=== PATIENT | female | born 1940 ===

== ENCOUNTER 2017-02-20 12:51 | Inpatient (IN) | payer MEDICARE, MEDICAID ==
[2017-02-20 12:51] VITALS: BMI 33.3
[2017-02-20] MEDS ORDERED: Piperacillin/Tazobact 3.375 gm 100 ML IVPB STA (13:23)
[2017-02-20] MEDS ORDERED: Vancomycin 1gm in NS 250ml 1 GM/250 ML BAG IVPB STA (13:23)
--- NOTE | 2017-02-20 13:25 | ED PDOC ---
Arrival/HPI - General Chief Complaint: Shortness Of Breath Time Seen by Provider: 02/20/17 13:04 Historian: Patient - History of Present Illness Narrative History of Present Illness (Text): 02/20/17 13:26 A 76 year old female, whose past medical history includes Alzheimer's, hypertension and diabetes, presents to the emergency department complaining of shortness of breath, bilateral leg swelling and pain. Patient's son reports patient had a fever of 101 a few days ago, currently resolved. Son also believes patient has a UTI. Patient denies any abdominal pain or any other complaints at this time. PMD: Dr. Hendricks Symptom Onset: Sudden Symptom Course: Unchanged Activities at Onset: Rest Context: Home Past Medical History - Provider Review Nursing Documentation Reviewed: Yes - Infectious Disease Hx of Infectious Diseases: None - Tetanus Immunization Tetanus Immunization: Unknown - Cardiac Hx Cardiac Disorders: Yes Hx Congestive Heart Failure: Yes Hx Hypertension: Yes - Pulmonary Hx Respiratory Disorders: Yes Hx Chronic Obstructive Pulmonary Disease (COPD): Yes - Neurological Hx Neurological Disorder: Yes Hx Alzheimer's Disease: Yes Hx Dementia: Yes - HEENT Hx HEENT Disorder: No - Renal Hx Renal Disorder: No - Endocrine/Metabolic Hx Endocrine Disorders: Yes Hx Diabetes Mellitus Type 1: Yes Hx Diabetes Mellitus Type 2: Yes - Hematological/Oncological Hx Blood Disorders: No - Integumentary Hx Dermatological Disorder: No - Musculoskeletal/Rheumatological Hx Musculoskeletal Disorders: Yes Hx Falls: Yes Hx Unsteady Gait: Yes - Gastrointestinal Hx Gastrointestinal Disorders: No - Genitourinary/Gynecological Hx Genitourinary Disorders: Yes Hx Incontinence: Yes Other/Comment: 2WF PLACED IN ER 04/11/16 - Psychiatric Hx Psychophysiologic Disorder: Yes Hx Depression: Yes Hx Emotional Abuse: No Hx Physical Abuse: No Hx Substance Use: No - Surgical History Hx Joint Replacement: Yes (BILATERAL KNEE) Hx Orthopedic Surgery: Yes Other/Comment: manfred filter - Anesthesia Hx Anesthesia: Yes Hx Anesthesia Reactions: No Hx Malignant Hyperthermia: No - Suicidal Assessment Feels Threatened In Home Enviroment: No Family/Social History - Physician Review Nursing Documentation Reviewed: Yes Family/Social History: No Known Family HX Smoking Status: Never Smoked Hx Alcohol Use: No Hx Substance Use: No Hx Substance Use Treatment: No Allergies/Home Meds Allergies/Adverse Reactions: Allergies cortisone Allergy (Verified 02/20/17 13:10) RASH Home Medications: Home Meds Medication Instructions Recorded Confirmed Atorvastatin Calcium 10 mg PO DAILY 11/12/13 02/20/17 Rivastigmine 9.5 mg/24 hr [Exelon 9.5 mg TD DAILY 11/12/13 02/20/17 9.5 mg/24 hr Patch] Sitagliptin Phosphate [Januvia] 50 mg PO DAILY 11/12/13 02/20/17 Aspirin [Adult Low Dose Aspirin EC] 81 mg PO DAILY 04/11/16 02/20/17 Calcium Carbonate/Vitamin D3 1 tab PO BID 04/11/16 02/20/17 [Oysco 500 + D 500 mg-200 Iu] Carvedilol [Coreg] 25 mg PO BID 04/11/16 02/20/17 Docusate Sodium [Ernandez' Stool 100 mg PO TID 04/11/16 02/20/17 Softener Laxative] Famotidine [Pepcid] 20 mg PO DAILY 04/11/16 02/20/17 Ferrous Sulfate [Feosol] 325 mg PO DAILY 04/11/16 02/20/17 Furosemide [Lasix] 40 mg PO BID 04/11/16 02/20/17 GlipiZIDE [Glipizide] 10 mg PO DAILY 04/11/16 02/20/17 Memantine HCl [Namenda Xr] 28 mg PO DAILY 04/11/16 02/20/17 Multivit with Iron-Minerals 1 tab PO DAILY 04/11/16 02/20/17 [Multilex] Sertraline [Zoloft] 50 mg PO HS 04/11/16 02/20/17 amLODIPine [Norvasc] 5 mg PO DAILY 04/11/16 02/20/17 hydrALAZINE [hydralazine 25 mg PO QID 04/11/16 02/20/17 Hydrochloride] Review of Systems - Physician Review All systems were reviewed & negative as marked: Yes - Review of Systems Constitutional: Fevers (currently resolved) Respiratory: SOB Gastrointestinal: absent: Abdominal Pain Musculoskeletal: Other (bilateral leg swelling and pain) Physical Exam Vital Signs Reviewed: Yes Vital Signs Temp Pulse Resp BP Pulse Ox 02/20/17 17:46 73 17 150/77 97 02/20/17 15:30 60 16 154/66 H 99 02/20/17 13:08 97.9 F 69 18 145/64 96 Temperature: Afebrile Blood Pressure: Normal Pulse: Regular Respiratory Rate: Normal Appearance: Positive for: Well-Appearing, Non-Toxic, Comfortable Pain Distress: None Mental Status: Positive for: Alert and Oriented X 3 - Systems Exam Head: Present: Atraumatic, Normocephalic Pupils: Present: PERRL Extroacular Muscles: Present: EOMI Conjunctiva: Present: Normal Mouth: Present: Moist Mucous Membranes Neck: Present: Normal Range of Motion Respiratory/Chest: Present: Rales (bilateral crackles at base). No: Respiratory Distress, Accessory Muscle Use Cardiovascular: Present: Regular Rate and Rhythm, Normal S1, S2. No: Murmurs Abdomen: Present: Normal Bowel Sounds. No: Tenderness, Distention, Peritoneal Signs Back: Present: Normal Inspection Upper Extremity: Present: Normal Inspection. No: Cyanosis, Edema Lower Extremity: Present: Swelling (bilateral leg) Neurological: Present: GCS=15, CN II-XII Intact, Speech Normal Skin: Present: Warm, Dry, Normal Color. No: Rashes Psychiatric: Present: Alert, Oriented x 3, Normal Insight, Normal Concentration Medical Decision Making ED Course and Treatment: 02/20/17 13:23 Impression: A 76 year old female with shortness of breath, bilateral leg swelling and pain. Plan: -- EKG -- chest xray -- US bilateral lower extremity -- CT angio chest -- labs -- Urinalysis -- Vancomycin, Zosyn, Solumedrol -- Reassess and disposition Prior Visits: Notes and results from previous visits were reviewed. Patient last reported to the emergency department on 04/11/16 for evaluation of increased lethargy. Progress Notes: EKG: Ordered, reviewed, and independently interpreted the EKG. Rate : 66 BPM Rhythm : NSR Interpretation : No ST/T wave changes 02/20/17 17:14 CT Chest with contrast (Pulmonary Angiogram) Creator : Osmany Torres MD FINDINGS: PULMONARY ARTERIES: Study is suboptimal due to equal enhancement of the aorta and pulmonary arteries. The. No definitive filling defects seen within visualized portions of the pulmonary trunk, right and left main, lobar, segmental or proximal subsegmental branches of the pulmonary arteries. AORTA: The at ascending thoracic aorta measures approximately 3.5 cm and descending thoracic aorta measures approximately 3.5 cm. ; the possibility of underlying mild pulmonary arterial hypertension and to be at excluded. LUNGS: Mild atelectasis and or scarring changes both lung bases. PLEURAL SPACES: Unremarkable. No effusion or pneumothorax. HEART: Heart is enlarged. No significant pericardial effusion. LYMPH NODES: No significant mediastinal or hilar adenopathy BONES, CHEST WALL: Central airways are midline and patent. No endobronchial lesions. Unremarkable. No fracture or destructive lesion seen. Multilevel degenerative spondylosis of the thoracic spine. OTHER FINDINGS: There is a small hiatal hernia with wall thickening of the distal esophagus that could be due to protrusion gastric mucosa. Esophagitis or other intrinsic/invasive wall lesion such as esophageal carcinoma not excluded. Clinical correlation recommended. Endoscopy may be prudent. 3.1 cm elliptical shaped hypodense right adrenal mass that felt to represent adenoma. Sang IMPRESSION: Limited study demonstrating no evidence of pulmonary embolus. . Prominent pulmonary artery; rule pulmonary arterial hypertension. Cardiomegaly. Small hiatal hernia with wall thickening of the distal esophagus that could be due to protrusion of gastric mucosa. Esophagitis or other intrinsic/invasive wall lesion including esophageal carcinoma not excluded. Endoscopy followup may be prudent. Low-attenuation right adrenal mass felt to represent adrenal adenoma 02/20/17 18:04 chest xray: Creator : Osmany Torres MD FINDINGS: LUNGS: Central pulmonary vasculature appears slightly increased. Rule out mild chronic compensated pulmonary edema/CHF. PLEURA: No significant pleural effusion identified, no pneumothorax apparent. CARDIOVASCULAR: Heart size is enlarged. . OSSEOUS STRUCTURES: No significant abnormalities. VISUALIZED UPPER ABDOMEN: Normal. IMPRESSION: Central pulmonary vasculature appears slightly increased ; rule out mild chronic compensated pulmonary edema/ CHF. - Lab Interpretations Lab Results: 02/20/17 13:25 02/20/17 13:25 Lab Results 02/20/17 15:10: pCO2 53 H, pO2 93.0, HCO3 33.6 H, ABG pH 7.41, ABG Total CO2 35.2 H, ABG O2 Saturation 98.6 H, ABG Base Excess 7.6 H, ABG Potassium 3.2 L, Sodium 143.0, Chloride 103.0, Glucose 283 H, Lactate 1.4, FiO2 28.0, Arterial Blood Potassium 3.2 L 02/20/17 13:25: Sodium 141, Chloride 95 L, Potassium 3.7, Carbon Dioxide 37 H, Anion Gap 13, BUN 27 H, Creatinine 1.0, Est GFR ( Amer) > 60, Est GFR ( Non-Af Amer) 54, Random Glucose 295 H, Calcium 9.4, Magnesium 1.8, Total Bilirubin 0.6, AST 26, ALT 19, Alkaline Phosphatase 115, Lactate Dehydrogenase 442, Total Creatine Kinase 52, Troponin I < 0.01, NT-Pro-B Natriuret Pep 398, Total Protein 7.9, Albumin 3.8, Globulin 4.1, Albumin/Globulin Ratio 0.9 L 02/20/17 13:25: PT 11.3, INR 1.05, APTT 36.9 H, D-Dimer, Quantitative 3.67 H 02/20/17 13:25: WBC 7.6, RBC 3.98, Hgb 11.0 L, Hct 34.4 L, MCV 86.4, MCH 27.6, MCHC 32.0, RDW 13.7, Plt Count 172, MPV 10.5, Gran % 66.0, Lymph % (Auto) 21.7 L , Ellis % (Auto) 9.9 H, Eos % (Auto) 2.1, Baso % (Auto) 0.3, Gran # 4.98, Lymph # 1.6, Ellis # 0.8 H, Eos # 0.2, Baso # 0.02 02/20/17 13:25: pO2 42, VBG pH 7.36, VBG pCO2 74.0 H*, VBG HCO3 41.8 H, VBG Total CO2 44.1 H, VBG O2 Sat (Calc) 80.2 H, VBG Base Excess 13.5 H, VBG Potassium 3.4 L, Sodium 141.0, Chloride 99.0, Glucose 277 H, Lactate 1.8, FiO2 21.0, Venous Blood Potassium 3.4 L I have reviewed the lab results: Yes - RAD Interpretation Radiology Orders: 02/20/17 13:15 CHEST PORTABLE [RAD] Stat 02/20/17 13:23 DUPLEX LOWER EXTRM VEIN BILAT [US] Stat 02/20/17 15:10 ANGIO CHEST PE PROTOCOL [CT] Stat - EKG Interpretation Interpreted by ED Physician: Yes Type: 12 lead EKG - Medication Orders Current Medication Orders: Albuterol/Ipratropium (Duoneb 3 Mg/0.5 Mg (3 Ml) Ud) 3 ml IH [id number] [facility] Last Admin: 02/20/17 19:15 Dose: 3 ml Amlodipine Besylate (Norvasc) 5 mg PO DAILY [facility] Aspirin (Ecotrin) 81 mg PO DAILY [facility] Atorvastatin Calcium (Lipitor) 10 mg PO DAILY [facility] Benzonatate (Tessalon Perles) 100 mg PO Q8 [facility] Calcium/Vitamin D (Oscal-D 250 Mg-125 Units Tab) 1 tab PO BID [facility] Last Admin: 02/20/17 18:48 Dose: 1 tab Carvedilol (Coreg) 25 mg PO BID [facility] Last Admin: 02/20/17 18:48 Dose: 25 mg Docusate Sodium (Colace) 100 mg PO TID [facility] Last Admin: 02/20/17 18:48 Dose: 100 mg Furosemide (Lasix) 40 mg PO BID [facility] Last Admin: 02/20/17 18:49 Dose: 40 mg Heparin Sodium (Porcine) (Heparin) 5,000 units SC Q12 [facility] PRN Reason: Protocol Hydralazine HCl (Apresoline) 25 mg PO QID [facility] Last Admin: 02/20/17 18:49 Dose: 25 mg Piperacillin Sod/Tazobactam Sod (Zosyn 3.375 In Ns 100ml) 100 mls @ 200 mls/hr IVPB Q6 [facility] PRN Reason: Protocol Stop: 02/25/17 00:01 Insulin Human Regular (Humulin R Med) 0 units SC ACHS [facility] PRN Reason: Protocol Methylprednisolone (Solu-Medrol) 40 mg IVP Q12 [facility] Multivitamins/Minerals (Therapeutic-M Tab) 1 tab PO DAILY [facility] Non-Formulary Medication (Memantine Hcl [Namenda Xr]) 28 mg PO DAILY [facility] Pantoprazole Sodium (Protonix Ec Tab) 40 mg PO 0600 [facility] Potassium Chloride (K-Dur 20 Meq Er Tab) 20 meq PO DAILY [facility] Rivastigmine (Exelon 9.5 Mg/24 Hr Patch) 1 patch TD DAILY [facility] Sertraline HCl (Zoloft) 50 mg PO HS [facility] Discontinued Medications Albuterol/Ipratropium (Duoneb 3 Mg/0.5 Mg (3 Ml) Ud) 3 ml IH STAT STA Stop: 02/20/17 17:17 Vancomycin HCl (Vancomycin 1gm) 1 gm in 250 mls @ 167 mls/hr IVPB STAT STA PRN Reason: Protocol Stop: 08/27/17 14:52 Last Admin: 02/20/17 15:40 Dose: 167 mls/hr Piperacillin Sod/Tazobactam Sod (Zosyn 3.375 In Ns 100ml) 100 mls @ 200 mls/hr IVPB STAT STA PRN Reason: Protocol Stop: 02/20/17 13:52 Last Admin: 02/20/17 14:16 Dose: 200 mls/hr Iohexol (Omnipaque 350 100 Ml) Confirm Administered Dose 350 mg .ROUTE .STK-MED ONE Stop: 02/20/17 15:57 Methylprednisolone (Solu-Medrol) 125 mg IVP STAT STA Stop: 02/20/17 13:45 Last Admin: 02/20/17 14:16 Dose: 125 mg - Scribe Statement The provider has reviewed the documentation as recorded by the Maddison Gonzalez Provider Scribe Attestation: All medical record entries made by the Scribe were at my direction and personally dictated by me. I have reviewed the chart and agree that the record accurately reflects my personal performance of the history, physical exam, medical decision making, and the department course for this patient. I have also personally directed, reviewed, and agree with the discharge instructions and disposition. Disposition/Present on Arrival - Present on Arrival Any Indicators Present on Arrival: No History of DVT/PE: Yes History of Uncontrolled Diabetes: No Urinary Catheter: No History of Decub. Ulcer: No History Surgical Site Infection Following: None - Disposition Have Diagnosis and Disposition been Completed?: Yes Diagnosis: COPD (chronic obstructive pulmonary disease), Cellulitis, Leg edema, UTI ( urinary tract infection), Hypercarbia Disposition: HOSPITALIZED Disposition Time: 05:00 Condition: FAIR
[2017-02-20 13:39] LABS: BASO # 0.02 K/mm3 (0.0-2.0); BASO % 0.3 % (0.0-3.0); EOS # 0.2 (0.0-0.7); EOS % 2.1 % (1.5-5.0); GRAN # 4.98 (1.4-6.5); HEMATOCRIT 34.4 % (36.0-48.0); LYMPH # 1.6 (1.2-3.4); LYMPH % 21.7 % (22.0-35.0); MEAN CELL VOLUME 86.4 fl (80.0-105.0); MEAN CORPUSCULAR HEMOGLOBIN 27.6 pg (25.0-35.0); MEAN PLATELET VOLUME 10.5 fl (7.0-11.0); MONO # 0.8 (0.1-0.6); MONO % 9.9 % (1.0-6.0); RED CELL DISTRIBUTION WIDTH 13.7 % (11.5-14.5); WHITE BLOOD COUNT 7.6 10^3/ul (4.5-11.0)
[2017-02-20 13:41] LABS: VENOUS BLOOD GAS BASE EXCESS 13.5 mmol/L (0.0-2.0); VENOUS BLOOD PH 7.36 (7.32-7.43)
[2017-02-20 13:52] LABS: INR 1.05 (0.93-1.08); PARTIAL THROMBOPLASTIN TIME 36.9 Seconds (23.7-30.8)
[2017-02-20 13:56] LABS: D DIMER 3.67 mg/L FEU (0-0.50)
[2017-02-20 15:06] LABS: ALB/GLOB RATIO 0.9 (1.1-1.8); ALKALINE PHOSPHATASE 115 U/L (38-133); ALT/SGPT 19 U/L (7-56); AST/SGOT 26 U/L (15-39); BILIRUBIN,TOTAL 0.6 mg/dL (0.2-1.3); BLOOD UREA NITROGEN 27 mg/dL (7-21); CALCIUM 9.4 mg/dL (8.4-10.5); CARBON DIOXIDE 37 mmol/L (21-33); CHLORIDE 95 mmol/L (98-107); GFR AFRICAN-AMERICAN > 60; GLUCOSE,RANDOM 295 mg/dL (70-110); MAGNESIUM 1.8 mg/dL (1.7-2.2); POTASSIUM 3.7 mmol/L (3.6-5.0); SODIUM 141 mmol/L (132-148); TOTAL PROTEIN 7.9 g/dL (5.8-8.3)
[2017-02-20 15:22] LABS: ARTERIAL BLOOD GAS HCO3 33.6 mmol/L (21-28); ARTERIAL BLOOD GAS PH 7.41 (7.35-7.45)
[2017-02-20 15:23] LABS: TROPONIN I < 0.01 ng/mL
[2017-02-20] MEDS ORDERED: Iohexol 350 MG/100 ML VIAL ONE (15:56)
--- NOTE | 2017-02-20 17:13 | CT ---
PROCEDURE: CT Chest with contrast (Pulmonary Angiogram) HISTORY: Shortness of breath. Elevated dimer COMPARISON: None available. TECHNIQUE: Axial computed tomography images were obtained of the chest in the pulmonary arterial phase of enhancement. Coronal and sagittal reformatted images were created and reviewed. Intravenous contrast dose: 100 cc Omnipaque 350 Radiation dose: Total exam DLP = 764.47 mGy-cm. This CT exam was performed using one or more of the following dose reduction techniques: Automated exposure control, adjustment of the mA and/or kV according to patient size, and/or use of iterative reconstruction technique. FINDINGS: PULMONARY ARTERIES: Study is suboptimal due to equal enhancement of the aorta and pulmonary arteries. The. No definitive filling defects seen within visualized portions of the pulmonary trunk, right and left main, lobar, segmental or proximal subsegmental branches of the pulmonary arteries. AORTA: The at ascending thoracic aorta measures approximately 3.5 cm and descending thoracic aorta measures approximately 3.5 cm. ; the possibility of underlying mild pulmonary arterial hypertension and to be at excluded. LUNGS: Mild atelectasis and or scarring changes both lung bases. PLEURAL SPACES: Unremarkable. No effusion or pneumothorax. HEART: Heart is enlarged. No significant pericardial effusion. LYMPH NODES: No significant mediastinal or hilar adenopathy BONES, CHEST WALL: Central airways are midline and patent. No endobronchial lesions. Unremarkable. No fracture or destructive lesion seen. Multilevel degenerative spondylosis of the thoracic spine. OTHER FINDINGS: There is a small hiatal hernia with wall thickening of the distal esophagus that could be due to protrusion gastric mucosa. Esophagitis or other intrinsic/invasive wall lesion such as esophageal carcinoma not excluded. Clinical correlation recommended. Endoscopy may be prudent. 3.1 cm elliptical shaped hypodense right adrenal mass that felt to represent adenoma. Sang IMPRESSION: Limited study demonstrating no evidence of pulmonary embolus. . Prominent pulmonary artery; rule pulmonary arterial hypertension. Cardiomegaly. Small hiatal hernia with wall thickening of the distal esophagus that could be due to protrusion of gastric mucosa. Esophagitis or other intrinsic/invasive wall lesion including esophageal carcinoma not excluded. Endoscopy followup may be prudent. Low-attenuation right adrenal mass felt to represent adrenal adenoma
[2017-02-20] MEDS ORDERED: Albuterol-Ipratrop 3 mg / 0.5 (3 ml) UD IH STA (17:16)
[2017-02-20 17:44] LABS: URINE BILIRUBIN NEGATIVE (NEGATIVE); URINE BLOOD NEGATIVE (NEGATIVE); URINE GLUCOSE (UA) 100 mg/dL (NEGATIVE); URINE KETONE NEGATIVE (NEGATIVE); URINE LEUKOCYTE ESTERASE NEGATIVE Leu/uL (NEGATIVE); URINE PROTEIN NEGATIVE mg/dL (<30 mg/dL); URINE UROBILINOGEN 0.2 E.U./dL (<1 E.U./dL)
[2017-02-20 17:46] LABS: URINE APPEARANCE CLEAR (CLEAR); URINE COLOR LIGHT YELLOW (YELLOW)
[2017-02-20 17:53] LABS: URINE BACTERIA MANY (NEG); URINE EPITHELIAL CELLS 0 - 2 /hpf (0-5); URINE WBC 0 - 2 /hpf (0-6)
--- NOTE | 2017-02-20 18:01 | RAD ---
HISTORY: sob COMPARISON: This study was read in conjunction with the subsequent CTA chest 02/20/2017 FINDINGS: LUNGS: Central pulmonary vasculature appears slightly increased. Rule out mild chronic compensated pulmonary edema/CHF. PLEURA: No significant pleural effusion identified, no pneumothorax apparent. CARDIOVASCULAR: Heart size is enlarged. . OSSEOUS STRUCTURES: No significant abnormalities. VISUALIZED UPPER ABDOMEN: Normal. OTHER FINDINGS: None. IMPRESSION: Central pulmonary vasculature appears slightly increased ; rule out mild chronic compensated pulmonary edema/ CHF.
[2017-02-20] MEDS: Calcium-Vit D 250 mg-125 Units Tab UD PO SCH (18:48)
[2017-02-20] MEDS: Albuterol-Ipratrop 3 mg / 0.5 (3 ml) UD IH SCH ×2 (19:15→23:22)
--- NOTE | 2017-02-20 19:47 | CP.PCM.HP ---
<JoaquinDomingo barron - Last Filed: 02/20/17 19:29> History of Present Illness - History of Present Illness History of Present Illness: 76 F with a PMHx specifically significant for COPD, Ashma, DM, and Morbid Obesity, presents with a 4 day history of SOB. She also complains of b/l LE swelling and RLE pain. Patient's son at bedside providing history and translation. Patient states that she started having sob 4 days ago, took her albuterol inhaler to no avail. In addition, a few days ago her son states that she had a fever of 101 at home, for which she took Robitussin and Tylenol, and it improved. Patient further complains of a productive cough with yellow sputum. Her b/l LE swelling has occurred several times before, which have resulted [place] [facility] [place] states that there is discoloration of her legs bilaterally as well. Pt denies current CP/F/Ch/N/V/D/Const. PMD: Reisner PMHx: Alzheimer's, HTN, DM, Recurrent b/l LE Cellulitis, DVTs PSHx: Pt denies All: Cortisone Soc Hx: Pt is a past smoker; denies EtOH, illicits Fam Hx: HTN, HLD, DM ROS: Constitutional: pt denies fever, chills, generalized weakness ENT: pt denies dysphagia, otalgia, hearing deficit, rhinorrhea Eyes: pt denies sudden loss of vision, diplopia, blurred vision MSK: pt denies muscle stiffness, joint pain, extremity cramping Cardio: pt denies sob, heart murmur, cp Pulm: +See HPI GI: pt denies loss of appetite, abdominal pain, constipation, melena, n/v/d : pt denies burning on urination, urinary frequency, hematuria, urinary urgency Neuro: pt denies paresis, paresthesia, dizziness, colmenares, numbness, tingling Derm: +See HPI Endo: pt denies intolerance to heat/cold, diaphoresis, night sweats, polydipsia Psych: pt denies anxiety, depression, mood changes Present on Admission - Present on Admission Any Indicators Present on Admission: No Past Patient History - Infectious Disease Hx of Infectious Diseases: None - Tetanus Immunizations Tetanus Immunization: Unknown - Past Social History Smoking Status: Never Smoked - CARDIAC Hx Cardiac Disorders: Yes Hx Congestive Heart Failure: Yes Hx Hypertension: Yes - PULMONARY Hx Respiratory Disorders: Yes Hx Chronic Obstructive Pulmonary Disease (COPD): Yes - NEUROLOGICAL Hx Neurological Disorder: Yes Hx Alzheimer's Disease: Yes Hx Dementia: Yes - HEENT Hx HEENT Problems: No - RENAL Hx Chronic Kidney Disease: No - ENDOCRINE/METABOLIC Hx Endocrine Disorders: Yes Hx Diabetes Mellitus Type 1: Yes Hx Diabetes Mellitus Type 2: Yes - HEMATOLOGICAL/ONCOLOGICAL Hx Blood Disorders: No - INTEGUMENTARY Hx Dermatological Problems: No - MUSCULOSKELETAL/RHEUMATOLOGICAL Hx Musculoskeletal Disorders: Yes Hx Falls: Yes Hx Unsteady Gait: Yes - GASTROINTESTINAL Hx Gastrointestinal Disorders: No - GENITOURINARY/GYNECOLOGICAL Hx Genitourinary Disorders: Yes Hx Incontinence: Yes Other/Comment: 2WF PLACED IN ER 04/11/16 - PSYCHIATRIC Hx Psychophysiologic Disorder: Yes Hx Depression: Yes Hx Emotional Abuse: No Hx Physical Abuse: No Hx Substance Use: No - SURGICAL HISTORY Hx Joint Replacement: Yes (BILATERAL KNEE) Hx Orthopedic Surgery: Yes Other/Comment: [place] filter - ANESTHESIA Hx Anesthesia: Yes Hx Anesthesia Reactions: No Hx Malignant Hyperthermia: No Meds Home Medications: Home Medication List Medication Instructions Recorded Confirmed Type Albuterol/Ipratropium [Duoneb 3 3 ml IH [id number] 02/23/17 Rx mg/0.5 mg (3 ml) UD] Armodafinil 150 mg Tab [Nuvigil 150 mg PO DAILY #30 tab 02/23/17 Rx 150 mg Tab] Cephalexin [cephalexin] 500 mg PO Q12 #12 cap 02/23/17 Rx Clotrimazole 1% Cream [Lotrimin 1%] 1 appl TOP BID 30 Days 02/23/17 Rx Hydrocerin [Hydrocerin Cream] 1 appl TOP DAILY 30 Days 02/23/17 Rx Methylprednisolone [Medrol Dose See Taper PO DAILY #21 mg 02/23/17 Rx Pack (21 tabs)] Montelukast [Singulair] 10 mg PO HS #30 tab 02/23/17 Rx Allergies/Adverse Reactions: Allergies Allergy/AdvReac Type Severity Reaction Status Date / Time cortisone Allergy RASH Verified 02/20/17 13:10 Physical Exam - Additional Findings Additional findings: Phys Exam: VS as below Constitutional: a&o x 4, nad Head and Neck: neck supple, no jvd, trachea midline, carotid midline, no cervical/head mass Eyes: allyn, nonicteric sclera, eom intact ENT: auditory acuity grossly intact, throat not congested, no nasal deformity Cardio: rrr, no m/r/g, no carotid bruit, nml s1, s2 Pulm: +Decreased breath sounds b/l; Diffuse wheezes bilaterally; Abd: s/nt/nd, nbs x 4 q, no palpable masses Derm: +See Extremities exam Extr: +B/l LE 3+ pitting edema; +RLE TTP; +Dark discoloration within skin folds in b/l LE; Neuro: cn II-XII grossly intact, ue and le 5/5 muscle strength bilaterally, no los ue, le bilaterally and core Results - Vital Signs Recent Vital Signs: Last Vital Signs Temp 97.9 F 02/20/17 13:08 Pulse 80 02/20/17 19:16 Resp 17 02/20/17 17:46 BP 153/77 H 02/20/17 18:49 Pulse Ox 97 02/20/17 17:46 - Labs Result Diagrams: 02/20/17 13:25 02/20/17 13:25 Labs: Laboratory Results - last 24 hr 02/20/17 02/20/17 17:30 18:50 APTT 38.4 H Urine Color Light yellow Urine Appearance Clear Urine pH 7.0 Ur Specific [place] 1.015 Urine Protein Negative Urine Glucose (UA) 100 H Urine Ketones Negative Urine Blood Negative Urine Nitrate Positive H Urine Bilirubin Negative Urine Urobilinogen 0.2 Ur Leukocyte Esterase Negative Urine RBC 1 - 3 Urine WBC 0 - 2 Ur Epithelial Cells 0 - 2 Urine Bacteria Many Assessment & Plan - Assessment and Plan (Free Text) Assessment: 76 F with a PMHx specifically significant for COPD, Ashma, DM, and Morbid Obesity, presents with a 4 day history of SOB. Pt also has b/l LE pitting edema and discoloration indicative of cellulitis. Plan: 1.) Asthma Exacerbation VS COPD Exacerbation VS CHF Exacerbation - Duonebs q2H PRN and q6 GELACIO - Solumedrol - Tessalon Perles - ABx: per ID, Vanc and Zosyn - ID C/s: Follow recs - 2.) B/l LE Swelling 2/2 Cellulitis VS DVT - D-dimer elevated, but CT negative - Consider CTA - C/w Lasix - C/w KDur - ID C/s - ABx per ID: Vanc, Zosyn 3.) Hx/O HLD - C/w ASA - C/w Lipitor 4.) Hx/O HTN - C/w Norvasc - C/w Coreg - C/w Lasix - C/w Hydralazine 5.) Hx/O DM - RISS Medium 6.) Hx/O Alzheimer's - Rivastigmine 7.) Hx/O Depression - Zoloft 8.) PPHXS - Protonix - Heparin PPHXS dose Dispo: Patient has had several admissions for the same thing. Need to resolve infection and sob. D/W Dr. Ramsey TKS, DO, PGY - 1 <Patel Ramsey - Last Filed: 03/10/17 18:33> Results - Vital Signs Recent Vital Signs: Last Vital Signs Temp 98 F 02/22/17 11:51 Pulse 60 02/22/17 11:51 Resp 18 02/22/17 11:51 BP 170/80 H 02/22/17 13:06 Pulse Ox 92 L 02/22/17 06:00 - Labs Result Diagrams: 02/23/17 05:20 02/23/17 05:20 Labs: Laboratory Results - last 24 hr 02/22/17 02/22/17 05:10 05:10 WBC 7.3 D RBC 3.87 Hgb 10.4 L Hct 33.5 L MCV 86.6 MCH 26.9 MCHC 31.0 RDW 13.7 Plt Count 173 MPV 10.1 Gran % 84.1 H Lymph % (Auto) 11.4 L Weld % (Auto) 4.4 Eos % (Auto) 0.0 L Baso % (Auto) 0.1 Gran # 6.13 Lymph # 0.8 L Weld # 0.3 Eos # 0.0 Baso # 0.01 Sodium 141 Potassium 3.6 Chloride 97 Carbon Dioxide 36 H Anion Gap 12 BUN 36 H Creatinine 1.1 Est GFR ( Amer) 58 Est GFR (Non-Af Amer) 48 Random Glucose 330 H* Calcium 9.0 Phosphorus 3.6 Magnesium 2.0 Total Bilirubin 0.6 AST 39 ALT 12 Alkaline Phosphatase 92 Total Protein 7.7 Albumin 3.5 Globulin 4.2 Albumin/Globulin Ratio 0.8 L Attending/Attestation - Attestation I have personally seen and examined this patient.: Yes I have fully participated in the care of the patient.: Yes I have reviewed all pertinent clinical information: Yes Notes (Text): I have seen and examined the patiet at bedside. Agree with the above note with the following additions/ exceptions: Briefly this is 76 year old female with history of COPD, Ashma, DM, depression, tobacco use, dyslipidemia, severe cognitive impairment and Morbid Obesity who presented for evaluation of shortness of breath, bilateral LE pain and swelling. D dimer was found to be elevated and CT scan was done which ruled out PE. Patient was found to have COPD exacerbation. Solumedrol, nebs and IV antibiotics was started. Will consult podiatry and ID. Upon discharge patient will follow up with Dr Dru Hendricks. Dr Patel Ramsey
--- NOTE | 2017-02-20 20:40 | CP.PCM.CON ---
History of Present Illness - History of Present Illness History of Present Illness: Infectious Disease Consultation: February 20, 2017 76 yo female with bilateral lower extremity swelling and right lower extremity pain with episodes of SOB and fevers of 101.0 F. She also has a productive cough. Signs of chronic venous stasis on the lower extremities. Shortness of breath started 4 days ago. The patient had some improvement at home with robitussin and tylenol as per the patient. PMHx: Alzheimer's, Hypertension, Diabetes Mellitus, DVTs, Chronic Venous Stasis. PSHx: none given Allergies: Cortisone Social Hx: former smoker, No EtOH, No illicit drugs Active Medications Albuterol/Ipratropium (Duoneb 3 Mg/0.5 Mg (3 Ml) Ud) [id number] [facility] Last Admin: 02/20/17 19:15 Dose: 3 ml Amlodipine Besylate (Norvasc) [address] [facility] Aspirin (Ecotrin) [address] [facility] Atorvastatin Calcium (Lipitor) [address] [facility] Benzonatate (Tessalon Perles) [address] [facility] Calcium/Vitamin D (Oscal-D 250 Mg-125 Units Tab) [address] [facility] Last Admin: 02/20/17 18:48 Dose: 1 tab Carvedilol (Coreg) [address] [facility] Last Admin: 02/20/17 18:48 Dose: 25 mg Docusate Sodium (Colace) [address] [facility] Last Admin: 02/20/17 18:48 Dose: 100 mg Furosemide (Lasix) [address] [facility] Last Admin: 02/20/17 18:49 Dose: 40 mg Heparin Sodium (Porcine) (Heparin) 5,[address] [facility] PRN Reason: Protocol Hydralazine HCl (Apresoline) [address] [facility] Last Admin: 02/20/17 18:49 Dose: 25 mg Insulin Human Regular (Humulin R Med) [address] [facility] PRN Reason: Protocol Methylprednisolone (Solu-Medrol) [address] [facility] Multivitamins/Minerals (Therapeutic-M Tab) [address] [facility] Non-Formulary Medication (Memantine Hcl [Namenda Xr]) [address] [facility] Pantoprazole Sodium (Protonix Ec Tab) [address] [facility] Potassium Chloride (K-Dur 20 Meq Er Tab) [address] [facility] Rivastigmine (Exelon 9.5 Mg/24 Hr Patch) [address] [facility] Sertraline HCl (Zoloft) 50 mg PO HS GELACIO Family Hx: family members with Hypertension, hyperlipidemia, and diabetes mellitus ROS: Cough, SOB, fevers, leg pains. No chest pain, abdominal pain, melena, hematuria , hematemesis, hematochezia, depression, anxiety, diarrhea, vision loss, hearing loss, loss of consciousness. Past Patient History - Infectious Disease Hx of Infectious Diseases: None - Tetanus Immunizations Tetanus Immunization: Unknown - Past Social History Smoking Status: Never Smoked - CARDIAC Hx Cardiac Disorders: Yes Hx Congestive Heart Failure: Yes Hx Hypertension: Yes - PULMONARY Hx Respiratory Disorders: Yes Hx Chronic Obstructive Pulmonary Disease (COPD): Yes - NEUROLOGICAL Hx Neurological Disorder: Yes Hx Alzheimer's Disease: Yes Hx Dementia: Yes - HEENT Hx HEENT Problems: No - RENAL Hx Chronic Kidney Disease: No - ENDOCRINE/METABOLIC Hx Endocrine Disorders: Yes Hx Diabetes Mellitus Type 1: Yes Hx Diabetes Mellitus Type 2: Yes - HEMATOLOGICAL/ONCOLOGICAL Hx Blood Disorders: No - INTEGUMENTARY Hx Dermatological Problems: No - MUSCULOSKELETAL/RHEUMATOLOGICAL Hx Musculoskeletal Disorders: Yes Hx Falls: Yes Hx Unsteady Gait: Yes - GASTROINTESTINAL Hx Gastrointestinal Disorders: No - GENITOURINARY/GYNECOLOGICAL Hx Genitourinary Disorders: Yes Hx Incontinence: Yes Other/Comment: 2WF PLACED IN ER 04/11/16 - PSYCHIATRIC Hx Psychophysiologic Disorder: Yes Hx Depression: Yes Hx Emotional Abuse: No Hx Physical Abuse: No Hx Substance Use: No - SURGICAL HISTORY Hx Joint Replacement: Yes (BILATERAL KNEE) Hx Orthopedic Surgery: Yes Other/Comment: [place] filter - ANESTHESIA Hx Anesthesia: Yes Hx Anesthesia Reactions: No Hx Malignant Hyperthermia: No Meds Allergies/Adverse Reactions: Allergies Allergy/AdvReac Type Severity Reaction Status Date / Time cortisone Allergy RASH Verified 02/20/17 13:10 - Medications Medications: Current Medications Albuterol/Ipratropium (Duoneb 3 Mg/0.5 Mg (3 Ml) Ud) [id number] [facility] Last Admin: 02/20/17 19:15 Dose: 3 ml Amlodipine Besylate (Norvasc) [address] [facility] Aspirin (Ecotrin) [address] [facility] Atorvastatin Calcium (Lipitor) [address] [facility] Benzonatate (Tessalon Perles) [address] [facility] Calcium/Vitamin D (Oscal-D 250 Mg-125 Units Tab) [address] [facility] Last Admin: 02/20/17 18:48 Dose: 1 tab Carvedilol (Coreg) [address] [facility] Last Admin: 02/20/17 18:48 Dose: 25 mg Docusate Sodium (Colace) [address] [facility] Last Admin: 02/20/17 18:48 Dose: 100 mg Furosemide (Lasix) [address] [facility] Last Admin: 02/20/17 18:49 Dose: 40 mg Heparin Sodium (Porcine) (Heparin) 5,[address] [facility] PRN Reason: Protocol Hydralazine HCl (Apresoline) [address] [facility] Last Admin: 02/20/17 18:49 Dose: 25 mg Insulin Human Regular (Humulin R Med) [address] [facility] PRN Reason: Protocol Methylprednisolone (Solu-Medrol) [address] [facility] Multivitamins/Minerals (Therapeutic-M Tab) [address] [facility] Non-Formulary Medication (Memantine Hcl [Namenda Xr]) [address] [facility] Pantoprazole Sodium (Protonix Ec Tab) [address] [facility] Potassium Chloride (K-Dur 20 Meq Er Tab) [address] [facility] Rivastigmine (Exelon 9.5 Mg/24 Hr Patch) [address] [facility] Sertraline HCl (Zoloft) [address] [facility] Physical Exam - Constitutional Appears: Non-toxic, No Acute Distress, Chronically Ill - Head Exam Head Exam: ATRAUMATIC, NORMOCEPHALIC - Eye Exam Eye Exam: EOMI, PERRL Pupil Exam: NORMAL ACCOMODATION, PERRL - ENT Exam ENT Exam: Mucous Membranes Moist, Normal External Ear Exam, TM's Normal Bilaterally - Neck Exam Neck exam: Positive for: Full Rom, Normal Inspection - Respiratory Exam Respiratory Exam: Clear to Auscultation Bilateral, NORMAL BREATHING PATTERN. absent: Rales, Rhonchi, Wheezes - Cardiovascular Exam Cardiovascular Exam: REGULAR RHYTHM, RRR, +S1, +S2 - GI/Abdominal Exam GI & Abdominal Exam: Normal Bowel Sounds, Soft. absent: Distended, Tenderness - Extremities Exam Extremities exam: Positive for: full ROM, joint swelling, pedal edema Additional comments: erythema and swelling of the lower extremities. - Neurological Exam Neurological exam: Alert, CN II-XII Intact, Oriented x3 - Psychiatric Exam Psychiatric exam: Normal Affect, Normal Mood - Skin Skin Exam: Erythema Results - Vital Signs Recent Vital Signs: Last Vital Signs Temp 97.9 F 02/20/17 13:08 Pulse 80 02/20/17 19:16 Resp 17 02/20/17 17:46 BP 153/77 H 02/20/17 18:49 Pulse Ox 97 02/20/17 17:46 - Labs Result Diagrams: 02/20/17 13:25 02/20/17 13:25 Labs: Laboratory Results - last 24 hr 02/20/17 02/20/17 02/20/17 17:30 18:50 18:50 APTT 38.4 H TSH 3rd Generation 1.29 Urine Color Light yellow Urine Appearance Clear Urine pH 7.0 Ur Specific [place] 1.015 Urine Protein Negative Urine Glucose (UA) 100 H Urine Ketones Negative Urine Blood Negative Urine Nitrate Positive H Urine Bilirubin Negative Urine Urobilinogen 0.2 Ur Leukocyte Esterase Negative Urine RBC 1 - 3 Urine WBC 0 - 2 Ur Epithelial Cells 0 - 2 Urine Bacteria Many Assessment & Plan - Assessment and Plan (Free Text) Assessment: 76 yo female with multiple medical issues presenting with cough, SOB, bilateral leg swelling, chronic venous stasis, and possible lower extremity cellulitis. The patient was started on Zosyn for antibiotic coverage. Currently afebrile. No leukocytosis. Supportive care. Patient's medical history includes hypertension and diabetes mellitus. Bynum cultures sent. Thank you for allowing me to participate in the care of the patient, we will follow with you.
--- NOTE | 2017-02-20 21:00 | CARD ---
APPROVED REPORT EKG Measurement Heart [id number] ID [id number] <Conclusion> Normal sinus rhythm Left axis deviation Abnormal ECG
[2017-02-20] MEDS ORDERED: Insulin Reg-LOW-Coverage SC SCH (22:00)
[2017-02-20] MEDS: MethylPREDNISolone 40 mg Vial IVP SCH (22:04)
[2017-02-20] MEDS ORDERED: Insulin Regular 1 UNITS/0.01 ML ML SC STA (22:27)
[2017-02-20] MEDS: Insulin Reg-MEDIUM-Coverage SC SCH (22:30)
[2017-02-20] MEDS: Piperacillin/Tazobact 3.375 gm 100 ML IVPB SCH (23:29)
[2017-02-21] MEDS: Pantoprazole 40 mg EC Tab PO SCH (05:12)
[2017-02-21] MEDS: Piperacillin/Tazobact 3.375 gm 100 ML IVPB SCH ×3 (05:12→18:03)
[2017-02-21] MEDS: Albuterol-Ipratrop 3 mg / 0.5 (3 ml) UD IH SCH ×5 (05:14→19:51)
[2017-02-21 05:32] LABS: ARTERIAL BLOOD GAS HCO3 37.7 mmol/L (21-28); ARTERIAL BLOOD GAS O2 CAPACITY 14.9 mL/dl (16-24); ARTERIAL BLOOD GAS O2 CONTENT 14.7 ML/dl (15-23); ARTERIAL BLOOD GAS PH 7.46 (7.35-7.45); ARTERIAL BLOOD HGB O2 SAT 95.4 % (95.0-98.0); CARBOXYHEMOGLOBIN 1.7 % (0.5-1.5); HHB 1.6 % (0-5); METHEMOGLOBIN 1.2 % (0.0-3.0)
[2017-02-21 06:04] LABS: GRAN # 3.24 (1.4-6.5); GRAN % 78.5 % (50.0-68.0); HEMATOCRIT 34.3 % (36.0-48.0); LYMPH # 0.8 (1.2-3.4); LYMPH % 19.1 % (22.0-35.0); MEAN CELL VOLUME 85.8 fl (80.0-105.0); MEAN CORPUSCULAR HEMOGLOBIN 26.8 pg (25.0-35.0); MEAN CORPUSCULAR HGB CONC 31.2 g/dl (31.0-37.0); MEAN PLATELET VOLUME 9.8 fl (7.0-11.0); MONO # 0.1 (0.1-0.6); MONO % 2.4 % (1.0-6.0); RED CELL DISTRIBUTION WIDTH 13.6 % (11.5-14.5); WHITE BLOOD COUNT 4.1 10^3/ul (4.5-11.0)
[2017-02-21 07:00] LABS: ALB/GLOB RATIO 0.8 (1.1-1.8); ALKALINE PHOSPHATASE 112 U/L (38-133); ALT/SGPT 11 U/L (7-56); AST/SGOT 24 U/L (15-39); BILIRUBIN,TOTAL 0.7 mg/dL (0.2-1.3); BLOOD UREA NITROGEN 24 mg/dL (7-21); CARBON DIOXIDE 37 mmol/L (21-33); CHLORIDE 96 mmol/L (95-110); GFR AFRICAN-AMERICAN > 60; MAGNESIUM 1.8 mg/dL (1.7-2.2); POTASSIUM 3.5 mmol/L (3.6-5.0); SODIUM 141 mmol/L (132-148); TOTAL PROTEIN 7.9 g/dL (5.8-8.3)
[2017-02-21 07:11] LABS: GLUCOSE,RANDOM 331 mg/dL (70-110)
[2017-02-21] MEDS: Insulin Reg-MEDIUM-Coverage SC SCH ×4 (08:38→22:47)
[2017-02-21] MEDS: Calcium-Vit D 250 mg-125 Units Tab UD PO SCH ×2 (09:27→18:20)
[2017-02-21] MEDS: Potassium Chloride 20 mEq ER Tab PO SCH (09:28)
[2017-02-21] MEDS: MethylPREDNISolone 40 mg Vial IVP SCH ×2 (09:33→21:24)
[2017-02-21] MEDS: MEMANTINE HCL 28 MG PO SCH (11:45)
[2017-02-21] MEDS: Multivitamin With Minerals Tab PO SCH (11:46)
--- NOTE | 2017-02-21 15:39 | US ---
HISTORY: Leg pain and swelling. Evaluate for DVT PHYSICIAN(S): Ranjan Archer MD. TECHNIQUE: Duplex sonography and color-flow Doppler with graded compression were used to evaluate the deep venous systems of both lower extremities. The exam is extremely limited by body habitus, edema, and the patient's inability to cooperate. The lower femoral veins and tibial veins are not adequately seen. FINDINGS: The visualized deep venous systems of both lower extremities are sonographically normal and compressible. Normal wave forms and augmentation are seen. There is no sonographic evidence for deep venous thrombosis in the visualized segments of both lower extremities. IMPRESSION: No sonographic evidence for deep venous thrombosis in the visualized segments of both lower extremities. Very limited study.
--- NOTE | 2017-02-21 17:06 | CP.PCM.CON ---
History of Present Illness - History of Present Illness History of Present Illness: Pt seen on consultation for bilateral LE redness pain and edema; pt speaks micronesian and states she does not wear any type of compression stockings and her legs have been swollen for a long time; she states she is diabetic and has had no treatment for her leg edema Past Patient History - Infectious Disease Hx of Infectious Diseases: None - Tetanus Immunizations Tetanus Immunization: Unknown - Past Social History Smoking Status: Former Smoker - CARDIAC Hx Cardiac Disorders: Yes Hx Congestive Heart Failure: Yes Hx Hypertension: Yes Hx Peripheral Edema: Yes - PULMONARY Hx Respiratory Disorders: Yes Hx Chronic Obstructive Pulmonary Disease (COPD): Yes - NEUROLOGICAL Hx Neurological Disorder: Yes Hx Alzheimer's Disease: Yes Hx Dementia: Yes - HEENT Hx HEENT Problems: No - RENAL Hx Chronic Kidney Disease: No - ENDOCRINE/METABOLIC Hx Endocrine Disorders: Yes Hx Diabetes Mellitus Type 2: Yes - HEMATOLOGICAL/ONCOLOGICAL Hx Blood Disorders: No - INTEGUMENTARY Hx Dermatological Problems: No - MUSCULOSKELETAL/RHEUMATOLOGICAL Hx Falls: No - GASTROINTESTINAL Hx Gastrointestinal Disorders: No - GENITOURINARY/GYNECOLOGICAL Hx Genitourinary Disorders: Yes Hx Incontinence: Yes - PSYCHIATRIC Hx Substance Use: No - SURGICAL HISTORY Hx Surgeries: Yes Hx Joint Replacement: Yes (BILATERAL KNEE) Hx Orthopedic Surgery: Yes Other/Comment: provo filter - ANESTHESIA Hx Anesthesia: Yes Hx Anesthesia Reactions: No Hx Malignant Hyperthermia: No Meds Allergies/Adverse Reactions: Allergies Allergy/AdvReac Type Severity Reaction Status Date / Time cortisone Allergy RASH Verified 02/20/17 13:10 - Medications Medications: Current Medications Albuterol/Ipratropium (Duoneb 3 Mg/0.5 Mg (3 Ml) Ud) 3 ml IH [id number] [facility] Last Admin: 02/21/17 16:14 Dose: 3 ml Amlodipine Besylate (Norvasc) 5 mg PO DAILY [facility] Last Admin: 02/21/17 09:28 Dose: 5 mg Aspirin (Ecotrin) 81 mg PO DAILY [facility] Last Admin: 02/21/17 09:28 Dose: 81 mg Atorvastatin Calcium (Lipitor) 10 mg PO DAILY [facility] Last Admin: 02/21/17 09:50 Dose: 10 mg Benzonatate (Tessalon Perles) 100 mg PO Q8 [facility] Last Admin: 02/21/17 13:35 Dose: 100 mg Calcium/Vitamin D (Oscal-D 250 Mg-125 Units Tab) 1 tab PO BID [facility] Last Admin: 02/21/17 09:27 Dose: 1 tab Carvedilol (Coreg) 25 mg PO BID [facility] Last Admin: 02/21/17 09:31 Dose: 25 mg Docusate Sodium (Colace) 100 mg PO TID [facility] Last Admin: 02/21/17 13:35 Dose: 100 mg Furosemide (Lasix) 40 mg PO BID [facility] Last Admin: 02/21/17 09:30 Dose: 40 mg Heparin Sodium (Porcine) (Heparin) 5,000 units SC Q12 [facility] PRN Reason: Protocol Last Admin: 02/21/17 09:32 Dose: 5,000 units Hydralazine HCl (Apresoline) 25 mg PO QID [facility] Last Admin: 02/21/17 13:35 Dose: 25 mg Piperacillin Sod/Tazobactam Sod (Zosyn 3.375 In Ns 100ml) 100 mls @ 200 mls/hr IVPB Q6 [facility] PRN Reason: Protocol Stop: 02/25/17 00:01 Last Admin: 02/21/17 13:38 Dose: 200 mls/hr Insulin Human Regular (Humulin R Med) 0 units SC ACHS [facility] PRN Reason: Protocol Last Admin: 02/21/17 13:34 Dose: 7 units Methylprednisolone (Solu-Medrol) 40 mg IVP Q12 [facility] Last Admin: 02/21/17 09:33 Dose: 40 mg Multivitamins/Minerals (Therapeutic-M Tab) 1 tab PO DAILY [facility] Last Admin: 02/21/17 11:46 Dose: 1 tab Non-Formulary Medication (Memantine Hcl [Namenda Xr]) 28 mg PO DAILY [facility] Last Admin: 02/21/17 11:45 Dose: Not Given Pantoprazole Sodium (Protonix Ec Tab) 40 mg PO 0600 [facility] Last Admin: 02/21/17 05:12 Dose: 40 mg Potassium Chloride (K-Dur 20 Meq Er Tab) 20 meq PO DAILY [facility] Last Admin: 02/21/17 09:28 Dose: 20 meq Rivastigmine (Exelon 9.5 Mg/24 Hr Patch) 1 patch TD DAILY [facility] Last Admin: 02/21/17 09:29 Dose: 1 patch Sertraline HCl (Zoloft) 50 mg PO HS [facility] Last Admin: 02/20/17 22:10 Dose: Not Given Physical Exam - Constitutional Appears: No Acute Distress - Expanded Lower Extremities Exam Left Lower Leg Exam: erythema, full ROM, swelling, tenderness. absent: abrasion, crepitus, deformity, dislocation, ecchymosis, laceration, normal inspection, palpable cord Right Lower Leg Exam: erythema, swelling, tenderness (Non-palapable pedal pulses bilateral thin shiny skin noted on feet bilateral CFT 2 sec x 10 - there is bilateral LE +4 edema of the foot and leg; the skin is with secondary scaling verrucaformis lesions; fissures and redness; neurological sensation to the feet bilateral is decreased with a [place] Anjel monofilament; there is scaling to the skin of the feet and the nails are all mycotic with subungual debri and hypertrophy indicative of fungal disease; pt has ROM of the ankles in DF and PF - there is no crepitus noted and no signs of abcess noted in the feet or the legs). absent: abrasion, crepitus, deformity, ecchymosis, Ruth's sign, laceration, normal inspection, palpable cord - Neurological Exam Neurological exam: Abnormal Gait Results - Vital Signs Recent Vital Signs: Last Vital Signs Temp 98.5 F 02/21/17 11:50 Pulse 71 02/21/17 14:00 Resp 22 02/21/17 11:50 BP 115/57 L 02/21/17 13:35 Pulse Ox 98 02/21/17 05:30 - Labs Result Diagrams: 02/21/17 05:15 02/21/17 05:15 Labs: Laboratory Results - last 24 hr 02/20/17 02/20/17 02/20/17 17:30 17:50 18:50 WBC RBC Hgb Hct MCV MCH MCHC RDW Plt Count MPV Gran % Lymph % (Auto) [place] % (Auto) Eos % (Auto) Baso % (Auto) Gran # Lymph # [place] # Eos # Baso # APTT pCO2 pO2 HCO3 ABG pH ABG Total CO2 ABG O2 Saturation ABG O2 Content ABG Base Excess ABG Hemoglobin ABG Carboxyhemoglobin POC ABG HHb (Measured) ABG Methemoglobin ABG O2 Capacity Hgb O2 Saturation FiO2 Sodium Potassium Chloride Carbon Dioxide Anion Gap BUN Creatinine Est GFR ( Amer) Est GFR (Non-Af Amer) POC Glucose (mg/dL) Random Glucose Hemoglobin A1c 9.1 H D Calcium Phosphorus Magnesium Total Bilirubin AST ALT Alkaline Phosphatase Total Protein Albumin Globulin Albumin/Globulin Ratio Procalcitonin < 0.05 L TSH 3rd Generation Urine Color Light yellow Urine Appearance Clear Urine pH 7.0 Ur Specific [place] 1.015 Urine Protein Negative Urine Glucose (UA) 100 H Urine Ketones Negative Urine Blood Negative Urine Nitrate Positive H Urine Bilirubin Negative Urine Urobilinogen 0.2 Ur Leukocyte Esterase Negative Urine RBC 1 - 3 Urine WBC 0 - 2 Ur Epithelial Cells 0 - 2 Urine Bacteria Many 02/20/17 02/20/17 02/21/17 18:50 18:50 05:15 WBC 4.1 L D RBC 4.00 Hgb 10.7 L Hct 34.3 L MCV 85.8 MCH 26.8 MCHC 31.2 RDW 13.6 Plt Count 157 MPV 9.8 Gran % 78.5 H Lymph % (Auto) 19.1 L [place] % (Auto) 2.4 Eos % (Auto) 0.0 L Baso % (Auto) 0.0 Gran # 3.24 Lymph # 0.8 L [place] # 0.1 Eos # 0.0 Baso # 0.00 APTT 38.4 H pCO2 pO2 HCO3 ABG pH ABG Total CO2 ABG O2 Saturation ABG O2 Content ABG Base Excess ABG Hemoglobin ABG Carboxyhemoglobin POC ABG HHb (Measured) ABG Methemoglobin ABG O2 Capacity Hgb O2 Saturation FiO2 Sodium Potassium Chloride Carbon Dioxide Anion Gap BUN Creatinine Est GFR ( Amer) Est GFR (Non-Af Amer) POC Glucose (mg/dL) Random Glucose Hemoglobin A1c Calcium Phosphorus Magnesium Total Bilirubin AST ALT Alkaline Phosphatase Total Protein Albumin Globulin Albumin/Globulin Ratio Procalcitonin TSH 3rd Generation 1.29 Urine Color Urine Appearance Urine pH Ur Specific [place] Urine Protein Urine Glucose (UA) Urine Ketones Urine Blood Urine Nitrate Urine Bilirubin Urine Urobilinogen Ur Leukocyte Esterase Urine RBC Urine WBC Ur Epithelial Cells Urine Bacteria 02/21/17 02/21/17 02/21/17 05:15 05:20 11:27 WBC RBC Hgb Hct MCV MCH MCHC RDW Plt Count MPV Gran % Lymph % (Auto) [place] % (Auto) Eos % (Auto) Baso % (Auto) Gran # Lymph # [place] # Eos # Baso # APTT pCO2 53 H pO2 93.0 HCO3 37.7 H ABG pH 7.46 H ABG Total CO2 39.3 H ABG O2 Saturation 98.4 H ABG O2 Content 14.7 L ABG Base Excess 12.1 H ABG Hemoglobin 10.9 L ABG Carboxyhemoglobin 1.7 H POC ABG HHb (Measured) 1.6 ABG Methemoglobin 1.2 ABG O2 Capacity 14.9 L Hgb O2 Saturation 95.4 FiO2 28.0 Sodium 141 Potassium 3.5 L Chloride 96 Carbon Dioxide 37 H Anion Gap 12 BUN 24 H Creatinine 0.9 Est GFR ( Amer) > 60 Est GFR (Non-Af Amer) > 60 POC Glucose (mg/dL) 324 H Random Glucose 331 H* D Hemoglobin A1c Calcium 9.0 Phosphorus 4.0 Magnesium 1.8 Total Bilirubin 0.7 AST 24 ALT 11 Alkaline Phosphatase 112 Total Protein 7.9 Albumin 3.5 Globulin 4.3 Albumin/Globulin Ratio 0.8 L Procalcitonin TSH 3rd Generation Urine Color Urine Appearance Urine pH Ur Specific [place] Urine Protein Urine Glucose (UA) Urine Ketones Urine Blood Urine Nitrate Urine Bilirubin Urine Urobilinogen Ur Leukocyte Esterase Urine RBC Urine WBC Ur Epithelial Cells Urine Bacteria Assessment & Plan - Assessment and Plan (Free Text) Assessment: Diabetes PVD/Lymphedema/onycomycosis of nails Plan: arterial dopplers ordered ordered lotrisone cream to legs bid ordered eucerin ointment to legs bilateral bid jason bandages ordered qam off q pm nails to be debrided in am
--- NOTE | 2017-02-21 17:46 | CARD ---
APPROVED REPORT EXAM: Two-dimensional and M-mode echocardiogram with Doppler and color Doppler. INDICATION LVFX 2D DIMENSIONS Left Atrium (2D)4.9 (1.6-4.0cm)IVSd1.1 (0.7-1.1cm) LVDd4.9 (3.9-5.9cm)PWd1.1 (0.7-1.1cm) LVDs3.5 (2.5-4.0cm)FS (%) 29.1 % LVEF (%)55.8 (>50%) M-Mode DIMENSIONS Aortic Root3.20 (2.2-3.7cm)Aortic Cusp Exc.1.70 (1.5-2.0cm) Aortic Valve AoV Peak Myapnkwv769.0cm/sAoV VTI52.5cmAO Peak GR.15mmHg AO Mean GR.9mmHg Mitral Valve MV E Mcpkwccz057.0cm/sMV A Qlxklwbo96.9cm/sE/A ratio1.4 TDI Lateral E' Peak V11.40cm/sMedial E' Peak V5.07cm/sE/Lateral E'10.6 E/Medial E'23.9 Pulmonary Valve PV Peak Wqtduhgr56.5cm/sPV Peak Grad.3mmHg Tricuspid Valve TR Peak Saxjvwoz210hi/sRAP [id number] Peak Gr.43mmHg [id number] LEFT VENTRICLE The left ventricle is normal size. There is normal left ventricular wall thickness. The left ventricular function is normal. The left ventricular ejection fraction is within the normal range. There is normal LV segmental wall motion. RIGHT VENTRICLE The right ventricle is normal size. The right ventricular systolic function is normal. ATRIA The left atrium is moderately dilated. The right atrium is mildly dilated. The interatrial septum is intact with no evidence for an atrial septal defect. AORTIC VALVE The aortic valve is mildly sclerotic. No aortic regurgitation is present. There is no aortic valvular stenosis. MITRAL VALVE The mitral valve is normal in structure. Mitral regurgitation is mild. TRICUSPID VALVE The tricuspid valve is normal in structure. There is moderate tricuspid regurgitation. There is moderate pulmonary hypertension. PULMONIC VALVE The pulmonary valve is normal in structure. GREAT VESSELS The aortic root is normal in size. The IVC is normal in size and collapses >50% with inspiration. PERICARDIAL EFFUSION There is no pleural effusion. There is no pericardial effusion. <Conclusion> Biatrial enlargement. Normal LV size and systolic function. Moderate TR. Mild MR.
[2017-02-21] MEDS: Clotrimazole 1% Cream(30 gm) TOP SCH (18:50)
--- NOTE | 2017-02-21 22:08 | CP.PCM.PN ---
Subjective - Date & Time of Evaluation Date of Evaluation: 02/21/17 Time of Evaluation: 19:15 - Subjective Subjective: Infectious Disease Follow Up: February 21, 2017 76 yo female with bilateral lower extremity swelling and right lower extremity pain with episodes of SOB and fevers of 101.0 F. She also has a productive cough. Signs of chronic venous stasis on the lower extremities. Shortness of breath started 4 days ago. The patient had some improvement at home with robitussin and tylenol as per the patient. The patient with chronic venous stasis of the lower extermities with bilateral edema. There is scaling and thickening of the skin of the bilateral lower legs. Skin showing scaling with verrucoformis lesions. Objective - Vital Signs/Intake and Output Vital Signs (last 24 hours): Temp Pulse Resp BP Pulse Ox 98.6 F 70 20 128/70 98 02/21/17 17:39 02/21/17 21:25 02/21/17 17:39 02/21/17 21:25 02/21/17 05:30 - Medications Medications: Current Medications Albuterol/Ipratropium (Duoneb 3 Mg/0.5 Mg (3 Ml) Ud) 3 ml IH [id number] [facility] Last Admin: 02/21/17 19:51 Dose: 3 ml Amlodipine Besylate (Norvasc) 5 mg PO DAILY [facility] Last Admin: 02/21/17 09:28 Dose: 5 mg Armodafinil (Nuvigil 150 Mg Tab) 150 mg PO DAILY [facility] Aspirin (Ecotrin) 81 mg PO DAILY [facility] Last Admin: 02/21/17 09:28 Dose: 81 mg Atorvastatin Calcium (Lipitor) 10 mg PO DAILY [facility] Last Admin: 02/21/17 09:50 Dose: 10 mg Benzonatate (Tessalon Perles) 100 mg PO Q8 [facility] Last Admin: 02/21/17 21:24 Dose: 100 mg Calcium/Vitamin D (Oscal-D 250 Mg-125 Units Tab) 1 tab PO BID [facility] Last Admin: 02/21/17 18:20 Dose: 1 tab Carvedilol (Coreg) 25 mg PO BID [facility] Last Admin: 02/21/17 18:20 Dose: 25 mg Clotrimazole (Lotrimin 1%) 0 gm TOP BID [facility] Last Admin: 02/21/17 18:50 Dose: 1 applic Docusate Sodium (Colace) 100 mg PO TID [facility] Last Admin: 02/21/17 18:19 Dose: 100 mg Furosemide (Lasix) 40 mg PO BID [facility] Last Admin: 02/21/17 18:19 Dose: 40 mg Heparin Sodium (Porcine) (Heparin) 5,000 units SC Q12 [facility] PRN Reason: Protocol Last Admin: 02/21/17 21:25 Dose: 5,000 units Hydralazine HCl (Apresoline) 25 mg PO QID [facility] Last Admin: 02/21/17 21:25 Dose: 25 mg Piperacillin Sod/Tazobactam Sod (Zosyn 3.375 In Ns 100ml) 100 mls @ 200 mls/hr IVPB Q6 [facility] PRN Reason: Protocol Stop: 02/25/17 00:01 Last Admin: 02/21/17 18:03 Dose: 200 mls/hr Insulin Human Regular (Humulin R Med) 0 units SC ACHS [facility] PRN Reason: Protocol Last Admin: 02/21/17 18:17 Dose: 8 units Methylprednisolone (Solu-Medrol) 40 mg IVP Q12 [facility] Last Admin: 02/21/17 21:24 Dose: 40 mg Multi-Ingredient Cream (Hydrocerin Cream) 0 ea TOP DAILY [facility] Multivitamins/Minerals (Therapeutic-M Tab) 1 tab PO DAILY [facility] Last Admin: 02/21/17 11:46 Dose: 1 tab Non-Formulary Medication (Memantine Hcl [Namenda Xr]) 28 mg PO DAILY [facility] Last Admin: 02/21/17 11:45 Dose: Not Given Pantoprazole Sodium (Protonix Ec Tab) 40 mg PO 0600 [facility] Last Admin: 02/21/17 05:12 Dose: 40 mg Potassium Chloride (K-Dur 20 Meq Er Tab) 20 meq PO DAILY [facility] Last Admin: 02/21/17 09:28 Dose: 20 meq Rivastigmine (Exelon 9.5 Mg/24 Hr Patch) 1 patch TD DAILY [facility] Last Admin: 02/21/17 09:29 Dose: 1 patch Sertraline HCl (Zoloft) 50 mg PO HS [facility] Last Admin: 02/21/17 21:24 Dose: 50 mg - Labs Labs: 02/21/17 05:15 02/21/17 05:15 PT 11.3 Seconds (9.9-11.8) 02/20/17 13:25 INR 1.05 (0.93-1.08) 02/20/17 13:25 APTT 38.4 Seconds (23.7-30.8) H 02/20/17 18:50 - Constitutional Appears: Non-toxic, No Acute Distress, Chronically Ill - Head Exam Head Exam: ATRAUMATIC, NORMOCEPHALIC - Eye Exam Eye Exam: EOMI, PERRL Pupil Exam: NORMAL ACCOMODATION, PERRL - ENT Exam ENT Exam: Mucous Membranes Moist, Normal External Ear Exam, TM's Normal Bilaterally - Neck Exam Neck Exam: Full ROM, Normal Inspection - Respiratory Exam Respiratory Exam: Clear to Ausculation Bilateral, NORMAL BREATHING PATTERN. absent: Rales, Rhonchi, Wheezes - Cardiovascular Exam Cardiovascular Exam: REGULAR RHYTHM, RRR, +S1, +S2 - GI/Abdominal Exam GI & Abdominal Exam: Soft, Normal Bowel Sounds. absent: Distended, Tenderness - Extremities Exam Extremities Exam: Full ROM, Joint Swelling, Pedal Edema Additional comments: +3 edema bilaterally with scaling and thicking of the skin of the bilateral lower legs. Verrucaformis lesions noted of the same areas. - Neurological Exam Neurological Exam: Alert, Awake, CN II-XII Intact, Oriented x3 - Psychiatric Exam Psychiatric exam: Normal Affect, Normal Mood - Skin Skin Exam: Intact, Normal Color Assessment and Plan - Assessment and Plan (Free Text) Assessment: 76 yo female with multiple medical issues presenting with cough, SOB, bilateral leg swelling, chronic venous stasis, and possible lower extremity cellulitis. The patient was started on Zosyn for antibiotic coverage. Currently afebrile. No leukocytosis. Supportive care. Patient's medical history includes hypertension and diabetes mellitus. Bynum cultures sent. Supportive care. Thank you for allowing me to participate in the care of the patient, we will follow with you.
[2017-02-22] MEDS: Albuterol-Ipratrop 3 mg / 0.5 (3 ml) UD IH SCH ×6 (00:32→20:00)
--- NOTE | 2017-02-22 00:48 | CP.PCM.PN ---
<BRANTJEANNIE - Last Filed: 02/22/17 00:45> Subjective - Date & Time of Evaluation Date of Evaluation: 02/21/17 Time of Evaluation: 07:30 - Subjective Subjective: Jeannie Beth DO PGY1 - Medicine Progress Note Patient seen and examined at bedside. Patient was on BIPAP during exam, sleepy, difficult to arouse, but later in the day, off BIPAP, patient was awake and alert. She continues to complain of b/l LE pain, but denies CP or SOB. Cough has improved, and now denies fever. Objective - Vital Signs/Intake and Output Vital Signs (last 24 hours): Temp Pulse Resp BP Pulse Ox 98.6 F 70 20 128/70 98 02/21/17 17:39 02/22/17 00:43 02/21/17 17:39 02/21/17 21:25 02/21/17 05:30 - Medications Medications: Current Medications Albuterol/Ipratropium (Duoneb 3 Mg/0.5 Mg (3 Ml) Ud) 3 ml IH [id number] [facility] Last Admin: 02/22/17 00:32 Dose: 3 ml Amlodipine Besylate (Norvasc) 5 mg PO DAILY [facility] Last Admin: 02/21/17 09:28 Dose: 5 mg Armodafinil (Nuvigil 150 Mg Tab) 150 mg PO DAILY [facility] Aspirin (Ecotrin) 81 mg PO DAILY [facility] Last Admin: 02/21/17 09:28 Dose: 81 mg Atorvastatin Calcium (Lipitor) 10 mg PO DAILY [facility] Last Admin: 02/21/17 09:50 Dose: 10 mg Benzonatate (Tessalon Perles) 100 mg PO Q8 [facility] Last Admin: 02/21/17 21:24 Dose: 100 mg Calcium/Vitamin D (Oscal-D 250 Mg-125 Units Tab) 1 tab PO BID [facility] Last Admin: 02/21/17 18:20 Dose: 1 tab Carvedilol (Coreg) 25 mg PO BID [facility] Last Admin: 02/21/17 18:20 Dose: 25 mg Clotrimazole (Lotrimin 1%) 0 gm TOP BID [facility] Last Admin: 02/21/17 18:50 Dose: 1 applic Docusate Sodium (Colace) 100 mg PO TID [facility] Last Admin: 02/21/17 18:19 Dose: 100 mg Furosemide (Lasix) 40 mg PO BID [facility] Last Admin: 02/21/17 18:19 Dose: 40 mg Heparin Sodium (Porcine) (Heparin) 5,000 units SC Q12 [facility] PRN Reason: Protocol Last Admin: 02/21/17 21:25 Dose: 5,000 units Hydralazine HCl (Apresoline) 25 mg PO QID [facility] Last Admin: 02/21/17 21:25 Dose: 25 mg Piperacillin Sod/Tazobactam Sod (Zosyn 3.375 In Ns 100ml) 100 mls @ 200 mls/hr IVPB Q6 [facility] PRN Reason: Protocol Stop: 02/25/17 00:01 Last Admin: 02/21/17 18:03 Dose: 200 mls/hr Insulin Human Regular (Humulin R Med) 0 units SC ACHS [facility] PRN Reason: Protocol Last Admin: 02/21/17 22:47 Dose: 2 units Methylprednisolone (Solu-Medrol) 40 mg IVP Q12 [facility] Last Admin: 02/21/17 21:24 Dose: 40 mg Multi-Ingredient Cream (Hydrocerin Cream) 0 ea TOP DAILY [facility] Multivitamins/Minerals (Therapeutic-M Tab) 1 tab PO DAILY [facility] Last Admin: 02/21/17 11:46 Dose: 1 tab Non-Formulary Medication (Memantine Hcl [Namenda Xr]) 28 mg PO DAILY [facility] Last Admin: 02/21/17 11:45 Dose: Not Given Pantoprazole Sodium (Protonix Ec Tab) 40 mg PO 0600 [facility] Last Admin: 02/21/17 05:12 Dose: 40 mg Potassium Chloride (K-Dur 20 Meq Er Tab) 20 meq PO DAILY [facility] Last Admin: 02/21/17 09:28 Dose: 20 meq Rivastigmine (Exelon 9.5 Mg/24 Hr Patch) 1 patch TD DAILY [facility] Last Admin: 02/21/17 09:29 Dose: 1 patch Sertraline HCl (Zoloft) 50 mg PO HS [facility] Last Admin: 02/21/17 21:24 Dose: 50 mg - Labs Labs: 02/21/17 05:15 02/21/17 05:15 PT 11.3 Seconds (9.9-11.8) 02/20/17 13:25 INR 1.05 (0.93-1.08) 02/20/17 13:25 APTT 38.4 Seconds (23.7-30.8) H 02/20/17 18:50 - Constitutional Appears: Non-toxic, No Acute Distress, Chronically Ill - Head Exam Head Exam: ATRAUMATIC, NORMOCEPHALIC - Eye Exam Eye Exam: Normal appearance, PERRL - ENT Exam ENT Exam: Mucous Membranes Moist, Normal Exam - Neck Exam Neck Exam: absent: Lymphadenopathy, Thyromegaly - Respiratory Exam Respiratory Exam: Clear to Ausculation Bilateral, NORMAL BREATHING PATTERN - Cardiovascular Exam Cardiovascular Exam: RRR, +S1, +S2 - GI/Abdominal Exam GI & Abdominal Exam: Soft. absent: Tenderness - Extremities Exam Additional comments: Bilateral 3/4+ pitting edema with thickened and darkly discolored skin b/l, warm , tender - Neurological Exam Neurological Exam: Alert, Awake Neuro motor strength exam: Left Upper Extremity: 5, Right Upper Extremity: 5, Left Lower Extremity: 5, Right Lower Extremity: 5 - Psychiatric Exam Psychiatric exam: Normal Affect, Normal Mood - Skin Skin Exam: Dry, Intact Assessment and Plan - Assessment and Plan (Free Text) Assessment: 76 F with a PMH of COPD, Asthma, DM, and Morbid Obesity, now with SOB likely 2/ 2 COPD exacerbation and recurrent b/l LE swelling and pain likely 2/2 chronic venous stasis and cellulitis Plan: 1.) SOB 2/2 COPD Exacerbation vs PNA vs asthma exacerbation vs CHF exacerbation - Duonebs q2H PRN and q6 [facility] - Solumedrol - Tessalon Perles - ABx: per ID, Vanc and Zosyn - ID consulted, all recs appreciated - Elevated D-Dimer in ED, CTA done shows no PE. Also shows cardiomegaly and prominent pulm artery, concern for pulm HTN, and incidental adrenal mass - Echo completed today, pending read 2.) B/l LE Swelling 2/2 Cellulitis vs chronic venous stasis VS DVT - D-dimer elevated, but CTA negative - B/L LE duplex done, pending read - C/w Lasix - ID consulted, all recs appreciated - ABx per ID: Vanc, Zosyn - Podiatry consulted, all recs appreciated 3.) Hx/O HLD - C/w ASA - C/w Lipitor 4.) Hx/O HTN - C/w Norvasc - C/w Coreg - C/w Lasix - C/w Hydralazine 5.) Hx/O DM - RISS Medium 6.) Hx/O Alzheimer's - Rivastigmine 7.) Hx/O Depression - Zoloft Ppx: Protonix for GI, SQ Heparin for DVT Patient seen, discussed, and reviewed with attending <Patel Ramsey - Last Filed: 03/10/17 18:35> Objective - Vital Signs/Intake and Output Vital Signs (last 24 hours): Temp Pulse Resp BP Pulse Ox 98.6 F 65 18 152/64 H 98 02/23/17 12:00 02/23/17 14:00 02/23/17 12:00 02/23/17 13:33 02/23/17 06:00 - Labs Labs: 02/23/17 05:20 02/23/17 05:20 PT 11.3 Seconds (9.9-11.8) 02/20/17 13:25 INR 1.05 (0.93-1.08) 02/20/17 13:25 APTT 38.4 Seconds (23.7-30.8) H 02/20/17 18:50 Attending/Attestation - Attestation I have personally seen and examined this patient.: Yes I have fully participated in the care of the patient.: Yes I have reviewed all pertinent clinical information, including history, physical exam and plan: Yes Notes (Text): I have seen and examined the patiet at bedside. Agree with the above note with the following additions/ exceptions: Briefly this is 76 year old female with history of COPD, Ashma, DM, depression, tobacco use, dyslipidemia, severe cognitive impairment and Morbid Obesity who presented for evaluation of shortness of breath, bilateral LE pain and swelling. D dimer was found to be elevated and CT scan was done which ruled out PE. Patient was found to have COPD exacerbation. Continue Solumedrol taper, nebs and IV antibiotics. Podiatry and ID consult appreciated. Echo pending . Upon discharge patient will follow up with Dr Dru Hendricks. Dr Patel Ramsey
[2017-02-22] MEDS: Piperacillin/Tazobact 3.375 gm 100 ML IVPB SCH ×4 (01:03→17:39)
--- NOTE | 2017-02-22 01:24 | CON ---
DATE: PULMONARY CONSULT REFERRING PHYSICIAN: Dr. Patel Ramsey. REASON FOR CONSULTATION: Chronic lung disease, sleep apnea syndrome, hypoventilation syndrome. HISTORY OF PRESENT ILLNESS: This is a 76-year-old female with past medical history significant for hypertension, diabetes, obesity, lower extremity cellulitis, history of DVT, also might have dementia, presented with history of shortness of breath, lower extremity swelling. She had been using home bronchodilators without much relief. Also, had a fever up to 101, came to emergency room with CO2 retention, treated with noninvasive ventilation, has a respiratory failure. At present, admitted on telemetry. She is lethargic, hard to awake. There is no fever today. No hemoptysis. No hematemesis. Does have a leg swelling and chronic skin changes. PAST MEDICAL HISTORY: Hypertension, diabetes, obesity, recurrent cellulitis, DVT, may have obesity hypoventilation syndrome, may have sleep apnea syndrome. FAMILY HISTORY: Positive for diabetes and hypertension. SOCIAL HISTORY: Nonsmoker and nondrinker. MEDICATIONS: She is on hydralazine 25 mg four times a day, Colace 100 mg three times a day, Coreg 25 mg twice a day, DuoNeb q. 4 hours, Ecotrin 81 mg daily, Exelon 9.5 mg patch q. 24 hours, heparin 5000 subcu q. 12 hours, potassium 20 mEq daily, Lasix 40 mg twice a day, Lipitor 10 mg daily, Namenda XR 28 mg daily, Norvasc 5 mg daily, Protonix 40 mg daily, Solu-Medrol 40 mg q. 12 hours, Tessalon Perles 100 mg q. 8 hours, multivitamins daily, Zoloft 50 mg daily, Zosyn 3.375 g q. 6 hours. REVIEW OF SYSTEMS: Sleepy, arousable, has some cough and shortness of breath. No chest pain. No nausea, no vomiting, no diarrhea. Had a chronic lower extremity swelling and skin changes. Neurologically lethargic, but arousable. LABORATORY DATA: Shows hemoglobin 10.7, hematocrit 34.3, WBC of 4.1, platelet is 157. INR is 1.05, PTT is 38. D-dimer 3.67. ABG showed pH of 7.46, pCO2 of 53, O2 of 93, this is on nasal cannula. Sodium 145, potassium 3.5, chloride 96, bicarbonate 37, BUN 24, creatinine 0.9, glucose is 324, phosphorous is 4.0, magnesium 1.8. AST is 24, ALT 11, alk phos is 112, albumin is 3.5. Microbiology: Urine culture has been negative. Blood culture has been negative. She has a CAT scan of the chest done on admission, which shows limited study. No evidence of pulmonary embolism; prominent pulmonary artery, rule out pulmonary artery hypertension; cardiomegaly, small hiatal hernia and wall thickening of the distal esophagus, esophagitis or other invasive wall lesion including esophageal carcinoma not excluded. An ultrasound of lower extremity done, which shows no DVT. Echo report is pending. IMPRESSION: Upper respiratory failure with CO2 retention, reoccurring noninvasive ventilation, may be component of chronic lung disease, hypoventilation syndrome, obesity, cellulitis of lower extremity, diabetes, hypertension. Agree with the present management. Continue antibiotics. Bilevel positive airway pressure while sleeping, p.r.n. basis and for shortness of breath. Gastric and deep venous thrombosis prophylaxis. We recommend outpatient sleep study, pulmonary function tests upon discharge. Thank you and we will follow with you. Db Francisco MD
[2017-02-22] MEDS ORDERED: Insulin Regular 1 UNITS/0.01 ML ML SC STA (02:18)
[2017-02-22] MEDS: Pantoprazole 40 mg EC Tab PO SCH (05:51)
[2017-02-22 06:29] LABS: BASO # 0.01 K/mm3 (0.0-2.0); BASO % 0.1 % (0.0-3.0); GRAN # 6.13 (1.4-6.5); GRAN % 84.1 % (50.0-68.0); HEMATOCRIT 33.5 % (36.0-48.0); LYMPH # 0.8 (1.2-3.4); LYMPH % 11.4 % (22.0-35.0); MEAN CELL VOLUME 86.6 fl (80.0-105.0); MEAN CORPUSCULAR HEMOGLOBIN 26.9 pg (25.0-35.0); MEAN PLATELET VOLUME 10.1 fl (7.0-11.0); MONO # 0.3 (0.1-0.6); MONO % 4.4 % (1.0-6.0); RED CELL DISTRIBUTION WIDTH 13.7 % (11.5-14.5); WHITE BLOOD COUNT 7.3 10^3/ul (4.5-11.0)
[2017-02-22 06:32] LABS: ALB/GLOB RATIO 0.8 (1.1-1.8); BILIRUBIN,TOTAL 0.6 mg/dL (0.2-1.3); PHOSPHOROUS 3.6 mg/dL (2.5-4.5); POTASSIUM 3.6 mmol/L (3.6-5.0); TOTAL PROTEIN 7.7 g/dL (5.8-8.3)
[2017-02-22] MEDS: Insulin Reg-MEDIUM-Coverage SC SCH ×4 (08:13→22:21)
[2017-02-22] MEDS: Potassium Chloride 20 mEq ER Tab PO SCH (09:45)
[2017-02-22] MEDS: Calcium-Vit D 250 mg-125 Units Tab UD PO SCH ×2 (09:45→17:40)
[2017-02-22] MEDS: Multivitamin With Minerals Tab PO SCH (09:45)
[2017-02-22] MEDS: MethylPREDNISolone 40 mg Vial IVP SCH (09:45)
[2017-02-22] MEDS: Insulin Detemir 100 units/ml Vial (Levemir) SC SCH ×2 (10:00→22:22)
[2017-02-22] MEDS: Hydrocerin(120 gm) TOP SCH (10:00)
[2017-02-22] MEDS: Clotrimazole 1% Cream(30 gm) TOP SCH ×2 (10:00→18:00)
[2017-02-22] MEDS: MEMANTINE HCL 28 MG PO SCH (11:43)
--- NOTE | 2017-02-22 15:25 | CP.PCM.PN ---
Addendum entered and electronically signed by JEANNIE BETH DO 02/22/17 15:44 : Note accidentally signed prior to inclusion of physical exam: General: Non toxic, NAD, appears chronically ill Head: NCAT Eyes: EOMI, normal appearance ENT: Moist mucous membranes Neck: No lymphadenopathy, normal inspection Respiratory: Normal breathing pattern, mild diffuse rhonchi, very poor inspiratory effort CV: RRR, S1, S2 Abdomen: Soft, nontender Extremities: B/L LE with 4+ pitting edema and chronic venous stasis changes with dark discoloration and verrucous changes to knees Neuro: AAOx3, 5/5 strength throughout Psych: Normal affect and mood Original Note: <JEANNIE BETH - Last Filed: 02/22/17 15:20> Subjective - Date & Time of Evaluation Date of Evaluation: 02/22/17 Time of Evaluation: 07:30 - Subjective Subjective: Jeannie Beth DO PGY1 - Internal Medicine Progress Note Patient seen and examined at bedside. Patient was awake and alert, receiving breathing treatment by facemask. History taken through housekeeping aide. She still continues to complain of b/l LE pain, virtually unchanged since admission. Cough and SOB have improved slightly. She denies N/V/D/C, abdominal pain, F/C. She is also being seen by podiatry and ID. Objective - Vital Signs/Intake and Output Vital Signs (last 24 hours): Temp Pulse Resp BP Pulse Ox 98 F 60 18 170/80 H 92 L 02/22/17 11:51 02/22/17 11:51 02/22/17 11:51 02/22/17 13:06 02/22/17 06:00 Intake and Output: 02/22/17 02/22/17 06:59 18:59 Intake Total 520 Output Total 900 Balance -380 - Medications Medications: Current Medications Albuterol/Ipratropium (Duoneb 3 Mg/0.5 Mg (3 Ml) Ud) 3 ml IH [id number] [facility] Last Admin: 02/22/17 11:18 Dose: 3 ml Amlodipine Besylate (Norvasc) 5 mg PO DAILY [facility] Last Admin: 02/22/17 09:45 Dose: 5 mg Armodafinil (Nuvigil 150 Mg Tab) 150 mg PO DAILY [facility] Last Admin: 02/22/17 11:44 Dose: 150 mg Aspirin (Ecotrin) 81 mg PO DAILY [facility] Last Admin: 02/22/17 09:45 Dose: 81 mg Atorvastatin Calcium (Lipitor) 10 mg PO DAILY [facility] Last Admin: 02/22/17 09:45 Dose: 10 mg Benzonatate (Tessalon Perles) 100 mg PO Q8 [facility] Last Admin: 02/22/17 13:06 Dose: 100 mg Calcium/Vitamin D (Oscal-D 250 Mg-125 Units Tab) 1 tab PO BID [facility] Last Admin: 02/22/17 09:45 Dose: 1 tab Carvedilol (Coreg) 25 mg PO BID [facility] Last Admin: 02/22/17 09:35 Dose: 25 mg Clotrimazole (Lotrimin 1%) 0 gm TOP BID [facility] Last Admin: 02/21/17 18:50 Dose: 1 applic Docusate Sodium (Colace) 100 mg PO TID [facility] Last Admin: 02/22/17 13:05 Dose: 100 mg Furosemide (Lasix) 40 mg PO BID [facility] Last Admin: 02/22/17 09:45 Dose: 40 mg Heparin Sodium (Porcine) (Heparin) 5,000 units SC Q12 [facility] PRN Reason: Protocol Last Admin: 02/22/17 09:45 Dose: 5,000 units Hydralazine HCl (Apresoline) 25 mg PO QID [facility] Last Admin: 02/22/17 13:06 Dose: 25 mg Piperacillin Sod/Tazobactam Sod (Zosyn 3.375 In Ns 100ml) 100 mls @ 200 mls/hr IVPB Q6 [facility] PRN Reason: Protocol Stop: 02/25/17 00:01 Last Admin: 02/22/17 12:54 Dose: 200 mls/hr Insulin Detemir (Levemir) 5 unit SC Q12 [facility] Last Admin: 02/22/17 10:00 Dose: 5 unit Insulin Human Regular (Humulin R Med) 0 units SC ACHS [facility] PRN Reason: Protocol Last Admin: 02/22/17 11:41 Dose: 8 units Methylprednisolone (Solu-Medrol) 40 mg IVP DAILY [facility] Last Admin: 02/22/17 09:45 Dose: 40 mg Multi-Ingredient Cream (Hydrocerin Cream) 0 ea TOP DAILY [facility] Multivitamins/Minerals (Therapeutic-M Tab) 1 tab PO DAILY [facility] Last Admin: 02/22/17 09:45 Dose: 1 tab Non-Formulary Medication (Memantine Hcl [Namenda Xr]) 28 mg PO DAILY [facility] Last Admin: 02/22/17 11:43 Dose: Not Given Pantoprazole Sodium (Protonix Ec Tab) 40 mg PO 0600 [facility] Last Admin: 02/22/17 05:51 Dose: 40 mg Potassium Chloride (K-Dur 20 Meq Er Tab) 20 meq PO DAILY [facility] Last Admin: 02/22/17 09:45 Dose: 20 meq Rivastigmine (Exelon 9.5 Mg/24 Hr Patch) 1 patch TD DAILY [facility] Last Admin: 02/22/17 09:45 Dose: 1 patch Sertraline HCl (Zoloft) 50 mg PO HS [facility] Last Admin: 02/21/17 21:24 Dose: 50 mg - Labs Labs: 02/22/17 05:10 02/22/17 05:10 PT 11.3 Seconds (9.9-11.8) 02/20/17 13:25 INR 1.05 (0.93-1.08) 02/20/17 13:25 APTT 38.4 Seconds (23.7-30.8) H 02/20/17 18:50 Assessment and Plan - Assessment and Plan (Free Text) Assessment: 76 F with a PMH of COPD, Asthma, DM, and Morbid Obesity, now with SOB likely 2/ 2 COPD exacerbation with possible PNA and recurrent b/l LE swelling and pain likely 2/2 chronic venous stasis and cellulitis Plan: 1.) SOB 2/2 COPD Exacerbation vs PNA vs DONYA vs asthma exacerbation vs CHF exacerbation - Duonebs q2H PRN and q6 [facility] - Solumedrol, tapering down - Tessalon Perles - ABx: per ID continue Zosyn, off vanc - ID consulted, all recs appreciated - Elevated D-Dimer in ED, CTA done shows no PE. Also shows cardiomegaly and prominent pulm artery, concern for pulm HTN, and incidental adrenal mass - Echo completed today, significant for biatrial enlargement, normal LV size and function with EF 55%, moderate TR and mild MR; CHF exacerbation unlikely to be cause of SOB - Patient likely has DONYA and sleep apnea, will require outpatient sleep study. Started on Armodafinil per pulm. - Pulm (Nolan) on consult, all recs appreciated - PT eval ordered prior to discharge, unable to complete today 2.) B/l LE Swelling 2/2 Cellulitis vs chronic venous stasis VS DVT - D-dimer elevated, but CTA negative - B/L LE duplex done, read as negative for venous thromboses, but noted to be a severely limited exam - C/w Lasix - ID consulted, all recs appreciated - ABx per ID: Vanc, Rosaurasyn - Podiatry consulted, all recs appreciated - LE arterial US completed, pending read 3.) Hx/O HLD - C/w ASA - C/w Lipitor 4.) Hx/O HTN - C/w Norvasc - C/w Coreg - C/w Lasix - C/w Hydralazine 5.) Hx/O DM - RISS Medium - Levemir 5u Q12 - Accucheck ACHS 6.) Hx/O Alzheimer's - Rivastigmine 7.) Hx/O Depression - Zoloft 8.) Asymtomatic bacteriuria - UCx shows multidrug resistant E coli, but patient is not complaining of any dysuria, hematuria, urgency, frequency, fever, or chills - On zosyn, which covers Ppx: Protonix for GI, SQ Heparin for DVT Patient seen, discussed, and reviewed with attending <Patel Ramsey - Last Filed: 03/10/17 18:38> Objective - Vital Signs/Intake and Output Vital Signs (last 24 hours): Temp Pulse Resp BP Pulse Ox 98.6 F 65 18 152/64 H 98 02/23/17 12:00 02/23/17 14:00 02/23/17 12:00 02/23/17 13:33 02/23/17 06:00 - Labs Labs: 02/23/17 05:20 02/23/17 05:20 PT 11.3 Seconds (9.9-11.8) 02/20/17 13:25 INR 1.05 (0.93-1.08) 02/20/17 13:25 APTT 38.4 Seconds (23.7-30.8) H 02/20/17 18:50 Attending/Attestation - Attestation I have personally seen and examined this patient.: Yes I have fully participated in the care of the patient.: Yes I have reviewed all pertinent clinical information, including history, physical exam and plan: Yes Notes (Text): I have seen and examined the patiet at bedside. Agree with the above note with the following additions/ exceptions: Briefly this is 76 year old female with history of COPD, Ashma, DM, depression, tobacco use, dyslipidemia, severe cognitive impairment and Morbid Obesity who presented for evaluation of shortness of breath, bilateral LE pain and swelling. D dimer was found to be elevated and CT scan was done which ruled out PE. Patient was found to have COPD exacerbation. Continue Solumedrol taper, nebs and IV antibiotics. Podiatry and ID consult appreciated. Echo revealed biatrial enlargement and EF 55%. She also has possible DONYA. Modfinil was started today. Continue cpap overnight. Recommended sleep study as an outpatient. PT eval pending. Upon discharge patient will follow up with Dr Dru Hendricks. Dr Patel Ramsey
--- NOTE | 2017-02-22 17:34 | CP.PCM.PN ---
Subjective - Date & Time of Evaluation Date of Evaluation: 02/22/17 Time of Evaluation: 16:00 - Subjective Subjective: Infectious Disease Follow Up: February 22, 2017 76 yo female with bilateral lower extremity swelling and right lower extremity pain with episodes of SOB and fevers of 101.0 F. She also has a productive cough. Signs of chronic venous stasis on the lower extremities. Shortness of breath started 4 days ago. The patient had some improvement at home with robitussin and tylenol as per the patient. The patient with chronic venous stasis of the lower extermities with bilateral edema. There is scaling and thickening of the skin of the bilateral lower legs. Skin showing scaling with verrucoformis lesions. Venous ultrasound done today. Possible OR tomorrow. Objective - Vital Signs/Intake and Output Vital Signs (last 24 hours): Temp Pulse Resp BP Pulse Ox 98 F 59 L 18 170/80 H 92 L 02/22/17 11:51 02/22/17 14:00 02/22/17 11:51 02/22/17 13:06 02/22/17 06:00 Intake and Output: 02/22/17 02/22/17 06:59 18:59 Intake Total 520 540 Output Total 900 300 Balance -380 240 - Medications Medications: Current Medications Albuterol/Ipratropium (Duoneb 3 Mg/0.5 Mg (3 Ml) Ud) 3 ml IH [id number] [facility] Last Admin: 02/22/17 11:18 Dose: 3 ml Amlodipine Besylate (Norvasc) 5 mg PO DAILY [facility] Last Admin: 02/22/17 09:45 Dose: 5 mg Armodafinil (Nuvigil 150 Mg Tab) 150 mg PO DAILY [facility] Last Admin: 02/22/17 11:44 Dose: 150 mg Aspirin (Ecotrin) 81 mg PO DAILY [facility] Last Admin: 02/22/17 09:45 Dose: 81 mg Atorvastatin Calcium (Lipitor) 10 mg PO DAILY [facility] Last Admin: 02/22/17 09:45 Dose: 10 mg Benzonatate (Tessalon Perles) 100 mg PO Q8 [facility] Last Admin: 02/22/17 13:06 Dose: 100 mg Calcium/Vitamin D (Oscal-D 250 Mg-125 Units Tab) 1 tab PO BID [facility] Last Admin: 02/22/17 09:45 Dose: 1 tab Carvedilol (Coreg) 25 mg PO BID [facility] Last Admin: 02/22/17 09:35 Dose: 25 mg Clotrimazole (Lotrimin 1%) 0 gm TOP BID [facility] Last Admin: 02/21/17 18:50 Dose: 1 applic Docusate Sodium (Colace) 100 mg PO TID [facility] Last Admin: 02/22/17 13:05 Dose: 100 mg Furosemide (Lasix) 40 mg PO BID [facility] Last Admin: 02/22/17 09:45 Dose: 40 mg Heparin Sodium (Porcine) (Heparin) 5,000 units SC Q12 [facility] PRN Reason: Protocol Last Admin: 02/22/17 09:45 Dose: 5,000 units Hydralazine HCl (Apresoline) 25 mg PO QID [facility] Last Admin: 02/22/17 13:06 Dose: 25 mg Piperacillin Sod/Tazobactam Sod (Zosyn 3.375 In Ns 100ml) 100 mls @ 200 mls/hr IVPB Q6 [facility] PRN Reason: Protocol Stop: 02/25/17 00:01 Last Admin: 02/22/17 12:54 Dose: 200 mls/hr Insulin Detemir (Levemir) 5 unit SC Q12 [facility] Last Admin: 02/22/17 10:00 Dose: 5 unit Insulin Human Regular (Humulin R Med) 0 units SC ACHS [facility] PRN Reason: Protocol Last Admin: 02/22/17 11:41 Dose: 8 units Methylprednisolone (Solu-Medrol) 40 mg IVP DAILY [facility] Last Admin: 02/22/17 09:45 Dose: 40 mg Multi-Ingredient Cream (Hydrocerin Cream) 0 ea TOP DAILY [facility] Multivitamins/Minerals (Therapeutic-M Tab) 1 tab PO DAILY [facility] Last Admin: 02/22/17 09:45 Dose: 1 tab Non-Formulary Medication (Memantine Hcl [Namenda Xr]) 28 mg PO DAILY [facility] Last Admin: 02/22/17 11:43 Dose: Not Given Pantoprazole Sodium (Protonix Ec Tab) 40 mg PO 0600 [facility] Last Admin: 02/22/17 05:51 Dose: 40 mg Potassium Chloride (K-Dur 20 Meq Er Tab) 20 meq PO DAILY [facility] Last Admin: 02/22/17 09:45 Dose: 20 meq Rivastigmine (Exelon 9.5 Mg/24 Hr Patch) 1 patch TD DAILY [facility] Last Admin: 02/22/17 09:45 Dose: 1 patch Sertraline HCl (Zoloft) 50 mg PO HS [facility] Last Admin: 02/21/17 21:24 Dose: 50 mg - Labs Labs: 02/22/17 05:10 02/22/17 05:10 PT 11.3 Seconds (9.9-11.8) 02/20/17 13:25 INR 1.05 (0.93-1.08) 02/20/17 13:25 APTT 38.4 Seconds (23.7-30.8) H 02/20/17 18:50 - Constitutional Appears: Non-toxic, No Acute Distress, Chronically Ill - Head Exam Head Exam: ATRAUMATIC, NORMOCEPHALIC - Eye Exam Eye Exam: EOMI, PERRL Pupil Exam: NORMAL ACCOMODATION, PERRL - ENT Exam ENT Exam: Mucous Membranes Moist, Normal External Ear Exam, TM's Normal Bilaterally - Neck Exam Neck Exam: Full ROM, Normal Inspection - Respiratory Exam Respiratory Exam: Clear to Ausculation Bilateral, NORMAL BREATHING PATTERN. absent: Rales, Rhonchi, Wheezes - Cardiovascular Exam Cardiovascular Exam: REGULAR RHYTHM, RRR, +S1, +S2 - GI/Abdominal Exam GI & Abdominal Exam: Soft, Normal Bowel Sounds. absent: Distended, Tenderness - Extremities Exam Extremities Exam: Full ROM, Joint Swelling, Pedal Edema Additional comments: +3 edema bilaterally with scaling and thicking of the skin of the bilateral lower legs. Verrucaformis lesions noted of the same areas. - Neurological Exam Neurological Exam: Alert, Awake, CN II-XII Intact, Oriented x3 - Psychiatric Exam Psychiatric exam: Normal Affect, Normal Mood - Skin Additional comments: as per extremity exam. Assessment and Plan - Assessment and Plan (Free Text) Assessment: 76 yo female with multiple medical issues presenting with cough, SOB, bilateral leg swelling, chronic venous stasis, and possible lower extremity cellulitis. The patient was started on Zosyn for antibiotic coverage. Currently afebrile. No leukocytosis. Supportive care. Patient's medical history includes hypertension and diabetes mellitus. Bynum cultures sent. Supportive care. Possible OR tomorrow. Venous doppler done today and results pending. Possible pneumonia. Thank you for allowing me to participate in the care of the patient, we will follow with you.
--- NOTE | 2017-02-22 19:09 | US ---
PROCEDURE: Lower extremity KELVIN exam HISTORY: Peripheral vascular disease with pain and claudication. Diabetes PHYSICIAN(S): Ranjan Archer MD. FINDINGS: The resting KELVIN's are normal: right, 1.12and left, 1.25. The brachial systolic pressures are symmetric. The low thigh pressures are noncompressible. The low thigh PVR waveforms are normal and symmetric. The calf PVR waveforms augment normally. No significant gradients are noted across the thighs. The ankle and metatarsal waveforms are relatively normal and symmetric. No significant pressure gradients are noted across the lower legs. IMPRESSION: 1. Relatively normal KELVIN and PVR examination at rest.
[2017-02-23] MEDS: Albuterol-Ipratrop 3 mg / 0.5 (3 ml) UD IH SCH ×6 (00:15→15:43)
[2017-02-23] MEDS: Piperacillin/Tazobact 3.375 gm 100 ML IVPB SCH ×3 (00:22→12:14)
--- NOTE | 2017-02-23 02:17 | PN ---
PULMONARY PROGRESS NOTE DATE: 02/22/2017 REFERRING PHYSICIAN: Dr. Love. SUBJECTIVE: She is lying in the bed, head at 45 degrees, feels much better, much more awake and alert. Tolerated the BiPAP well. Decreased cough. Decreased shortness of breath. No nausea, no vomiting, no diarrhea . No leg pain. Does have a leg swelling and chronic skin changes. OBJECTIVE: PHYSICAL EXAMINATION GENERAL: In no acute distress. VITAL SIGNS: Temperature is 98, heart rate is 55, respiratory rate is 20, blood pressure is 148/77, pulse ox 92% on nasal cannula. HEENT: Moist mucous membranes. Crowded airway. Mallampati score is 4. NECK: Supple. No JVD. Short thick neck. LUNGS: Has a few crackles and scattered rhonchi. HEART: S1, S2. ABDOMEN: Soft, nontender. No organomegaly. EXTREMITIES: There is chronic skin changes and edema. NEUROLOGIC: Awake and alert. Follows simple command. MEDICATIONS: She is on hydralazine 25 mg q.i.d., Colace 100 mg twice a day, Coreg 25 mg twice a day, DuoNeb q. 4 hours, Ecotrin 81 mg daily, Exelon 9.5 mg patch weekly, heparin 5000 units subcu q. 12 hours, insulin coverage, potassium 20 mEq daily, Lasix 40 mg twice a day, Levemir 5 units subcu q. 12 hours, Lipitor 10 mg daily, Lotrimin 1% to the affected area twice a day, Namenda XR 20 mg daily, Norvasc 5 mg daily, Nuvigil 150 mg daily, Protonix 40 mg daily, Solu-Medrol 40 mg daily, Tessalon Perles 100 mg q. 8 hours, multivitamins daily, Zoloft 50 mg at bedtime, Zosyn 3.375 g IV q. 6 hours. LABORATORY DATA: Shows hemoglobin 10.4, hematocrit 33.5, WBC 7.3, platelet count is 173. Sodium 141, potassium 3.6, chloride 97, bicarbonate 36, BUN 36, creatinine 1.1, glucose 330, calcium is 9.0, phosphorus 3.6, magnesium 2.0, AST 39, ALT 12, alk phos is 92, albumin is 3.5. Microbiology: Blood culture has been negative. Urine culture has E. coli. Arterial Doppler of lower extremities shows relatively normal KELVIN and PVR examination at rest. An echocardiogram done yesterday which shows right ventricular systolic pressure is 53. Normal LV size and systolic function. Moderate TR and mild MR. IMPRESSION AND PLAN: Respiratory failure with CO2 retention, requiring noninvasive ventilation, may have a component of sleep apnea, obesity hypoventilation syndrome, cellulitis of the lower extremities, diabetes, hypertension, pulmonary hypertension, daytime hypersomnia. Continue BiPAP while sleeping. IV and inhaled bronchodilators. Gastric prophylaxis, DVT prophylaxis. Out of bed to chair. Physical therapy, outpatient PFT, and sleep study upon discharge. Thank you and we will follow with you. Db Francisco MD
[2017-02-23] MEDS: Pantoprazole 40 mg EC Tab PO SCH (05:45)
[2017-02-23 05:56] LABS: BASO # 0.02 K/mm3 (0.0-2.0); BASO % 0.2 % (0.0-3.0); EOS % 0.1 % (1.5-5.0); GRAN # 7.1 (1.4-6.5); GRAN % 76.6 % (50.0-68.0); HEMATOCRIT 32.8 % (36.0-48.0); LYMPH # 1.3 (1.2-3.4); LYMPH % 13.5 % (22.0-35.0); MEAN CELL VOLUME 86.3 fl (80.0-105.0); MEAN CORPUSCULAR HEMOGLOBIN 26.6 pg (25.0-35.0); MEAN CORPUSCULAR HGB CONC 30.8 g/dl (31.0-37.0); MEAN PLATELET VOLUME 9.8 fl (7.0-11.0); MONO # 0.9 (0.1-0.6); MONO % 9.6 % (1.0-6.0); RED CELL DISTRIBUTION WIDTH 13.6 % (11.5-14.5); WHITE BLOOD COUNT 9.3 10^3/ul (4.5-11.0)
[2017-02-23 06:10] VITALS: O2SAT 98
[2017-02-23 06:20] LABS: ALB/GLOB RATIO 0.9 (1.1-1.8); BILIRUBIN,TOTAL 0.5 mg/dL (0.2-1.3); CALCIUM 8.4 mg/dL (8.4-10.5); PHOSPHOROUS 2.5 mg/dL (2.5-4.5); POTASSIUM 3.3 mmol/L (3.6-5.0); TOTAL PROTEIN 7.1 g/dL (5.8-8.3)
[2017-02-23] MEDS ORDERED: Insulin Detemir 100 units/ml Vial (Levemir) SC SCH (07:29)
[2017-02-23] MEDS: Insulin Reg-MEDIUM-Coverage SC SCH ×3 (08:29→17:09)
[2017-02-23] MEDS ORDERED: Potassium Chloride 20 mEq ER Tab PO ONE ×2 (09:16→11:44)
[2017-02-23] MEDS: Multivitamin With Minerals Tab PO SCH (10:20)
[2017-02-23] MEDS: MethylPREDNISolone 40 mg Vial IVP SCH (10:21)
[2017-02-23] MEDS: Calcium-Vit D 250 mg-125 Units Tab UD PO SCH (10:22)
[2017-02-23] MEDS: Potassium Chloride 20 mEq ER Tab PO SCH (10:25)
[2017-02-23] MEDS: Clotrimazole 1% Cream(30 gm) TOP SCH (10:31)
[2017-02-23] MEDS: Hydrocerin(120 gm) TOP SCH (10:31)
[2017-02-23] MEDS ORDERED: MethylPREDNISolone 40 mg Vial IVP SCH (11:45)
[2017-02-23] MEDS: MEMANTINE HCL 28 MG PO SCH (11:54)
[2017-02-23 12:14] VITALS: BP 152/64; RESP 18; TEMP 98.6
--- NOTE | 2017-02-23 13:08 | CP.PCM.PN ---
<VanOdelleliza - Last Filed: 02/23/17 12:52> Subjective - Date & Time of Evaluation Date of Evaluation: 02/23/17 Time of Evaluation: 12:54 - Subjective Subjective: Podiatry Progress Note 76 year old female patient seen at bedside with attending, Dr. Sood, for PVD and lymphedema to bilateral lower extremities. Patient receiving breathing treatment via facemask at the time of visit. Patient is seen at bedside, AAOx3 and NAD. Patient is accompanied by her , both are primarily Italian speaking. Patient denies any acute events overnight. Per patient's , nursing has been applying cream to both legs. Patient denies N/V/F/D/C. No other pedal complaints at this time. Objective - Vital Signs/Intake and Output Vital Signs (last 24 hours): Temp Pulse Resp BP Pulse Ox 98.6 F 58 L 18 152/64 H 98 02/23/17 12:00 02/23/17 12:00 02/23/17 12:00 02/23/17 12:00 02/23/17 06:00 Intake and Output: 02/23/17 02/23/17 06:59 18:59 Intake Total 300 Balance 300 - Medications Medications: Current Medications Albuterol/Ipratropium (Duoneb 3 Mg/0.5 Mg (3 Ml) Ud) 3 ml IH [id number] [facility] Last Admin: 02/23/17 11:46 Dose: 3 ml Amlodipine Besylate (Norvasc) 10 mg PO DAILY [facility] Last Admin: 02/23/17 10:20 Dose: 10 mg Armodafinil (Nuvigil 150 Mg Tab) 150 mg PO DAILY [facility] Last Admin: 02/22/17 11:44 Dose: 150 mg Aspirin (Ecotrin) 81 mg PO DAILY [facility] Last Admin: 02/23/17 10:19 Dose: 81 mg Atorvastatin Calcium (Lipitor) 10 mg PO DAILY [facility] Last Admin: 02/23/17 10:23 Dose: 10 mg Benzonatate (Tessalon Perles) 100 mg PO Q8 [facility] Last Admin: 02/23/17 05:45 Dose: 100 mg Calcium/Vitamin D (Oscal-D 250 Mg-125 Units Tab) 1 tab PO BID [facility] Last Admin: 02/23/17 10:22 Dose: 1 tab Carvedilol (Coreg) 25 mg PO BID [facility] Last Admin: 02/23/17 10:26 Dose: Not Given Clotrimazole (Lotrimin 1%) 0 gm TOP BID [facility] Last Admin: 02/23/17 10:31 Dose: 1 applic Docusate Sodium (Colace) 100 mg PO TID [facility] Last Admin: 02/23/17 10:19 Dose: 100 mg Furosemide (Lasix) 40 mg PO BID [facility] Last Admin: 02/23/17 10:24 Dose: 40 mg Heparin Sodium (Porcine) (Heparin) 5,000 units SC Q12 [facility] PRN Reason: Protocol Last Admin: 02/23/17 10:20 Dose: 5,000 units Hydralazine HCl (Apresoline) 25 mg PO QID [facility] Last Admin: 02/23/17 10:28 Dose: 25 mg Piperacillin Sod/Tazobactam Sod (Zosyn 3.375 In Ns 100ml) 100 mls @ 200 mls/hr IVPB Q6 [facility] PRN Reason: Protocol Stop: 02/25/17 00:01 Last Admin: 02/23/17 12:14 Dose: 200 mls/hr Insulin Detemir (Levemir) 7 unit SC Q12 [facility] Last Admin: 02/23/17 10:21 Dose: 7 unit Insulin Human Regular (Humulin R Med) 0 units SC ACHS [facility] PRN Reason: Protocol Last Admin: 02/23/17 12:05 Dose: 3 units Methylprednisolone (Solu-Medrol) 20 mg IVP DAILY [facility] Multi-Ingredient Cream (Hydrocerin Cream) 0 ea TOP DAILY [facility] Last Admin: 02/23/17 10:31 Dose: 1 applic Multivitamins/Minerals (Therapeutic-M Tab) 1 tab PO DAILY [facility] Last Admin: 02/23/17 10:20 Dose: 1 tab Non-Formulary Medication (Memantine Hcl [Namenda Xr]) 28 mg PO DAILY [facility] Last Admin: 02/23/17 11:54 Dose: Not Given Pantoprazole Sodium (Protonix Ec Tab) 40 mg PO 0600 [facility] Last Admin: 02/23/17 05:45 Dose: 40 mg Potassium Chloride (K-Dur 20 Meq Er Tab) 20 meq PO DAILY [facility] Last Admin: 02/23/17 10:25 Dose: 20 meq Rivastigmine (Exelon 9.5 Mg/24 Hr Patch) 1 patch TD DAILY [facility] Last Admin: 02/23/17 10:20 Dose: 1 patch Sertraline HCl (Zoloft) 50 mg PO HS [facility] Last Admin: 02/22/17 22:23 Dose: 50 mg - Labs Labs: 02/23/17 05:20 02/23/17 05:20 PT 11.3 Seconds (9.9-11.8) 02/20/17 13:25 INR 1.05 (0.93-1.08) 02/20/17 13:25 APTT 38.4 Seconds (23.7-30.8) H 02/20/17 18:50 - Constitutional Appears: Well, Non-toxic, No Acute Distress - Extremities Exam Additional comments: VASC: DP and PT pulses nonpalpable secondary to edema b/l, CFT WNL to digits x10 , +4 pitting edema to foot and leg b/l NEURO: Gross sensation decreased DERM: Erythema noted to bilateral lower extremity with thin/friable shiny skin to both feet. Secondary scaling verrucaformis lesions with fissures noted. Nails are thickened and elongated with the presence of subungual debris. ORTHO: Tenderness to palpation bilateral lower extremity. ROM of the ankles in DF and PF with no crepitus noted b/l - Neurological Exam Neurological Exam: Alert, Awake - Psychiatric Exam Psychiatric exam: Normal Affect, Normal Mood Assessment and Plan - Assessment and Plan (Free Text) Assessment: 76 year old female with Diabetes PVD/Lymphedema/onycomycosis of nails Plan: Patient seen at bedside with attending, Chart, vitals, labs reviewed = afebrile, WBC WNL @ 9.3 Doppler results reviewed: Relatively normal KELVIN and PVR examination at rest Continue bid application of hydrocerin cream to bilateral lower legs and feet Bilateral lower extremity dressed with KRISTINA wrap Continue abx per medicine = Zosyn Rx Hydrocerin cream Rx 15-20 mmHg graduated compression stockings to wear as outpatient Podiatry will continue to follow while in house <Janie Sood - Last Filed: 02/27/17 19:57> Objective - Vital Signs/Intake and Output Vital Signs (last 24 hours): Temp Pulse Resp BP Pulse Ox 98.6 F 65 18 152/64 H 98 02/23/17 12:00 02/23/17 14:00 02/23/17 12:00 02/23/17 13:33 02/23/17 06:00 - Labs Labs: 02/23/17 05:20 02/23/17 05:20 PT 11.3 Seconds (9.9-11.8) 02/20/17 13:25 INR 1.05 (0.93-1.08) 02/20/17 13:25 APTT 38.4 Seconds (23.7-30.8) H 02/20/17 18:50 Attending/Attestation - Attestation I have personally seen and examined this patient.: Yes I have fully participated in the care of the patient.: Yes I have reviewed all pertinent clinical information, including history, physical exam and plan: Yes
--- NOTE | 2017-02-23 14:51 | CP.PCM.PN ---
Subjective - Date & Time of Evaluation Date of Evaluation: 02/23/17 Time of Evaluation: 14:00 - Subjective Subjective: Infectious Disease Follow Up: February 23, 2017 76 yo female with bilateral lower extremity swelling and right lower extremity pain with episodes of SOB and fevers of 101.0 F. She also has a productive cough. Signs of chronic venous stasis on the lower extremities. Shortness of breath started 4 days ago. The patient had some improvement at home with robitussin and tylenol as per the patient. The patient with chronic venous stasis of the lower extermities with bilateral edema. There is scaling and thickening of the skin of the bilateral lower legs. Skin showing scaling with verrucoformis lesions. Venous ultrasound done today. The patient continuing with supportive care. Objective - Vital Signs/Intake and Output Vital Signs (last 24 hours): Temp Pulse Resp BP Pulse Ox 98.6 F 58 L 18 152/64 H 98 02/23/17 12:00 02/23/17 13:33 02/23/17 12:00 02/23/17 13:33 02/23/17 06:00 Intake and Output: 02/23/17 02/23/17 06:59 18:59 Intake Total 300 Balance 300 - Medications Medications: Current Medications Albuterol/Ipratropium (Duoneb 3 Mg/0.5 Mg (3 Ml) Ud) 3 ml IH [id number] [facility] Last Admin: 02/23/17 11:46 Dose: 3 ml Amlodipine Besylate (Norvasc) 10 mg PO DAILY [facility] Last Admin: 02/23/17 10:20 Dose: 10 mg Armodafinil (Nuvigil 150 Mg Tab) 150 mg PO DAILY [facility] Last Admin: 02/23/17 13:39 Dose: 150 mg Aspirin (Ecotrin) 81 mg PO DAILY [facility] Last Admin: 02/23/17 10:19 Dose: 81 mg Atorvastatin Calcium (Lipitor) 10 mg PO DAILY [facility] Last Admin: 02/23/17 10:23 Dose: 10 mg Benzonatate (Tessalon Perles) 100 mg PO Q8 [facility] Last Admin: 02/23/17 13:33 Dose: 100 mg Calcium/Vitamin D (Oscal-D 250 Mg-125 Units Tab) 1 tab PO BID [facility] Last Admin: 02/23/17 10:22 Dose: 1 tab Carvedilol (Coreg) 25 mg PO BID [facility] Last Admin: 02/23/17 10:26 Dose: Not Given Clotrimazole (Lotrimin 1%) 0 gm TOP BID [facility] Last Admin: 02/23/17 10:31 Dose: 1 applic Docusate Sodium (Colace) 100 mg PO TID [facility] Last Admin: 02/23/17 13:33 Dose: 100 mg Furosemide (Lasix) 40 mg PO BID [facility] Last Admin: 02/23/17 10:24 Dose: 40 mg Heparin Sodium (Porcine) (Heparin) 5,000 units SC Q12 [facility] PRN Reason: Protocol Last Admin: 02/23/17 10:20 Dose: 5,000 units Hydralazine HCl (Apresoline) 25 mg PO QID [facility] Last Admin: 02/23/17 13:33 Dose: 25 mg Piperacillin Sod/Tazobactam Sod (Zosyn 3.375 In Ns 100ml) 100 mls @ 200 mls/hr IVPB Q6 [facility] PRN Reason: Protocol Stop: 02/25/17 00:01 Last Admin: 02/23/17 12:14 Dose: 200 mls/hr Insulin Detemir (Levemir) 7 unit SC Q12 [facility] Last Admin: 02/23/17 10:21 Dose: 7 unit Insulin Human Regular (Humulin R Med) 0 units SC ACHS [facility] PRN Reason: Protocol Last Admin: 02/23/17 12:05 Dose: 3 units Methylprednisolone (Solu-Medrol) 20 mg IVP DAILY [facility] Montelukast Sodium (Singulair) 10 mg PO HS [facility] Multi-Ingredient Cream (Hydrocerin Cream) 0 ea TOP DAILY [facility] Last Admin: 02/23/17 10:31 Dose: 1 applic Multivitamins/Minerals (Therapeutic-M Tab) 1 tab PO DAILY [facility] Last Admin: 02/23/17 10:20 Dose: 1 tab Non-Formulary Medication (Memantine Hcl [Namenda Xr]) 28 mg PO DAILY [facility] Last Admin: 02/23/17 11:54 Dose: Not Given Pantoprazole Sodium (Protonix Ec Tab) 40 mg PO 0600 [facility] Last Admin: 02/23/17 05:45 Dose: 40 mg Potassium Chloride (K-Dur 20 Meq Er Tab) 20 meq PO DAILY [facility] Last Admin: 02/23/17 10:25 Dose: 20 meq Rivastigmine (Exelon 9.5 Mg/24 Hr Patch) 1 patch TD DAILY [facility] Last Admin: 02/23/17 10:20 Dose: 1 patch Sertraline HCl (Zoloft) 50 mg PO HS [facility] Last Admin: 02/22/17 22:23 Dose: 50 mg - Labs Labs: 02/23/17 05:20 02/23/17 05:20 PT 11.3 Seconds (9.9-11.8) 02/20/17 13:25 INR 1.05 (0.93-1.08) 02/20/17 13:25 APTT 38.4 Seconds (23.7-30.8) H 02/20/17 18:50 - Constitutional Appears: Non-toxic, No Acute Distress, Chronically Ill - Head Exam Head Exam: ATRAUMATIC, NORMOCEPHALIC - Eye Exam Eye Exam: EOMI, PERRL Pupil Exam: NORMAL ACCOMODATION, PERRL - ENT Exam ENT Exam: Mucous Membranes Moist, Normal External Ear Exam, TM's Normal Bilaterally - Neck Exam Neck Exam: Full ROM, Normal Inspection - Respiratory Exam Respiratory Exam: Clear to Ausculation Bilateral, NORMAL BREATHING PATTERN. absent: Rales, Rhonchi, Wheezes - Cardiovascular Exam Cardiovascular Exam: REGULAR RHYTHM, RRR, +S1, +S2 - GI/Abdominal Exam GI & Abdominal Exam: Soft, Normal Bowel Sounds. absent: Distended, Tenderness - Extremities Exam Extremities Exam: Full ROM, Normal Inspection - Neurological Exam Neurological Exam: Alert, Awake, CN II-XII Intact, Oriented x3 - Psychiatric Exam Psychiatric exam: Normal Affect, Normal Mood - Skin Additional comments: as per extremity exam. Assessment and Plan - Assessment and Plan (Free Text) Assessment: 76 yo female with multiple medical issues presenting with cough, SOB, bilateral leg swelling, chronic venous stasis, and possible lower extremity cellulitis. The patient was started on Zosyn for antibiotic coverage. Currently afebrile. No leukocytosis. Supportive care. Patient's medical history includes hypertension and diabetes mellitus. Bynum cultures sent. Supportive care. Continue conservative therapy. Venous doppler done today and results pending. Possible pneumonia. Thank you for allowing me to participate in the care of the patient, we will follow with you.
--- NOTE | 2017-02-23 16:54 | CP.PCM.DIS ---
<WARD GUO - Last Filed: 02/23/17 16:50> Provider - Provider Date of Admission: 02/20/17 17:18 Attending physician: Patel Ramsey MD Primary care physician: Bhargavi Hendricks MD Consults: ID: [id number] Pod: Sherri Time Spent in preparation of Discharge (in minutes): 45 Diagnosis - Discharge Diagnosis (1) COPD (chronic obstructive pulmonary disease) Status: Chronic Priority: High (2) Cellulitis Status: Acute Priority: Medium (3) Hypercarbia Status: Chronic Priority: High (4) Leg edema Status: Chronic Priority: Medium (5) UTI (urinary tract infection) Status: Acute Priority: Low (6) Altered mental status Status: Chronic Priority: Medium Hospital Course - Lab Results Lab Results: Micro Results 02/20/17 17:30 Urine Urine Culture - Final Escherichia Coli Most Recent Lab Values WBC 9.3 10^3/ul (4.5-11.0) D 02/23/17 05:20 RBC 3.80 10^6/uL (3.5-6.1) 02/23/17 05:20 Hgb 10.1 g/dL (12.0-16.0) L 02/23/17 05:20 Hct 32.8 % (36.0-48.0) L 02/23/17 05:20 MCV 86.3 fl (80.0-105.0) 02/23/17 05:20 MCH 26.6 pg (25.0-35.0) 02/23/17 05:20 MCHC 30.8 g/dl (31.0-37.0) L 02/23/17 05:20 RDW 13.6 % (11.5-14.5) 02/23/17 05:20 Plt Count 152 10^3/uL (120.0-450.0) 02/23/17 05:20 MPV 9.8 fl (7.0-11.0) 02/23/17 05:20 Gran % 76.6 % (50.0-68.0) H 02/23/17 05:20 Lymph % (Auto) 13.5 % (22.0-35.0) L 02/23/17 05:20 [place] % (Auto) 9.6 % (1.0-6.0) H 02/23/17 05:20 Eos % (Auto) 0.1 % (1.5-5.0) L 02/23/17 05:20 Baso % (Auto) 0.2 % (0.0-3.0) 02/23/17 05:20 Gran # 7.10 (1.4-6.5) H 02/23/17 05:20 Lymph # 1.3 (1.2-3.4) 02/23/17 05:20 [place] # 0.9 (0.1-0.6) H 02/23/17 05:20 Eos # 0.0 (0.0-0.7) 02/23/17 05:20 Baso # 0.02 K/mm3 (0.0-2.0) 02/23/17 05:20 PT 11.3 Seconds (9.9-11.8) 02/20/17 13:25 INR 1.05 (0.93-1.08) 02/20/17 13:25 APTT 38.4 Seconds (23.7-30.8) H 02/20/17 18:50 D-Dimer, Quantitative 3.67 mg/L FEU (0-0.50) H 02/20/17 13:25 pCO2 53 mm/Hg (35-45) H 02/21/17 05:20 pO2 93.0 mm/Hg (80-100) 02/21/17 05:20 HCO3 37.7 mmol/L (21-28) H 02/21/17 05:20 ABG pH 7.46 (7.35-7.45) H 02/21/17 05:20 ABG Total CO2 39.3 mmol.L (22-28) H 02/21/17 05:20 ABG O2 Saturation 98.4 % (95-98) H 02/21/17 05:20 ABG O2 Content 14.7 ML/dl (15-23) L 02/21/17 05:20 ABG Base Excess 12.1 mmol/L (-2.0-3.0) H 02/21/17 05:20 ABG Hemoglobin 10.9 g/dL (11.7-17.4) L 02/21/17 05:20 ABG Carboxyhemoglobin 1.7 % (0.5-1.5) H 02/21/17 05:20 POC ABG HHb (Measured) 1.6 % (0-5) 02/21/17 05:20 ABG Methemoglobin 1.2 % (0.0-3.0) 02/21/17 05:20 ABG O2 Capacity 14.9 mL/dl (16-24) L 02/21/17 05:20 ABG Potassium 3.2 mmol/L (3.6-5.2) L 02/20/17 15:10 VBG pH 7.36 (7.32-7.43) 02/20/17 13:25 VBG pCO2 74.0 (40-60) H* 02/20/17 13:25 VBG HCO3 41.8 mmol/l (21-28) H 02/20/17 13:25 VBG Total CO2 44.1 mmol.L (22-28) H 02/20/17 13:25 VBG O2 Sat (Calc) 80.2 % (40-65) H 02/20/17 13:25 VBG Base Excess 13.5 mmol/L (0.0-2.0) H 02/20/17 13:25 VBG Potassium 3.4 mmol/L (3.6-5.2) L 02/20/17 13:25 Hgb O2 Saturation 95.4 % (95.0-98.0) 02/21/17 05:20 Sodium 143.0 mmol/L (132-148) 02/20/17 15:10 Chloride 103.0 mmol/L (98-107) 02/20/17 15:10 Glucose 283 mg/dl (65-105) H 02/20/17 15:10 Lactate 1.4 mmol/L (0.7-2.1) 02/20/17 15:10 FiO2 28.0 % 02/21/17 05:20 Sodium 142 mmol/L (132-148) 02/23/17 05:20 Potassium 3.3 mmol/L (3.6-5.0) L 02/23/17 05:20 Chloride 96 mmol/L (98-107) L 02/23/17 05:20 Carbon Dioxide 37 mmol/L (21-33) H 02/23/17 05:20 Anion Gap 12 (10-20) 02/23/17 05:20 BUN 34 mg/dL (7-21) H 02/23/17 05:20 Creatinine 1.1 mg/dL (0.5-1.4) 02/23/17 05:20 Est GFR ( Amer) 58 02/23/17 05:20 Est GFR (Non-Af Amer) 48 02/23/17 05:20 POC Glucose (mg/dL) 230 mg/dL (65-110) H 02/23/17 11:01 Random Glucose 241 mg/dL (70-110) H 02/23/17 05:20 Hemoglobin A1c 9.1 % (4.2-6.5) H D 02/20/17 18:50 Calcium 8.4 mg/dL (8.4-10.5) 02/23/17 05:20 Phosphorus 2.5 mg/dL (2.5-4.5) 02/23/17 05:20 Magnesium 2.0 mg/dL (1.7-2.2) 02/23/17 05:20 Total Bilirubin 0.5 mg/dL (0.2-1.3) 02/23/17 05:20 AST 30 U/L (15-39) 02/23/17 05:20 ALT 25 U/L (7-56) 02/23/17 05:20 Alkaline Phosphatase 85 U/L (38-133) 02/23/17 05:20 Lactate Dehydrogenase 442 U/L (333-699) 02/20/17 13:25 Total Creatine Kinase 52 U/L (35-230) 02/20/17 13:25 Troponin I < 0.01 ng/mL 02/20/17 13:25 NT-Pro-B Natriuret Pep 398 pg/mL (0-450) 02/20/17 13:25 Total Protein 7.1 g/dL (5.8-8.3) 02/23/17 05:20 Albumin 3.4 g/dL (3.0-4.8) 02/23/17 05:20 Globulin 3.7 gm/dL 02/23/17 05:20 Albumin/Globulin Ratio 0.9 (1.1-1.8) L 02/23/17 05:20 Procalcitonin < 0.05 NG/ML (0.19-0.49) L 02/20/17 17:50 TSH 3rd Generation 1.29 mIU/mL (0.46-4.68) 02/20/17 18:50 Arterial Blood Potassium 3.2 mmol/L (3.6-5.2) L 02/20/17 15:10 Venous Blood Potassium 3.4 mmol/L (3.6-5.2) L 02/20/17 13:25 Urine Color Light yellow (YELLOW) 02/20/17 17:30 Urine Appearance Clear (CLEAR) 02/20/17 17:30 Urine pH 7.0 (4.7-8.0) 02/20/17 17:30 Ur Specific [place] 1.015 (1.005-1.035) 02/20/17 17:30 Urine Protein Negative mg/dL (<30 mg/dL) 02/20/17 17:30 Urine Glucose (UA) 100 mg/dL (NEGATIVE) H 02/20/17 17:30 Urine Ketones Negative mg/dL (NEGATIVE) 02/20/17 17:30 Urine Blood Negative (NEGATIVE) 02/20/17 17:30 Urine Nitrate Positive (NEGATIVE) H 02/20/17 17:30 Urine Bilirubin Negative (NEGATIVE) 02/20/17 17:30 Urine Urobilinogen 0.2 E.U./dL (<1 E.U./dL) 02/20/17 17:30 Ur Leukocyte Esterase Negative Stephen/uL (NEGATIVE) 02/20/17 17:30 Urine RBC 1 - 3 /hpf (0-2) 02/20/17 17:30 Urine WBC 0 - 2 /hpf (0-6) 02/20/17 17:30 Ur Epithelial Cells 0 - 2 /hpf (0-5) 02/20/17 17:30 Urine Bacteria Many (NEG) 02/20/17 17:30 - Hospital Course Hospital Course: 76 F with a PMHx specifically significant for COPD, Asthma, DM, dementia, and Morbid Obesity, who initially presented to the ER complaining of SOB x4d with productive cough, fever, and b/l LE swelling and RLE pain. ID, pulmonology and podiatry were consulted. She was started on ABx and steroids for presumed COPD exacerbation with PNA, and for the LE cellulitis. During hospitalization, was noted to have asymptomatic bacteriuria, no changes made to Abx regimen because it was already covered. Patient also noted to have DONYA, requiring CPAP or BIPAP at night to sleep, and pulmonology recommended outpatient sleep study. She was also started on armodafinil. Today, patient appears much more awake and alert, sitting comfortably in bed. She is no longer complaining of any SOB or cough. She denies CP, abdominal pain , F/C, N/V/D/C. She admits to mild tenderness b/l lower extremities. Patient appears somewhat weak and deconditioned, and has some difficulty ambulating, and would benefit from rehab and PT, to which the family agrees. With family at bedside, all medications and conditions were discussed, and all questions were answered to their satisfaction. Patient was then discharged to a rehab facility. Patient seen and evaluated with attending. Discharge Exam - Head Exam Head Exam: ATRAUMATIC, NORMOCEPHALIC - Eye Exam Eye Exam: Normal appearance, PERRL - ENT Exam ENT Exam: Mucous Membranes Moist - Neck Exam Neck exam: Normal Inspection - Respiratory Exam Respiratory Exam: Clear to PA & Lateral. absent: Rales, Rhonchi, Wheezes - Cardiovascular Exam Cardiovascular Exam: RRR, +S1, +S2 - GI/Abdominal Exam GI & Abdominal Exam: Soft. absent: Tenderness - Extremities Exam Additional comments: B/L LE with 4+ nonpitting edema and chronic venous stasis changes with dark discoloration and verrucous changes to knees - Neurological Exam Neurological exam: Alert, CN II-XII Intact - Psychiatric Exam Psychiatric exam: Normal Affect, Normal Mood - Skin Skin Exam: Dry, Intact Additional comments: Except as noted in exam of extremities Discharge Plan - Discharge Medications Prescriptions: Armodafinil 150 mg Tab [Nuvigil 150 mg Tab] 150 mg PO DAILY #30 tab Cephalexin [cephalexin] 500 mg PO Q12 #12 cap Clotrimazole 1% Cream [Lotrimin 1%] 1 appl TOP BID 30 Days Hydrocerin [Hydrocerin Cream] 1 appl TOP DAILY 30 Days Methylprednisolone [Medrol Dose Pack (21 tabs)] See Taper PO DAILY #21 mg Montelukast [Singulair] 10 mg PO HS #30 tab - Follow Up Plan Condition: FAIR Disposition: TRANSF TO SNF Instructions: Heart Failure (DC), Urinary Tract Infection in Women (DC), Cellulitis (DC), Diabetes Mellitus Type 2 in Adults (DC), COPD (Chronic Obstructive Pulmonary Disease) (DC), Dysuria (GEN) Additional Instructions: 1. Continue all medications as prescribed, including medrol dose daquan for steroid taper 2. Complete course of antibiotics until the pills are finished, even if you feel better 3. Continue to wear the compression stockings daily for leg swelling 4. Continue using skin creams for legs to improve skin condition 5. Follow up with Dr. Francisco (pulmonology) for outpatient sleep study and for continued management of COPD 6. Follow up with PCP within 1 week 7. For any new or worsening concerns, contact PCP immediately, or return to ER Referrals: Sherwin Polanco DPM [Staff Provider] - Bhargavi Hendricks MD [Primary Care Provider] - Db Francisco MD [Staff Provider] - <Patel Ramsey - Last Filed: 03/10/17 18:41> Provider - Provider Date of Admission: 02/20/17 17:18 Attending physician: Patel Ramsey MD Primary care physician: Bhargavi Hendricks MD Hospital Course - Lab Results Lab Results: Micro Results 02/20/17 17:30 Urine Urine Culture - Final Escherichia Coli Most Recent Lab Values WBC 9.3 10^3/ul (4.5-11.0) D 02/23/17 05:20 RBC 3.80 10^6/uL (3.5-6.1) 02/23/17 05:20 Hgb 10.1 g/dL (12.0-16.0) L 02/23/17 05:20 Hct 32.8 % (36.0-48.0) L 02/23/17 05:20 MCV 86.3 fl (80.0-105.0) 02/23/17 05:20 MCH 26.6 pg (25.0-35.0) 02/23/17 05:20 MCHC 30.8 g/dl (31.0-37.0) L 02/23/17 05:20 RDW 13.6 % (11.5-14.5) 02/23/17 05:20 Plt Count 152 10^3/uL (120.0-450.0) 02/23/17 05:20 MPV 9.8 fl (7.0-11.0) 02/23/17 05:20 Gran % 76.6 % (50.0-68.0) H 02/23/17 05:20 Lymph % (Auto) 13.5 % (22.0-35.0) L 02/23/17 05:20 [place] % (Auto) 9.6 % (1.0-6.0) H 02/23/17 05:20 Eos % (Auto) 0.1 % (1.5-5.0) L 02/23/17 05:20 Baso % (Auto) 0.2 % (0.0-3.0) 02/23/17 05:20 Gran # 7.10 (1.4-6.5) H 02/23/17 05:20 Lymph # 1.3 (1.2-3.4) 02/23/17 05:20 [place] # 0.9 (0.1-0.6) H 02/23/17 05:20 Eos # 0.0 (0.0-0.7) 02/23/17 05:20 Baso # 0.02 K/mm3 (0.0-2.0) 02/23/17 05:20 PT 11.3 Seconds (9.9-11.8) 02/20/17 13:25 INR 1.05 (0.93-1.08) 02/20/17 13:25 APTT 38.4 Seconds (23.7-30.8) H 02/20/17 18:50 D-Dimer, Quantitative 3.67 mg/L FEU (0-0.50) H 02/20/17 13:25 pCO2 53 mm/Hg (35-45) H 02/21/17 05:20 pO2 93.0 mm/Hg (80-100) 02/21/17 05:20 HCO3 37.7 mmol/L (21-28) H 02/21/17 05:20 ABG pH 7.46 (7.35-7.45) H 02/21/17 05:20 ABG Total CO2 39.3 mmol.L (22-28) H 02/21/17 05:20 ABG O2 Saturation 98.4 % (95-98) H 02/21/17 05:20 ABG O2 Content 14.7 ML/dl (15-23) L 02/21/17 05:20 ABG Base Excess 12.1 mmol/L (-2.0-3.0) H 02/21/17 05:20 ABG Hemoglobin 10.9 g/dL (11.7-17.4) L 02/21/17 05:20 ABG Carboxyhemoglobin 1.7 % (0.5-1.5) H 02/21/17 05:20 POC ABG HHb (Measured) 1.6 % (0-5) 02/21/17 05:20 ABG Methemoglobin 1.2 % (0.0-3.0) 02/21/17 05:20 ABG O2 Capacity 14.9 mL/dl (16-24) L 02/21/17 05:20 ABG Potassium 3.2 mmol/L (3.6-5.2) L 02/20/17 15:10 VBG pH 7.36 (7.32-7.43) 02/20/17 13:25 VBG pCO2 74.0 (40-60) H* 02/20/17 13:25 VBG HCO3 41.8 mmol/l (21-28) H 02/20/17 13:25 VBG Total CO2 44.1 mmol.L (22-28) H 02/20/17 13:25 VBG O2 Sat (Calc) 80.2 % (40-65) H 02/20/17 13:25 VBG Base Excess 13.5 mmol/L (0.0-2.0) H 02/20/17 13:25 VBG Potassium 3.4 mmol/L (3.6-5.2) L 02/20/17 13:25 Hgb O2 Saturation 95.4 % (95.0-98.0) 02/21/17 05:20 Sodium 143.0 mmol/L (132-148) 02/20/17 15:10 Chloride 103.0 mmol/L (98-107) 02/20/17 15:10 Glucose 283 mg/dl (65-105) H 02/20/17 15:10 Lactate 1.4 mmol/L (0.7-2.1) 02/20/17 15:10 FiO2 28.0 % 02/21/17 05:20 Sodium 142 mmol/L (132-148) 02/23/17 05:20 Potassium 3.3 mmol/L (3.6-5.0) L 02/23/17 05:20 Chloride 96 mmol/L (98-107) L 02/23/17 05:20 Carbon Dioxide 37 mmol/L (21-33) H 02/23/17 05:20 Anion Gap 12 (10-20) 02/23/17 05:20 BUN 34 mg/dL (7-21) H 02/23/17 05:20 Creatinine 1.1 mg/dL (0.5-1.4) 02/23/17 05:20 Est GFR ( Amer) 58 02/23/17 05:20 Est GFR (Non-Af Amer) 48 02/23/17 05:20 POC Glucose (mg/dL) 272 mg/dL (65-110) H 02/23/17 16:03 Random Glucose 241 mg/dL (70-110) H 02/23/17 05:20 Hemoglobin A1c 9.1 % (4.2-6.5) H D 02/20/17 18:50 Calcium 8.4 mg/dL (8.4-10.5) 02/23/17 05:20 Phosphorus 2.5 mg/dL (2.5-4.5) 02/23/17 05:20 Magnesium 2.0 mg/dL (1.7-2.2) 02/23/17 05:20 Total Bilirubin 0.5 mg/dL (0.2-1.3) 02/23/17 05:20 AST 30 U/L (15-39) 02/23/17 05:20 ALT 25 U/L (7-56) 02/23/17 05:20 Alkaline Phosphatase 85 U/L (38-133) 02/23/17 05:20 Lactate Dehydrogenase 442 U/L (333-699) 02/20/17 13:25 Total Creatine Kinase 52 U/L (35-230) 02/20/17 13:25 Troponin I < 0.01 ng/mL 02/20/17 13:25 NT-Pro-B Natriuret Pep 398 pg/mL (0-450) 02/20/17 13:25 Total Protein 7.1 g/dL (5.8-8.3) 02/23/17 05:20 Albumin 3.4 g/dL (3.0-4.8) 02/23/17 05:20 Globulin 3.7 gm/dL 02/23/17 05:20 Albumin/Globulin Ratio 0.9 (1.1-1.8) L 02/23/17 05:20 Procalcitonin < 0.05 NG/ML (0.19-0.49) L 02/20/17 17:50 TSH 3rd Generation 1.29 mIU/mL (0.46-4.68) 02/20/17 18:50 Arterial Blood Potassium 3.2 mmol/L (3.6-5.2) L 02/20/17 15:10 Venous Blood Potassium 3.4 mmol/L (3.6-5.2) L 02/20/17 13:25 Urine Color Light yellow (YELLOW) 02/20/17 17:30 Urine Appearance Clear (CLEAR) 02/20/17 17:30 Urine pH 7.0 (4.7-8.0) 02/20/17 17:30 Ur Specific [place] 1.015 (1.005-1.035) 02/20/17 17:30 Urine Protein Negative mg/dL (<30 mg/dL) 02/20/17 17:30 Urine Glucose (UA) 100 mg/dL (NEGATIVE) H 02/20/17 17:30 Urine Ketones Negative mg/dL (NEGATIVE) 02/20/17 17:30 Urine Blood Negative (NEGATIVE) 02/20/17 17:30 Urine Nitrate Positive (NEGATIVE) H 02/20/17 17:30 Urine Bilirubin Negative (NEGATIVE) 02/20/17 17:30 Urine Urobilinogen 0.2 E.U./dL (<1 E.U./dL) 02/20/17 17:30 Ur Leukocyte Esterase Negative Stephen/uL (NEGATIVE) 02/20/17 17:30 Urine RBC 1 - 3 /hpf (0-2) 02/20/17 17:30 Urine WBC 0 - 2 /hpf (0-6) 02/20/17 17:30 Ur Epithelial Cells 0 - 2 /hpf (0-5) 02/20/17 17:30 Urine Bacteria Many (NEG) 02/20/17 17:30 Attending/Attestation - Attestation I have personally seen and examined this patient.: Yes I have fully participated in the care of the patient.: Yes I have reviewed all pertinent clinical information, including history, physical exam and plan: Yes Notes (Text): I have seen and examined the patient at bedside. Agree with the above note with the following additions/ exceptions: Briefly this is 76 year old female with history of COPD, Ashma, DM, depression, tobacco use, dyslipidemia, severe cognitive impairment and Morbid Obesity who presented for evaluation of shortness of breath, bilateral LE pain and swelling. D dimer was found to be elevated and CT scan was done which ruled out PE. Patient was found to have COPD exacerbation. Patient denies any SOB or cough. Continue prednisone taper, nebs and PO antibiotics. Podiatry and ID consult appreciated. Echo revealed biatrial enlargement and EF 55%. She also has possible DONYA. Modfinil was started during this admission and she appears more awake. Continue cpap overnight. Recommended sleep study as an outpatient. PT recommended rehab and patient was sent to rehab facility. Upon discharge patient will follow up with Dr Iker Hendricks. Dr Patel Ramsey
[2017-02-23 17:52] VITALS: PULSE 65
--- NOTE | 2017-02-23 18:18 | PN ---
DATE: 02/23/2017 PULMONARY PROGRESS NOTE REFERRING PHYSICIAN: Dr. Love. SUBJECTIVE: The patient is lying in bed at 45 degrees. Family is at bedside. Tolerated BiPAP well. Still has some cough and some coughing sputum production. No nausea, no vomiting, no diarrhea. No leg pain. No leg swelling. OBJECTIVE: GENERAL: In acute distress. VITAL SIGNS: Temperature is 98, heart rate is 58, respiratory rate is 25, blood pressure is 152/64, pulse ox 98% on nasal cannula. HEENT: Moist mucous membranes. Crowded airway. Mallampati score is 4. NECK: Short thick neck. LUNGS: Has fair flow with few rhonchi. HEART: S1, S2. ABDOMEN: Soft, nontender. No organomegaly. EXTREMITIES: There is some chronic skin changes and there is some edema. NEUROLOGIC: Awake and alert. Follows simple command. MEDICATION: She is on hydralazine 25 mg q.i.d., Colace 100 mg 3 times a day, Coreg 25 mg twice a day, DuoNeb q. 4 hours, Ecotrin 81 mg daily, Exelon patch daily, heparin 5000 units subcutaneously q. 12 hours, insulin coverage, Hydrocerin cream at affected area daily, potassium 20 mEq daily, Lasix 40 mg twice a day, Levemir 70 subcutaneously q. 12 hours, Lipitor 10 mg daily, Lotrimin 1% affected area twice a day, also Namenda 25 mg daily, Norvasc 10 mg daily, Nuvigil 150 mg daily, Protonix 40 mg daily, Solu-Medrol 20 mg IV daily, Tessalon Perles 100 mg q. 8 hours, multivitamins daily, Zoloft 50 mg daily, Zosyn 3.375 mg q. 6 hours. LABORATORY DATA: Shows hemoglobin 10.1, hematocrit 32.8, WBC 9.3, platelets 152. Sodium 142, potassium 3.3, chloride 96, bicarbonate 37, BUN is 34, creatinine 1.1. Glucose 241, calcium is 8.4, phosphorus 2.5, magnesium 2.0, AST is 30, ALT 25, alkaline phosphatase is 85, albumin is 3.4. Microbiology, urine culture has E. coli. IMPRESSION AND PLAN: Status post respiratory failure with CO2 retention requiring noninvasive ventilation that may be component of sleep apnea syndrome, hypoventilation syndrome, obesity, cellulitis of lower extremity, diabetes, pulmonary hypertension, daytime hypersomnia. I spoke to family at bedside. Encourage BiPAP use to keep at 45 degrees. Continue antiinflammatory, antibiotics, gastric prophylaxis, DVT prophylaxis, Singulair 10 mg at bedtime, GERD precaution. Thank you and we will follow with you. Db Francisco MD
== END 2017-02-23 18:00 | DRG 190 ==
LOC: ED 12:51 → ERH 17:18 → 2RNO 18:24
PROVIDERS: ADMIT Hospitalist; ATTEND Hospitalist
PROC: 5A09457 Assistance with Respiratory Ventilation, 24-96 Consecutive Hours, Continuous Positive Airway Pressure (ICD-10-PCS; principal; 2017-02-20)
PROC: 3E0F7GC Introduction of Other Therapeutic Substance into Respiratory Tract, Via Natural or Artificial Opening (ICD-10-PCS; 2017-02-20)
DX: J44.1 Chronic obstructive pulmonary disease with (acute) exacerbation (principal); J96.90 Respiratory failure, unspecified, unspecified whether with hypoxia or hypercapnia; E87.2 Acidosis; I27.2 Other secondary pulmonary hypertension; L03.115 Cellulitis of right lower limb; L03.116 Cellulitis of left lower limb; E11.51 Type 2 diabetes mellitus with diabetic peripheral angiopathy without gangrene; I50.9 Heart failure, unspecified; I11.0 Hypertensive heart disease with heart failure; N39.0 Urinary tract infection, site not specified; Z68.42 Body mass index [BMI] 45.0-49.9, adult; B35.1 Tinea unguium; G30.9 Alzheimer's disease, unspecified; F02.80 Dementia in other diseases classified elsewhere, unspecified severity, without behavioral disturbance, psychotic disturbance, mood disturbance, and anxiety; E66.01 Morbid (severe) obesity due to excess calories; E78.5 Hyperlipidemia, unspecified; I87.2 Venous insufficiency (chronic) (peripheral); F32.9 Major depressive disorder, single episode, unspecified; K44.9 Diaphragmatic hernia without obstruction or gangrene; G47.33 Obstructive sleep apnea (adult) (pediatric); Z96.653 Presence of artificial knee joint, bilateral; Z86.718 Personal history of other venous thrombosis and embolism; Z87.891 Personal history of nicotine dependence; E27.8 Other specified disorders of adrenal gland; Z79.82 Long term (current) use of aspirin

== ENCOUNTER 2017-08-25 05:05 | Inpatient (IN) | payer MEDICARE, MEDICAID ==
[2017-08-25 05:12] VITALS: BMI 47.2
--- NOTE | 2017-08-25 05:15 | ED PDOC ---
Arrival/HPI - General Time Seen by Provider: 08/25/17 05:10 Historian: Patient, EMS - History of Present Illness Narrative History of Present Illness (Text): 08/25/17 05:15 Анна Britt is a 77 year old female, whose past medical history includes COPD , asthma, Alzheimer's disease, hypertension, diabetes, recurrent bilateral lower extremity cellulitis, and DVTs, who presents to the Emergency department brought in by EMS complaining of progressively worsening shortness of breath today. Patient had nebulizer treatments at home with no significant relief. Limited HPI and ROS secondary to patient's acuity of condition. Symptom Onset: Gradual Symptom Course: Unchanged Activities at Onset: Light Context: Home Past Medical History - Provider Review Nursing Documentation Reviewed: Yes - Infectious Disease Hx of Infectious Diseases: None - Tetanus Immunization Tetanus Immunization: Unknown - Cardiac Hx Cardiac Disorders: Yes Hx Congestive Heart Failure: Yes Hx Hypertension: Yes - Pulmonary Hx Chronic Obstructive Pulmonary Disease (COPD): Yes - Neurological Hx Neurological Disorder: Yes Hx Alzheimer's Disease: Yes Hx Dementia: Yes - HEENT Hx HEENT Disorder: No - Renal Hx Renal Disorder: No - Endocrine/Metabolic Hx Diabetes Mellitus Type 2: Yes - Hematological/Oncological Hx Blood Disorders: No - Integumentary Hx Dermatological Disorder: No - Musculoskeletal/Rheumatological Hx Falls: No - Gastrointestinal Hx Gastrointestinal Disorders: No - Genitourinary/Gynecological Hx Genitourinary Disorders: Yes Hx Incontinence: Yes - Psychiatric Hx Substance Use: No - Surgical History Hx Joint Replacement: Yes (BILATERAL KNEE) Hx Orthopedic Surgery: Yes Other/Comment: [place] filter - Anesthesia Hx Anesthesia: Yes Hx Anesthesia Reactions: No Hx Malignant Hyperthermia: No - Suicidal Assessment Feels Threatened In Home Enviroment: No Family/Social History - Physician Review Nursing Documentation Reviewed: Yes Family/Social History: Unknown Family HX Smoking Status: Former Smoker Hx Alcohol Use: No Hx Substance Use: No Hx Substance Use Treatment: No Allergies/Home Meds Allergies/Adverse Reactions: Allergies cortisone Allergy (Verified 08/25/17 05:11) RASH Home Medications: Home Meds Medication Instructions Recorded Confirmed Atorvastatin Calcium 10 mg PO HS 11/12/13 08/25/17 Aspirin [Adult Low Dose Aspirin EC] 81 mg PO DAILY 04/11/16 08/25/17 Calcium Carbonate/Vitamin D3 1 tab PO DAILY 04/11/16 08/25/17 [[place] 500-Vit D3 200 Tablet] Carvedilol [Coreg] 25 mg PO BID 04/11/16 08/25/17 Docusate Sodium [Ernandez' 100 mg PO BID 04/11/16 08/25/17 Laxative] Ferrous Sulfate [Feosol] 325 mg PO DAILY 04/11/16 08/25/17 Furosemide [Lasix] 40 mg PO DAILY 04/11/16 08/25/17 Memantine HCl [Namenda Xr] 28 mg PO DAILY 04/11/16 08/25/17 amLODIPine [Norvasc] 5 mg PO DAILY 04/11/16 08/25/17 hydrALAZINE [Apresoline] 25 mg PO BID 04/11/16 08/25/17 Albuterol 0.083% [Albuterol 0.083% IH DAILY 08/25/17 Inhal Karyn (2.5 mg/3 ml) UD] Albuterol Sulfate [Proair Hfa] 0.09 mg IH TID PRN 08/25/17 08/25/17 Ammonium Lactate 12% [Lac-Hydrin] 12 TP 08/25/17 Azithromycin [Z-Jeet] 250 mg PO DAILY 08/25/17 08/25/17 Insulin Regular [HumuLIN R] 5 unit SC AC 08/25/17 08/25/17 Insulin Glargine,Hum.rec.anlog 9 units SQ HS 08/25/17 08/25/17 [Lantus Solostar] Pantoprazole [Protonix] 40 mg PO DAILY 08/25/17 08/25/17 Phenylephrine HCl/Prometh HCl 473 ml PO 08/25/17 [Promethazine Vc 5 mg/5 ml-6.25 mg/5 ml 473 ml] Review of Systems - Review of Systems Systems not reviewed;Unavailable: Acuity of Condition Respiratory: SOB Physical Exam Vital Signs Reviewed: Yes Vital Signs Temp Pulse Resp BP Pulse Ox 08/25/17 09:50 66 17 102/59 L 96 08/25/17 08:18 112/60 08/25/17 08:15 99.2 F 74 16 112/60 96 08/25/17 06:34 97 H 18 143/50 L 100 08/25/17 05:15 103.1 F H 100 H 20 174/85 H 96 Temperature: Febrile Blood Pressure: Hypertensive Pulse: Regular Respiratory Rate: Normal Appearance: Positive for: Well-Appearing, Non-Toxic, Comfortable Pain Distress: None Mental Status: Positive for: Alert and Oriented X 3 - Systems Exam Head: Present: Atraumatic, Normocephalic Pupils: Present: PERRL Extroacular Muscles: Present: EOMI Conjunctiva: Present: Normal Mouth: Present: Moist Mucous Membranes Neck: Present: Normal Range of Motion Respiratory/Chest: Present: Wheezes. No: Respiratory Distress, Accessory Muscle Use Cardiovascular: Present: Regular Rate and Rhythm, Normal S1, S2. No: Murmurs Abdomen: Present: Normal Bowel Sounds. No: Tenderness, Distention, Peritoneal Signs Back: Present: Normal Inspection Upper Extremity: Present: Normal Inspection. No: Cyanosis, Edema Lower Extremity: Present: Normal Inspection. No: Edema Neurological: Present: GCS=15, CN II-XII Intact, Speech Normal Skin: Present: Warm, Dry, Normal Color. No: Rashes Psychiatric: Present: Alert, Oriented x 3, Normal Insight, Normal Concentration Medical Decision Making ED Course and Treatment: 08/25/17 05:15 Impression: 77 year old female complaining of shortness of breath tonight. Plan: -- EKG -- Chest X-ray -- Labs, ABG, BNP, cardiac enzymes, blood cultures -- Tylenol -- Reassess and disposition Prior Visits: Notes and results from previous visits were reviewed. On 02/20/2017, pt was seen in the Emergency department for shortness of breath , bilateral lower extremitu swelling/pain, and fever. Pt was admitted to the hospital for further evaluation. Progress Notes: 08/25/17 06:15 Reviewed EKG, NSR at [address]-segment elevations or depressions, no T-wave inversions, normal intervals. case d/w dr amador accepts case for tele for chf,copd 08/25/17 23:48 - Lab Interpretations Microbiology Results: Microbiology Results 08/25/17 05:10 Blood-Venous Blood Culture - Preliminary Gram Negative Semaj 08/25/17 05:10 Blood-Venous Gram Stain - Final 08/25/17 05:25 Blood-Venous Blood Culture - Preliminary Gram Negative Semaj 08/25/17 05:25 Blood-Venous Gram Stain - Final Lab Results: 08/25/17 05:25 08/25/17 05:25 Lab Results 08/25/17 06:37: pO2 111 H, VBG pH 7.40, VBG pCO2 53.0, VBG HCO3 32.8 H, VBG Total CO2 34.4 H, VBG O2 Sat (Calc) 99.5 H, VBG Base Excess 6.5 H, VBG Potassium 3.7, Glucose 301 H, Lactate 1.5, FiO2 21.0, Sodium 132.0, Chloride 93.0 L, Venous Blood Potassium 3.7 08/25/17 05:57: Influenza Typ A,B (EIA) Negative for flu a/b 08/25/17 05:50: pCO2 44, pO2 75.0 L, HCO3 30.6 H, ABG pH 7.45, ABG Total CO2 32.0 H, ABG O2 Saturation 97.3, ABG O2 Content 16.4, ABG Base Excess 5.8 H, ABG Hemoglobin 12.4, ABG Carboxyhemoglobin 2.3 H, POC ABG HHb (Measured) 2.6, ABG Methemoglobin 1.5, ABG O2 Capacity 16.9, Hgb O2 Saturation 93.6 L, FiO2 28.0 08/25/17 05:25: Sodium 134, Potassium 3.9, Chloride 90 L, Carbon Dioxide 34 H, Anion Gap 13, BUN 21, Creatinine 1.2, Est GFR ( Amer) 52, Est GFR (Non- Af Amer) 43, Random Glucose 293 H, Calcium 9.6, Total Bilirubin 1.0, AST 23, ALT 15, Alkaline Phosphatase 116, Lactate Dehydrogenase 504, Total Creatine Kinase 45, Troponin I 0.02 D, NT-Pro-B Natriuret Pep 1740 H, Total Protein 8.1 , Albumin 3.8, Globulin 4.4, Albumin/Globulin Ratio 0.9 L 08/25/17 05:25: PT 12.3, INR 1.07, APTT 35.2 08/25/17 05:25: WBC 25.0 H D, RBC 4.42, Hgb 12.2 D, Hct 37.8, MCV 85.5, MCH 27.6, MCHC 32.3, RDW 13.2, Plt Count 171, MPV 10.5, Gran % 97.7 H, Lymph % (Auto ) 1.8 L, [place] % (Auto) 0.4 L, Eos % (Auto) 0.1 L, Baso % (Auto) 0.0, Gran # 24.37 H, Lymph # (Auto) 0.5 L, [place] # (Auto) 0.1, Eos # (Auto) 0.0, Baso # (Auto ) 0.01, Neutrophils % (Manual) 91 H, Band Neutrophils % 3 H, Lymphocytes % ( Manual) 6 L, Monocytes % (Manual) 0 L, Platelet Evaluation Normal - RAD Interpretation Radiology Orders: 08/25/17 05:19 CHEST PORTABLE [RAD] Stat - EKG Interpretation EKG Interpretation (Text): 08/25/17 06:53 rsr rate 98 normal ekg Interpreted by ED Physician: Yes Type: 12 lead EKG - Medication Orders Current Medication Orders: Albuterol/Ipratropium (Duoneb 3 Mg/0.5 Mg (3 Ml) Ud) 3 ml IH [id number] [facility] Last Admin: 08/25/17 19:43 Dose: 3 ml Albuterol/Ipratropium (Duoneb 3 Mg/0.5 Mg (3 Ml) Ud) 3 ml IH Q2H PRN PRN Reason: Shortness of Breath Aspirin (Ecotrin) 81 mg PO DAILY [facility] Atorvastatin Calcium (Lipitor) 10 mg PO HS [facility] Last Admin: 08/25/17 22:50 Dose: 10 mg Calcium Carbonate (Oscal) 500 mg PO BID [facility] Last Admin: 08/25/17 18:30 Dose: 500 mg Docusate Sodium (Colace) 100 mg PO BID [facility] Last Admin: 08/25/17 18:30 Dose: 100 mg Ferrous Sulfate (Feosol) 324 mg PO DAILY [facility] Heparin Sodium (Porcine) (Heparin) 5,000 units SC Q12 GELACIO PRN Reason: Protocol Last Admin: 08/25/17 22:49 Dose: 5,000 units MAR aPTT Document 08/25/17 22:49 MS (Rec: 08/25/17 22:49 MS [id number]) aPTT aPTT (secs) 35.2 Subcutaneous Administrations Document 08/25/17 22:49 MS (Rec: 08/25/17 22:49 [id number]) Charges for Administration # of Subcutaneous Administrations 1 Ceftriaxone Sodium (Rocephin 2 Gm Ivpb) 2 gm in 100 mls @ 100 mls/hr IVPB DAILY [facility] PRN Reason: Protocol Last Admin: 08/25/17 09:43 Dose: 100 mls/hr eMAR Start Stop Document 08/25/17 09:43 [facility] (Rec: 08/25/17 09:44 [id number]) Intravenous Solution Start Date 08/25/17 Start Time 09:44 End Date 08/25/17 End time 10:45 Total Infusion Time 61 Azithromycin (Zithromax 500mg In Ns) 500 mg in 250 mls @ 167 mls/hr IVPB DAILY GELACIO PRN Reason: Protocol Last Admin: 08/25/17 14:49 Dose: 167 mls/hr eMAR Start Stop Document 08/25/17 14:49 KL (Rec: 08/25/17 14:49 KL [id number]) Intravenous Solution Start Date 08/25/17 Start Time 14:49 Sodium Chloride (Sodium Chloride 0.9%) 1,000 mls @ 100 mls/hr IV .Q10H G[facility]ACIO Last Admin: 08/25/17 13:30 Dose: 100 mls/hr eMAR Start Stop Document 08/25/17 13:30 KL (Rec: 08/25/17 14:50 KL [id number]) Intravenous Solution Start Date 08/25/17 Start Time 13:30 Insulin Detemir (Levemir) 9 unit SC [facility] Last Admin: 08/25/17 22:49 Dose: 9 unit MAR Blood Glucose Document 08/25/17 22:49 MS (Rec: 08/25/17 22:49 MS [id number]) Blood Glucose Finger Stick Blood Glucose (70-120) 270 Subcutaneous Administrations Document 08/25/17 22:49 MS (Rec: 08/25/17 22:49 MS [id number]) Charges for Administration # of Subcutaneous Administrations 1 Insulin Human Lispro (Humalog Med) 0 units SC ACHS GELACIO PRN Reason: Protocol Last Admin: 08/25/17 22:50 Dose: Not Given Non-Admin Reason: Blood Sugar Parameter MAR Blood Glucose Document 08/25/17 22:50 MS (Rec: 08/25/17 22:50 MS [id number]) Blood Glucose Finger Stick Blood Glucose (70-120) 270 Insulin Human Regular (Humulin R) 5 units SC AC [facility] Montelukast Sodium (Singulair) 10 mg PO HS [facility] Last Admin: 08/25/17 22:50 Dose: 10 mg Multi-Ingredient Cream (Hydrocerin Cream) 1 ea TOP BID [facility] Last Admin: 08/25/17 18:31 Dose: 2 applic Non-Formulary Medication (Memantine Hcl [Namenda Xr]) 28 mg PO DAILY [facility] Pantoprazole Sodium (Protonix Ec Tab) 40 mg PO 0600 [facility] Last Admin: 08/25/17 12:21 Dose: 40 mg Vitamin D (Vitamin D 400 Intl Units Tab) 200 intlu PO BID [facility] Last Admin: 08/25/17 18:30 Dose: 200 intlu Discontinued Medications Acetaminophen (Tylenol 325mg Tab) 650 mg PO STAT STA Stop: 08/25/17 05:54 Last Admin: 08/25/17 06:17 Dose: 650 mg Albuterol/Ipratropium (Duoneb 3 Mg/0.5 Mg (3 Ml) Ud) 3 ml IH Q15M GELACIO Stop: 08/25/17 06:31 Last Admin: 08/25/17 06:32 Dose: 3 ml Furosemide (Lasix) 20 mg IVP ONCE ONE Stop: 08/25/17 06:53 Last Admin: 08/25/17 08:18 Dose: 20 mg MAR Blood Pressure Document 08/25/17 08:18 [facility] (Rec: 08/25/17 08:18 [facility] [id number]) Blood Pressure Blood Pressure (100/60-150/90) 112/60 IVP Administration Document 08/25/17 08:18 [facility] (Rec: 08/25/17 08:18 [facility] [id number]) Charges for Administration # of IVP Administrations 1 Piperacillin Sod/Tazobactam Sod (Zosyn 3.375 In Ns 100ml) 100 mls @ 200 mls/hr IVPB STAT STA PRN Reason: Protocol Stop: 08/25/17 07:01 Last Admin: 08/25/17 06:51 Dose: 200 mls/hr eMAR Start Stop Document 08/25/17 06:51 CNR (Rec: 08/25/17 06:51 CNR [facility] [id number]) Intravenous Solution Start Date 08/25/17 Start Time 06:51 End Date 08/25/17 End time 07:21 Total Infusion Time 30 Insulin Human Regular (Humulin R High) 0 units SC ACHS GELACIO PRN Reason: Protocol Last Admin: 08/25/17 12:19 Dose: 7 units MAR Blood Glucose Document 08/25/17 12:19 KL (Rec: 08/25/17 12:19 [id number]) Blood Glucose Finger Stick Blood Glucose (70-120) 276 Subcutaneous Administrations Document 08/25/17 12:19 KL (Rec: 08/25/17 12:19 [id number]) Injection Site MAR Injection Site Right Arm Charges for Administration # of Subcutaneous Administrations 1 - Scribe Statement The provider has reviewed the documentation as recorded by the Scribnitesh Mendes All medical record entries made by the Scribe were at my direction and personally dictated by me. I have reviewed the chart and agree that the record accurately reflects my personal performance of the history, physical exam, medical decision making, and the department course for this patient. I have also personally directed, reviewed, and agree with the discharge instructions and disposition. Disposition/Present on Arrival - Present on Arrival Any Indicators Present on Arrival: No History of DVT/PE: No History of Uncontrolled Diabetes: No Urinary Catheter: No History Surgical Site Infection Following: None - Disposition Have Diagnosis and Disposition been Completed?: Yes Diagnosis: COPD (chronic obstructive pulmonary disease), Congestive heart failure (CHF) Disposition: HOSPITALIZED Disposition Time: 07:00 Condition: FAIR
[2017-08-25] MEDS ORDERED: Albuterol-Ipratrop 3 mg / 0.5 (3 ml) UD ONE (05:59)
[2017-08-25 06:00] LABS: ARTERIAL BLOOD GAS HCO3 30.6 mmol/L (21-28); ARTERIAL BLOOD GAS HEMOGLOBIN 12.4 g/dL (11.7-17.4); ARTERIAL BLOOD GAS O2 CAPACITY 16.9 mL/dl (16-24); ARTERIAL BLOOD GAS O2 CONTENT 16.4 ML/dl (15-23); ARTERIAL BLOOD GAS O2 SAT 97.3 % (95-98); ARTERIAL BLOOD GAS PCO2 44 mm/Hg (35-45); ARTERIAL BLOOD GAS PH 7.45 (7.35-7.45)
[2017-08-25 06:01] LABS: BASO # 0.01 K/mm3 (0.0-2.0); EOS % 0.1 % (1.5-5.0); GRAN # 24.37 (1.4-6.5); GRAN % 97.7 % (50.0-68.0); HEMOGLOBIN 12.2 g/dL (12.0-16.0); LYMPH # 0.5 (1.2-3.4); LYMPH % 1.8 % (22.0-35.0); MEAN CELL VOLUME 85.5 fl (80.0-105.0); MEAN CORPUSCULAR HEMOGLOBIN 27.6 pg (25.0-35.0); MEAN CORPUSCULAR HGB CONC 32.3 g/dl (31.0-37.0); MEAN PLATELET VOLUME 10.5 fl (7.0-11.0); MONO # 0.1 (0.1-0.6); MONO % 0.4 % (1.0-6.0); PLATELET COUNT 171 10^3/uL (120.0-450.0); RBC 4.42 10^6/uL (3.5-6.1); RED CELL DISTRIBUTION WIDTH 13.2 % (11.5-14.5)
[2017-08-25] MEDS: Albuterol-Ipratrop 3 mg / 0.5 (3 ml) UD IH SCH ×5 (06:03→19:43)
[2017-08-25 06:05] LABS: ALB/GLOB RATIO 0.9 (1.1-1.8); ALBUMIN 3.8 g/dL (3.0-4.8); CALCIUM 9.6 mg/dL (8.4-10.5)
[2017-08-25 06:15] LABS: TROPONIN I 0.02 ng/mL
[2017-08-25 06:20] LABS: INR 1.07 (0.93-1.08); PARTIAL THROMBOPLASTIN TIME 35.2 Seconds (25.1-36.5); PROTHROMBIN TIME 12.3 SECONDS (9.4-12.5)
[2017-08-25] MEDS ORDERED: Piperacillin/Tazobact 3.375 gm 100 ML IVPB STA (06:32)
[2017-08-25 06:49] LABS: BAND 3 % (0-2); LYMPHOCYTE 6 % (22.0-35.0); NEUTROPHIL 91 % (50.0-70.0)
[2017-08-25 06:50] LABS: MONOCYTE 0 % (1.0-6.0); PLATELET ESTIMATE NORMAL (NORMAL)
[2017-08-25 07:03] LABS: VENOUS BLOOD GAS BASE EXCESS 6.5 mmol/L (0.0-2.0)
[2017-08-25 07:06] LABS: VENOUS BLOOD GAS PO2 111 mm/Hg (30-55)
--- NOTE | 2017-08-25 09:25 | RAD ---
HISTORY: sob COMPARISON: 02/20/2017 FINDINGS: LUNGS: No active pulmonary disease. PLEURA: No significant pleural effusion identified, no pneumothorax apparent. CARDIOVASCULAR: Normal. OSSEOUS STRUCTURES: No significant abnormalities. VISUALIZED UPPER ABDOMEN: Normal. OTHER FINDINGS: None. IMPRESSION: No active disease.
[2017-08-25] MEDS ORDERED: cefTRIAXone 2 GM IN NS 2 GM/100 ML BAG IVPB SCH (10:00)
[2017-08-25] MEDS ORDERED: Azithromycin 500MG/NS 250ml 500 MG/250 ML BAG IVPB SCH (10:00)
--- NOTE | 2017-08-25 10:04 | CARD ---
APPROVED REPORT EKG Measurement Heart [id number] <Conclusion> Normal sinus rhythm Poor RProgression V1-V3.
[2017-08-25] MEDS ORDERED: Albuterol-Ipratrop 3 mg / 0.5 (3 ml) UD IH PRN (10:22)
--- NOTE | 2017-08-25 10:27 | CP.PCM.HP ---
Addendum entered and electronically signed by Jose Elias Herrera DO 08/26/17 06 :12: ROS General: denies weight loss, general malaise ENT: denies rhinorrhea, sore throat Cardiovascular: denies chest pain, palpitations, admits to shortness of breath Pulmonary: admits to shortness of breath, denies wheezing Gastrointestinal: denies abdominal pain, nausea, vomiting, diarrhea Neurological: denies dizziness, numbness and tingling, vision changes, admits to dementia (as per son) Genitourinary: denies increased frequency, admits to incontinence Psychiatry: admits to episodes of depression, denies anxiety Original Note: <Jose Elias Herrera - Last Filed: 08/26/17 06:10> History of Present Illness - History of Present Illness History of Present Illness: 77 yo Armenian-speaking woman with PMH of Alzheimers disease, HTN, uncontrolled diabetes, asthma, and LE lymphedema for evaluation of chest pain and dyspnea. History provided by the pts son, Shelley, secondary to dementia and dyspnea. The pts son states that she had symptoms of URI with productive cough, which was treated with a Z-pack two days ago (on day 25 on arrival to ED). Last night at 2am the pt became very short of breath, mental status change, and chest pain, so her son brought her in for evaluation. The pt has severe dementia and her memory and mental status waxes and wanes on a normal day, but the pts son feels that she was more lethargic than baseline. He denies any other new issues. Recent med changes include increase in Humalog R dose and increase frequency of Lantus to 56 units 3x daily. Sick contacts include her . She does not smoke or drink alcohol. At baseline, the pt is able to ambulate unassisted around her house. She does not leave the houselast was 6 mos ago when she was last admitted to the hospital. She has bowel and bladder incontinence at baseline. Her son manages all of her home cares and medications. She lives with her and her son. PMHx: HTN, asthma, Alzheimers disease, bilateral LE lymphadenopathy with chronic skin changes, bowel and bladder incontinence Home meds: pantoprazole, ProAir, albuterol, montelukast, promethazine, Namenda, ASA 81 mg, atorvastatin, carvedilol, furosemide 40 mg, amlodipine, hydralazine All: cortisone (rash) PSHx: C section x1, R knee prosthesis, R femoral stent General: obese woman resting comfortably, NAD. Breathing with nasal cannula. HEENT: Lungs: Tachypnea. No stridor or accessory m. use. Rhonchi in upper lung hendricks bilaterally. Distant lung sounds in bilateral lung bases. Cardiac: RRR, no murmurs, rubs, gallops. Abdomen: normal active bowel sounds in all 4 quadrants. Soft, NT, ND. Neuro: Pt can follow simple commands. Pt does not answer questions. AOx1. Skin: Examination of sacral area reveals no ulcers or skin changes. Skin is moist, but grossly intact. Exam somewhat limited by difficulty turning pt. Lower extremities: diffuse, acanthotic papular rash extending over distal 2/3s of legs bilaterally. 2+ non-pitting edema, equal bilaterally. Onchomycosis and dystrophic nail changes bilaterally. Overall skin warm, dry, intact. No open wounds. DP pulses are 1+ bilaterally. A/P: 77 yo F presenting with CP and SOB for 2 days SIRS vs sepsis likely 2/2 URI vs CAP, rule out UTI. Unlikely cellulitis or GI infection. Failed Z-pack outpt. CURB-65 score 1. - UA positive for UTI, UC pending; rocephin already started, continue - Blood cultures pending - Ceftriaxone and azithromycin IV empirically - Tylenol prn for fever - Gentle fluid bolus NS@100 - Consult Infectious Disease: recommendations appreciated SOB likely 2/2 asthma, acute respiratory tract infection, or fluid overload. Less likely 2/2 pulmonary embolism (Wells score 1.5) - D dimer to r/o PE returned elevated - O2 as needed - Duoneb [place] and prn for asthma - Echo: r/o fluid overload and heart failure. - Lasix 20 IV given in ED, increase prn pending results of echo. - Hold steroid at this time since patient is not wheezing and has good air movement - Continue home monteukast CP r/o ACS - EKG - Serial troponins: initial 0.1, repeat in 8 hrs HTN - home meds DM - Repeat A1c - Insulin sliding scale Chronic lymphedema vs venous stasis dermatitis. - Consult podiatry: recommendations appreciated DVT prophylaxis: Heparin 5000U GI prophylaxis: pantoprazole Present on Admission - Present on Admission Any Indicators Present on Admission: Yes History of Uncontrolled Diabetes: Yes Past Patient History - Infectious Disease Hx of Infectious Diseases: None - Tetanus Immunizations Tetanus Immunization: Unknown - Past Social History Smoking Status: Former Smoker - CARDIAC Hx Cardiac Disorders: Yes Hx Congestive Heart Failure: Yes Hx Hypertension: Yes - PULMONARY Hx Chronic Obstructive Pulmonary Disease (COPD): Yes - NEUROLOGICAL Hx Neurological Disorder: Yes Hx Alzheimer's Disease: Yes Hx Dementia: Yes - HEENT Hx HEENT Problems: No - RENAL Hx Chronic Kidney Disease: No - ENDOCRINE/METABOLIC Hx Diabetes Mellitus Type 2: Yes - HEMATOLOGICAL/ONCOLOGICAL Hx Blood Disorders: No - INTEGUMENTARY Hx Dermatological Problems: No - MUSCULOSKELETAL/RHEUMATOLOGICAL Hx Falls: No - GASTROINTESTINAL Hx Gastrointestinal Disorders: No - GENITOURINARY/GYNECOLOGICAL Hx Genitourinary Disorders: Yes Hx Incontinence: Yes - PSYCHIATRIC Hx Substance Use: No - SURGICAL HISTORY Hx Joint Replacement: Yes (BILATERAL KNEE) Hx Orthopedic Surgery: Yes Other/Comment: [place] filter - ANESTHESIA Hx Anesthesia: Yes Hx Anesthesia Reactions: No Hx Malignant Hyperthermia: No Meds Allergies/Adverse Reactions: Allergies Allergy/AdvReac Type Severity Reaction Status Date / Time cortisone Allergy RASH Verified 08/25/17 05:11 Results - Vital Signs Recent Vital Signs: Last Vital Signs Temp 99.2 F 08/25/17 08:15 Pulse 66 08/25/17 09:50 Resp 17 08/25/17 09:50 BP 102/59 L 08/25/17 09:50 Pulse Ox 96 08/25/17 09:50 - Labs Result Diagrams: 08/25/17 05:25 08/25/17 05:25 Labs: Laboratory Results - last 24 hr 08/25/17 08:05 D-Dimer, Quantitative 3157 H <Patel Ramsey - Last Filed: 08/27/17 10:16> Results - Vital Signs Recent Vital Signs: Last Vital Signs Temp 98.1 F 08/27/17 06:00 Pulse 68 08/27/17 06:00 Resp 18 08/27/17 06:00 BP 128/58 L 08/27/17 09:54 Pulse Ox 97 08/27/17 06:00 - Labs Result Diagrams: 08/27/17 05:20 08/27/17 05:20 Labs: Laboratory Results - last 24 hr 08/26/17 08/26/17 08/26/17 11:20 15:48 21:25 WBC RBC Hgb Hct MCV MCH MCHC RDW Plt Count MPV Gran % Lymph % (Auto) [place] % (Auto) Eos % (Auto) Baso % (Auto) Gran # Lymph # (Auto) [place] # (Auto) Eos # (Auto) Baso # (Auto) Sodium Potassium Chloride Carbon Dioxide Anion Gap BUN Creatinine Est GFR ( Amer) Est GFR (Non-Af Amer) POC Glucose (mg/dL) 249 H 162 H 149 H Random Glucose Calcium Total Bilirubin AST ALT Alkaline Phosphatase Total Protein Albumin Globulin Albumin/Globulin Ratio 08/27/17 08/27/17 08/27/17 05:20 05:20 07:13 WBC 11.3 H D RBC 4.63 Hgb 12.4 D Hct 39.7 MCV 85.7 MCH 26.8 MCHC 31.2 RDW 13.4 Plt Count 191 MPV 11.0 Gran % 78.4 H Lymph % (Auto) 9.3 L [place] % (Auto) 7.6 H Eos % (Auto) 4.6 Baso % (Auto) 0.1 Gran # 8.90 H Lymph # (Auto) 1.1 L [place] # (Auto) 0.9 H Eos # (Auto) 0.5 Baso # (Auto) 0.01 Sodium 136 Potassium 3.4 L Chloride 97 L Carbon Dioxide 30 Anion Gap 12 BUN 20 Creatinine 1.1 Est GFR ( Amer) 58 Est GFR (Non-Af Amer) 48 POC Glucose (mg/dL) 105 Random Glucose 117 H Calcium 9.1 Total Bilirubin 0.8 AST 18 ALT 20 Alkaline Phosphatase 82 Total Protein 6.9 Albumin 3.1 Globulin 3.8 Albumin/Globulin Ratio 0.8 L Attending/Attestation - Attestation I have personally seen and examined this patient.: Yes I have fully participated in the care of the patient.: Yes I have reviewed all pertinent clinical information: Yes Notes (Text): I have seen and examined the patient at bedside. Agree with the above note with the following additions/ exceptions: Briefly this is 77 year old female with history of Alzheimer's dementia, HTN, uncontrolled DM, asthma, former smoker, and LE lymphedema who was brought by the son for evaluation of chest pain, mild productive cough, shortness of breath and lethargy. Patient took 2 days of zpack prior to ED visit. Upon admission, she was found to have fever 103, tachycardia and leukocytosis. UA revealed LE+ and 5-10 wbc suggestive of UTI. Will do blood cultures and procal. On exam, she was found to have bilateral LE cellulitis vs stasis dermatitis. D dimer was found to be elevated. CTA was ordered. Result is pending. Patient was started on broad spectrum iv antibiotics. Will order echo and check a1c. Will consult ID and podiatry. Upon discharge patient will follow up with Dr Bhargavi Hendricks. Dr Patel Ramsey
[2017-08-25] MEDS ORDERED: Insulin Reg-HIGH-Coverage SC SCH (11:30)
[2017-08-25] MEDS: Pantoprazole 40 mg EC Tab PO SCH (12:21)
[2017-08-25] MEDS ORDERED: Iohexol 350 MG/100 ML VIAL ONE (13:13)
[2017-08-25] MEDS: Sodium Chloride 0.9% 1,000 ML IV SCH (13:30)
--- NOTE | 2017-08-25 15:00 | CT ---
PROCEDURE: CT Chest with contrast (Pulmonary Angiogram) HISTORY: r/o PE, Questionable PNA COMPARISON: 02/20/2017 CT TECHNIQUE: Axial computed tomography images were obtained of the chest in the pulmonary arterial phase of enhancement. Coronal and sagittal reformatted images were created and reviewed. Intravenous contrast dose: 100 cc of Omni 350 Radiation dose: Total exam DLP = 474 mGy-cm. This CT exam was performed using one or more of the following dose reduction techniques: Automated exposure control, adjustment of the mA and/or kV according to patient size, and/or use of iterative reconstruction technique. FINDINGS: PULMONARY ARTERIES: Unremarkable. No pulmonary embolism. AORTA: No acute findings. No thoracic aortic aneurysm. LUNGS: There is an 8 mm nodule in the right upper lobe seen on image 22 series 5. This was not visible on the previous exam PLEURAL SPACES: Unremarkable. No effusion or pneuomothorax. HEART: Unremarkable. No cardiomegaly. No significant pericardial effusion. Calcified coronary arteries LYMPH NODES: No lymphadenopathy. BONES, CHEST WALL: Unremarkable. No fracture or destructive lesion OTHER FINDINGS: Unremarkable. IMPRESSION: No evidence of pulmonary embolus. 8 mm nodule in the right upper lobe
--- NOTE | 2017-08-25 15:38 | CP.PCM.CON ---
History of Present Illness - History of Present Illness History of Present Illness: Podiatry Consult Note- Dr. Sood 77 y.o female with PMH of DM, PVD, HTN, Alzheimer, depression, and asthma seen and evaluated at bedside for bilaterally lymphedema. Patient is seen sleeping comfortably in bed, in NAD. Patient's son is at bedside during visitation whom majority of the history was obtained from. Son reports mother was sick for the past 2 days and getting progressively worse. Yesterday he reports she was lucid and unresponsive and was brought to the ED for evaluation. Son reports that mother legs tend to swell and goes away. At this moment, he reports no problems with the lower extremity. PMH: DM, HTN, Alzheimer, depression, asthma, incontinence PSH: right knee replacement, left stent placement, MEDS: see medication list ALL: cortisone- rash and hives SH: former smoker- light smoker, socially drinks, no illicit drug use, lives with son FH: mother- DM, father- Alzheimer Past Patient History - Infectious Disease Hx of Infectious Diseases: None - Tetanus Immunizations Tetanus Immunization: Unknown - Past Social History Smoking Status: Never Smoked - CARDIAC Hx Cardiac Disorders: Yes Hx Congestive Heart Failure: Yes Hx Hypertension: Yes - PULMONARY Hx Asthma: Yes Hx Chronic Obstructive Pulmonary Disease (COPD): Yes - NEUROLOGICAL Hx Neurological Disorder: Yes Hx Alzheimer's Disease: Yes Hx Dementia: Yes - HEENT Hx HEENT Problems: No - RENAL Hx Chronic Kidney Disease: No - ENDOCRINE/METABOLIC Hx Diabetes Mellitus Type 2: Yes - HEMATOLOGICAL/ONCOLOGICAL Hx Blood Disorders: No - INTEGUMENTARY Hx Dermatological Problems: No - MUSCULOSKELETAL/RHEUMATOLOGICAL Hx Falls: Yes - GASTROINTESTINAL Hx Gastrointestinal Disorders: No - GENITOURINARY/GYNECOLOGICAL Hx Genitourinary Disorders: Yes Hx Incontinence: Yes - PSYCHIATRIC Hx Psychophysiologic Disorder: Yes Hx Depression: Yes Hx Emotional Abuse: No Hx Physical Abuse: No - SURGICAL HISTORY Hx Joint Replacement: Yes (BILATERAL KNEE) Hx Orthopedic Surgery: Yes Other/Comment: manfred filter - ANESTHESIA Hx Anesthesia: Yes Hx Anesthesia Reactions: No Hx Malignant Hyperthermia: No Meds Allergies/Adverse Reactions: Allergies Allergy/AdvReac Type Severity Reaction Status Date / Time cortisone Allergy RASH Verified 08/25/17 05:11 - Medications Medications: Current Medications Albuterol/Ipratropium (Duoneb 3 Mg/0.5 Mg (3 Ml) Ud) 3 ml IH [id number] [facility] Last Admin: 08/25/17 14:09 Dose: Not Given Albuterol/Ipratropium (Duoneb 3 Mg/0.5 Mg (3 Ml) Ud) 3 ml IH Q2H PRN PRN Reason: Shortness of Breath Heparin Sodium (Porcine) (Heparin) 5,000 units SC Q12 [facility] PRN Reason: Protocol Last Admin: 08/25/17 12:19 Dose: 5,000 units Ceftriaxone Sodium (Rocephin 2 Gm Ivpb) 2 gm in 100 mls @ 100 mls/hr IVPB DAILY [facility] PRN Reason: Protocol Last Admin: 08/25/17 09:43 Dose: 100 mls/hr Azithromycin (Zithromax 500mg In Ns) 500 mg in 250 mls @ 167 mls/hr IVPB DAILY [facility] PRN Reason: Protocol Last Admin: 08/25/17 14:49 Dose: 167 mls/hr Sodium Chloride (Sodium Chloride 0.9%) 1,000 mls @ 100 mls/hr IV .Q10H [facility] Last Admin: 08/25/17 13:30 Dose: 100 mls/hr Insulin Human Regular (Humulin R High) 0 units SC ACHS [facility] PRN Reason: Protocol Last Admin: 08/25/17 12:19 Dose: 7 units Pantoprazole Sodium (Protonix Ec Tab) 40 mg PO 0600 [facility] Last Admin: 08/25/17 12:21 Dose: 40 mg Physical Exam - Constitutional Appears: Well, Non-toxic, No Acute Distress - Extremities Exam Additional comments: VASC: DP and PT pulses nonpalpable secondary to edema b/l, CFT WNL to digits x10 , +3 pitting edema to foot and leg b/l NEURO: Gross sensation and protective sensation diminished DERM: No open wounds noted to the LE. No erythema noted to bilateral lower extremity . Secondary scaling verrucaformis lesions with fissures noted. Hyperpigmentation discoloration noted to the LE. Nails x10 are thickened and elongated with the presence of subungual debris. ORTHO: Tenderness to palpation bilateral lower extremity. ROM of the ankles in DF and PF with no crepitus noted b/l - Psychiatric Exam Psychiatric exam: Normal Affect, Normal Mood Results - Vital Signs Recent Vital Signs: Last Vital Signs Temp 98.2 F 08/25/17 12:57 Pulse 64 08/25/17 12:57 Resp 18 08/25/17 12:57 BP 101/48 L 08/25/17 12:57 Pulse Ox 96 08/25/17 09:50 - Labs Result Diagrams: 08/25/17 05:25 08/25/17 05:25 Labs: Laboratory Results - last 24 hr 08/25/17 08/25/17 08/25/17 08:05 11:22 12:00 D-Dimer, Quantitative 3157 H POC Glucose (mg/dL) 276 H Troponin I 0.10 D Assessment & Plan - Assessment and Plan (Free Text) Assessment: 77 y.o female with PMH of DM, PVD, HTN, Alzheimer, depression, and asthma with lymphedema and onycomycosis of nails Plan: Patient seen and evaluated Discussed plan in detail with attending Dr. Sood Labs, charts, vitals reviewed (afebrile, WBC=25.0) Leukocytosis not likely from b/l lower extremities Will order Hydrocerin cream. To be applied daily BID No dressings to the LE at this time Will debride onychomycotic enlongated toenails x10 tomorrow
[2017-08-25] MEDS ORDERED: [UNRECOGNIZED DRUG - OTHER] PO SCH (18:00)
[2017-08-25] MEDS ORDERED: VITAMIN D3 PO SCH (18:00)
[2017-08-25] MEDS ORDERED: CALCIUM CARBONATE PO SCH (18:00)
[2017-08-25] MEDS: Cholecalciferol 400 Intl Units Tab PO SCH (18:30)
[2017-08-25] MEDS: Hydrocerin(120 gm) TOP SCH (18:31)
[2017-08-25 19:12] LABS: PH,URINE 6.5 (4.7-8.0); URINE BILIRUBIN NEGATIVE (NEGATIVE); URINE BLOOD TRACE-INTACT (NEGATIVE); URINE GLUCOSE (UA) 250 mg/dL (NEGATIVE); URINE LEUKOCYTE ESTERASE MODERATE Leu/uL (NEGATIVE); URINE NITRATE NEGATIVE (NEGATIVE); URINE PROTEIN 30 mg/dL (<30 mg/dL); URINE UROBILINOGEN 0.2 E.U./dL (<1 E.U./dL)
--- NOTE | 2017-08-25 19:15 | US ---
HISTORY: Leg pain and swelling. Evaluate for DVT PHYSICIAN(S): Ranjan Archer MD. TECHNIQUE: Duplex sonography and color-flow Doppler with graded compression were used to evaluate the deep venous systems of both lower extremities. The exam is limited by body habitus and edema. The tibial veins are not well seen FINDINGS: The visualized deep venous systems of both lower extremities are sonographically normal and compressible. Normal wave forms and augmentation are seen. There is no sonographic evidence for deep venous thrombosis in the visualized segments of both lower extremities. IMPRESSION: No sonographic evidence for deep venous thrombosis in the visualized segments of both lower extremities. Limited study.
[2017-08-25 19:17] LABS: URINE APPEARANCE SLIGHT-CLOUDY (CLEAR); URINE COLOR YELLOW (YELLOW)
[2017-08-25 19:47] LABS: URINE RBC 0 - 2 /hpf (0-2)
[2017-08-25] MEDS ORDERED: Insulin Detemir 100 units/ml Vial (Levemir) SC SCH (22:00)
[2017-08-25] MEDS: Insulin Lispro (humaLOG) MEDIUM Coverage SC SCH (22:50)
[2017-08-26] MEDS: Sodium Chloride 0.9% 1,000 ML IV SCH ×3 (01:16→17:44)
[2017-08-26] MEDS: Albuterol-Ipratrop 3 mg / 0.5 (3 ml) UD IH SCH ×4 (02:20→19:50)
[2017-08-26] MEDS: Pantoprazole 40 mg EC Tab PO SCH (05:13)
[2017-08-26] MEDS ORDERED: Meropenem 1g/NS 100mL IVPB 1 GM/100 ML PIGGYBACK IVPB SCH (06:15)
[2017-08-26] MEDS: Meropenem IV 1 gm in NS 50 ML IVPB SCH ×2 (06:41→17:45)
[2017-08-26] MEDS ORDERED: Vancomycin 2 GM in Sodium Chloride 0.9% 500 ML IVPB ONE (07:15)
[2017-08-26 07:31] LABS: BASO # 0.02 K/mm3 (0.0-2.0); BASO % 0.1 % (0.0-3.0); EOS # 0.1 (0.0-0.7); EOS % 0.7 % (1.5-5.0); GRAN # 14.05 (1.4-6.5); HEMOGLOBIN 10.2 g/dL (12.0-16.0); LYMPH # 1.1 (1.2-3.4); LYMPH % 6.8 % (22.0-35.0); MEAN CELL VOLUME 85.6 fl (80.0-105.0); MEAN CORPUSCULAR HEMOGLOBIN 26.6 pg (25.0-35.0); MEAN CORPUSCULAR HGB CONC 31.1 g/dl (31.0-37.0); MEAN PLATELET VOLUME 10.8 fl (7.0-11.0); MONO # 1.2 (0.1-0.6); MONO % 7.4 % (1.0-6.0); RBC 3.83 10^6/uL (3.5-6.1); RED CELL DISTRIBUTION WIDTH 13.2 % (11.5-14.5); WHITE BLOOD COUNT 16.5 10^3/ul (4.5-11.0)
[2017-08-26 07:44] LABS: ALB/GLOB RATIO 0.8 (1.1-1.8); ALBUMIN 2.8 g/dL (3.0-4.8); CALCIUM 8.8 mg/dL (8.4-10.5)
[2017-08-26] MEDS: Insulin Lispro (humaLOG) MEDIUM Coverage SC SCH ×4 (08:50→22:00)
[2017-08-26] MEDS: Insulin Regular 1 UNITS/0.01 ML ML SC SCH ×3 (08:51→18:02)
[2017-08-26] MEDS ORDERED: Barium Sulfate Susp 2.1% w/v, 2.0% w/w 450 mL Bottle PO ONE (09:01)
--- NOTE | 2017-08-26 09:11 | CARD ---
APPROVED REPORT EKG Measurement Heart [id number] <Conclusion> Sinus bradycardia Otherwise normal ECG
--- NOTE | 2017-08-26 09:34 | CARD ---
APPROVED REPORT EKG Measurement Heart [id number] <Conclusion> Normal sinus rhythm Normal ECG
--- NOTE | 2017-08-26 09:42 | CARD ---
APPROVED REPORT EKG Measurement Heart [id number] <Conclusion> Normal sinus rhythm Normal ECG
[2017-08-26] MEDS: Cholecalciferol 400 Intl Units Tab PO SCH ×2 (10:01→17:45)
[2017-08-26] MEDS: Hydrocerin(120 gm) TOP SCH ×2 (10:02→18:07)
--- NOTE | 2017-08-26 10:11 | CP.PCM.PN ---
<So Paige - Last Filed: 08/26/17 11:06> Subjective - Date & Time of Evaluation Date of Evaluation: 08/26/17 Time of Evaluation: 10:03 - Subjective Subjective: PGY-[address] Ramsey No pain anywhere. Denied acute complain Objective - Vital Signs/Intake and Output Vital Signs (last 24 hours): Temp Pulse Resp BP Pulse Ox 98.0 F 62 20 127/61 100 08/26/17 06:00 08/26/17 06:00 08/26/17 06:00 08/26/17 06:00 08/26/17 06:00 Intake and Output: 08/26/17 08/26/17 06:59 18:59 Intake Total 1680 Output Total 800 Balance 880 - Medications Medications: Current Medications Albuterol/Ipratropium (Duoneb 3 Mg/0.5 Mg (3 Ml) Ud) 3 ml IH [id number] [facility] Last Admin: 08/26/17 08:02 Dose: 3 ml Albuterol/Ipratropium (Duoneb 3 Mg/0.5 Mg (3 Ml) Ud) 3 ml IH Q2H PRN PRN Reason: Shortness of Breath Aspirin (Ecotrin) 81 mg PO DAILY [facility] Atorvastatin Calcium (Lipitor) 10 mg PO HS [facility] Last Admin: 08/25/17 22:50 Dose: 10 mg Calcium Carbonate (Oscal) 500 mg PO BID [facility] Last Admin: 08/25/17 18:30 Dose: 500 mg Docusate Sodium (Colace) 100 mg PO BID [facility] Last Admin: 08/25/17 18:30 Dose: 100 mg Ferrous Sulfate (Feosol) 324 mg PO DAILY [facility] Furosemide (Lasix) 20 mg IVP DAILY [facility] Heparin Sodium (Porcine) (Heparin) 5,000 units SC Q12 [facility] PRN Reason: Protocol Last Admin: 08/25/17 22:49 Dose: 5,000 units Sodium Chloride (Sodium Chloride 0.9%) 1,000 mls @ 100 mls/hr IV .Q10H [facility] Last Admin: 08/26/17 08:50 Dose: Not Given Vancomycin HCl 2 gm/ Sodium (Chloride) 500 mls @ 170 mls/hr IVPB ONCE ONE PRN Reason: Protocol Stop: 08/26/17 10:11 Last Admin: 08/26/17 08:48 Dose: 170 mls/hr Meropenem (Merrem Iv 1 Gm Premix) 50 mls @ 100 mls/hr IVPB Q12H [facility] PRN Reason: Protocol Stop: 09/02/17 06:16 Last Admin: 08/26/17 06:41 Dose: 100 mls/hr Insulin Detemir (Levemir) 12 unit SC HS [facility] Insulin Human Lispro (Humalog Med) 0 units SC ACHS [facility] PRN Reason: Protocol Last Admin: 08/26/17 08:50 Dose: 1 units Insulin Human Regular (Humulin R) 5 units SC AC [facility] Last Admin: 08/26/17 08:51 Dose: 5 units Montelukast Sodium (Singulair) 10 mg PO HS [facility] Last Admin: 08/25/17 22:50 Dose: 10 mg Multi-Ingredient Cream (Hydrocerin Cream) 1 ea TOP BID [facility] Last Admin: 08/25/17 18:31 Dose: 2 applic Non-Formulary Medication (Memantine Hcl [Namenda Xr]) 28 mg PO DAILY [facility] Pantoprazole Sodium (Protonix Ec Tab) 40 mg PO 0600 [facility] Last Admin: 08/26/17 05:13 Dose: 40 mg Vitamin D (Vitamin D 400 Intl Units Tab) 200 intlu PO BID [facility] Last Admin: 08/25/17 18:30 Dose: 200 intlu - Labs Labs: 08/26/17 06:30 08/26/17 06:30 PT 12.3 SECONDS (9.4-12.5) 08/25/17 05:25 INR 1.07 (0.93-1.08) 08/25/17 05:25 APTT 35.2 Seconds (25.1-36.5) 08/25/17 05:25 - Constitutional Appears: No Acute Distress - Head Exam Head Exam: ATRAUMATIC, NORMAL INSPECTION, NORMOCEPHALIC - Eye Exam Eye Exam: EOMI, Normal appearance, PERRL. absent: Scleral icterus Pupil Exam: NORMAL ACCOMODATION - ENT Exam ENT Exam: Mucous Membranes Moist - Neck Exam Additional comments: supple - Respiratory Exam Respiratory Exam: Clear to Ausculation Bilateral, NORMAL BREATHING PATTERN. absent: Rales, Rhonchi, Wheezes - Cardiovascular Exam Cardiovascular Exam: REGULAR RHYTHM, +S1, +S2. absent: Murmur - GI/Abdominal Exam GI & Abdominal Exam: Soft, Normal Bowel Sounds. absent: Tenderness - Extremities Exam Extremities Exam: Pedal Edema. absent: Calf Tenderness - Neurological Exam Neurological Exam: Alert, Awake - Psychiatric Exam Psychiatric exam: Normal Affect, Normal Mood - Skin Skin Exam: Dry, Warm Assessment and Plan - Assessment and Plan (Free Text) Plan: Ms Britt, 77 yo F, with PMH dementia, R total knee replacement with metal implant, presenting with CP and SOB for 2 days, found to have gram neg bacteremia. Got lasix 40 IV overnight for suspected oliguria. [place] was on for strict i/o. Gram neg bacteremia - redraw blood culture x 2 bottle tomorrow (day 2 of ABX) SIRS vs sepsis likely 2/2 URI vs CAP, rule out UTI. Unlikely cellulitis or GI infection. Failed Z-pack outpt. CURB-65 score 1. - UA positive for UTI, UC pending; rocephin already started, continue - Blood cultures pending - vanc merem day 1 (s/p ceftriaxone, azithromycine) - Tylenol prn for fever - NS@100 to prevent contrast nephropathy - Consult Infectious Disease: recommendations appreciated Pulmonary Nodes Hx former smoker and age. Poss malignancy - 8mm. Repeat CT chest in 6-12 month. - communicated with son SOB likely 2/2 asthma, acute respiratory tract infection, or fluid overload. Less likely 2/2 pulmonary embolism (Wells score 1.5) - D dimer to r/o PE returned elevated - O2 as needed - Duoneb [place] and prn for asthma - Echo: r/o fluid overload and heart failure. - Lasix 20 IV given in ED, increase prn pending results of echo. - Hold steroid at this time since patient is not wheezing and has good air movement - Continue home monteukast CP r/o ACS - EKG unchange - Serial troponins: 0.02 --> 0.1 --> 0.05 HTN - home meds on hold for now. Got lasix 40 IV overnight for suspected oliuria.\ - monitor BP, restart home BP med as needed. DM - Repeat A1c - Levemir 12 HS, 5 regular insulin per meal, Insulin sliding scale-ultra fast, med Chronic lymphedema vs venous stasis dermatitis. - Consult podiatry: recommendations appreciated DVT prophylaxis: Heparin 5000U GI prophylaxis: pantoprazole Discharge planning - [facility] will for healthcare proxy form: Kael Rosa [phone] - pt is alive but has dementia. son wants to be poa - palliative consult s/r/d/w Dr. Ramsey <Patel Ramsey - Last Filed: 08/27/17 10:23> Objective - Vital Signs/Intake and Output Vital Signs (last 24 hours): Temp Pulse Resp BP Pulse Ox 98.1 F 68 18 128/58 L 97 08/27/17 06:00 08/27/17 06:00 08/27/17 06:00 08/27/17 09:54 08/27/17 06:00 Intake and Output: 08/27/17 08/27/17 06:59 18:59 Intake Total 1690 200 Output Total 200 200 Balance 1490 0 - Medications Medications: Current Medications Albuterol/Ipratropium (Duoneb 3 Mg/0.5 Mg (3 Ml) Ud) 3 ml IH [id number] [facility] Last Admin: 08/27/17 07:32 Dose: 3 ml Albuterol/Ipratropium (Duoneb 3 Mg/0.5 Mg (3 Ml) Ud) 3 ml IH Q2H PRN PRN Reason: Shortness of Breath Aspirin (Ecotrin) 81 mg PO DAILY [facility] Last Admin: 08/27/17 09:53 Dose: 81 mg Atorvastatin Calcium (Lipitor) 10 mg PO HS [facility] Last Admin: 08/26/17 21:59 Dose: 10 mg Calcium Carbonate (Oscal) 500 mg PO BID [facility] Last Admin: 08/27/17 09:55 Dose: 500 mg Docusate Sodium (Colace) 100 mg PO BID [facility] Last Admin: 08/27/17 09:52 Dose: Not Given Ferrous Sulfate (Feosol) 324 mg PO DAILY [facility] Last Admin: 08/27/17 09:53 Dose: 324 mg Furosemide (Lasix) 20 mg IVP DAILY [facility] Last Admin: 08/27/17 09:54 Dose: 20 mg Heparin Sodium (Porcine) (Heparin) 5,000 units SC Q12 [facility] PRN Reason: Protocol Last Admin: 08/27/17 09:53 Dose: 5,000 units Sodium Chloride (Sodium Chloride 0.9%) 1,000 mls @ 100 mls/hr IV .Q10H [facility] Last Admin: 08/26/17 17:44 Dose: 100 mls/hr Meropenem (Merrem Iv 1 Gm Premix) 50 mls @ 100 mls/hr IVPB Q12H [facility] PRN Reason: Protocol Stop: 09/02/17 06:16 Last Admin: 08/27/17 06:34 Dose: 100 mls/hr Insulin Detemir (Levemir) 12 unit SC HS [facility] Last Admin: 08/26/17 21:57 Dose: 12 unit Insulin Human Lispro (Humalog Med) 0 units SC ACHS [facility] PRN Reason: Protocol Last Admin: 08/27/17 08:27 Dose: Not Given Insulin Human Regular (Humulin R) 5 units SC AC [facility] Last Admin: 08/27/17 08:28 Dose: Not Given Lactobacillus Acidophilus (Bacid Acidophilus) 1 cap PO BID [facility] Last Admin: 08/27/17 09:52 Dose: 1 cap Montelukast Sodium (Singulair) 10 mg PO [facility] Last Admin: 08/26/17 22:00 Dose: 10 mg Multi-Ingredient Cream (Hydrocerin Cream) 1 ea TOP BID [facility] Last Admin: 08/27/17 09:54 Dose: Not Given Non-Formulary Medication (Memantine Hcl [Namenda Xr]) 28 mg PO DAILY [facility] Last Admin: 08/27/17 09:54 Dose: Not Given Pantoprazole Sodium (Protonix Ec Tab) 40 mg PO 0600 [facility] Last Admin: 08/27/17 06:34 Dose: 40 mg Vitamin D (Vitamin D 400 Intl Units Tab) 200 intlu PO BID [facility] Last Admin: 08/27/17 09:55 Dose: 200 intlu - Labs Labs: 08/27/17 05:20 08/27/17 05:20 PT 12.3 SECONDS (9.4-12.5) 08/25/17 05:25 INR 1.07 (0.93-1.08) 08/25/17 05:25 APTT 35.2 Seconds (25.1-36.5) 08/25/17 05:25 Attending/Attestation - Attestation I have personally seen and examined this patient.: Yes I have fully participated in the care of the patient.: Yes I have reviewed all pertinent clinical information, including history, physical exam and plan: Yes Notes (Text): I have seen and examined the patient at bedside. Agree with the above note with the following additions/ exceptions: Briefly this is 77 year old female with history of Alzheimer's dementia, HTN, uncontrolled DM, asthma, and LE lymphedema who was brought by the son for evaluation of chest pain, mild productive cough, shortness of breath and lethargy. Patient took 2 days of z pack prior to ED visit. Upon admission, she was found to have fever 103, tachycardia and leukocytosis. UA revealed LE+ and 5-10 wbc suggestive of UTI. Urine culture pending. Today Blood culture is growing gram negative gemma. Procal is also elevated. CT abdomen pelvis revealed bilateral non obstructing stones. Start meropenem. On exam, she was found to have bilateral LE cellulitis vs stasis dermatitis. D dimer was found to be elevated. CTA was negative for PE however it revealed 8 mm pulmonary nodule. Previous imaging did not reveal this nodule. Will recommend to have repeat CT in 6 months. Discussed with patients son. Patient's is the POA however son wants to be POA now as patients is also demented.Blood sugar was high therefore insulin was adjusted. A1C is pending. ID and podiatry consult appreciated. Awaiting palliative care consult. Upon discharge patient will follow up with Dr Bhargavi Hendricks. Dr Patel Ramsey
[2017-08-26] MEDS: MEMANTINE HCL 28 MG PO SCH (12:11)
--- NOTE | 2017-08-26 12:19 | CP.PCM.PN ---
<Evgeny Kinsey - Last Filed: 08/26/17 12:15> Subjective - Date & Time of Evaluation Date of Evaluation: 08/26/17 Time of Evaluation: 11:35 - Subjective Subjective: Podiatry Progress Note- Dr. Polanco 77 y.o female with PMH of DM, PVD, HTN, Alzheimer, depression, and asthma seen and evaluated at bedside for bilaterally lymphedema. Patient is seen lying comfortably in bed, in NAD, and AA0x3. Patient denies acute overnight events. Denies n/v/sob/cp/chills or f. Patient denies calf pain or tenderness. Objective - Vital Signs/Intake and Output Vital Signs (last 24 hours): Temp Pulse Resp BP Pulse Ox 98.6 F 84 16 122/52 L 100 08/26/17 11:45 08/26/17 11:45 08/26/17 11:45 08/26/17 11:45 08/26/17 06:00 Intake and Output: 08/26/17 08/26/17 06:59 18:59 Intake Total 1680 Output Total 800 Balance 880 - Medications Medications: Current Medications Albuterol/Ipratropium (Duoneb 3 Mg/0.5 Mg (3 Ml) Ud) [id number] [facility] Last Admin: 08/26/17 08:02 Dose: 3 ml Albuterol/Ipratropium (Duoneb 3 Mg/0.5 Mg (3 Ml) Ud) 3 ml IH Q2H PRN PRN Reason: Shortness of Breath Aspirin (Ecotrin) [address] [facility] Last Admin: 08/26/17 10:01 Dose: 81 mg Atorvastatin Calcium (Lipitor) [address] [facility] Last Admin: 08/25/17 22:50 Dose: 10 mg Calcium Carbonate (Oscal) [address] [facility] Last Admin: 08/26/17 10:01 Dose: 500 mg Docusate Sodium (Colace) [address] [facility] Last Admin: 08/26/17 10:02 Dose: 100 mg Ferrous Sulfate (Feosol) [address] [facility] Last Admin: 08/26/17 10:02 Dose: 324 mg Furosemide (Lasix) [address] [facility] Last Admin: 08/26/17 10:01 Dose: 20 mg Heparin Sodium (Porcine) (Heparin) 5,000 units SC Q12 [facility] PRN Reason: Protocol Last Admin: 08/26/17 10:01 Dose: 5,000 units Sodium Chloride (Sodium Chloride 0.9%) 1,000 mls @ 100 mls/hr IV .Q10H [facility] Last Admin: 08/26/17 08:50 Dose: Not Given Meropenem (Merrem Iv 1 Gm Premix) 50 mls @ 100 mls/hr IVPB Q12H [facility] PRN Reason: Protocol Stop: 09/02/17 06:16 Last Admin: 08/26/17 06:41 Dose: 100 mls/hr Insulin Detemir (Levemir) [address] [facility] Insulin Human Lispro (Humalog Med) [address] [facility] PRN Reason: Protocol Last Admin: 08/26/17 12:10 Dose: 3 units Insulin Human Regular (Humulin R) [address] [facility] Last Admin: 08/26/17 12:10 Dose: 5 units Montelukast Sodium (Singulair) [address] [facility] Last Admin: 08/25/17 22:50 Dose: 10 mg Multi-Ingredient Cream (Hydrocerin Cream) [address] [facility] Last Admin: 08/26/17 10:02 Dose: 1 applic Non-Formulary Medication (Memantine Hcl [Namenda Xr]) [address] [facility] Last Admin: 08/26/17 12:11 Dose: Not Given Pantoprazole Sodium (Protonix Ec Tab) [address] [facility] Last Admin: 08/26/17 05:13 Dose: 40 mg Vitamin D (Vitamin D 400 Intl Units Tab) [address] [facility] Last Admin: 08/26/17 10:01 Dose: 200 intlu - Labs Labs: 08/26/17 06:30 08/26/17 06:30 PT 12.3 SECONDS (9.4-12.5) 08/25/17 05:25 INR 1.07 (0.93-1.08) 08/25/17 05:25 APTT 35.2 Seconds (25.1-36.5) 08/25/17 05:25 - Constitutional Appears: Well, Non-toxic, No Acute Distress - Extremities Exam Extremities Exam: absent: Calf Tenderness Additional comments: VASC: DP and PT pulses nonpalpable secondary to edema b/l, CFT WNL to digits x10 , +3 pitting edema to foot and leg b/l NEURO: Gross sensation and protective sensation diminished DERM: No open wounds noted to the LE. No erythema noted to bilateral lower extremity . Secondary scaling verrucaformis lesions with fissures noted. Hyperpigmentation discoloration noted to the LE. Nails x10 are thickened and elongated with the presence of subungual debris. ORTHO: Tenderness to palpation bilateral lower extremity. ROM of the ankles in DF and PF with no crepitus noted b/l - Neurological Exam Neurological Exam: Alert, Awake, Oriented x3 - Psychiatric Exam Psychiatric exam: Normal Affect, Normal Mood Assessment and Plan - Assessment and Plan (Free Text) Assessment: 77 y.o female with PMH of DM, PVD, HTN, Alzheimer, depression, and asthma with lymphedema and onycomycosis of nails Plan: Patient seen and evaluated Discussed plan in detail with attending Dr. Polanco Labs, charts, vitals reviewed (afebrile, WBC=25.0 trended down to 16.5 today) Leukocytosis not likely from b/l lower extremities Hydrocerin cream applied to the LE to be applied daily BID No dressings to the LE at this time Elongated nails x10 debrided to normal thickness and length with a sharp nail nipper without incident. Patient tolerated the procedure well. <Sherwin Polanco - Last Filed: 08/26/17 16:48> Objective - Vital Signs/Intake and Output Vital Signs (last 24 hours): Temp Pulse Resp BP Pulse Ox 98.6 F 84 16 122/52 L 100 08/26/17 11:45 08/26/17 11:45 08/26/17 11:45 08/26/17 11:45 08/26/17 06:00 Intake and Output: 08/26/17 08/26/17 06:59 18:59 Intake Total 1680 840 Output Total 800 Balance 880 840 - Medications Medications: Current Medications Albuterol/Ipratropium (Duoneb 3 Mg/0.5 Mg (3 Ml) Ud) [id number] [facility] Last Admin: 08/26/17 14:05 Dose: Not Given Albuterol/Ipratropium (Duoneb 3 Mg/0.5 Mg (3 Ml) Ud) 3 ml IH Q2H PRN PRN Reason: Shortness of Breath Aspirin (Ecotrin) [address] [facility] Last Admin: 08/26/17 10:01 Dose: 81 mg Atorvastatin Calcium (Lipitor) [address] [facility] Last Admin: 08/25/17 22:50 Dose: 10 mg Calcium Carbonate (Oscal) [address] [facility] Last Admin: 08/26/17 10:01 Dose: 500 mg Docusate Sodium (Colace) [address] [facility] Last Admin: 08/26/17 10:02 Dose: 100 mg Ferrous Sulfate (Feosol) [address] [facility] Last Admin: 08/26/17 10:02 Dose: 324 mg Furosemide (Lasix) [address] [facility] Last Admin: 08/26/17 10:01 Dose: 20 mg Heparin Sodium (Porcine) (Heparin) 5,[address] [facility] PRN Reason: Protocol Last Admin: 08/26/17 10:01 Dose: 5,000 units Sodium Chloride (Sodium Chloride 0.9%) 1,000 mls @ 100 mls/hr IV .Q10H [facility] Last Admin: 08/26/17 08:50 Dose: Not Given Meropenem (Merrem Iv 1 Gm Premix) 50 mls @ 100 mls/hr IVPB Q12H [facility] PRN Reason: Protocol Stop: 09/02/17 06:16 Last Admin: 08/26/17 06:41 Dose: 100 mls/hr Insulin Detemir (Levemir) [address] [facility] Insulin Human Lispro (Humalog Med) [address] [facility] PRN Reason: Protocol Last Admin: 08/26/17 12:10 Dose: 3 units Insulin Human Regular (Humulin R) [address] [facility] Last Admin: 08/26/17 12:10 Dose: 5 units Montelukast Sodium (Singulair) [address] [facility] Last Admin: 08/25/17 22:50 Dose: 10 mg Multi-Ingredient Cream (Hydrocerin Cream) [address] [facility] Last Admin: 08/26/17 10:02 Dose: 1 applic Non-Formulary Medication (Memantine Hcl [Namenda Xr]) [address] [facility] Last Admin: 08/26/17 12:11 Dose: Not Given Pantoprazole Sodium (Protonix Ec Tab) [address] [facility] Last Admin: 08/26/17 05:13 Dose: 40 mg Vitamin D (Vitamin D 400 Intl Units Tab) 200 intlu PO BID [facility] Last Admin: 08/26/17 10:01 Dose: 200 intlu - Labs Labs: 08/26/17 06:30 08/26/17 06:30 PT 12.3 SECONDS (9.4-12.5) 08/25/17 05:25 INR 1.07 (0.93-1.08) 08/25/17 05:25 APTT 35.2 Seconds (25.1-36.5) 08/25/17 05:25 Attending/Attestation - Attestation I have personally seen and examined this patient.: Yes I have fully participated in the care of the patient.: Yes I have reviewed all pertinent clinical information, including history, physical exam and plan: Yes
--- NOTE | 2017-08-26 16:03 | CT ---
PROCEDURE: CT Abdomen and Pelvis without intravenous contrast HISTORY: rule out intra-abdominal infection COMPARISON: None. TECHNIQUE: Without contrast. Contrast Dose: Radiation dose: Total exam DLP = 1007 mGy-cm. This CT exam was performed using one or more of the following dose reduction techniques: Automated exposure control, adjustment of the mA and/or kV according to patient size, and/or use of iterative reconstruction technique. FINDINGS: LOWER THORAX: Unremarkable. LIVER: Unremarkable. No gross lesion or ductal dilatation. GALLBLADDER AND BILE DUCTS: Unremarkable. PANCREAS: Unremarkable. No gross lesion or ductal dilatation. SPLEEN: Unremarkable. ADRENALS: 2.9 cm right adrenal mass most likely an adenoma. This is low in density. KIDNEYS AND URETERS: Bilateral nonobstructing renal stones VASCULATURE: Unremarkable. No aortic aneurysm. BOWEL: Unremarkable. No obstruction. No gross mural thickening. APPENDIX: Unremarkable. Normal appendix. PERITONEUM: Unremarkable. No free fluid. No free air. LYMPH NODES: Unremarkable. No enlarged lymph nodes. BLADDER: Unremarkable. REPRODUCTIVE: Unremarkable. BONES: No acute fracture. OTHER FINDINGS: None. IMPRESSION: No acute intra-abdominal findings
--- NOTE | 2017-08-26 17:44 | CARD ---
APPROVED REPORT EXAM: Two-dimensional and M-mode echocardiogram with Doppler and color Doppler. INDICATION 2D DIMENSIONS IVSd1.2 (0.7-1.1cm)LVDd4.8 (3.9-5.9cm) PWd1.0 (0.7-1.1cm)LVDs3.3 (2.5-4.0cm) FS (%) 30.7 %LVEF (%)58.3 (>50%) M-Mode DIMENSIONS Left Atrium (MM)3.70 (2.5-4.0cm)Aortic Root3.10 (2.2-3.7cm) Aortic Cusp Exc.1.80 (1.5-2.0cm) Aortic Valve AoV Peak Oxuycdrk658.0cm/[place] Peak GR.10mmHg Mitral Valve MV E Ndoboyag125.0cm/sMV A Gpkxvjpl87.6cm/sE/A ratio1.5 TDI Lateral E' Peak V10.10cm/sMedial E' Peak V5.95cm/sE/Lateral E'11.7 E/Medial E'19.8 Tricuspid Valve TR Peak Bjiyoupm760pn/sRAP [id number] Peak Gr.34mmHg [id number] LEFT VENTRICLE The left ventricle is normal size. There is borderline to mild concentric left ventricular hypertrophy. The left ventricular function is normal.EF-55% There is normal LV segmental wall motion. Transmitral Doppler flow pattern is Grade II-pseudonormal filling dynamics. No left ventricle thrombus noted on this study. There is no ventricular septal defect visualized. There is no left ventricular aneurysm. There is no mass noted in the left ventricle. RIGHT VENTRICLE The right ventricle is normal size. There is normal right ventricular wall thickness. The right ventricular systolic function is normal. ATRIA The left atrium size is normal. The right atrium size is normal. The interatrial septum is intact with no evidence for an atrial septal defect. AORTIC VALVE The aortic valve is normal in structure. No aortic regurgitation is present. There is no aortic valvular stenosis. There is no aortic valvular vegetation. MITRAL VALVE The mitral valve is thickened but opens well. Mitral regurgitation is trace. There is no mitral valve stenosis. There is no evidence of mitral valve prolapse. TRICUSPID VALVE The tricuspid valve leaflets are thickened , but open well. There is mild tricuspid regurgitation.[id number] mmof hg. There is no tricuspid valve stenosis. There is no tricuspid valve prolapse or vegetation. PULMONIC VALVE The pulmonic valve is borderline thickened. There is trace to mild pulmonic valvular regurgitation. There is no pulmonic valvular stenosis. GREAT VESSELS The aortic root is normal in size. The ascending aorta is normal in size. The pulmonary artery is normal. The IVC is normal in size and collapses >50% with inspiration. PERICARDIAL EFFUSION There is no pleural effusion. There is no pericardial effusion. <Conclusion> The left ventricle is normal size. There is borderline to mild concentric left ventricular hypertrophy. The left ventricular function is normal.EF-55% Mitral regurgitation is trace. There is mild tricuspid regurgitation.RVSP_44 mmof hg. The IVC is normal in size and collapses >50% with inspiration. There is no pericardial effusion. No Vegetation or thrombus noted.
--- NOTE | 2017-08-26 18:17 | CP.PCM.CON ---
History of Present Illness - History of Present Illness History of Present Illness: 77 year old female with PMH of dementia, HTN, DM, asthma, chronic lymphedema on both lower extremities, morbid obesity with BMI 40 was brought in to [facility] because of shortness of breath and chest pain. She was also noted to be having cough. She was prescribed Z-pack a few days ago but she continues to have cough. In the ED, she was noted to be febrile. Blood cultures are now showing gram negative bacilli nad patient is noted to have marked leukocytosis. Infectious Diseases consult is requested to further evaluate and manage. Review of systems is limited due to the patient's dementia. Review of Systems - Review of Systems All systems: reviewed and no additional remarkable complaints except (as per HPI ) Past Patient History - Infectious Disease Hx of Infectious Diseases: None - Tetanus Immunizations Tetanus Immunization: Unknown - Past Social History Smoking Status: Former Smoker - CARDIAC Hx Cardiac Disorders: Yes Hx Congestive Heart Failure: Yes Hx Hypertension: Yes - PULMONARY Hx Chronic Obstructive Pulmonary Disease (COPD): Yes - NEUROLOGICAL Hx Neurological Disorder: Yes Hx Alzheimer's Disease: Yes Hx Dementia: Yes - HEENT Hx HEENT Problems: No - RENAL Hx Chronic Kidney Disease: No - ENDOCRINE/METABOLIC Hx Diabetes Mellitus Type 2: Yes - HEMATOLOGICAL/ONCOLOGICAL Hx Blood Disorders: No - INTEGUMENTARY Hx Dermatological Problems: No - MUSCULOSKELETAL/RHEUMATOLOGICAL Hx Falls: No - GASTROINTESTINAL Hx Gastrointestinal Disorders: No - GENITOURINARY/GYNECOLOGICAL Hx Genitourinary Disorders: Yes Hx Incontinence: Yes - PSYCHIATRIC Hx Substance Use: No - SURGICAL HISTORY Hx Joint Replacement: Yes (BILATERAL KNEE) Hx Orthopedic Surgery: Yes Other/Comment: manfred filter - ANESTHESIA Hx Anesthesia: Yes Hx Anesthesia Reactions: No Hx Malignant Hyperthermia: No Meds Allergies/Adverse Reactions: Allergies Allergy/AdvReac Type Severity Reaction Status Date / Time cortisone Allergy RASH Verified 08/25/17 05:11 - Medications Medications: Current Medications Albuterol/Ipratropium (Duoneb 3 Mg/0.5 Mg (3 Ml) Ud) 3 ml IH [id number] Last Admin: 08/26/17 02:20 Dose: 3 ml Albuterol/Ipratropium (Duoneb 3 Mg/0.5 Mg (3 Ml) Ud) 3 ml IH Q2H PRN PRN Reason: Shortness of Breath Aspirin (Ecotrin) 81 mg PO DAILY [facility] Atorvastatin Calcium (Lipitor) 10 mg PO [facility] Last Admin: 08/25/17 22:50 Dose: 10 mg Calcium Carbonate (Oscal) 500 mg PO BID [facility] Last Admin: 08/25/17 18:30 Dose: 500 mg Docusate Sodium (Colace) 100 mg PO BID [facility] Last Admin: 08/25/17 18:30 Dose: 100 mg Ferrous Sulfate (Feosol) 324 mg PO DAILY [facility] Heparin Sodium (Porcine) (Heparin) 5,000 units SC Q12 [facility] PRN Reason: Protocol Last Admin: 08/25/17 22:49 Dose: 5,000 units Ceftriaxone Sodium (Rocephin 2 Gm Ivpb) 2 gm in 100 mls @ 100 mls/hr IVPB DAILY [facility] PRN Reason: Protocol Last Admin: 08/25/17 09:43 Dose: 100 mls/hr Azithromycin (Zithromax 500mg In Ns) 500 mg in 250 mls @ 167 mls/hr IVPB DAILY [facility] PRN Reason: Protocol Last Admin: 08/25/17 14:49 Dose: 167 mls/hr Sodium Chloride (Sodium Chloride 0.9%) 1,000 mls @ 100 mls/hr IV .Q10H [facility] Last Admin: 08/26/17 01:16 Dose: 100 mls/hr Meropenem/Sodium Chloride (Meropenem 1g/Ns 100ml Ivpb) 1 gm in 100 mls @ 100 mls/hr IVPB Q12 [facility] PRN Reason: Protocol Stop: 09/02/17 06:16 Insulin Detemir (Levemir) 9 unit SC [facility] Last Admin: 08/25/17 22:49 Dose: 9 unit Insulin Human Lispro (Humalog Med) 0 units SC ACHS [facility] PRN Reason: Protocol Last Admin: 08/25/17 22:50 Dose: Not Given Insulin Human Regular (Humulin R) 5 units SC AC [facility] Montelukast Sodium (Singulair) 10 mg PO [facility] Last Admin: 08/25/17 22:50 Dose: 10 mg Multi-Ingredient Cream (Hydrocerin Cream) 1 ea TOP BID [facility] Last Admin: 08/25/17 18:31 Dose: 2 applic Non-Formulary Medication (Memantine Hcl [Namenda Xr]) 28 mg PO DAILY [facility] Pantoprazole Sodium (Protonix Ec Tab) 40 mg PO 0600 [facility] Last Admin: 08/26/17 05:13 Dose: 40 mg Vitamin D (Vitamin D 400 Intl Units Tab) 200 intlu PO BID [facility] Last Admin: 08/25/17 18:30 Dose: 200 intlu Physical Exam - Constitutional Appears: Chronically Ill - Head Exam Head Exam: NORMAL INSPECTION - Neck Exam Neck exam: Negative for: Meningismus - Respiratory Exam Respiratory Exam: Decreased Breath Sounds - Cardiovascular Exam Cardiovascular Exam: +S1, +S2 - GI/Abdominal Exam GI & Abdominal Exam: Soft. absent: Tenderness - Extremities Exam Additional comments: lymphedema of both lower extremities with discoloration but no increased warmth Results - Vital Signs Recent Vital Signs: Last Vital Signs Temp 98.0 F 08/26/17 06:00 Pulse 62 08/26/17 06:00 Resp 20 08/26/17 06:00 BP 127/61 08/26/17 06:00 Pulse Ox 100 08/26/17 06:00 - Labs Result Diagrams: 08/26/17 06:30 08/26/17 06:30 Labs: Laboratory Results - last 24 hr 08/25/17 08/25/17 08/25/17 08:05 11:22 12:00 D-Dimer, Quantitative 3157 H POC Glucose (mg/dL) 276 H Troponin I 0.10 D Procalcitonin Urine Color Urine Appearance Urine pH Ur Specific [place] Urine Protein Urine Glucose (UA) Urine Ketones Urine Blood Urine Nitrate Urine Bilirubin Urine Urobilinogen Ur Leukocyte Esterase Urine RBC Urine WBC Ur Epithelial Cells 08/25/17 08/25/17 08/25/17 12:00 16:38 18:55 D-Dimer, Quantitative POC Glucose (mg/dL) 287 H Troponin I Procalcitonin 4.88 H Urine Color Yellow Urine Appearance Slight-cloudy Urine pH 6.5 Ur Specific [place] 1.010 Urine Protein 30 H Urine Glucose (UA) 250 H Urine Ketones Negative Urine Blood Trace-intact H Urine Nitrate Negative Urine Bilirubin Negative Urine Urobilinogen 0.2 Ur Leukocyte Esterase Moderate H Urine RBC 0 - 2 Urine WBC 5 - 10 Ur Epithelial Cells None 08/25/17 08/25/17 19:20 21:18 D-Dimer, Quantitative POC Glucose (mg/dL) 270 H Troponin I 0.05 D Procalcitonin Urine Color Urine Appearance Urine pH Ur Specific [place] Urine Protein Urine Glucose (UA) Urine Ketones Urine Blood Urine Nitrate Urine Bilirubin Urine Urobilinogen Ur Leukocyte Esterase Urine RBC Urine WBC Ur Epithelial Cells Assessment & Plan - Assessment and Plan (Free Text) Plan: Assessment Sepsis due to gram negative bacilli bacteremia, consider UTI / pyelonephritis dementia HTN DM asthma chronic lymphedema on both lower extremities morbid obesity with BMI 40 Plan Started the patient on Merrem and gave dose of IV Vancomycin pending identification and sensitivities of the gram negative bacilli in the blood; follow up urine cx reviewed CT A/P which showed bilateral non-obstructing stones but no intra- abdominal infection will monitor clinically
[2017-08-26] MEDS: Insulin Detemir 100 units/ml Vial (Levemir) SC SCH (21:57)
[2017-08-27] MEDS: Albuterol-Ipratrop 3 mg / 0.5 (3 ml) UD IH SCH ×4 (00:46→21:21)
[2017-08-27] MEDS: Meropenem IV 1 gm in NS 50 ML IVPB SCH ×2 (06:34→18:13)
[2017-08-27] MEDS: Pantoprazole 40 mg EC Tab PO SCH (06:34)
[2017-08-27 07:18] LABS: BASO # 0.01 K/mm3 (0.0-2.0); BASO % 0.1 % (0.0-3.0); EOS # 0.5 (0.0-0.7); EOS % 4.6 % (1.5-5.0); GRAN # 8.9 (1.4-6.5); GRAN % 78.4 % (50.0-68.0); HEMOGLOBIN 12.4 g/dL (12.0-16.0); LYMPH # 1.1 (1.2-3.4); LYMPH % 9.3 % (22.0-35.0); MEAN CELL VOLUME 85.7 fl (80.0-105.0); MEAN CORPUSCULAR HEMOGLOBIN 26.8 pg (25.0-35.0); MEAN CORPUSCULAR HGB CONC 31.2 g/dl (31.0-37.0); MONO # 0.9 (0.1-0.6); MONO % 7.6 % (1.0-6.0); RBC 4.63 10^6/uL (3.5-6.1); RED CELL DISTRIBUTION WIDTH 13.4 % (11.5-14.5); WHITE BLOOD COUNT 11.3 10^3/ul (4.5-11.0)
[2017-08-27 07:31] LABS: ALB/GLOB RATIO 0.8 (1.1-1.8); ALBUMIN 3.1 g/dL (3.0-4.8); CALCIUM 9.1 mg/dL (8.4-10.5)
--- NOTE | 2017-08-27 07:40 | CP.PCM.PN ---
<Jose Elias Herrera - Last Filed: 08/27/17 13:33> Subjective - Date & Time of Evaluation Date of Evaluation: 08/27/17 Time of Evaluation: 05:50 - Subjective Subjective: Patient seen and examined at bedside in no acute distress. Asks for coffee and breakfast. States she slept well overnight. Nurse overnight endorsed patient had 3 episodes of diarrhea, low grade temp of 100.3 F, and continues to have cough which is non productive. Patient denies shortness of breath, chest pain, nausea, vomiting, abdominal pain, fevers, chills. Patient states she didn't notice rash on body, states it doesn't itch, burn, nor is painful. CT abdomen/pelvis reveals adrenal mass 2.9 cm most likely an adenoma as well as bilateral non obstructing renal stones. Objective - Vital Signs/Intake and Output Vital Signs (last 24 hours): Temp Pulse Resp BP Pulse Ox 98.1 F 68 18 129/51 L 97 08/27/17 06:00 08/27/17 06:00 08/27/17 06:00 08/27/17 06:00 08/27/17 06:00 Intake and Output: 08/27/17 08/27/17 06:59 18:59 Intake Total 1690 Output Total 200 Balance 1490 - Medications Medications: Current Medications Albuterol/Ipratropium (Duoneb 3 Mg/0.5 Mg (3 Ml) Ud) 3 ml IH [id number] [facility] Last Admin: 08/27/17 07:32 Dose: 3 ml Albuterol/Ipratropium (Duoneb 3 Mg/0.5 Mg (3 Ml) Ud) 3 ml IH Q2H PRN PRN Reason: Shortness of Breath Aspirin (Ecotrin) 81 mg PO DAILY [facility] Last Admin: 08/26/17 10:01 Dose: 81 mg Atorvastatin Calcium (Lipitor) 10 mg PO HS [facility] Last Admin: 08/26/17 21:59 Dose: 10 mg Calcium Carbonate (Oscal) 500 mg PO BID [facility] Last Admin: 08/26/17 17:46 Dose: 500 mg Docusate Sodium (Colace) 100 mg PO BID [facility] Last Admin: 08/26/17 18:07 Dose: 100 mg Ferrous Sulfate (Feosol) 324 mg PO DAILY [facility] Last Admin: 03/02/18 10:02 Dose: 324 mg Furosemide (Lasix) 20 mg IVP DAILY [facility] Last Admin: 08/26/17 10:01 Dose: 20 mg Heparin Sodium (Porcine) (Heparin) 5,000 units SC Q12 [facility] PRN Reason: Protocol Last Admin: 08/26/17 21:58 Dose: 5,000 units Sodium Chloride (Sodium Chloride 0.9%) 1,000 mls @ 100 mls/hr IV .Q10H [facility] Last Admin: 08/26/17 17:44 Dose: 100 mls/hr Meropenem (Merrem Iv 1 Gm Premix) 50 mls @ 100 mls/hr IVPB Q12H [facility] PRN Reason: Protocol Stop: 09/02/17 06:16 Last Admin: 08/27/17 06:34 Dose: 100 mls/hr Insulin Detemir (Levemir) 12 unit SC HS [facility] Last Admin: 08/26/17 21:57 Dose: 12 unit Insulin Human Lispro (Humalog Med) 0 units SC ACHS [facility] PRN Reason: Protocol Last Admin: 08/26/17 22:00 Dose: Not Given Insulin Human Regular (Humulin R) 5 units SC AC [facility] Last Admin: 08/26/17 18:02 Dose: 5 units Montelukast Sodium (Singulair) 10 mg PO HS [facility] Last Admin: 08/26/17 22:00 Dose: 10 mg Multi-Ingredient Cream (Hydrocerin Cream) 1 ea TOP BID [facility] Last Admin: 08/26/17 18:07 Dose: 1 applic Non-Formulary Medication (Memantine Hcl [Namenda Xr]) 28 mg PO DAILY [facility] Last Admin: 08/26/17 12:11 Dose: Not Given Pantoprazole Sodium (Protonix Ec Tab) 40 mg PO 0600 [facility] Last Admin: 08/27/17 06:34 Dose: 40 mg Vitamin D (Vitamin D 400 Intl Units Tab) 200 intlu PO BID [facility] Last Admin: 08/26/17 17:45 Dose: 200 intlu - Labs Labs: 08/27/17 05:20 08/27/17 05:20 PT 12.3 SECONDS (9.4-12.5) 08/25/17 05:25 INR 1.07 (0.93-1.08) 08/25/17 05:25 APTT 35.2 Seconds (25.1-36.5) 08/25/17 05:25 - Constitutional Appears: Non-toxic, No Acute Distress - Head Exam Head Exam: ATRAUMATIC, NORMAL INSPECTION, NORMOCEPHALIC - Eye Exam Eye Exam: EOMI, Normal appearance - ENT Exam ENT Exam: Mucous Membranes Moist - Respiratory Exam Respiratory Exam: Rales, NORMAL BREATHING PATTERN. absent: Wheezes - Cardiovascular Exam Cardiovascular Exam: REGULAR RHYTHM, +S1, +S2 - GI/Abdominal Exam GI & Abdominal Exam: Soft, Normal Bowel Sounds. absent: Tenderness - Back Exam Back Exam: absent: NORMAL INSPECTION Additional comments: erythema - Neurological Exam Neurological Exam: Alert, Awake, Oriented x3 - Skin Additional comments: Patient has diffuse erythema on chest, back, upper and lower extremities after being administered vancomycin. Assessment and Plan - Assessment and Plan (Free Text) Assessment: Ms Britt, 77 yo F, with PMH dementia, R total knee replacement with metal implant, presenting with CP and SOB for 2 days, found to have gram neg bacteremia. Got lasix 40 IV overnight for suspected oliguria. [place] was on for strict i/o. Gram neg bacteremia - redraw blood culture x 2 bottle today (day 2 of ABX) SIRS vs sepsis likely 2/2 URI vs CAP, rule out UTI. Unlikely cellulitis or GI infection. Failed Z-pack outpt. CURB-65 score 1. - UA positive for UTI, UC pending; rocephin already started, continue - Blood cultures pending - vanc given one time dose; patient experiencing red man syndrome s/p vanc administration. Will hold off on vanc for now pending ID recs. Merem day 2 (s/p ceftriaxone, azithromycin). Will give one dose of amikacin 500 mg. Repeat blood cx. - Tylenol prn for fever - NS@100 to prevent contrast nephropathy - Consult Infectious Disease: recommendations appreciated Pulmonary Nodes Hx former smoker and age. Poss malignancy - 8mm. Repeat CT chest in 6-12 month. - communicated with son SOB likely 2/2 asthma, acute respiratory tract infection, or fluid overload. Less likely 2/2 pulmonary embolism (Wells score 1.5) - D dimer to r/o PE returned elevated - O2 as needed, currently NC 3.5L 97% O2 - Duoneb [place] and prn for asthma - Echo: r/o fluid overload and heart failure,reveals left ventricle normal sized , borderline mild concentric left ventricular hypertrophy with normal EF of 55% , trace mitral regurgitation, mild tricuspid regurgitation, absence of pericardial effusion, vegetation, or thrombus. - Lasix 40 IV - Hold steroid at this time since patient is not wheezing and has good air movement - Continue home monteukast Adrenal mass 2.9 cm -asymptomatic at the moment -<4cm no acute intervention necessary -Will have patient follow up as outpatient CP r/o ACS - EKG unchange - Serial troponins: 0.02 --> 0.1 --> 0.05 HTN - Continue to hold home BP meds. - monitor BP, restart home BP med as needed. DM - HgA1c ordered; results pending - Levemir 12 HS, 5 regular insulin per meal, Insulin sliding scale-ultra fast, med Chronic lymphedema vs venous stasis dermatitis. - continue Hydrocerin cream applied to the LE to be applied daily BID as per podiatry DVT prophylaxis: Heparin 5000U GI prophylaxis: pantoprazole Discharge planning - [facility] will for healthcare proxy form: Kael Rosa [phone] - pt is alive but has dementia. son wants to be poa - palliative consult <Patel Ramsey - Last Filed: 08/27/17 17:09> Objective - Vital Signs/Intake and Output Vital Signs (last 24 hours): Temp Pulse Resp BP Pulse Ox 101.8 F H 94 H 20 131/57 L 97 08/27/17 12:00 08/27/17 14:00 08/27/17 12:00 08/27/17 12:00 08/27/17 06:00 Intake and Output: 08/27/17 08/27/17 06:59 18:59 Intake Total 1690 800 Output Total 200 1200 Balance 1490 -400 - Medications Medications: Current Medications Acetaminophen (Tylenol 325mg Tab) 650 mg PO Q6H PRN PRN Reason: Fever >100.4 F Last Admin: 08/27/17 12:05 Dose: 650 mg Albuterol/Ipratropium (Duoneb 3 Mg/0.5 Mg (3 Ml) Ud) 3 ml IH [id number] [facility] Last Admin: 08/27/17 13:29 Dose: 3 ml Albuterol/Ipratropium (Duoneb 3 Mg/0.5 Mg (3 Ml) Ud) 3 ml IH Q2H PRN PRN Reason: Shortness of Breath Aspirin (Ecotrin) 81 mg PO DAILY [facility] Last Admin: 08/27/17 09:53 Dose: 81 mg Atorvastatin Calcium (Lipitor) 10 mg PO HS [facility] Last Admin: 08/26/17 21:59 Dose: 10 mg Calcium Carbonate (Oscal) 500 mg PO BID [facility] Last Admin: 08/27/17 09:55 Dose: 500 mg Docusate Sodium (Colace) 100 mg PO BID [facility] Last Admin: 08/27/17 09:52 Dose: Not Given Ferrous Sulfate (Feosol) 324 mg PO DAILY [facility] Last Admin: 08/27/17 09:53 Dose: 324 mg Furosemide (Lasix) 20 mg IVP DAILY [facility] Last Admin: 08/27/17 09:54 Dose: 20 mg Heparin Sodium (Porcine) (Heparin) 5,000 units SC Q12 [facility] PRN Reason: Protocol Last Admin: 08/27/17 09:53 Dose: 5,000 units Sodium Chloride (Sodium Chloride 0.9%) 1,000 mls @ 100 mls/hr IV .Q10H [facility] Last Admin: 08/26/17 17:44 Dose: 100 mls/hr Meropenem (Merrem Iv 1 Gm Premix) 50 mls @ 100 mls/hr IVPB Q12H [facility] PRN Reason: Protocol Stop: 09/02/17 06:16 Last Admin: 08/27/17 06:34 Dose: 100 mls/hr Insulin Detemir (Levemir) 12 unit SC HS [facility] Last Admin: 08/26/17 21:57 Dose: 12 unit Insulin Human Lispro (Humalog Med) 0 units SC [facility] PRN Reason: Protocol Last Admin: 08/27/17 11:56 Dose: Not Given Insulin Human Regular (Humulin R) 5 units SC AC [facility] Last Admin: 08/27/17 11:57 Dose: Not Given Lactobacillus Acidophilus (Bacid Acidophilus) 1 cap PO BID [facility] Last Admin: 08/27/17 09:52 Dose: 1 cap Montelukast Sodium (Singulair) 10 mg PO HS [facility] Last Admin: 08/26/17 22:00 Dose: 10 mg Multi-Ingredient Cream (Hydrocerin Cream) 1 ea TOP BID [facility] Last Admin: 08/27/17 09:54 Dose: Not Given Non-Formulary Medication (Memantine Hcl [Namenda Xr]) 28 mg PO DAILY [facility] Last Admin: 08/27/17 09:54 Dose: Not Given Pantoprazole Sodium (Protonix Ec Tab) 40 mg PO 0600 [facility] Last Admin: 08/27/17 06:34 Dose: 40 mg Vitamin D (Vitamin D 400 Intl Units Tab) 200 intlu PO BID [facility] Last Admin: 08/27/17 09:55 Dose: 200 intlu - Labs Labs: 08/27/17 05:20 08/27/17 05:20 PT 12.3 SECONDS (9.4-12.5) 08/25/17 05:25 INR 1.07 (0.93-1.08) 08/25/17 05:25 APTT 35.2 Seconds (25.1-36.5) 08/25/17 05:25 Attending/Attestation - Attestation I have personally seen and examined this patient.: Yes I have fully participated in the care of the patient.: Yes I have reviewed all pertinent clinical information, including history, physical exam and plan: Yes Notes (Text): I have seen and examined the patient at bedside. Agree with the above note with the following additions/ exceptions: Briefly this is 77 year old female with history of Alzheimer's dementia, HTN, uncontrolled DM, asthma, right knee replacement and LE lymphedema who was brought by the son for evaluation of chest pain, mild productive cough, shortness of breath and lethargy. Patient took 2 days of z pack prior to ED visit. Upon admission, she was found to have fever 103, tachycardia and leukocytosis. UA revealed LE+ and 5-10 wbc suggestive of UTI. Urine culture is growing gram negative gemma. Blood culture reveals EColi. Procal is also elevated. CT abdomen pelvis revealed bilateral non obstructing stones. Continue meropenem. Patient denies any dysuria. Today around noon, she developed chills and fever. One dose of amikacin was given. On exam, she was found to have bilateral LE cellulitis vs stasis dermatitis. Podiatry on case. Nails were clipped. Continue hydrocerin cream. D dimer was found to be elevated. CTA was negative for PE however it revealed 8 mm pulmonary nodule. Previous imaging did not reveal this nodule. Will recommend to have repeat CT in 6 months. Discussed with patients son. Continue insulin for IDDM. Awaiting palliative care consult. Last night, patient had few episodes of diarrhea. Stool for cdiff was sent. Upon discharge patient will follow up with Dr Bhargavi Hendricks. Dr Patel Ramsey
[2017-08-27] MEDS: Insulin Lispro (humaLOG) MEDIUM Coverage SC SCH ×4 (08:27→21:53)
[2017-08-27] MEDS: Insulin Regular 1 UNITS/0.01 ML ML SC SCH ×3 (08:28→17:42)
[2017-08-27] MEDS: Lactobacillus Acidophilus 500 MU Cap PO SCH ×2 (09:52→18:11)
[2017-08-27] MEDS: Hydrocerin(120 gm) TOP SCH ×2 (09:54→17:43)
[2017-08-27] MEDS: MEMANTINE HCL 28 MG PO SCH (09:54)
[2017-08-27] MEDS: Cholecalciferol 400 Intl Units Tab PO SCH ×2 (09:55→18:12)
--- NOTE | 2017-08-27 10:52 | CP.PCM.PN ---
<Eri Esquivel - Last Filed: 08/27/17 10:48> Subjective - Date & Time of Evaluation Date of Evaluation: 08/27/17 Time of Evaluation: 09:35 - Subjective Subjective: Podiatry Progress Note- Dr. Polanco 77 y.o female with PMH of DM, PVD, HTN, Alzheimer, depression, and asthma seen and evaluated at bedside for bilaterally lymphedema. Patient is seen lying comfortably in bed, in NAD, and AA0x3. Patient denies acute overnight events. Denies n/v/sob/cp/chills or f. Patient denies calf pain or tenderness. Objective - Vital Signs/Intake and Output Vital Signs (last 24 hours): Temp Pulse Resp BP Pulse Ox 98.1 F 68 18 128/58 L 97 08/27/17 06:00 08/27/17 10:00 08/27/17 06:00 08/27/17 09:54 08/27/17 06:00 Intake and Output: 08/27/17 08/27/17 06:59 18:59 Intake Total 1690 200 Output Total 200 200 Balance 1490 0 - Medications Medications: Current Medications Albuterol/Ipratropium (Duoneb 3 Mg/0.5 Mg (3 Ml) Ud) 3 ml IH [id number] [facility] Last Admin: 08/27/17 07:32 Dose: 3 ml Albuterol/Ipratropium (Duoneb 3 Mg/0.5 Mg (3 Ml) Ud) 3 ml IH Q2H PRN PRN Reason: Shortness of Breath Aspirin (Ecotrin) 81 mg PO DAILY [facility] Last Admin: 08/27/17 09:53 Dose: 81 mg Atorvastatin Calcium (Lipitor) 10 mg PO HS [facility] Last Admin: 08/26/17 21:59 Dose: 10 mg Calcium Carbonate (Oscal) 500 mg PO BID [facility] Last Admin: 08/27/17 09:55 Dose: 500 mg Docusate Sodium (Colace) 100 mg PO BID [facility] Last Admin: 08/27/17 09:52 Dose: Not Given Ferrous Sulfate (Feosol) 324 mg PO DAILY [facility] Last Admin: 08/27/17 09:53 Dose: 324 mg Furosemide (Lasix) 20 mg IVP DAILY [facility] Last Admin: 08/27/17 09:54 Dose: 20 mg Heparin Sodium (Porcine) (Heparin) 5,000 units SC Q12 [facility] PRN Reason: Protocol Last Admin: 08/27/17 09:53 Dose: 5,000 units Sodium Chloride (Sodium Chloride 0.9%) 1,000 mls @ 100 mls/hr IV .Q10H [facility] Last Admin: 08/26/17 17:44 Dose: 100 mls/hr Meropenem (Merrem Iv 1 Gm Premix) 50 mls @ 100 mls/hr IVPB Q12H [facility] PRN Reason: Protocol Stop: 09/02/17 06:16 Last Admin: 08/27/17 06:34 Dose: 100 mls/hr Insulin Detemir (Levemir) 12 unit SC HS [facility] Last Admin: 08/26/17 21:57 Dose: 12 unit Insulin Human Lispro (Humalog Med) 0 units SC ACHS [facility] PRN Reason: Protocol Last Admin: 08/27/17 08:27 Dose: Not Given Insulin Human Regular (Humulin R) 5 units SC AC [facility] Last Admin: 08/27/17 08:28 Dose: Not Given Lactobacillus Acidophilus (Bacid Acidophilus) 1 cap PO BID [facility] Last Admin: 08/27/17 09:52 Dose: 1 cap Montelukast Sodium (Singulair) 10 mg PO [facility] Last Admin: 08/26/17 22:00 Dose: 10 mg Multi-Ingredient Cream (Hydrocerin Cream) 1 ea TOP BID [facility] Last Admin: 08/27/17 09:54 Dose: Not Given Non-Formulary Medication (Memantine Hcl [Namenda Xr]) 28 mg PO DAILY [facility] Last Admin: 08/27/17 09:54 Dose: Not Given Pantoprazole Sodium (Protonix Ec Tab) 40 mg PO 0600 [facility] Last Admin: 08/27/17 06:34 Dose: 40 mg Vitamin D (Vitamin D 400 Intl Units Tab) 200 intlu PO BID [facility] Last Admin: 08/27/17 09:55 Dose: 200 intlu - Labs Labs: 08/27/17 05:20 08/27/17 05:20 PT 12.3 SECONDS (9.4-12.5) 08/25/17 05:25 INR 1.07 (0.93-1.08) 08/25/17 05:25 APTT 35.2 Seconds (25.1-36.5) 08/25/17 05:25 - Constitutional Appears: Well, Non-toxic, No Acute Distress - Extremities Exam Additional comments: VASC: DP and PT pulses nonpalpable secondary to edema b/l, CFT WNL to digits x10 , +3 pitting edema to foot and leg b/l NEURO: Gross sensation and protective sensation diminished DERM: No open wounds noted to the LE. No erythema noted to bilateral lower extremity . Secondary scaling verrucaformis lesions with fissures noted. Hyperpigmentation discoloration noted to the LE. Nails x10 are thickened and elongated with the presence of subungual debris. ORTHO: Tenderness to palpation bilateral lower extremity. ROM of the ankles in DF and PF with no crepitus noted b/l - Neurological Exam Neurological Exam: Alert, Awake, Oriented x3 Assessment and Plan - Assessment and Plan (Free Text) Assessment: 77 y.o female with lymphedema and onycomycosis of nails Plan: Patient seen and evaluated. Discussed plan in detail with attending Dr. Polanco Labs, charts, vitals reviewed (afebrile, WBC=11.3 trended down from 16.5) Blood cultures (+) for E. coli Hydrocerin cream applied to the LE to be applied daily BID No dressings to the LE at this time. Stable from podiatry standpoint. Will continue to follow while inhouse. <Sherwin Polanco - Last Filed: 08/27/17 11:07> Objective - Vital Signs/Intake and Output Vital Signs (last 24 hours): Temp Pulse Resp BP Pulse Ox 98.1 F 68 18 128/58 L 97 08/27/17 06:00 08/27/17 10:00 08/27/17 06:00 08/27/17 09:54 08/27/17 06:00 Intake and Output: 08/27/17 08/27/17 06:59 18:59 Intake Total 1690 200 Output Total 200 200 Balance 1490 0 - Medications Medications: Current Medications Albuterol/Ipratropium (Duoneb 3 Mg/0.5 Mg (3 Ml) Ud) 3 ml IH [id number] [facility] Last Admin: 08/27/17 07:32 Dose: 3 ml Albuterol/Ipratropium (Duoneb 3 Mg/0.5 Mg (3 Ml) Ud) 3 ml IH Q2H PRN PRN Reason: Shortness of Breath Aspirin (Ecotrin) 81 mg PO DAILY [facility] Last Admin: 08/27/17 09:53 Dose: 81 mg Atorvastatin Calcium (Lipitor) 10 mg PO HS [facility] Last Admin: 08/26/17 21:59 Dose: 10 mg Calcium Carbonate (Oscal) 500 mg PO BID [facility] Last Admin: 08/27/17 09:55 Dose: 500 mg Docusate Sodium (Colace) 100 mg PO BID [facility] Last Admin: 08/27/17 09:52 Dose: Not Given Ferrous Sulfate (Feosol) 324 mg PO DAILY [facility] Last Admin: 08/27/17 09:53 Dose: 324 mg Furosemide (Lasix) 20 mg IVP DAILY [facility] Last Admin: 08/27/17 09:54 Dose: 20 mg Heparin Sodium (Porcine) (Heparin) 5,000 units SC Q12 [facility] PRN Reason: Protocol Last Admin: 08/27/17 09:53 Dose: 5,000 units Sodium Chloride (Sodium Chloride 0.9%) 1,000 mls @ 100 mls/hr IV .Q10H [facility] Last Admin: 08/26/17 17:44 Dose: 100 mls/hr Meropenem (Merrem Iv 1 Gm Premix) 50 mls @ 100 mls/hr IVPB Q12H [facility] PRN Reason: Protocol Stop: 09/02/17 06:16 Last Admin: 08/27/17 06:34 Dose: 100 mls/hr Insulin Detemir (Levemir) 12 unit SC [facility] Last Admin: 08/26/17 21:57 Dose: 12 unit Insulin Human Lispro (Humalog Med) 0 units SC [facility] PRN Reason: Protocol Last Admin: 08/27/17 08:27 Dose: Not Given Insulin Human Regular (Humulin R) 5 units SC AC [facility] Last Admin: 08/27/17 08:28 Dose: Not Given Lactobacillus Acidophilus (Bacid Acidophilus) 1 cap PO BID [facility] Last Admin: 08/27/17 09:52 Dose: 1 cap Montelukast Sodium (Singulair) 10 mg PO HS [facility] Last Admin: 08/26/17 22:00 Dose: 10 mg Multi-Ingredient Cream (Hydrocerin Cream) 1 ea TOP BID [facility] Last Admin: 08/27/17 09:54 Dose: Not Given Non-Formulary Medication (Memantine Hcl [Namenda Xr]) 28 mg PO DAILY [facility] Last Admin: 08/27/17 09:54 Dose: Not Given Pantoprazole Sodium (Protonix Ec Tab) 40 mg PO 0600 [facility] Last Admin: 08/27/17 06:34 Dose: 40 mg Vitamin D (Vitamin D 400 Intl Units Tab) 200 intlu PO BID [facility] Last Admin: 08/27/17 09:55 Dose: 200 intlu - Labs Labs: 08/27/17 05:20 08/27/17 05:20 PT 12.3 SECONDS (9.4-12.5) 08/25/17 05:25 INR 1.07 (0.93-1.08) 08/25/17 05:25 APTT 35.2 Seconds (25.1-36.5) 08/25/17 05:25 Attending/Attestation - Attestation I have personally seen and examined this patient.: Yes I have fully participated in the care of the patient.: Yes I have reviewed all pertinent clinical information, including history, physical exam and plan: Yes
--- NOTE | 2017-08-27 11:34 | CP.PCM.PN ---
Subjective - Date & Time of Evaluation Date of Evaluation: 08/27/17 Time of Evaluation: 10:35 - Subjective Subjective: Comfortable in bed, no fevers. Objective - Vital Signs/Intake and Output Vital Signs (last 24 hours): Temp Pulse Resp BP Pulse Ox 99.9 F H 71 20 139/62 100 08/26/17 17:48 08/26/17 17:48 08/26/17 17:48 08/26/17 17:48 08/26/17 06:00 Intake and Output: 08/26/17 08/26/17 06:59 18:59 Intake Total 1680 840 Output Total 800 Balance 880 840 - Medications Medications: Current Medications Albuterol/Ipratropium (Duoneb 3 Mg/0.5 Mg (3 Ml) Ud) 3 ml IH [id number] [facility] Last Admin: 08/26/17 14:05 Dose: Not Given Albuterol/Ipratropium (Duoneb 3 Mg/0.5 Mg (3 Ml) Ud) 3 ml IH Q2H PRN PRN Reason: Shortness of Breath Aspirin (Ecotrin) 81 mg PO DAILY [facility] Last Admin: 08/26/17 10:01 Dose: 81 mg Atorvastatin Calcium (Lipitor) 10 mg PO HS [facility] Last Admin: 08/25/17 22:50 Dose: 10 mg Calcium Carbonate (Oscal) 500 mg PO BID [facility] Last Admin: 08/26/17 17:46 Dose: 500 mg Docusate Sodium (Colace) 100 mg PO BID [facility] Last Admin: 08/26/17 18:07 Dose: 100 mg Ferrous Sulfate (Feosol) 324 mg PO DAILY [facility] Last Admin: 08/26/17 10:02 Dose: 324 mg Furosemide (Lasix) 20 mg IVP DAILY [facility] Last Admin: 08/26/17 10:01 Dose: 20 mg Heparin Sodium (Porcine) (Heparin) 5,000 units SC Q12 [facility] PRN Reason: Protocol Last Admin: 08/26/17 10:01 Dose: 5,000 units Sodium Chloride (Sodium Chloride 0.9%) 1,000 mls @ 100 mls/hr IV .Q10H [facility] Last Admin: 08/26/17 17:44 Dose: 100 mls/hr Meropenem (Merrem Iv 1 Gm Premix) 50 mls @ 100 mls/hr IVPB Q12H [facility] PRN Reason: Protocol Stop: 09/02/17 06:16 Last Admin: 08/26/17 17:45 Dose: 100 mls/hr Insulin Detemir (Levemir) 12 unit SC [facility] Insulin Human Lispro (Humalog Med) 0 units SC ACHS [facility] PRN Reason: Protocol Last Admin: 08/26/17 18:03 Dose: 1 units Insulin Human Regular (Humulin R) 5 units SC AC [facility] Last Admin: 08/26/17 18:02 Dose: 5 units Montelukast Sodium (Singulair) 10 mg PO HS [facility] Last Admin: 08/25/17 22:50 Dose: 10 mg Multi-Ingredient Cream (Hydrocerin Cream) 1 ea TOP BID [facility] Last Admin: 08/26/17 18:07 Dose: 1 applic Non-Formulary Medication (Memantine Hcl [Namenda Xr]) 28 mg PO DAILY [facility] Last Admin: 08/26/17 12:11 Dose: Not Given Pantoprazole Sodium (Protonix Ec Tab) 40 mg PO 0600 [facility] Last Admin: 08/26/17 05:13 Dose: 40 mg Vitamin D (Vitamin D 400 Intl Units Tab) 200 intlu PO BID [facility] Last Admin: 08/26/17 17:45 Dose: 200 intlu - Labs Labs: 08/26/17 06:30 08/26/17 06:30 PT 12.3 SECONDS (9.4-12.5) 08/25/17 05:25 INR 1.07 (0.93-1.08) 08/25/17 05:25 APTT 35.2 Seconds (25.1-36.5) 08/25/17 05:25 - Constitutional Appears: Non-toxic, Chronically Ill - Head Exam Head Exam: NORMAL INSPECTION - ENT Exam ENT Exam: Mucous Membranes Moist - Neck Exam Neck Exam: absent: Meningismus - Respiratory Exam Respiratory Exam: Decreased Breath Sounds - Cardiovascular Exam Cardiovascular Exam: +S1, +S2 - GI/Abdominal Exam GI & Abdominal Exam: Soft. absent: Tenderness Assessment and Plan - Assessment and Plan (Free Text) Plan: Assessment Sepsis due to gram negative bacilli bacteremia, consider UTI / pyelonephritis dementia HTN DM asthma chronic lymphedema on both lower extremities morbid obesity with BMI 40 Plan continue Merrem day 2 and gave dose of IV Vancomycin pending identification and sensitivities of the gram negative bacilli in the blood; follow up urine cx ; will repeat blood cx today reviewed CT A/P which showed bilateral non-obstructing stones but no intra- abdominal infection will continue to monitor clinically
[2017-08-27] MEDS ORDERED: Amikacin 500 mg/2ml Inj IV ONE (11:44)
[2017-08-27] MEDS: Sodium Chloride 0.9% 1,000 ML IV SCH (18:16)
[2017-08-27] MEDS: Insulin Detemir 100 units/ml Vial (Levemir) SC SCH (21:53)
[2017-08-28] MEDS: Sodium Chloride 0.9% 1,000 ML IV SCH ×3 (00:15→17:07)
[2017-08-28] MEDS: Albuterol-Ipratrop 3 mg / 0.5 (3 ml) UD IH SCH ×4 (04:16→21:15)
[2017-08-28] MEDS: Meropenem IV 1 gm in NS 50 ML IVPB SCH (05:32)
[2017-08-28] MEDS: Pantoprazole 40 mg EC Tab PO SCH (05:32)
[2017-08-28 07:11] LABS: ALB/GLOB RATIO 0.8 (1.1-1.8); ALBUMIN 2.6 g/dL (3.0-4.8); CALCIUM 8.8 mg/dL (8.4-10.5)
[2017-08-28 07:39] LABS: BASO # 0.01 K/mm3 (0.0-2.0); BASO % 0.1 % (0.0-3.0); EOS # 0.8 (0.0-0.7); EOS % 4.4 % (1.5-5.0); GRAN # 13.69 (1.4-6.5); GRAN % 79.7 % (50.0-68.0); LYMPH % 5.8 % (22.0-35.0); MEAN CELL VOLUME 85.6 fl (80.0-105.0); MEAN CORPUSCULAR HEMOGLOBIN 26.6 pg (25.0-35.0); MEAN CORPUSCULAR HGB CONC 31.1 g/dl (31.0-37.0); MEAN PLATELET VOLUME 11.1 fl (7.0-11.0); MONO # 1.7 (0.1-0.6); RBC 3.83 10^6/uL (3.5-6.1); RED CELL DISTRIBUTION WIDTH 13.4 % (11.5-14.5); WHITE BLOOD COUNT 17.2 10^3/ul (4.5-11.0)
[2017-08-28 07:40] LABS: HEMOGLOBIN 10.2 g/dL (12.0-16.0)
[2017-08-28] MEDS: Insulin Regular 1 UNITS/0.01 ML ML SC SCH ×2 (07:59→12:31)
[2017-08-28] MEDS: Insulin Lispro (humaLOG) MEDIUM Coverage SC SCH ×3 (07:59→22:13)
[2017-08-28] MEDS: Lactobacillus Acidophilus 500 MU Cap PO SCH ×2 (09:20→17:07)
[2017-08-28] MEDS: Cholecalciferol 400 Intl Units Tab PO SCH ×2 (09:21→17:07)
[2017-08-28] MEDS: MEMANTINE HCL 28 MG PO SCH (09:25)
[2017-08-28] MEDS ORDERED: levoFLOXacin 750 mg in D5W 750 MG/150 ML BAG IVPB SCH (10:00)
--- NOTE | 2017-08-28 11:02 | CP.PCM.PN ---
Addendum entered and electronically signed by Jose Elias Herrera DO 08/28/17 11 :41: Will continue with merrem as per ID until repeat cultures have returned. Benadryl PRN for itchiness. Original Note: <Jose Elias Herrera - Last Filed: 08/28/17 11:09> Subjective - Date & Time of Evaluation Date of Evaluation: 08/28/17 Time of Evaluation: 07:00 - Subjective Subjective: Patient is seen and examined at bedside in no acute distress. States her rash is now beginning to itch. States she did not experience diarrhea, and is continuing to urinate without dysuria. Denies chest pain, shortness of breath, abdominal pain, fevers, chills, nausea, vomiting, diarrhea. Objective - Vital Signs/Intake and Output Vital Signs (last 24 hours): Temp Pulse Resp BP Pulse Ox 99.2 F 74 20 129/55 L 96 08/28/17 06:00 08/28/17 06:00 08/28/17 06:00 08/28/17 09:21 08/28/17 06:00 Intake and Output: 08/28/17 08/28/17 06:59 18:59 Intake Total 1320 Balance 1320 - Medications Medications: Current Medications Acetaminophen (Tylenol 325mg Tab) 650 mg PO Q6H PRN PRN Reason: Fever >100.4 F Last Admin: 08/27/17 12:05 Dose: 650 mg Albuterol/Ipratropium (Duoneb 3 Mg/0.5 Mg (3 Ml) Ud) 3 ml IH [id number] [facility] Last Admin: 08/28/17 07:38 Dose: 3 ml Albuterol/Ipratropium (Duoneb 3 Mg/0.5 Mg (3 Ml) Ud) 3 ml IH Q2H PRN PRN Reason: Shortness of Breath Aspirin (Ecotrin) 81 mg PO DAILY [facility] Last Admin: 08/28/17 09:20 Dose: 81 mg Atorvastatin Calcium (Lipitor) 10 mg PO HS [facility] Last Admin: 08/27/17 20:59 Dose: 10 mg Calcium Carbonate (Oscal) 500 mg PO BID [facility] Last Admin: 08/28/17 09:21 Dose: 500 mg Docusate Sodium (Colace) 100 mg PO BID [facility] Last Admin: 03/04/18 09:20 Dose: 100 mg Ferrous Sulfate (Feosol) 324 mg PO DAILY [facility] Last Admin: 08/28/17 09:20 Dose: 324 mg Furosemide (Lasix) 20 mg IVP DAILY [facility] Last Admin: 08/28/17 09:21 Dose: 20 mg Heparin Sodium (Porcine) (Heparin) 5,000 units SC Q12 [facility] PRN Reason: Protocol Last Admin: 08/28/17 09:21 Dose: 5,000 units Sodium Chloride (Sodium Chloride 0.9%) 1,000 mls @ 100 mls/hr IV .Q10H [facility] Last Admin: 08/28/17 00:15 Dose: 100 mls/hr Meropenem (Merrem Iv 1 Gm Premix) 50 mls @ 100 mls/hr IVPB Q12H [facility] PRN Reason: Protocol Stop: 09/02/17 06:16 Last Admin: 08/28/17 05:32 Dose: 100 mls/hr Insulin Detemir (Levemir) 12 unit SC [facility] Last Admin: 08/27/17 21:53 Dose: Not Given Insulin Human Lispro (Humalog Med) 0 units SC ACHS [facility] PRN Reason: Protocol Last Admin: 08/28/17 07:59 Dose: 1 units Insulin Human Regular (Humulin R) 5 units SC AC [facility] Last Admin: 08/28/17 07:59 Dose: 5 units Lactobacillus Acidophilus (Bacid Acidophilus) 1 cap PO BID [facility] Last Admin: 08/28/17 09:20 Dose: 1 cap Montelukast Sodium (Singulair) 10 mg PO [facility] Last Admin: 08/27/17 20:59 Dose: 10 mg Multi-Ingredient Cream (Hydrocerin Cream) 1 ea TOP BID [facility] Last Admin: 08/27/17 17:43 Dose: Not Given Non-Formulary Medication (Memantine Hcl [Namenda Xr]) 28 mg PO DAILY [facility] Last Admin: 08/28/17 09:25 Dose: Not Given Pantoprazole Sodium (Protonix Ec Tab) 40 mg PO 0600 [facility] Last Admin: 08/28/17 05:32 Dose: 40 mg Vitamin D (Vitamin D 400 Intl Units Tab) 200 intlu PO BID [facility] Last Admin: 08/28/17 09:21 Dose: 200 intlu - Labs Labs: 08/28/17 06:30 08/28/17 06:30 PT 12.3 SECONDS (9.4-12.5) 08/25/17 05:25 INR 1.07 (0.93-1.08) 08/25/17 05:25 APTT 35.2 Seconds (25.1-36.5) 08/25/17 05:25 - Constitutional Appears: Non-toxic, No Acute Distress - Head Exam Head Exam: ATRAUMATIC, NORMAL INSPECTION, NORMOCEPHALIC - Eye Exam Eye Exam: EOMI Pupil Exam: NORMAL ACCOMODATION - ENT Exam ENT Exam: Mucous Membranes Moist - Neck Exam Neck Exam: Normal Inspection - Respiratory Exam Respiratory Exam: Clear to Ausculation Bilateral, NORMAL BREATHING PATTERN. absent: Rhonchi, Wheezes - Cardiovascular Exam Cardiovascular Exam: REGULAR RHYTHM, +S1, +S2 - GI/Abdominal Exam GI & Abdominal Exam: Soft, Normal Bowel Sounds - Extremities Exam Additional comments: bilateral keratototic regions on lower extremities, erythema on upper and lower extremities - Back Exam Additional comments: erythema - Neurological Exam Neurological Exam: Alert, Awake, Oriented x3 - Psychiatric Exam Psychiatric exam: Normal Affect, Normal Mood - Skin Skin Exam: Erythema, Intact, Warm. absent: Normal Color Assessment and Plan - Assessment and Plan (Free Text) Assessment: Ms Britt, 77 yo F, with PMH dementia, R total knee replacement with metal implant, presenting with CP and SOB for 2 days, found to have gram neg bacteremia. Gram neg bacteremia - redraw blood culture x 2 bottle; results pending SIRS vs sepsis likely 2/2 URI vs CAP, rule out UTI. Unlikely cellulitis or GI infection. Failed Z-pack outpt. CURB-65 score 1. - UA positive for UTI, UC gram neg gemma <10,000 colonies however - Repeat Blood cultures pending - 1 dose of amikacin given. Vancomycin and Merrem stopped due to persistent rash with patient. Benadryl given, Levaquin started. - Repeat blood cx; pending - Tylenol prn for fever - NS@100 to prevent contrast nephropathy - Consult Infectious Disease: recommendations appreciated Pulmonary Nodes Hx former smoker and age. Poss malignancy - 8mm. Repeat CT chest in 6-12 month. - communicated with son SOB likely 2/2 asthma, acute respiratory tract infection, or fluid overload. Less likely 2/2 pulmonary embolism (Wells score 1.5) - D dimer to r/o PE returned elevated - O2 as needed, currently NC 3.5L - Duoneb [place] and prn for asthma - Echo: r/o fluid overload and heart failure,reveals left ventricle normal sized , borderline mild concentric left ventricular hypertrophy with normal EF of 55% , trace mitral regurgitation, mild tricuspid regurgitation, absence of pericardial effusion, vegetation, or thrombus. - Lasix 40 IV - Hold steroid at this time since patient is not wheezing and has good air movement - Continue home montelukast Adrenal mass 2.9 cm -asymptomatic at the moment -<4cm no acute intervention necessary -Will have patient follow up as outpatient CP r/o ACS - EKG unchanged - Serial troponins: 0.02 --> 0.1 --> 0.05 HTN - Continue to hold home BP meds. - monitor BP, restart home BP med as needed. DM - HgA1c ordered; results pending - Levemir 12 HS, 5 regular insulin per meal, Insulin sliding scale-ultra fast, med Chronic lymphedema vs venous stasis dermatitis. - continue Hydrocerin cream applied to the LE to be applied daily BID as per podiatry DVT prophylaxis: Heparin 5000U GI prophylaxis: pantoprazole Discharge planning - [place] will for healthcare proxy form: Son Shelley [phone] - pt is alive but has dementia. son wants to be poa - palliative consult <Patel Ramsey - Last Filed: 08/28/17 14:28> Objective - Vital Signs/Intake and Output Vital Signs (last 24 hours): Temp Pulse Resp BP Pulse Ox 98.3 F 67 16 119/53 L 96 08/28/17 12:00 08/28/17 12:00 08/28/17 12:00 08/28/17 12:00 08/28/17 06:00 Intake and Output: 08/28/17 08/28/17 06:59 18:59 Intake Total 1320 Balance 1320 - Medications Medications: Current Medications Acetaminophen (Tylenol 325mg Tab) 650 mg PO Q6H PRN PRN Reason: Fever >100.4 F Last Admin: 08/27/17 12:05 Dose: 650 mg Albuterol/Ipratropium (Duoneb 3 Mg/0.5 Mg (3 Ml) Ud) 3 ml IH [id number] [facility] Last Admin: 08/28/17 13:36 Dose: 3 ml Albuterol/Ipratropium (Duoneb 3 Mg/0.5 Mg (3 Ml) Ud) 3 ml IH Q2H PRN PRN Reason: Shortness of Breath Aspirin (Ecotrin) 81 mg PO DAILY [facility] Last Admin: 08/28/17 09:20 Dose: 81 mg Atorvastatin Calcium (Lipitor) 10 mg PO HS [facility] Last Admin: 08/27/17 20:59 Dose: 10 mg Calcium Carbonate (Oscal) 500 mg PO BID [facility] Last Admin: 08/28/17 09:21 Dose: 500 mg Diphenhydramine HCl (Benadryl) 25 mg PO Q6 PRN PRN Reason: Itching / Pruritus Docusate Sodium (Colace) 100 mg PO BID [facility] Last Admin: 08/28/17 09:20 Dose: 100 mg Ferrous Sulfate (Feosol) 324 mg PO DAILY [facility] Last Admin: 08/28/17 09:20 Dose: 324 mg Furosemide (Lasix) 20 mg IVP DAILY [facility] Last Admin: 08/28/17 09:21 Dose: 20 mg Heparin Sodium (Porcine) (Heparin) 5,000 units SC Q12 [facility] PRN Reason: Protocol Last Admin: 08/28/17 09:21 Dose: 5,000 units Sodium Chloride (Sodium Chloride 0.9%) 1,000 mls @ 100 mls/hr IV .Q10H [facility] Last Admin: 08/28/17 11:50 Dose: 100 mls/hr Meropenem (Merrem Iv 1 Gm Premix) 50 mls @ 100 mls/hr IVPB Q12H [facility] PRN Reason: Protocol Stop: 09/02/17 06:16 Last Admin: 08/28/17 05:32 Dose: 100 mls/hr Insulin Detemir (Levemir) 12 unit SC HS [facility] Last Admin: 08/27/17 21:53 Dose: Not Given Insulin Human Lispro (Humalog Med) 0 units SC ACHS [facility] PRN Reason: Protocol Last Admin: 08/28/17 12:31 Dose: 1 units Insulin Human Regular (Humulin R) 5 units SC AC [facility] Last Admin: 08/28/17 12:31 Dose: 5 units Lactobacillus Acidophilus (Bacid Acidophilus) 1 cap PO BID [facility] Last Admin: 08/28/17 09:20 Dose: 1 cap Montelukast Sodium (Singulair) 10 mg PO HS [facility] Last Admin: 08/27/17 20:59 Dose: 10 mg Multi-Ingredient Cream (Hydrocerin Cream) 1 ea TOP BID [facility] Last Admin: 08/27/17 17:43 Dose: Not Given Non-Formulary Medication (Memantine Hcl [Namenda Xr]) 28 mg PO DAILY [facility] Last Admin: 08/28/17 09:25 Dose: Not Given Pantoprazole Sodium (Protonix Ec Tab) 40 mg PO 0600 [facility] Last Admin: 08/28/17 05:32 Dose: 40 mg Vitamin D (Vitamin D 400 Intl Units Tab) 200 intlu PO BID [facility] Last Admin: 08/28/17 09:21 Dose: 200 intlu - Labs Labs: 08/28/17 06:30 08/28/17 06:30 PT 12.3 SECONDS (9.4-12.5) 08/25/17 05:25 INR 1.07 (0.93-1.08) 08/25/17 05:25 APTT 35.2 Seconds (25.1-36.5) 08/25/17 05:25 Attending/Attestation - Attestation I have personally seen and examined this patient.: Yes I have fully participated in the care of the patient.: Yes I have reviewed all pertinent clinical information, including history, physical exam and plan: Yes Notes (Text): I have seen and examined the patient at bedside. Agree with the above note with the following additions/ exceptions: Briefly this is 77 year old female with history of Alzheimer's dementia, HTN, uncontrolled DM, asthma, right knee replacement and LE lymphedema who was brought by the son for evaluation of chest pain, mild productive cough, shortness of breath and lethargy. Patient took 2 days of z pack prior to ED visit. Upon admission, she was found to have fever 103, tachycardia and leukocytosis. UA revealed LE+ and 5-10 wbc suggestive of UTI. Urine culture is growing gram negative gemma. Blood culture reveals EColi. Procal is also elevated. CT abdomen pelvis revealed bilateral non obstructing stones. Continue meropenem. Patient denies any dysuria. Yesterday around noon, she developed chills and fever. One dose of amikacin was given. On exam, she was found to have bilateral LE cellulitis vs stasis dermatitis. Podiatry on case. Nails were clipped. Continue hydrocerin cream. D dimer was found to be elevated. CTA was negative for PE however it revealed 8 mm pulmonary nodule. Previous imaging did not reveal this nodule. Will recommend to have repeat CT in 6 months. Discussed with patients son. Today, she complains of redness and itching all over the body. Benadryl was given. Discussed with ID. Will continue meropenem for now. Continue insulin for IDDM. Awaiting palliative care consult. Stool for cdiff is negative. Upon discharge patient will follow up with Dr Bhargavi Hendricks. Dr Patel Ramsey
[2017-08-28] MEDS: Hydrocerin(120 gm) TOP SCH ×2 (11:05→22:13)
--- NOTE | 2017-08-28 16:38 | CP.PCM.PN ---
Subjective - Date & Time of Evaluation Date of Evaluation: 08/28/17 Time of Evaluation: 09:50 - Subjective Subjective: Comfortable, no fevers, not in distress. Objective - Vital Signs/Intake and Output Vital Signs (last 24 hours): Temp Pulse Resp BP Pulse Ox 99.2 F 74 20 129/55 L 96 08/28/17 06:00 08/28/17 06:00 08/28/17 06:00 08/28/17 09:21 08/28/17 06:00 Intake and Output: 08/28/17 08/28/17 06:59 18:59 Intake Total 1320 Balance 1320 - Medications Medications: Current Medications Acetaminophen (Tylenol 325mg Tab) 650 mg PO Q6H PRN PRN Reason: Fever >100.4 F Last Admin: 08/27/17 12:05 Dose: 650 mg Albuterol/Ipratropium (Duoneb 3 Mg/0.5 Mg (3 Ml) Ud) 3 ml IH [id number] [facility] Last Admin: 08/28/17 07:38 Dose: 3 ml Albuterol/Ipratropium (Duoneb 3 Mg/0.5 Mg (3 Ml) Ud) 3 ml IH Q2H PRN PRN Reason: Shortness of Breath Aspirin (Ecotrin) 81 mg PO DAILY [facility] Last Admin: 08/28/17 09:20 Dose: 81 mg Atorvastatin Calcium (Lipitor) 10 mg PO HS [facility] Last Admin: 08/27/17 20:59 Dose: 10 mg Calcium Carbonate (Oscal) 500 mg PO BID [facility] Last Admin: 08/28/17 09:21 Dose: 500 mg Docusate Sodium (Colace) 100 mg PO BID [facility] Last Admin: 08/28/17 09:20 Dose: 100 mg Ferrous Sulfate (Feosol) 324 mg PO DAILY [facility] Last Admin: 08/28/17 09:20 Dose: 324 mg Furosemide (Lasix) 20 mg IVP DAILY [facility] Last Admin: 08/28/17 09:21 Dose: 20 mg Heparin Sodium (Porcine) (Heparin) 5,000 units SC Q12 [facility] PRN Reason: Protocol Last Admin: 08/28/17 09:21 Dose: 5,000 units Sodium Chloride (Sodium Chloride 0.9%) 1,000 mls @ 100 mls/hr IV .Q10H [facility] Last Admin: 08/28/17 00:15 Dose: 100 mls/hr Meropenem (Merrem Iv 1 Gm Premix) 50 mls @ 100 mls/hr IVPB Q12H [facility] PRN Reason: Protocol Stop: 09/02/17 06:16 Last Admin: 08/28/17 05:32 Dose: 100 mls/hr Insulin Detemir (Levemir) 12 unit SC HS [facility] Last Admin: 08/27/17 21:53 Dose: Not Given Insulin Human Lispro (Humalog Med) 0 units SC ACHS [facility] PRN Reason: Protocol Last Admin: 08/28/17 07:59 Dose: 1 units Insulin Human Regular (Humulin R) 5 units SC AC [facility] Last Admin: 08/28/17 07:59 Dose: 5 units Lactobacillus Acidophilus (Bacid Acidophilus) 1 cap PO BID [facility] Last Admin: 08/28/17 09:20 Dose: 1 cap Montelukast Sodium (Singulair) 10 mg PO [facility] Last Admin: 08/27/17 20:59 Dose: 10 mg Multi-Ingredient Cream (Hydrocerin Cream) 1 ea TOP BID [facility] Last Admin: 08/27/17 17:43 Dose: Not Given Non-Formulary Medication (Memantine Hcl [Namenda Xr]) 28 mg PO DAILY [facility] Last Admin: 08/28/17 09:25 Dose: Not Given Pantoprazole Sodium (Protonix Ec Tab) 40 mg PO 0600 [facility] Last Admin: 08/28/17 05:32 Dose: 40 mg Vitamin D (Vitamin D 400 Intl Units Tab) 200 intlu PO BID [facility] Last Admin: 08/28/17 09:21 Dose: 200 intlu - Labs Labs: 08/28/17 06:30 08/28/17 06:30 PT 12.3 SECONDS (9.4-12.5) 08/25/17 05:25 INR 1.07 (0.93-1.08) 08/25/17 05:25 APTT 35.2 Seconds (25.1-36.5) 08/25/17 05:25 - Constitutional Appears: Chronically Ill - Head Exam Head Exam: NORMAL INSPECTION - ENT Exam ENT Exam: Mucous Membranes Moist - Neck Exam Neck Exam: absent: Meningismus - Respiratory Exam Respiratory Exam: Decreased Breath Sounds - Cardiovascular Exam Cardiovascular Exam: +S1, +S2 - GI/Abdominal Exam GI & Abdominal Exam: Soft. absent: Tenderness Assessment and Plan - Assessment and Plan (Free Text) Plan: Assessment Sepsis due to E. coli bacteremia, consider UTI / pyelonephritis dementia HTN DM asthma chronic lymphedema on both lower extremities morbid obesity with BMI 40 Plan continue Merrem day 3 ; follow up identification and sensitivities of the gram negative bacilli in the urine; repeat blood cx are negative reviewed CT A/P which showed bilateral non-obstructing stones but no intra- abdominal infection will continue to monitor clinically
--- NOTE | 2017-08-28 17:13 | CP.PCM.PN ---
Subjective - Date & Time of Evaluation Date of Evaluation: 08/28/17 Time of Evaluation: 13:25 - Subjective Subjective: Podiatry Progress Note- Dr. Sood 77 y.o female with PMH of DM, PVD, HTN, Alzheimer, depression, and asthma seen and evaluated at bedside for bilaterally lymphedema. Patient is seen lying comfortably in bed, with family members present. Patient denies acute overnight events. Denies n/v/sob/cp/chills or f. Patient denies calf pain or tenderness. Objective - Vital Signs/Intake and Output Vital Signs (last 24 hours): Temp Pulse Resp BP Pulse Ox 98.3 F 67 16 119/53 L 96 08/28/17 12:00 08/28/17 14:00 08/28/17 12:00 08/28/17 12:00 08/28/17 06:00 Intake and Output: 08/28/17 08/28/17 06:59 18:59 Intake Total 1320 Balance 1320 - Medications Medications: Current Medications Acetaminophen (Tylenol 325mg Tab) 650 mg PO Q6H PRN PRN Reason: Fever >100.4 F Last Admin: 08/27/17 12:05 Dose: 650 mg Albuterol/Ipratropium (Duoneb 3 Mg/0.5 Mg (3 Ml) Ud) 3 ml IH [id number] [facility] Last Admin: 08/28/17 13:36 Dose: 3 ml Albuterol/Ipratropium (Duoneb 3 Mg/0.5 Mg (3 Ml) Ud) 3 ml IH Q2H PRN PRN Reason: Shortness of Breath Aspirin (Ecotrin) 81 mg PO DAILY [facility] Last Admin: 08/28/17 09:20 Dose: 81 mg Atorvastatin Calcium (Lipitor) 10 mg PO HS [facility] Last Admin: 08/27/17 20:59 Dose: 10 mg Calcium Carbonate (Oscal) 500 mg PO BID [facility] Last Admin: 08/28/17 09:21 Dose: 500 mg Diphenhydramine HCl (Benadryl) 25 mg PO Q6 PRN PRN Reason: Itching / Pruritus Docusate Sodium (Colace) 100 mg PO BID [facility] Last Admin: 08/28/17 09:20 Dose: 100 mg Ferrous Sulfate (Feosol) 324 mg PO DAILY [facility] Last Admin: 08/28/17 09:20 Dose: 324 mg Furosemide (Lasix) 20 mg IVP DAILY [facility] Last Admin: 08/28/17 09:21 Dose: 20 mg Heparin Sodium (Porcine) (Heparin) 5,000 units SC Q12 [facility] PRN Reason: Protocol Last Admin: 08/28/17 09:21 Dose: 5,000 units Sodium Chloride (Sodium Chloride 0.9%) 1,000 mls @ 100 mls/hr IV .Q10H [facility] Last Admin: 08/28/17 11:50 Dose: 100 mls/hr Meropenem (Merrem Iv 1 Gm Premix) 50 mls @ 100 mls/hr IVPB Q12H [facility] PRN Reason: Protocol Stop: 09/02/17 06:16 Last Admin: 08/28/17 05:32 Dose: 100 mls/hr Insulin Detemir (Levemir) 12 unit SC HS [facility] Last Admin: 08/27/17 21:53 Dose: Not Given Insulin Human Lispro (Humalog Med) 0 units SC ACHS [facility] PRN Reason: Protocol Last Admin: 08/28/17 12:31 Dose: 1 units Insulin Human Regular (Humulin R) 5 units SC AC [facility] Last Admin: 08/28/17 12:31 Dose: 5 units Lactobacillus Acidophilus (Bacid Acidophilus) 1 cap PO BID [facility] Last Admin: 08/28/17 09:20 Dose: 1 cap Montelukast Sodium (Singulair) 10 mg PO HS [facility] Last Admin: 08/27/17 20:59 Dose: 10 mg Multi-Ingredient Cream (Hydrocerin Cream) 1 ea TOP BID [facility] Last Admin: 08/28/17 11:05 Dose: 1 applic Non-Formulary Medication (Memantine Hcl [Namenda Xr]) 28 mg PO DAILY [facility] Last Admin: 08/28/17 09:25 Dose: Not Given Pantoprazole Sodium (Protonix Ec Tab) 40 mg PO 0600 [facility] Last Admin: 08/28/17 05:32 Dose: 40 mg Vitamin D (Vitamin D 400 Intl Units Tab) 200 intlu PO BID [facility] Last Admin: 08/28/17 09:21 Dose: 200 intlu - Labs Labs: 08/28/17 06:30 08/28/17 06:30 PT 12.3 SECONDS (9.4-12.5) 08/25/17 05:25 INR 1.07 (0.93-1.08) 08/25/17 05:25 APTT 35.2 Seconds (25.1-36.5) 08/25/17 05:25 - Constitutional Appears: Well, Non-toxic, No Acute Distress - Extremities Exam Additional comments: VASC: DP and PT pulses nonpalpable secondary to edema b/l, CFT WNL to digits x10 , +3 pitting edema to foot and leg b/l NEURO: Gross sensation and protective sensation diminished DERM: No open wounds noted to the LE. No erythema noted to bilateral lower extremity . Secondary scaling verrucaformis lesions with fissures noted. Hyperpigmentation discoloration noted to the LE. ORTHO: Tenderness to palpation bilateral lower extremity. ROM of the ankles in DF and PF with no crepitus noted b/l - Neurological Exam Neurological Exam: Alert, Awake - Psychiatric Exam Psychiatric exam: Normal Affect, Normal Mood Assessment and Plan - Assessment and Plan (Free Text) Assessment: 77 y.o female with lymphedema Plan: Patient seen and evaluated. Discussed plan in detail with attending Dr. Polanco Labs, charts, vitals reviewed (afebrile, WBC=17.2 trended up from 11.3 ) Aspectically debrided all non-viable, sloughing, scaling, hyperpigmented epidermal tissue bilaterally, and area totaling 8sq cm down to level of villinodulat non-pigmented dermal tissue. Incident occurred with pinpoint puncture to pesterior-medial aspect of right leg. Flushed incident site with saling to flush and epidermal debris. Cleansed and dressed with betadine and DSD. Hydrocerin cream applied to the LE to be applied daily BID No dressings to the LE at this time. Stable from podiatry standpoint. Will continue to follow while inhouse.
[2017-08-28] MEDS: Insulin Detemir 100 units/ml Vial (Levemir) SC SCH (22:13)
[2017-08-29] MEDS: Albuterol-Ipratrop 3 mg / 0.5 (3 ml) UD IH SCH ×4 (02:35→20:06)
[2017-08-29] MEDS: Pantoprazole 40 mg EC Tab PO SCH (05:13)
[2017-08-29 06:15] LABS: EOS # 0.6 (0.0-0.7); EOS % 5.2 % (1.5-5.0); GRAN # 9.02 (1.4-6.5); GRAN % 74.7 % (50.0-68.0); HEMOGLOBIN 9.9 g/dL (12.0-16.0); LYMPH # 1.5 (1.2-3.4); LYMPH % 12.6 % (22.0-35.0); MEAN CELL VOLUME 84.9 fl (80.0-105.0); MEAN CORPUSCULAR HEMOGLOBIN 27.1 pg (25.0-35.0); MEAN CORPUSCULAR HGB CONC 31.9 g/dl (31.0-37.0); MEAN PLATELET VOLUME 9.7 fl (7.0-11.0); MONO # 0.9 (0.1-0.6); MONO % 7.5 % (1.0-6.0); RBC 3.65 10^6/uL (3.5-6.1); RED CELL DISTRIBUTION WIDTH 13.2 % (11.5-14.5); WHITE BLOOD COUNT 12.1 10^3/ul (4.5-11.0)
[2017-08-29 06:57] LABS: ALB/GLOB RATIO 0.8 (1.1-1.8); ALBUMIN 2.7 g/dL (3.0-4.8); ALT/SGPT 19 U/L (7-56); AST/SGOT 28 U/L (14-36); BLOOD UREA NITROGEN 12 mg/dL (7-21); GFR AFRICAN-AMERICAN > 60; GFR NON-AFRICAN AMERICAN > 60
[2017-08-29] MEDS ORDERED: Potassium Chloride 20 mEq ER Tab PO ONE (08:09)
[2017-08-29] MEDS: Meropenem IV 1 gm in NS 50 ML IVPB SCH ×2 (08:11→18:08)
[2017-08-29] MEDS ORDERED: Insulin Detemir 100 units/ml Vial (Levemir) SC SCH (08:31)
[2017-08-29] MEDS: Insulin Lispro (humaLOG) MEDIUM Coverage SC SCH ×5 (08:43→21:59)
[2017-08-29] MEDS: Insulin Regular 1 UNITS/0.01 ML ML SC SCH ×4 (08:43→19:04)
[2017-08-29] MEDS: Lactobacillus Acidophilus 500 MU Cap PO SCH ×2 (10:30→18:08)
[2017-08-29] MEDS: Cholecalciferol 400 Intl Units Tab PO SCH ×2 (10:31→18:08)
[2017-08-29] MEDS: Hydrocerin(120 gm) TOP SCH (10:36)
[2017-08-29] MEDS: MEMANTINE HCL 28 MG PO SCH (10:37)
--- NOTE | 2017-08-29 12:25 | CP.PCM.PN ---
<Jose Elias Herrera - Last Filed: 08/29/17 12:49> Subjective - Date & Time of Evaluation Date of Evaluation: 08/29/17 Time of Evaluation: 07:00 - Subjective Subjective: Patientseen and examined on bedside in no acute distress. Is no longer complaining of itchiness. Denies fever,chills,nausea,vomiting,diarrhea, shortness of breath, chest pain. Objective - Vital Signs/Intake and Output Vital Signs (last 24 hours): Temp Pulse Resp BP Pulse Ox 98.3 F 85 20 180/100 H 98 08/28/17 23:53 08/29/17 05:48 08/28/17 23:53 08/29/17 10:32 08/28/17 23:53 Intake and Output: 08/29/17 08/29/17 06:59 18:59 Intake Total 1320 0 Balance 1320 0 - Medications Medications: Current Medications Acetaminophen (Tylenol 325mg Tab) 650 mg PO Q6H PRN PRN Reason: Fever >100.4 F Last Admin: 08/27/17 12:05 Dose: 650 mg Albuterol/Ipratropium (Duoneb 3 Mg/0.5 Mg (3 Ml) Ud) 3 ml IH [id number] [facility] Last Admin: 08/29/17 08:13 Dose: 3 ml Albuterol/Ipratropium (Duoneb 3 Mg/0.5 Mg (3 Ml) Ud) 3 ml IH Q2H PRN PRN Reason: Shortness of Breath Aspirin (Ecotrin) 81 mg PO DAILY [facility] Last Admin: 08/29/17 10:32 Dose: 81 mg Atorvastatin Calcium (Lipitor) 10 mg PO HS [facility] Last Admin: 08/28/17 21:12 Dose: 10 mg Calcium Carbonate (Oscal) 500 mg PO BID [facility] Last Admin: 08/29/17 10:31 Dose: 500 mg Diphenhydramine HCl (Benadryl) 25 mg PO Q12 [facility] Docusate Sodium (Colace) 100 mg PO BID [facility] Last Admin: 08/29/17 10:31 Dose: 100 mg Ferrous Sulfate (Feosol) 324 mg PO DAILY [facility] Last Admin: 08/29/17 10:32 Dose: 324 mg Furosemide (Lasix) 20 mg IVP DAILY [facility] Last Admin: 08/29/17 10:32 Dose: 20 mg Heparin Sodium (Porcine) (Heparin) 5,000 units SC Q12 [facility] PRN Reason: Protocol Last Admin: 08/29/17 10:32 Dose: 5,000 units Sodium Chloride (Sodium Chloride 0.9%) 1,000 mls @ 100 mls/hr IV .Q10H [facility] Last Admin: 08/28/17 17:07 Dose: 100 mls/hr Meropenem (Merrem Iv 1 Gm Premix) 50 mls @ 100 mls/hr IVPB Q12H [facility] PRN Reason: Protocol Stop: 09/02/17 06:16 Last Admin: 08/29/17 08:11 Dose: 100 mls/hr Insulin Detemir (Levemir) 12 unit SC HS [facility] Insulin Human Lispro (Humalog Med) 0 units SC ACHS [facility] PRN Reason: Protocol Last Admin: 08/29/17 08:51 Dose: 1 units Insulin Human Regular (Humulin R) 5 units SC AC [facility] Last Admin: 08/29/17 08:50 Dose: 5 units Lactobacillus Acidophilus (Bacid Acidophilus) 1 cap PO BID [facility] Last Admin: 08/29/17 10:30 Dose: 1 cap Montelukast Sodium (Singulair) 10 mg PO HS [facility] Last Admin: 08/28/17 21:13 Dose: 10 mg Multi-Ingredient Cream (Hydrocerin Cream) 1 ea TOP BID [facility] Last Admin: 08/29/17 10:36 Dose: 1 applic Non-Formulary Medication (Memantine Hcl [Namenda Xr]) 28 mg PO DAILY [facility] Last Admin: 08/29/17 10:37 Dose: Not Given Pantoprazole Sodium (Protonix Ec Tab) 40 mg PO 0600 [facility] Last Admin: 08/29/17 05:13 Dose: Not Given Vitamin D (Vitamin D 400 Intl Units Tab) 200 intlu PO BID [facility] Last Admin: 08/29/17 10:31 Dose: 200 intlu - Labs Labs: 08/29/17 06:00 08/29/17 06:00 PT 12.3 SECONDS (9.4-12.5) 08/25/17 05:25 INR 1.07 (0.93-1.08) 08/25/17 05:25 APTT 35.2 Seconds (25.1-36.5) 08/25/17 05:25 - Constitutional Appears: Non-toxic, No Acute Distress - Head Exam Head Exam: ATRAUMATIC, NORMAL INSPECTION, NORMOCEPHALIC - Eye Exam Eye Exam: EOMI, Normal appearance - ENT Exam ENT Exam: Mucous Membranes Moist - Neck Exam Neck Exam: Normal Inspection - Respiratory Exam Respiratory Exam: Clear to Ausculation Bilateral, NORMAL BREATHING PATTERN - Cardiovascular Exam Cardiovascular Exam: REGULAR RHYTHM, +S1, +S2 - GI/Abdominal Exam GI & Abdominal Exam: Soft, Normal Bowel Sounds - Back Exam Back Exam: NORMAL INSPECTION Additional comments: erythema - Neurological Exam Neurological Exam: Alert, Awake, Oriented x3 - Psychiatric Exam Psychiatric exam: Normal Affect, Normal Mood - Skin Skin Exam: Dry, Intact, Warm Assessment and Plan - Assessment and Plan (Free Text) Assessment: Ms Britt, 77 yo F, with PMH dementia, R total knee replacement with metal implant, presenting with CP and SOB for 2 days, found to have gram neg bacteremia. Gram neg bacteremia - redraw blood culture x 2 bottle; results still pending SIRS vs sepsis likely 2/2 URI vs CAP, rule out UTI. Unlikely cellulitis or GI infection. Failed Z-pack outpt. CURB-65 score 1. - UA positive for UTI, UC gram neg gemma <10,000 colonies however - Repeat Blood cultures pending - 1 dose of amikacin given. 1 dose of vancomycin given. Continue with Merrem. Benadryl given scheduled prior to dose of Merrem. - Repeat blood cx; pending - Tylenol prn for fever - NS@100 to prevent contrast nephropathy - Consult Infectious Disease: recommendations appreciated Pulmonary Nodes Hx former smoker and age. Poss malignancy - 8mm. Repeat CT chest in 6-12 month. - communicated with son SOB likely 2/2 asthma, acute respiratory tract infection, or fluid overload. Less likely 2/2 pulmonary embolism (Wells score 1.5) - D dimer to r/o PE returned elevated - O2 as needed, patient tolerating room air - Duoneb [place] and prn for asthma - Echo: r/o fluid overload and heart failure,reveals left ventricle normal sized , borderline mild concentric left ventricular hypertrophy with normal EF of 55% , trace mitral regurgitation, mild tricuspid regurgitation, absence of pericardial effusion, vegetation, or thrombus. - Lasix 20 IV - Hold steroid at this time since patient is not wheezing and has good air movement - Continue home montelukast Adrenal mass 2.9 cm -asymptomatic at the moment -<4cm no acute intervention necessary -Will have patient follow up as outpatient CP r/o ACS - EKG unchanged - Serial troponins: 0.02 --> 0.1 --> 0.05 HTN - Continue to hold home BP meds. - monitor BP, restart home BP med as needed. DM - HgA1c ordered; results pending - Levemir 12 HS only hold if blood glucose is less than 140, 5 regular insulin per meal, Insulin sliding scale-ultra fast, med Chronic lymphedema vs venous stasis dermatitis. - continue Hydrocerin cream applied to the LE to be applied daily BID as per podiatry DVT prophylaxis: Heparin 5000U GI prophylaxis: pantoprazole Discharge planning - [facility] will for healthcare proxy form: Kael Rosa [phone] - pt is alive but has dementia. son wants to be poa - palliative consult <Merly Scott - Last Filed: 08/29/17 16:24> Objective - Vital Signs/Intake and Output Vital Signs (last 24 hours): Temp Pulse Resp BP Pulse Ox 98.9 F 82 19 176/82 H 98 08/29/17 12:00 08/29/17 12:00 08/29/17 12:00 08/29/17 12:00 08/28/17 23:53 Intake and Output: 08/29/17 08/29/17 06:59 18:59 Intake Total 1320 0 Balance 1320 0 - Medications Medications: Current Medications Acetaminophen (Tylenol 325mg Tab) 650 mg PO Q6H PRN PRN Reason: Fever >100.4 F Last Admin: 08/27/17 12:05 Dose: 650 mg Albuterol/Ipratropium (Duoneb 3 Mg/0.5 Mg (3 Ml) Ud) 3 ml IH [id number] [facility] Last Admin: 08/29/17 13:23 Dose: 3 ml Albuterol/Ipratropium (Duoneb 3 Mg/0.5 Mg (3 Ml) Ud) 3 ml IH Q2H PRN PRN Reason: Shortness of Breath Amlodipine Besylate (Norvasc) 5 mg PO DAILY [facility] Aspirin (Ecotrin) 81 mg PO DAILY [facility] Last Admin: 08/29/17 10:32 Dose: 81 mg Atorvastatin Calcium (Lipitor) 10 mg PO HS [facility] Last Admin: 08/28/17 21:12 Dose: 10 mg Betamethasone/Clotrimazole (Lotrisone) 0 ml TOP BID [facility] Calcium Carbonate (Oscal) 500 mg PO BID [facility] Last Admin: 08/29/17 10:31 Dose: 500 mg Carvedilol (Coreg) 25 mg PO BID [facility] Diphenhydramine HCl (Benadryl) 25 mg PO Q12 [facility] Docusate Sodium (Colace) 100 mg PO BID [facility] Last Admin: 08/29/17 10:31 Dose: 100 mg Ferrous Sulfate (Feosol) 324 mg PO DAILY [facility] Last Admin: 08/29/17 10:32 Dose: 324 mg Heparin Sodium (Porcine) (Heparin) 5,000 units SC Q12 [facility] PRN Reason: Protocol Last Admin: 08/29/17 10:32 Dose: 5,000 units Meropenem (Merrem Iv 1 Gm Premix) 50 mls @ 100 mls/hr IVPB Q12H [facility] PRN Reason: Protocol Stop: 09/02/17 06:16 Last Admin: 08/29/17 08:11 Dose: 100 mls/hr Insulin Detemir (Levemir) 12 unit SC [facility] Insulin Human Lispro (Humalog Med) 0 units SC ACHS [facility] PRN Reason: Protocol Last Admin: 08/29/17 11:30 Dose: Not Given Insulin Human Regular (Humulin R) 5 units SC AC [facility] Last Admin: 08/29/17 11:30 Dose: Not Given Lactobacillus Acidophilus (Bacid Acidophilus) 1 cap PO BID [facility] Last Admin: 08/29/17 10:30 Dose: 1 cap Montelukast Sodium (Singulair) 10 mg PO [facility] Last Admin: 08/28/17 21:13 Dose: 10 mg Non-Formulary Medication (Memantine Hcl [Namenda Xr]) 28 mg PO DAILY [facility] Last Admin: 08/29/17 10:37 Dose: Not Given Nystatin (Nystop Topical Powder) 0 gm EXT DAILY [facility] Last Admin: 08/29/17 14:45 Dose: 1 applic Pantoprazole Sodium (Protonix Ec Tab) 40 mg PO 0600 [facility] Last Admin: 08/29/17 05:13 Dose: Not Given Vitamin D (Vitamin D 400 Intl Units Tab) 200 intlu PO BID [facility] Last Admin: 08/29/17 10:31 Dose: 200 intlu - Labs Labs: 08/29/17 06:00 08/29/17 06:00 PT 12.3 SECONDS (9.4-12.5) 08/25/17 05:25 INR 1.07 (0.93-1.08) 08/25/17 05:25 APTT 35.2 Seconds (25.1-36.5) 08/25/17 05:25 Attending/Attestation - Attestation I have personally seen and examined this patient.: Yes I have fully participated in the care of the patient.: Yes I have reviewed all pertinent clinical information, including history, physical exam and plan: Yes Notes (Text): 08/29/17 16:17 Attending note; Patient seen and examined with resident. Patient is a 77 year old female with history of Alzheimer's dementia, hypertension, uncontrolled diabetes, asthma, right knee replacement and lower extremity lymphedema who was brought by the son for evaluation of chest pain, mild productive cough, shortness of breath and lethargy. Gram-negative UTI/with Escherichia coli bacteremia.. Blood culture reveals EColi. Repeat blood culture is negative. CT abdomen pelvis revealed bilateral non obstructing stones. Continue meropenem. Patient denies any dysuria. Yesterday around noon, she developed chills and fever. One dose of amikacin was given. Monitor for rash. Identification and sensitivity for UTI pending. bilateral LE cellulitis vs stasis dermatitis. Podiatry on case. Nails were clipped. Continue hydrocerin cream. D dimer was found to be elevated. CTA was negative for PE however it revealed 8 mm pulmonary nodule. Previous imaging did not reveal this nodule. Will recommend to have repeat CT in 6 months. Diabetes; hemoglobin A1c was 12.6. Levemir dosage adjusted. Needs close follow- up as outpatient. Case discussed with palliative care nurse to get POA. PT evaluation appreciated. TCU versus rehabilitation recommended. best worker evaluation appreciated for discharge planning. Upon discharge patient will follow up with Dr Bhargavi Hendricks.
--- NOTE | 2017-08-29 14:17 | CP.PCM.PN ---
Subjective - Date & Time of Evaluation Date of Evaluation: 08/29/17 Time of Evaluation: 14:09 - Subjective Subjective: \Podiatry Progress Note- Dr. Sood 77 y.o female with PMH of DM, PVD, HTN, Alzheimer, depression, and asthma seen and evaluated at bedside for bilaterally lymphedema. Patient is seen lying comfortably in bed. Patient denies acute overnight events. Denies n/v/sob/cp/ chills or f. Patient reports no pain to the LE while resting but with palpation patient reports tenderness. Objective - Vital Signs/Intake and Output Vital Signs (last 24 hours): Temp Pulse Resp BP Pulse Ox 98.9 F 82 19 176/82 H 98 08/29/17 12:00 08/29/17 12:00 08/29/17 12:00 08/29/17 12:00 08/28/17 23:53 Intake and Output: 08/29/17 08/29/17 06:59 18:59 Intake Total 1320 0 Balance 1320 0 - Medications Medications: Current Medications Acetaminophen (Tylenol 325mg Tab) 650 mg PO Q6H PRN PRN Reason: Fever >100.4 F Last Admin: 08/27/17 12:05 Dose: 650 mg Albuterol/Ipratropium (Duoneb 3 Mg/0.5 Mg (3 Ml) Ud) 3 ml IH [id number] [facility] Last Admin: 08/29/17 13:23 Dose: 3 ml Albuterol/Ipratropium (Duoneb 3 Mg/0.5 Mg (3 Ml) Ud) 3 ml IH Q2H PRN PRN Reason: Shortness of Breath Aspirin (Ecotrin) 81 mg PO DAILY [facility] Last Admin: 08/29/17 10:32 Dose: 81 mg Atorvastatin Calcium (Lipitor) 10 mg PO HS [facility] Last Admin: 08/28/17 21:12 Dose: 10 mg Betamethasone/Clotrimazole (Lotrisone) 0 ml TOP BID [facility] Calcium Carbonate (Oscal) 500 mg PO BID [facility] Last Admin: 08/29/17 10:31 Dose: 500 mg Diphenhydramine HCl (Benadryl) 25 mg PO Q12 [facility] Docusate Sodium (Colace) 100 mg PO BID [facility] Last Admin: 08/29/17 10:31 Dose: 100 mg Ferrous Sulfate (Feosol) 324 mg PO DAILY [facility] Last Admin: 08/29/17 10:32 Dose: 324 mg Furosemide (Lasix) 20 mg IVP DAILY [facility] Last Admin: 08/29/17 10:32 Dose: 20 mg Heparin Sodium (Porcine) (Heparin) 5,000 units SC Q12 [facility] PRN Reason: Protocol Last Admin: 08/29/17 10:32 Dose: 5,000 units Sodium Chloride (Sodium Chloride 0.9%) 1,000 mls @ 100 mls/hr IV .Q10H [facility] Last Admin: 08/28/17 17:07 Dose: 100 mls/hr Meropenem (Merrem Iv 1 Gm Premix) 50 mls @ 100 mls/hr IVPB Q12H [facility] PRN Reason: Protocol Stop: 09/02/17 06:16 Last Admin: 08/29/17 08:11 Dose: 100 mls/hr Insulin Detemir (Levemir) 12 unit SC [facility] Insulin Human Lispro (Humalog Med) 0 units SC [facility] PRN Reason: Protocol Last Admin: 08/29/17 08:51 Dose: 1 units Insulin Human Regular (Humulin R) 5 units SC AC [facility] Last Admin: 08/29/17 08:50 Dose: 5 units Lactobacillus Acidophilus (Bacid Acidophilus) 1 cap PO BID [facility] Last Admin: 08/29/17 10:30 Dose: 1 cap Montelukast Sodium (Singulair) 10 mg PO [facility] Last Admin: 08/28/17 21:13 Dose: 10 mg Non-Formulary Medication (Memantine Hcl [Namenda Xr]) 28 mg PO DAILY [facility] Last Admin: 08/29/17 10:37 Dose: Not Given Pantoprazole Sodium (Protonix Ec Tab) 40 mg PO 0600 [facility] Last Admin: 08/29/17 05:13 Dose: Not Given Vitamin D (Vitamin D 400 Intl Units Tab) 200 intlu PO BID [facility] Last Admin: 08/29/17 10:31 Dose: 200 intlu - Labs Labs: 08/29/17 06:00 08/29/17 06:00 PT 12.3 SECONDS (9.4-12.5) 08/25/17 05:25 INR 1.07 (0.93-1.08) 08/25/17 05:25 APTT 35.2 Seconds (25.1-36.5) 08/25/17 05:25 - Constitutional Appears: Well, Non-toxic, No Acute Distress - Extremities Exam Additional comments: VASC: DP and PT pulses nonpalpable secondary to edema b/l, CFT WNL to digits x10 , +3 pitting edema to foot and leg b/l NEURO: Gross sensation and protective sensation diminished DERM: Scaling verrucaformis lesions with fissures noted. Hyperpigmentation discoloration noted to the LE. Increase warmth to the LE. Increase erythema to the LE. Maceration noted along the lateral ankle and macerated lesion at the posterior medial aspect of the ankle of right LE Mild LE serous drainage noted to the LE ORTHO: Tenderness to palpation bilateral lower extremity. ROM of the ankles in DF and PF with no crepitus noted b/l - Neurological Exam Neurological Exam: Alert, Oriented x3 - Psychiatric Exam Psychiatric exam: Normal Affect, Normal Mood Assessment and Plan - Assessment and Plan (Free Text) Assessment: 77 y.o female with lymphedema and cellulitis Plan: -Patient seen and evaluated with attending Dr. Sood -Labs, charts, vitals reviewed (afebrile, WBC=12.1, down from 17.2 on 08/28/17) -Ultrasound on 08/25/17 shows no DVT -Right LE maceration cleansed with betadine and dressed with dsd and kerlix -Left LE no dressing needed -Discontinue Hydrocerin cream at this time -Ordered Lotrisone. To be applied to the LE with dressing changes -Ordered Nystatin to be placed in the folds -Wound culture ordered and taken -Continue with abx per ID -Podiatry will continue to follow while in house
[2017-08-29] MEDS: Nystatin 100,000 Units/gm Topical Pow(15 gm) EXT SCH (14:45)
--- NOTE | 2017-08-29 14:51 | CP.PCM.PN ---
Subjective - Date & Time of Evaluation Date of Evaluation: 08/29/17 Time of Evaluation: 09:55 - Subjective Subjective: Comfortable, no fevers, not in distress. Objective - Vital Signs/Intake and Output Vital Signs (last 24 hours): Temp Pulse Resp BP Pulse Ox 98.3 F 67 16 119/53 L 96 08/28/17 12:00 08/28/17 14:00 08/28/17 12:00 08/28/17 12:00 08/28/17 06:00 Intake and Output: 08/28/17 08/28/17 06:59 18:59 Intake Total 1320 Balance 1320 - Medications Medications: Current Medications Acetaminophen (Tylenol 325mg Tab) 650 mg PO Q6H PRN PRN Reason: Fever >100.4 F Last Admin: 08/27/17 12:05 Dose: 650 mg Albuterol/Ipratropium (Duoneb 3 Mg/0.5 Mg (3 Ml) Ud) 3 ml IH [id number] [facility] Last Admin: 08/28/17 13:36 Dose: 3 ml Albuterol/Ipratropium (Duoneb 3 Mg/0.5 Mg (3 Ml) Ud) 3 ml IH Q2H PRN PRN Reason: Shortness of Breath Aspirin (Ecotrin) 81 mg PO DAILY [facility] Last Admin: 08/28/17 09:20 Dose: 81 mg Atorvastatin Calcium (Lipitor) 10 mg PO HS [facility] Last Admin: 08/27/17 20:59 Dose: 10 mg Calcium Carbonate (Oscal) 500 mg PO BID [facility] Last Admin: 08/28/17 09:21 Dose: 500 mg Diphenhydramine HCl (Benadryl) 25 mg PO Q6 PRN PRN Reason: Itching / Pruritus Docusate Sodium (Colace) 100 mg PO BID [facility] Last Admin: 08/28/17 09:20 Dose: 100 mg Ferrous Sulfate (Feosol) 324 mg PO DAILY [facility] Last Admin: 08/28/17 09:20 Dose: 324 mg Furosemide (Lasix) 20 mg IVP DAILY [facility] Last Admin: 08/28/17 09:21 Dose: 20 mg Heparin Sodium (Porcine) (Heparin) 5,000 units SC Q12 [facility] PRN Reason: Protocol Last Admin: 08/28/17 09:21 Dose: 5,000 units Sodium Chloride (Sodium Chloride 0.9%) 1,000 mls @ 100 mls/hr IV .Q10H [facility] Last Admin: 08/28/17 11:50 Dose: 100 mls/hr Meropenem (Merrem Iv 1 Gm Premix) 50 mls @ 100 mls/hr IVPB Q12H [facility] PRN Reason: Protocol Stop: 09/02/17 06:16 Last Admin: 08/28/17 05:32 Dose: 100 mls/hr Insulin Detemir (Levemir) 12 unit SC HS [facility] Last Admin: 08/27/17 21:53 Dose: Not Given Insulin Human Lispro (Humalog Med) 0 units SC ACHS [facility] PRN Reason: Protocol Last Admin: 08/28/17 12:31 Dose: 1 units Insulin Human Regular (Humulin R) 5 units SC AC [facility] Last Admin: 08/28/17 12:31 Dose: 5 units Lactobacillus Acidophilus (Bacid Acidophilus) 1 cap PO BID [facility] Last Admin: 08/28/17 09:20 Dose: 1 cap Montelukast Sodium (Singulair) 10 mg PO [facility] Last Admin: 08/27/17 20:59 Dose: 10 mg Multi-Ingredient Cream (Hydrocerin Cream) 1 ea TOP BID [facility] Last Admin: 08/28/17 11:05 Dose: 1 applic Non-Formulary Medication (Memantine Hcl [Namenda Xr]) 28 mg PO DAILY [facility] Last Admin: 08/28/17 09:25 Dose: Not Given Pantoprazole Sodium (Protonix Ec Tab) 40 mg PO 0600 [facility] Last Admin: 08/28/17 05:32 Dose: 40 mg Vitamin D (Vitamin D 400 Intl Units Tab) 200 intlu PO BID [facility] Last Admin: 08/28/17 09:21 Dose: 200 intlu - Labs Labs: 08/28/17 06:30 08/28/17 06:30 PT 12.3 SECONDS (9.4-12.5) 08/25/17 05:25 INR 1.07 (0.93-1.08) 08/25/17 05:25 APTT 35.2 Seconds (25.1-36.5) 08/25/17 05:25 - Constitutional Appears: Chronically Ill - Head Exam Head Exam: NORMAL INSPECTION - ENT Exam ENT Exam: Mucous Membranes Moist - Neck Exam Neck Exam: absent: Meningismus - Respiratory Exam Respiratory Exam: Decreased Breath Sounds - Cardiovascular Exam Cardiovascular Exam: +S1, +S2 - GI/Abdominal Exam GI & Abdominal Exam: Soft. absent: Tenderness Assessment and Plan - Assessment and Plan (Free Text) Plan: Assessment Sepsis due to E. coli bacteremia, consider UTI / pyelonephritis dementia HTN DM asthma chronic lymphedema on both lower extremities morbid obesity with BMI 40 Plan continue Merrem day 4 ; follow up identification and sensitivities of the gram negative bacilli in the urine; repeat blood cx are negative - if urine and blood cx have the same organism, can switch to PO antibiotics to complete 10-14 days of antibiotics reviewed CT A/P which showed bilateral non-obstructing stones but no intra- abdominal infection will continue to monitor clinically
[2017-08-29] MEDS ORDERED: Clotrimazole/Betamethasone Lotion(30 ml) TOP SCH (18:00)
[2017-08-30] MEDS: Albuterol-Ipratrop 3 mg / 0.5 (3 ml) UD IH SCH ×4 (02:07→13:12)
[2017-08-30] MEDS: Meropenem IV 1 gm in NS 50 ML IVPB SCH (05:43)
[2017-08-30] MEDS: Pantoprazole 40 mg EC Tab PO SCH (05:43)
[2017-08-30 06:06] LABS: BASO # 0.02 K/mm3 (0.0-2.0); BASO % 0.2 % (0.0-3.0); EOS # 0.9 (0.0-0.7); GRAN # 6.35 (1.4-6.5); GRAN % 60.9 % (50.0-68.0); LYMPH # 1.2 (1.2-3.4); LYMPH % 11.2 % (22.0-35.0); MEAN CELL VOLUME 84.6 fl (80.0-105.0); MEAN CORPUSCULAR HGB CONC 31.9 g/dl (31.0-37.0); MEAN PLATELET VOLUME 9.6 fl (7.0-11.0); MONO % 18.7 % (1.0-6.0); RBC 3.7 10^6/uL (3.5-6.1); RED CELL DISTRIBUTION WIDTH 13.2 % (11.5-14.5); WHITE BLOOD COUNT 10.4 10^3/ul (4.5-11.0)
[2017-08-30 06:30] LABS: ALB/GLOB RATIO 0.8 (1.1-1.8); ALBUMIN 2.9 g/dL (3.0-4.8); ALT/SGPT 16 U/L (7-56); AST/SGOT 32 U/L (14-36); BLOOD UREA NITROGEN 10 mg/dL (7-21); CALCIUM 9.2 mg/dL (8.4-10.5); GFR AFRICAN-AMERICAN > 60; GFR NON-AFRICAN AMERICAN > 60
[2017-08-30] MEDS: Insulin Regular 1 UNITS/0.01 ML ML SC SCH ×2 (08:01→11:34)
[2017-08-30] MEDS: Insulin Lispro (humaLOG) MEDIUM Coverage SC SCH ×2 (08:01→11:35)
[2017-08-30 08:30] VITALS: BP 139/64; PULSE 65; RESP 22; TEMP 99.9; O2SAT 100
[2017-08-30] MEDS: Cholecalciferol 400 Intl Units Tab PO SCH (11:33)
[2017-08-30] MEDS: Lactobacillus Acidophilus 500 MU Cap PO SCH (11:34)
[2017-08-30] MEDS: MEMANTINE HCL 28 MG PO SCH (11:35)
[2017-08-30] MEDS: Nystatin 100,000 Units/gm Topical Pow(15 gm) EXT SCH (11:36)
--- NOTE | 2017-08-30 12:41 | PN ---
DATE: 08/30/2017 SUBJECTIVE: The patient is seen early this morning in room 360, bed 1. No fevers and no chills. PHYSICAL EXAMINATION: VITAL SIGNS: Temperature is 98, blood pressure is 130/60, respiratory rate of 22, heart rate of 60. HEENT: Examination of HEENT is unremarkable. NECK: Supple. LUNGS: Have decreased breath sounds. HEART: Normal S1, S2. ABDOMEN: Soft, nontender. SKIN: Review of the skin reveals the rash is improved. LABORATORY DATA: Laboratory examination reveals the patient's white count is 10,000, hemoglobin of 10, platelets of 187 and the chemistries reveal a BUN of 10, creatinine of 0.8 and the urinalysis is noted. Serology reveals the influenza is negative. Microbiology reveals a pansensitive E. Coli in the urine, pansensitive E. Coli in the blood and the patient's CT scan is reviewed. ASSESSMENT AND PLAN: This is a 77-year-old female who was seen early this morning on 360, bed one. Doing much better. Had an uneventful night as per my discussion with the nurse caring for the patient. Now with sepsis with Escherichia coli bacteremia secondary to Escherichia coli pyelonephritis and history of dementia, hypertension, diabetes, asthma, chronic lymphedema of both lower extremity, morbid obesity, body mass index of over 40. Day #5 of meropenem, improving. We will discontinue the meropenem and switch to p.o. Cipro 500 mg p.o. b.i.d. x10 days and follow up with Urology and primary doctor and primary PMD and the patient's EKG is reviewed with a QTc of 459 and drug interactions are reviewed, okay for p.o. Cipro 500 mg b.i.d. Ruben Khalil MD
--- NOTE | 2017-08-30 13:13 | CP.PCM.DIS ---
<Jose Elias Herrera - Last Filed: 08/30/17 14:51> Provider - Provider Date of Admission: 08/25/17 07:16 Attending physician: Merly Scott MD Primary care physician: Hamlet Parker MD Consults: Podiatry: Dr. Sood Infectious Disease: Dr. Solis Time Spent in preparation of Discharge (in minutes): 45 Diagnosis - Discharge Diagnosis (1) Lymphedema Status: Chronic Priority: Medium (2) Asthma Status: Chronic Priority: Medium (3) Congestive heart failure (CHF) Status: Acute Priority: High (4) UTI (urinary tract infection) Status: Acute Priority: High Hospital Course - Lab Results Lab Results: Micro Results 08/27/17 11:45 Blood-Venous Blood Culture - Preliminary NO GROWTH AFTER 3 DAYS 08/27/17 11:30 Blood-Venous Blood Culture - Preliminary NO GROWTH AFTER 3 DAYS 08/25/17 23:13 Urine Urine Culture - Final Escherichia Coli 08/27/17 08:25 Stool C. difficile Antigen & Toxin A,B (M - Final Most Recent Lab Values WBC 10.4 10^3/ul (4.5-11.0) 08/30/17 05:50 RBC 3.70 10^6/uL (3.5-6.1) 08/30/17 05:50 Hgb 10.0 g/dL (12.0-16.0) L 08/30/17 05:50 Hct 31.3 % (36.0-48.0) L 08/30/17 05:50 MCV 84.6 fl (80.0-105.0) 08/30/17 05:50 MCH 27.0 pg (25.0-35.0) 08/30/17 05:50 MCHC 31.9 g/dl (31.0-37.0) 08/30/17 05:50 RDW 13.2 % (11.5-14.5) 08/30/17 05:50 Plt Count 187 10^3/uL (120.0-450.0) 08/30/17 05:50 MPV 9.6 fl (7.0-11.0) 08/30/17 05:50 Gran % 60.9 % (50.0-68.0) 08/30/17 05:50 Lymph % (Auto) 11.2 % (22.0-35.0) L 08/30/17 05:50 [place] % (Auto) 18.7 % (1.0-6.0) H 08/30/17 05:50 Eos % (Auto) 9.0 % (1.5-5.0) H 08/30/17 05:50 Baso % (Auto) 0.2 % (0.0-3.0) 08/30/17 05:50 Gran # 6.35 (1.4-6.5) 08/30/17 05:50 Lymph # (Auto) 1.2 (1.2-3.4) 08/30/17 05:50 [place] # (Auto) 2.0 (0.1-0.6) H 08/30/17 05:50 Eos # (Auto) 0.9 (0.0-0.7) H 08/30/17 05:50 Baso # (Auto) 0.02 K/mm3 (0.0-2.0) 08/30/17 05:50 Neutrophils % (Manual) 91 % (50.0-70.0) H 08/25/17 05:25 Band Neutrophils % 3 % (0-2) H 08/25/17 05:25 Lymphocytes % (Manual) 6 % (22.0-35.0) L 08/25/17 05:25 Monocytes % (Manual) 0 % (1.0-6.0) L 08/25/17 05:25 Platelet Evaluation Normal (NORMAL) 08/25/17 05:25 PT 12.3 SECONDS (9.4-12.5) 08/25/17 05:25 INR 1.07 (0.93-1.08) 08/25/17 05:25 APTT 35.2 Seconds (25.1-36.5) 08/25/17 05:25 D-Dimer, Quantitative 3157 ng/mL (0-243) H 08/25/17 08:05 pCO2 44 mm/Hg (35-45) 08/25/17 05:50 pO2 111 mm/Hg (30-55) H 08/25/17 06:37 HCO3 30.6 mmol/L (21-28) H 08/25/17 05:50 ABG pH 7.45 (7.35-7.45) 08/25/17 05:50 ABG Total CO2 32.0 mmol.L (22-28) H 08/25/17 05:50 ABG O2 Saturation 97.3 % (95-98) 08/25/17 05:50 ABG O2 Content 16.4 ML/dl (15-23) 08/25/17 05:50 ABG Base Excess 5.8 mmol/L (-2.0-3.0) H 08/25/17 05:50 ABG Hemoglobin 12.4 g/dL (11.7-17.4) 08/25/17 05:50 ABG Carboxyhemoglobin 2.3 % (0.5-1.5) H 08/25/17 05:50 POC ABG HHb (Measured) 2.6 % (0-5) 08/25/17 05:50 ABG Methemoglobin 1.5 % (0.0-3.0) 08/25/17 05:50 ABG O2 Capacity 16.9 mL/dl (16-24) 08/25/17 05:50 VBG pH 7.40 (7.32-7.43) 08/25/17 06:37 VBG pCO2 53.0 (40-60) 08/25/17 06:37 VBG HCO3 32.8 mmol/l (21-28) H 08/25/17 06:37 VBG Total CO2 34.4 mmol.L (22-28) H 08/25/17 06:37 VBG O2 Sat (Calc) 99.5 % (40-65) H 08/25/17 06:37 VBG Base Excess 6.5 mmol/L (0.0-2.0) H 08/25/17 06:37 VBG Potassium 3.7 mmol/L (3.6-5.2) 08/25/17 06:37 Hgb O2 Saturation 93.6 % (95.0-98.0) L 08/25/17 05:50 Sodium 132.0 mmol/L (132-148) 08/25/17 06:37 Chloride 93.0 mmol/L (98-107) L 08/25/17 06:37 Glucose 301 mg/dl (65-105) H 08/25/17 06:37 Lactate 1.5 mmol/L (0.7-2.1) 08/25/17 06:37 FiO2 21.0 % 08/25/17 06:37 Sodium 137 mmol/L (132-148) 08/30/17 05:50 Potassium 3.6 mmol/L (3.6-5.0) 08/30/17 05:50 Chloride 97 mmol/L (98-107) L 08/30/17 05:50 Carbon Dioxide 36 mmol/L (21-33) H 08/30/17 05:50 Anion Gap 8 (10-20) L 08/30/17 05:50 BUN 10 mg/dL (7-21) 08/30/17 05:50 Creatinine 0.8 mg/dl (0.7-1.2) 08/30/17 05:50 Est GFR ( Amer) > 60 08/30/17 05:50 Est GFR (Non-Af Amer) > 60 08/30/17 05:50 POC Glucose (mg/dL) 131 mg/dL (65-110) H 08/30/17 11:32 Random Glucose 151 mg/dL (70-110) H 08/30/17 05:50 Hemoglobin A1c 12.6 % (4.2-6.5) H D 08/27/17 08:30 Calcium 9.2 mg/dL (8.4-10.5) 08/30/17 05:50 Total Bilirubin 0.8 mg/dL (0.2-1.3) 08/30/17 05:50 AST 32 U/L (14-36) 08/30/17 05:50 ALT 16 U/L (7-56) 08/30/17 05:50 Alkaline Phosphatase 63 U/L (38-126) 08/30/17 05:50 Lactate Dehydrogenase 504 U/L (333-699) 08/25/17 05:25 Total Creatine Kinase 45 U/L (35-230) 08/25/17 05:25 Troponin I 0.05 ng/mL D 08/25/17 19:20 NT-Pro-B Natriuret Pep 1740 pg/mL (0-450) H 08/25/17 05:25 Total Protein 6.5 g/dL (5.8-8.3) 08/30/17 05:50 Albumin 2.9 g/dL (3.0-4.8) L 08/30/17 05:50 Globulin 3.6 gm/dL 08/30/17 05:50 Albumin/Globulin Ratio 0.8 (1.1-1.8) L 08/30/17 05:50 Procalcitonin 4.88 NG/ML (0.19-0.49) H 08/25/17 12:00 Venous Blood Potassium 3.7 mmol/L (3.6-5.2) 08/25/17 06:37 Urine Color Yellow (YELLOW) 08/25/17 18:55 Urine Appearance Slight-cloudy (CLEAR) 08/25/17 18:55 Urine pH 6.5 (4.7-8.0) 08/25/17 18:55 Ur Specific [place] 1.010 (1.005-1.035) 08/25/17 18:55 Urine Protein 30 mg/dL (<30 mg/dL) H 08/25/17 18:55 Urine Glucose (UA) 250 mg/dL (NEGATIVE) H 08/25/17 18:55 Urine Ketones Negative mg/dL (NEGATIVE) 08/25/17 18:55 Urine Blood Trace-intact (NEGATIVE) H 08/25/17 18:55 Urine Nitrate Negative (NEGATIVE) 08/25/17 18:55 Urine Bilirubin Negative (NEGATIVE) 08/25/17 18:55 Urine Urobilinogen 0.2 E.U./dL (<1 E.U./dL) 08/25/17 18:55 Ur Leukocyte Esterase Moderate Stephen/uL (NEGATIVE) H 08/25/17 18:55 Urine RBC 0 - 2 /hpf (0-2) 08/25/17 18:55 Urine WBC 5 - 10 /hpf (0-6) 08/25/17 18:55 Ur Epithelial Cells None /hpf (0-5) 08/25/17 18:55 Influenza Typ A,B (EIA) Negative for flu a/b (NEGATIVE) 08/25/17 05:57 - Hospital Course Hospital Course: Discharge summary 77F with PMHx asthma, uncontrolled diabetes, hypertension, Alzheimers disease, presented to the emergency department for L-sided chest pain, dyspnea, and productive cough. The patient was brought in by her son, who is her health care proxy and primary rn long term care. Prior to admission, she had symptoms of upper respiratory infection and was treated with azithromycin. She was on day 2 of this course on arrival. At the time of admission, she was somewhat lethargic, with mental status deviated from her normal baseline, febrile, and short of breath. She was put on NC oxygen as needed and started on a gentle fluid bolus. Workup was undertaken for Acute coronary syndrome, Venous thromboemolism/ Pulmonar Embolism, and sepsis 2/2 pneumonia vs urosepsis. VTE was safely ruled out by CT chest following pts elevated D-dimer. ECG, CXR were all within normal limits. CTA chest was ordered which revealed an 8 mm pulmonary nodule which patient will follow up with as outpatient with PMD upon discharge. Three serial troponins at 8 hr intervals ruled out cardiac chest pain 2/2 ACS. Blood cultures were obtained and found to be negative. CT abdomen/pelvis was without acute findings.Urinalysis returned significant for urinary tract infection. Urine culture and sensitivities were obtained and were positive for E. coli and the pt was started on Rocephin. CT abdomen and pelvis was also ordered to rule out intra-abdominal infection in which a 2.9 adrenal adenoma was found which patient was also instructed to follow up as outpatient. Dr. Solis saw the patient after infectious disease was consulted. The patient was started on IV meropenem. She developed an allergic urticaria after therapy was initiated, but this improved after administration of diphenhydramine 25 mg BID before administering merrem. Patient was carefully monitored for signs of ongoing allergic reaction and anaphylaxis. Asthma was managed in the hospital with Duonebs scheduled and as needed. Echo returned within normal limits. Home furosemide was continued after acute kidney injury was safely ruled out. Diabetes in hospital was managed with insulin sliding scale. Podiatry was consulted for the pts chronic lower extremity lymphedema, venous stasis dermatitis, and onychomycosis. She was not noted to have any acute lower extremity issues and she was started on Hydrocerin cream, lotrimine, and nystatin topical. Patient was started on heart healthy diet. She is discharged with ciprofloxacin PO. Meeting with Tiffani Reddy with Palliative Care was arranged to discuss pts DNR status and expectations for discharge and rehab. Patients son was instructed to resume home medications as directed. Plan for discharge to [facility]. Case seen and reviewed with Dr. Tyler Herrera PGY1 Discharge Exam - Head Exam Head Exam: NORMAL INSPECTION - Eye Exam Eye Exam: EOMI Pupil Exam: NORMAL ACCOMODATION - ENT Exam ENT Exam: Mucous Membranes Moist - Neck Exam Neck exam: Normal Inspection - Respiratory Exam Respiratory Exam: NORMAL BREATHING PATTERN, UNREMARKABLE. absent: Rhonchi, Wheezes - Cardiovascular Exam Cardiovascular Exam: REGULAR RHYTHM, +S1, +S2 - GI/Abdominal Exam GI & Abdominal Exam: Normal Bowel Sounds, Soft, Unremarkable - Extremities Exam Additional comments: keratotic hyperpigmentic regions bilaterally - Back Exam Back exam: NORMAL INSPECTION - Neurological Exam Neurological exam: Alert, CN II-XII Intact, Oriented x3 - Psychiatric Exam Psychiatric exam: Normal Affect, Normal Mood - Skin Skin Exam: Erythema (upper and lower extremities), Intact, Warm Discharge Plan - Discharge Medications Prescriptions: Calcium Carbonate [Oscal] 500 mg PO BID 7 Days #14 tab Ciprofloxacin [Cipro] 500 mg PO Q12 10 Days #20 tab Clotrimazole 1% Cream [Lotrimin 1% CREAM] 0 applic TOP DAILY #1 tube Lactobacillus Acidophilus [Bacid Acidophilus] 1 cap PO BID 14 Days #28 cap Nystatin [Nystop Topical Powder] 0 gm EXT DAILY #1 bottle - Follow Up Plan Condition: FAIR Disposition: TRANSF TO SNF Instructions: Heart Healthy Diet, Heart Failure, Adult (DC), Exacerbation of COPD (DC) Additional Instructions: 1. Follow up with Dr Bhargavi Hendricks, primary care doctor, after 1 week of discharge. 2. 8mm pulmonary nodule at right upper lung. Repeat CT chest in 6-12 month. 3. Adrenal mass 2.9 cm (< 4), Repeat CT abdomen and pelvis in 3-6 month. Referrals: Bhargavi Hendricks MD [Staff Provider] - <Merly Scott - Last Filed: 08/31/17 18:57> Provider - Provider Date of Admission: 08/25/17 07:16 Attending physician: Merly Scott MD Primary care physician: Hamlet Parker MD Hospital Course - Lab Results Lab Results: Micro Results 08/27/17 11:45 Blood-Venous Blood Culture - Preliminary NO GROWTH AFTER 4 DAYS 08/27/17 11:30 Blood-Venous Blood Culture - Preliminary NO GROWTH AFTER 4 DAYS 08/29/17 19:29 Leg - Right Gram Stain - Final 08/29/17 19:29 Leg - Right Wound Culture - Preliminary Yeast Species 08/25/17 23:13 Urine Urine Culture - Final Escherichia Coli 08/27/17 08:25 Stool C. difficile Antigen & Toxin A,B (M - Final Most Recent Lab Values WBC 10.4 10^3/ul (4.5-11.0) 08/30/17 05:50 RBC 3.70 10^6/uL (3.5-6.1) 08/30/17 05:50 Hgb 10.0 g/dL (12.0-16.0) L 08/30/17 05:50 Hct 31.3 % (36.0-48.0) L 08/30/17 05:50 MCV 84.6 fl (80.0-105.0) 08/30/17 05:50 MCH 27.0 pg (25.0-35.0) 08/30/17 05:50 MCHC 31.9 g/dl (31.0-37.0) 08/30/17 05:50 RDW 13.2 % (11.5-14.5) 08/30/17 05:50 Plt Count 187 10^3/uL (120.0-450.0) 08/30/17 05:50 MPV 9.6 fl (7.0-11.0) 08/30/17 05:50 Gran % 60.9 % (50.0-68.0) 08/30/17 05:50 Lymph % (Auto) 11.2 % (22.0-35.0) L 08/30/17 05:50 [place] % (Auto) 18.7 % (1.0-6.0) H 08/30/17 05:50 Eos % (Auto) 9.0 % (1.5-5.0) H 08/30/17 05:50 Baso % (Auto) 0.2 % (0.0-3.0) 08/30/17 05:50 Gran # 6.35 (1.4-6.5) 08/30/17 05:50 Lymph # (Auto) 1.2 (1.2-3.4) 08/30/17 05:50 [place] # (Auto) 2.0 (0.1-0.6) H 08/30/17 05:50 Eos # (Auto) 0.9 (0.0-0.7) H 08/30/17 05:50 Baso # (Auto) 0.02 K/mm3 (0.0-2.0) 08/30/17 05:50 Neutrophils % (Manual) 91 % (50.0-70.0) H 08/25/17 05:25 Band Neutrophils % 3 % (0-2) H 08/25/17 05:25 Lymphocytes % (Manual) 6 % (22.0-35.0) L 08/25/17 05:25 Monocytes % (Manual) 0 % (1.0-6.0) L 08/25/17 05:25 Platelet Evaluation Normal (NORMAL) 08/25/17 05:25 PT 12.3 SECONDS (9.4-12.5) 08/25/17 05:25 INR 1.07 (0.93-1.08) 08/25/17 05:25 APTT 35.2 Seconds (25.1-36.5) 08/25/17 05:25 D-Dimer, Quantitative 3157 ng/mL (0-243) H 08/25/17 08:05 pCO2 44 mm/Hg (35-45) 08/25/17 05:50 pO2 111 mm/Hg (30-55) H 08/25/17 06:37 HCO3 30.6 mmol/L (21-28) H 08/25/17 05:50 ABG pH 7.45 (7.35-7.45) 08/25/17 05:50 ABG Total CO2 32.0 mmol.L (22-28) H 08/25/17 05:50 ABG O2 Saturation 97.3 % (95-98) 08/25/17 05:50 ABG O2 Content 16.4 ML/dl (15-23) 08/25/17 05:50 ABG Base Excess 5.8 mmol/L (-2.0-3.0) H 08/25/17 05:50 ABG Hemoglobin 12.4 g/dL (11.7-17.4) 08/25/17 05:50 ABG Carboxyhemoglobin 2.3 % (0.5-1.5) H 08/25/17 05:50 POC ABG HHb (Measured) 2.6 % (0-5) 08/25/17 05:50 ABG Methemoglobin 1.5 % (0.0-3.0) 08/25/17 05:50 ABG O2 Capacity 16.9 mL/dl (16-24) 08/25/17 05:50 VBG pH 7.40 (7.32-7.43) 08/25/17 06:37 VBG pCO2 53.0 (40-60) 08/25/17 06:37 VBG HCO3 32.8 mmol/l (21-28) H 08/25/17 06:37 VBG Total CO2 34.4 mmol.L (22-28) H 08/25/17 06:37 VBG O2 Sat (Calc) 99.5 % (40-65) H 08/25/17 06:37 VBG Base Excess 6.5 mmol/L (0.0-2.0) H 08/25/17 06:37 VBG Potassium 3.7 mmol/L (3.6-5.2) 08/25/17 06:37 Hgb O2 Saturation 93.6 % (95.0-98.0) L 08/25/17 05:50 Sodium 132.0 mmol/L (132-148) 08/25/17 06:37 Chloride 93.0 mmol/L (98-107) L 08/25/17 06:37 Glucose 301 mg/dl (65-105) H 08/25/17 06:37 Lactate 1.5 mmol/L (0.7-2.1) 08/25/17 06:37 FiO2 21.0 % 08/25/17 06:37 Sodium 137 mmol/L (132-148) 08/30/17 05:50 Potassium 3.6 mmol/L (3.6-5.0) 08/30/17 05:50 Chloride 97 mmol/L (98-107) L 08/30/17 05:50 Carbon Dioxide 36 mmol/L (21-33) H 08/30/17 05:50 Anion Gap 8 (10-20) L 08/30/17 05:50 BUN 10 mg/dL (7-21) 08/30/17 05:50 Creatinine 0.8 mg/dl (0.7-1.2) 08/30/17 05:50 Est GFR ( Amer) > 60 08/30/17 05:50 Est GFR (Non-Af Amer) > 60 08/30/17 05:50 POC Glucose (mg/dL) 147 mg/dL (65-110) H 08/30/17 16:22 Random Glucose 151 mg/dL (70-110) H 08/30/17 05:50 Hemoglobin A1c 12.6 % (4.2-6.5) H D 08/27/17 08:30 Calcium 9.2 mg/dL (8.4-10.5) 08/30/17 05:50 Total Bilirubin 0.8 mg/dL (0.2-1.3) 08/30/17 05:50 AST 32 U/L (14-36) 08/30/17 05:50 ALT 16 U/L (7-56) 08/30/17 05:50 Alkaline Phosphatase 63 U/L (38-126) 08/30/17 05:50 Lactate Dehydrogenase 504 U/L (333-699) 08/25/17 05:25 Total Creatine Kinase 45 U/L (35-230) 08/25/17 05:25 Troponin I 0.05 ng/mL D 08/25/17 19:20 NT-Pro-B Natriuret Pep 1740 pg/mL (0-450) H 08/25/17 05:25 Total Protein 6.5 g/dL (5.8-8.3) 08/30/17 05:50 Albumin 2.9 g/dL (3.0-4.8) L 08/30/17 05:50 Globulin 3.6 gm/dL 08/30/17 05:50 Albumin/Globulin Ratio 0.8 (1.1-1.8) L 08/30/17 05:50 Procalcitonin 4.88 NG/ML (0.19-0.49) H 08/25/17 12:00 Venous Blood Potassium 3.7 mmol/L (3.6-5.2) 08/25/17 06:37 Urine Color Yellow (YELLOW) 08/25/17 18:55 Urine Appearance Slight-cloudy (CLEAR) 08/25/17 18:55 Urine pH 6.5 (4.7-8.0) 08/25/17 18:55 Ur Specific [place] 1.010 (1.005-1.035) 08/25/17 18:55 Urine Protein 30 mg/dL (<30 mg/dL) H 08/25/17 18:55 Urine Glucose (UA) 250 mg/dL (NEGATIVE) H 08/25/17 18:55 Urine Ketones Negative mg/dL (NEGATIVE) 08/25/17 18:55 Urine Blood Trace-intact (NEGATIVE) H 08/25/17 18:55 Urine Nitrate Negative (NEGATIVE) 08/25/17 18:55 Urine Bilirubin Negative (NEGATIVE) 08/25/17 18:55 Urine Urobilinogen 0.2 E.U./dL (<1 E.U./dL) 08/25/17 18:55 Ur Leukocyte Esterase Moderate Stephen/uL (NEGATIVE) H 08/25/17 18:55 Urine RBC 0 - 2 /hpf (0-2) 03 18:55 Urine WBC 5 - 10 /hpf (0-6) 08/25/17 18:55 Ur Epithelial Cells None /hpf (0-5) 08/25/17 18:55 Influenza Typ A,B (EIA) Negative for flu a/b (NEGATIVE) 08/25/17 05:57 Attending/Attestation - Attestation I have personally seen and examined this patient.: Yes I have fully participated in the care of the patient.: Yes I have reviewed all pertinent clinical information, including history, physical exam and plan: Yes Notes (Text): 08/31/17 18:56 Attending note; Patient seen and examined with resident. Patient is a 77 year old female with history of Alzheimer's dementia, hypertension, uncontrolled diabetes, asthma, right knee replacement and lower extremity lymphedema who was brought by the son for evaluation of chest pain, mild productive cough, shortness of breath and lethargy. Escherichia coli UTI/with Escherichia coli bacteremia. Repeat blood culture is negative. CT abdomen pelvis revealed bilateral non obstructing stones. treated with IV meropenem. patient is clinically afebrile and nontoxic today. Tolerating diet well. patient will be continued on by mouth ciprofloxacin. ID evaluation appreciated. bilateral LE cellulitis vs stasis dermatitis. Podiatry on case. Nails were clipped. Continue hydrocerin cream. D dimer was found to be elevated. CTA was negative for PE however it revealed 8 mm pulmonary nodule. Previous imaging did not reveal this nodule. Will recommend to have repeat CT in 6 months. Diabetes; hemoglobin A1c was 12.6. Levemir dosage adjusted. Needs close follow- up as outpatient. PT evaluation appreciated. TCU versus rehabilitation recommended. top and trim worker evaluation appreciated for discharge planning. patient will be transferred to [facility] today. Upon discharge patient will follow up with Dr Bhargavi Hendricks.
--- NOTE | 2017-08-30 14:49 | CP.PCM.PN ---
<Evgeny Kinsey - Last Filed: 08/30/17 17:35> Subjective - Date & Time of Evaluation Date of Evaluation: 08/30/17 Time of Evaluation: 13:00 - Subjective Subjective: Podiatry Progress Note- Dr. Polanco 77 y.o female with PMH of DM, PVD, HTN, Alzheimer, depression, and asthma seen and evaluated at bedside for bilaterally lymphedema. Patient is seen lying comfortably in bed. Patient denies acute overnight events. Denies n/v/sob/cp/ chills or f. Patient reports no pain to the LE while resting but with palpation patient reports tenderness. Objective - Vital Signs/Intake and Output Vital Signs (last 24 hours): Temp Pulse Resp BP Pulse Ox 99.9 F H 65 22 139/64 100 08/30/17 08:28 08/30/17 11:34 08/30/17 08:28 08/30/17 11:34 08/30/17 08:28 Intake and Output: 08/30/17 08/30/17 06:59 18:59 Intake Total 720 540 Output Total 100 Balance 620 540 - Medications Medications: Current Medications Acetaminophen (Tylenol 325mg Tab) 650 mg PO Q6H PRN PRN Reason: Fever >100.4 F Last Admin: 08/27/17 12:05 Dose: 650 mg Albuterol/Ipratropium (Duoneb 3 Mg/0.5 Mg (3 Ml) Ud) 3 ml IH [id number] [facility] Last Admin: 08/30/17 13:12 Dose: 3 ml Albuterol/Ipratropium (Duoneb 3 Mg/0.5 Mg (3 Ml) Ud) 3 ml IH Q2H PRN PRN Reason: Shortness of Breath Amlodipine Besylate (Norvasc) 5 mg PO DAILY [facility] Last Admin: 08/30/17 11:34 Dose: 5 mg Aspirin (Ecotrin) 81 mg PO DAILY [facility] Last Admin: 08/30/17 11:33 Dose: 81 mg Atorvastatin Calcium (Lipitor) 10 mg PO HS [facility] Last Admin: 08/29/17 21:57 Dose: 10 mg Betamethasone/Clotrimazole (Lotrisone) 0 ml TOP BID [facility] Calcium Carbonate (Oscal) 500 mg PO BID [facility] Last Admin: 08/30/17 11:34 Dose: 500 mg Carvedilol (Coreg) 25 mg PO BID [facility] Last Admin: 08/30/17 11:33 Dose: 25 mg Ciprofloxacin (Cipro) 500 mg PO Q12 [facility] PRN Reason: Protocol Stop: 09/09/17 11:16 Last Admin: 08/30/17 11:33 Dose: 500 mg Diphenhydramine HCl (Benadryl) 25 mg PO Q12 [facility] Last Admin: 08/30/17 11:34 Dose: 25 mg Docusate Sodium (Colace) 100 mg PO BID [facility] Last Admin: 08/30/17 11:33 Dose: 100 mg Ferrous Sulfate (Feosol) 324 mg PO DAILY [facility] Last Admin: 08/30/17 11:34 Dose: 324 mg Heparin Sodium (Porcine) (Heparin) 5,000 units SC Q12 [facility] PRN Reason: Protocol Last Admin: 08/30/17 11:35 Dose: 5,000 units Insulin Detemir (Levemir) 12 unit SC [facility] Last Admin: 08/29/17 21:58 Dose: 12 unit Insulin Human Lispro (Humalog Med) 0 units SC [facility] PRN Reason: Protocol Last Admin: 08/30/17 11:35 Dose: Not Given Insulin Human Regular (Humulin R) 5 units SC AC [facility] Last Admin: 08/30/17 11:34 Dose: 5 units Lactobacillus Acidophilus (Bacid Acidophilus) 1 cap PO BID [facility] Last Admin: 08/30/17 11:34 Dose: 1 cap Montelukast Sodium (Singulair) 10 mg PO [facility] Last Admin: 08/29/17 21:57 Dose: 10 mg Non-Formulary Medication (Memantine Hcl [Namenda Xr]) 28 mg PO DAILY [facility] Last Admin: 08/30/17 11:35 Dose: Not Given Nystatin (Nystop Topical Powder) 0 gm EXT DAILY [facility] Last Admin: 08/30/17 11:36 Dose: 1 applic Pantoprazole Sodium (Protonix Ec Tab) 40 mg PO 0600 [facility] Last Admin: 08/30/17 05:43 Dose: 40 mg Vitamin D (Vitamin D 400 Intl Units Tab) 200 intlu PO BID [facility] Last Admin: 08/30/17 11:33 Dose: 200 intlu - Labs Labs: 08/30/17 05:50 08/30/17 05:50 PT 12.3 SECONDS (9.4-12.5) 08/25/17 05:25 INR 1.07 (0.93-1.08) 08/25/17 05:25 APTT 35.2 Seconds (25.1-36.5) 08/25/17 05:25 - Constitutional Appears: Well, Non-toxic, No Acute Distress - Extremities Exam Extremities Exam: absent: Calf Tenderness Additional comments: VASC: DP and PT pulses nonpalpable secondary to edema b/l, CFT WNL to digits x10 , +3 pitting edema to foot and leg b/l NEURO: Gross sensation and protective sensation diminished DERM: Scaling verrucaformis lesions with fissures noted. Hyperpigmentation discoloration noted to the LE. Warm has decreased, erythema has decreased Maceration is resolved. No maceration lesion noted to today's visitation. Mild LE serous drainage noted to the LE ORTHO: Tenderness to palpation bilateral lower extremity. ROM of the ankles in DF and PF with no crepitus noted b/l - Psychiatric Exam Psychiatric exam: Normal Affect, Normal Mood Assessment and Plan - Assessment and Plan (Free Text) Assessment: 77 y.o female with lymphedema and cellulitis- resolving Plan: -Patient seen and evaluated with attending Dr. Polanco -Labs, charts, vitals reviewed (afebrile, WBC=10.4) -Ultrasound on 08/25/17 shows no DVT - R and L LE cleansed with copious amounts of saline solution, dsd dressed on RLE. -Discontinue Hydrocerin cream at this time -Discontinued Lotrisone Can use Lotrimin -Ordered Nystatin to be placed in the folds -Wound culture ordered and taken -Continue with abx per ID -Podiatry will continue to follow while in house <Sherwin Polanco - Last Filed: 09/01/17 07:43> Objective - Vital Signs/Intake and Output Vital Signs (last 24 hours): Temp Pulse Resp BP Pulse Ox 99.9 F H 65 22 139/64 100 08/30/17 08:28 08/30/17 11:34 08/30/17 08:28 08/30/17 11:34 08/30/17 08:28 - Labs Labs: 08/30/17 05:50 08/30/17 05:50 PT 12.3 SECONDS (9.4-12.5) 08/25/17 05:25 INR 1.07 (0.93-1.08) 08/25/17 05:25 APTT 35.2 Seconds (25.1-36.5) 08/25/17 05:25 Attending/Attestation - Attestation I have personally seen and examined this patient.: Yes I have fully participated in the care of the patient.: Yes I have reviewed all pertinent clinical information, including history, physical exam and plan: Yes
== END 2017-08-30 18:06 | DRG 872 ==
LOC: ED 05:05 → ERH 07:16 → 2RNO 11:06 → 3RNO 08-29 20:03
PROVIDERS: ADMIT Internal Medicine; ATTEND Internal Medicine
PROC: 0HBRXZZ Excision of Toe Nail, External Approach (ICD-10-PCS; principal; 2017-08-26)
PROC: 0HBRXZZ Excision of Toe Nail, External Approach (ICD-10-PCS; 2017-08-26)
PROC: 0HBRXZZ Excision of Toe Nail, External Approach (ICD-10-PCS; 2017-08-26)
PROC: 0HBRXZZ Excision of Toe Nail, External Approach (ICD-10-PCS; 2017-08-26)
PROC: 0HBRXZZ Excision of Toe Nail, External Approach (ICD-10-PCS; 2017-08-26)
PROC: 0HBRXZZ Excision of Toe Nail, External Approach (ICD-10-PCS; 2017-08-26)
PROC: 0HBRXZZ Excision of Toe Nail, External Approach (ICD-10-PCS; 2017-08-26)
PROC: 0HBRXZZ Excision of Toe Nail, External Approach (ICD-10-PCS; 2017-08-26)
PROC: 0HBRXZZ Excision of Toe Nail, External Approach (ICD-10-PCS; 2017-08-26)
PROC: 0HBRXZZ Excision of Toe Nail, External Approach (ICD-10-PCS; 2017-08-26)
DX: A41.51 Sepsis due to Escherichia coli [E. coli] (principal); N12 Tubulo-interstitial nephritis, not specified as acute or chronic; Z68.41 Body mass index [BMI] 40.0-44.9, adult; L03.116 Cellulitis of left lower limb; L03.115 Cellulitis of right lower limb; E11.51 Type 2 diabetes mellitus with diabetic peripheral angiopathy without gangrene; I11.0 Hypertensive heart disease with heart failure; I50.9 Heart failure, unspecified; G30.9 Alzheimer's disease, unspecified; F02.80 Dementia in other diseases classified elsewhere, unspecified severity, without behavioral disturbance, psychotic disturbance, mood disturbance, and anxiety; B35.1 Tinea unguium; E66.01 Morbid (severe) obesity due to excess calories; J44.9 Chronic obstructive pulmonary disease, unspecified; I89.0 Lymphedema, not elsewhere classified; F32.9 Major depressive disorder, single episode, unspecified; E27.9 Disorder of adrenal gland, unspecified; R91.1 Solitary pulmonary nodule; I87.2 Venous insufficiency (chronic) (peripheral); Z96.653 Presence of artificial knee joint, bilateral; Z79.82 Long term (current) use of aspirin; Z79.4 Long term (current) use of insulin; Z87.891 Personal history of nicotine dependence

== ENCOUNTER 2018-06-02 21:05 | Inpatient (IN) | payer MEDICARE, MEDICAID ==
[2018-06-02 21:11] VITALS: BMI 38.2
--- NOTE | 2018-06-02 21:24 | ED PDOC ---
Arrival/HPI - General Chief Complaint: High Blood Sugar Time Seen by Provider: 06/02/18 21:09 Historian: Patient, Family - History of Present Illness Narrative History of Present Illness (Text): 06/02/18 21:24 77 year old female, whose DNR/DNI, whose past medical history includes dementia/Alzheimers disease, COPD/Asthma, Hypertension, uncontrolled diabetes, asthma, LE lymphedema, and history of DVTs, presents to the emergency department as per son, for elevated blood sugar. Patient is at her baseline mental status.report worsenign right leg erythma. Reported mild cough, but denies any fever, chills, chest pain, shortness of breath, abdominal pain, nausea, vomiting, diarrhea, urinary symptoms, neck pain, headache, dizziness, or any other complaints. Dr. Bhargavi Hendricks 06/03/18 01:16 Symptom Onset: Gradual Activities at Onset: Light Context: Home Past Medical History - Provider Review Nursing Documentation Reviewed: Yes - Infectious Disease Hx of Infectious Diseases: None - Tetanus Immunization Tetanus Immunization: Unknown - Cardiac Hx Cardiac Disorders: Yes Hx Congestive Heart Failure: Yes Hx Hypertension: Yes - Pulmonary Hx Respiratory Disorders: Yes Hx Chronic Obstructive Pulmonary Disease (COPD): Yes - Neurological Hx Neurological Disorder: Yes Hx Alzheimer's Disease: Yes Hx Dementia: Yes - HEENT Hx HEENT Disorder: No - Renal Hx Renal Disorder: No - Endocrine/Metabolic Hx Endocrine Disorders: Yes Hx Diabetes Mellitus Type 2: Yes - Hematological/Oncological Hx Blood Disorders: No - Integumentary Hx Dermatological Disorder: No - Musculoskeletal/Rheumatological Hx Musculoskeletal Disorders: No - Gastrointestinal Hx Gastrointestinal Disorders: No - Genitourinary/Gynecological Hx Genitourinary Disorders: Yes Hx Incontinence: Yes - Psychiatric Hx Psychophysiologic Disorder: Yes Hx Depression: Yes Hx Emotional Abuse: No Hx Physical Abuse: No Hx Substance Use: No - Surgical History Hx Joint Replacement: Yes (BILATERAL KNEE) Hx Orthopedic Surgery: Yes Other/Comment: manfred filter - Anesthesia Hx Anesthesia: Yes Hx Anesthesia Reactions: No Hx Malignant Hyperthermia: No - Suicidal Assessment Feels Threatened In Home Enviroment: No Family/Social History - Physician Review Nursing Documentation Reviewed: Yes Family/Social History: No Known Family HX Smoking Status: Former Smoker Hx Alcohol Use: No Hx Substance Use: No Hx Substance Use Treatment: No Allergies/Home Meds Allergies/Adverse Reactions: Allergies cortisone Allergy (Verified 08/25/17 05:11) RASH Home Medications: Home Meds Medication Instructions Recorded Confirmed RX: Atorvastatin Calcium 10 mg PO HS 11/12/13 06/02/18 RX: Aspirin [Adult Low Dose 81 mg PO DAILY 04/11/16 06/02/18 Aspirin EC] RX: Carvedilol [Coreg] 25 mg PO BID 04/11/16 06/02/18 RX: Docusate Sodium [Ernandez' 100 mg PO BID 04/11/16 06/02/18 Laxative] RX: Ferrous Sulfate [Feosol] 325 mg PO DAILY 04/11/16 06/02/18 RX: Furosemide [Lasix] 40 mg PO DAILY 04/11/16 06/02/18 RX: Memantine HCl [Namenda Xr] 28 mg PO DAILY 04/11/16 06/02/18 RX: amLODIPine [Norvasc] 5 mg PO DAILY 04/11/16 06/02/18 RX: Albuterol 0.083% [Albuterol 2.5 mg IH DAILY 08/25/17 06/02/18 0.083% Inhal Karyn (2.5 mg/3 ml) UD] RX: Albuterol Sulfate [Proair Hfa] 0.09 mg IH TID PRN 08/25/17 06/02/18 RX: Pantoprazole [Protonix EC Tab] 40 mg PO DAILY 08/25/17 06/02/18 Insulin Glargine,Hum.rec.anlog 16 units PO DAILY 06/02/18 06/02/18 [Lantus Solostar] Insulin Human Regular [HumuLIN R] 100 ml INJ TID 06/02/18 06/02/18 Review of Systems - Physician Review All systems were reviewed & negative as marked: Yes - Review of Systems Constitutional: absent: Fevers, Other (Chills) Respiratory: Cough. absent: SOB Cardiovascular: absent: Chest Pain Gastrointestinal: absent: Abdominal Pain, Diarrhea, Nausea, Vomiting Genitourinary Female: absent: Dysuria, Frequency, Hematuria Musculoskeletal: absent: Neck Pain Neurological: absent: Headache, Dizziness Physical Exam Vital Signs Reviewed: Yes Vital Signs Temp Pulse Resp BP Pulse Ox 06/02/18 21:20 98.1 F 68 18 152/65 H 97 Temperature: Afebrile Blood Pressure: Hypertensive Pulse: Regular Respiratory Rate: Normal Appearance: Positive for: Well-Appearing, Non-Toxic, Comfortable Pain Distress: None Mental Status: Positive for: Confused Finger Stick Blood Glucose: 368 - Systems Exam Head: Present: Atraumatic, Normocephalic Pupils: Present: PERRL Extroacular Muscles: Present: EOMI Conjunctiva: Present: Normal Mouth: Present: Moist Mucous Membranes Neck: Present: Normal Range of Motion Respiratory/Chest: Present: Clear to Auscultation, Good Air Exchange. No: Respiratory Distress, Accessory Muscle Use Cardiovascular: Present: Regular Rate and Rhythm, Normal S1, S2. No: Murmurs Abdomen: No: Tenderness, Distention, Peritoneal Signs Back: Present: Normal Inspection Upper Extremity: Present: Normal Inspection. No: Cyanosis, Edema Lower Extremity: Present: Edema (lympedema to bilateral lower extremity) Neurological: Present: GCS=15, CN II-XII Intact Skin: Present: Warm, Dry, Normal Color. No: Rashes Psychiatric: Present: Alert (Confused), Normal Insight, Normal Concentration Medical Decision Making ED Course and Treatment: 06/02/18 21:24 Impression: 77 year old female presents for elevated blood sugar and mild cough as per son. cellultis ro uti, dka dni dnr per son bedside Plan: -- VBG -- EKG -- Labs -- CXR -- IV Fluids -- Glucose POC -- Urinalysis -- Rocephin, Vancomycin -- Blood Culture -- Duplex LE US -- Reassess and disposition Prior Visits: Notes and results from previous visits were reviewed. Progress Notes: 06/02/18 21:28 EKG shows NSR at 65 BPM with non-specific ST/T wave changes. Interpreted by me. 06/02/18 22:15 CXR Impression: As read by EDILMA weaver. 06/02/18 22:22 Case discussed with medical records specialist and Dr. Land who is aware and agrees with the plan. Accepts patient to hospitalist service 06/03/18 01:16 antibiotics orders, cultures sent dvt study pending, accpeted hospitasti. - Lab Interpretations Lab Results: Lab Results 06/02/18 21:10: POC Glucose (mg/dL) 368 H I have reviewed the lab results: Yes - RAD Interpretation Vice President Of Contracts: ED Physician - EKG Interpretation Interpreted by ED Physician: Yes Type: 12 lead EKG - Scribe Statement The provider has reviewed the documentation as recorded by the Abbyibnitesh Bell Provider Scribe Attestation: All medical record entries made by the Abbyibe were at my direction and personally dictated by me. I have reviewed the chart and agree that the record accurately reflects my personal performance of the history, physical exam, medical decision making, and the department course for this patient. I have also personally directed, reviewed, and agree with the discharge instructions and disposition. Disposition/Present on Arrival - Present on Arrival Any Indicators Present on Arrival: No History of DVT/PE: No History of Uncontrolled Diabetes: Yes Urinary Catheter: No History of Decub. Ulcer: No History Surgical Site Infection Following: None - Disposition Have Diagnosis and Disposition been Completed?: Yes Diagnosis: Cellulitis, Lymphedema, Hyperglycemia Disposition: HOSPITALIZED Disposition Time: 21:00 Patient Problems: Current Active Problems Problem Status Onset Cellulitis Acute Hyperglycemia Acute Lymphedema Chronic Condition: FAIR
[2018-06-02] MEDS ORDERED: Sodium Chloride 0.9% 500 ML IV STA (21:26)
[2018-06-02 21:45] LABS: BASO # 0.01 K/mm3 (0.0-2.0); BASO % 0.1 % (0.0-3.0); GRAN # 15.41 (1.4-6.5); GRAN % 90.3 % (50.0-68.0); HEMOGLOBIN 13.1 g/dL (12.0-16.0); LYMPH # 1.1 (1.2-3.4); LYMPH % 6.6 % (22.0-35.0); MEAN CELL VOLUME 83.6 fl (80.0-105.0); MEAN CORPUSCULAR HEMOGLOBIN 27.2 pg (25.0-35.0); MEAN CORPUSCULAR HGB CONC 32.5 g/dl (31.0-37.0); MEAN PLATELET VOLUME 9.8 fl (7.0-11.0); MONO # 0.5 (0.1-0.6); PLATELET COUNT 154 10^3/uL (120.0-450.0); RBC 4.82 10^6/uL (3.5-6.1); RED CELL DISTRIBUTION WIDTH 13.3 % (11.5-14.5); WHITE BLOOD COUNT 17.1 10^3/uL (4.5-11.0)
[2018-06-02 21:47] LABS: VENOUS BLOOD GAS BASE EXCESS 6.9 mmol/L (0.0-2.0); VENOUS BLOOD GAS PO2 44 mm/Hg (30-55); VENOUS BLOOD PH 7.37 (7.32-7.43)
[2018-06-02] MEDS ORDERED: Vancomycin 1gm in NS 250ml 1 GM/250 ML BAG IVPB STA (21:52)
[2018-06-02 21:54] LABS: INR 1.15; PARTIAL THROMBOPLASTIN TIME 34.4 Seconds (25.1-36.5); PROTHROMBIN TIME 13.3 SECONDS (9.4-12.5)
[2018-06-02 22:07] LABS: TROPONIN I 0.02 ng/mL
[2018-06-02] MEDS ORDERED: cefTRIAXone 1 gm 1 GM/100 ML BAG IVPB STA (22:09)
[2018-06-02 22:12] LABS: ALB/GLOB RATIO 0.9 (1.1-1.8); ALBUMIN 4.1 g/dL (3.0-4.8); CALCIUM 9.3 mg/dL (8.4-10.5)
[2018-06-02] MEDS ORDERED: Insulin Regular 1 UNITS/0.01 ML ML IV STA (22:13)
[2018-06-02 22:17] LABS: LYMPHOCYTE 7 % (22.0-35.0); MONOCYTE 5 % (1.0-6.0); NEUTROPHIL 88 % (50.0-70.0)
[2018-06-02 22:18] LABS: PLATELET ESTIMATE NORMAL (NORMAL)
[2018-06-02] MEDS ORDERED: Potassium Chloride 20 mEq ER Tab PO STA (22:23)
[2018-06-02] MEDS ORDERED: Dextrose 50% SYRINGE Inj (50 ml) IV PRN (22:56)
[2018-06-02] MEDS ORDERED: Albuterol-Ipratrop 3 mg / 0.5 (3 ml) UD IH PRN ×2 (23:07→23:48)
--- NOTE | 2018-06-02 23:30 | CP.PCM.HP ---
<Jassi Curran - Last Filed: 06/03/18 06:51> History of Present Illness - History of Present Illness History of Present Illness: Jassi Curran, PGY1 Hospital H&P This is a 77 year old [place] African speaking female with PMH of uncontrolled DM, severe dementia, Alzheimer's, COPD, asthma, DVT, HTN and chronic lower extremity lymphedema presenting to the ER accompanied by son for uncontrolled sugars. Per son, sugars today have been in the 500s despite insulin use. Sugars are normally in the 140-150s. Son states he and his brother are primary care takers of patient and monitor patient's insulin compliance and diet closely but patient was able to make tea with unknown sugar amount previous night. Patient had an episode of fecal and urine incontinence last night which patient has "every now and then" per son. Son also states patient has had foul smelling urine over the past few days. Patient has home health aid who helps patient with general health maintenance and cleans patient's legs and feet. She is able to ambulate at home with walker. Patient denies any complaints at this time. She denies chest pain, CP, headaches, fevers, chills, nausea, vomiting, back pain, abdominal pain, urinary complaints, numbness, tingling, swelling, recent travel, sickness, trauma and lifestyle change. 12 point ROS noted here, otherwise unremarkable. PMD: Dr. Bhargavi Hendricks PMH: uncontrolled DM, severe dementia, Alzheimer's, COPD, asthma, DVT, HTN and chronic lower extremity lymphedema SH: denies smoking, drinking and drugs. Former smoker many years ago Sx: denies FH: DM, alzheimer's All: cortisone - rash Pharmacy: Replaced by [facility] Meds: patient medication list brought with sonFoster and verified with MAR Present on Admission - Present on Admission Any Indicators Present on Admission: Yes History of DVT/PE: Yes History of Uncontrolled Diabetes: Yes Past Patient History - Infectious Disease Hx of Infectious Diseases: None - Tetanus Immunizations Tetanus Immunization: Unknown - Past Social History Smoking Status: Former Smoker - CARDIAC Hx Cardiac Disorders: Yes Hx Congestive Heart Failure: Yes Hx Hypertension: Yes - PULMONARY Hx Respiratory Disorders: Yes Hx Chronic Obstructive Pulmonary Disease (COPD): Yes - NEUROLOGICAL Hx Neurological Disorder: Yes Hx Alzheimer's Disease: Yes Hx Dementia: Yes - HEENT Hx HEENT Problems: No - RENAL Hx Chronic Kidney Disease: No - ENDOCRINE/METABOLIC Hx Endocrine Disorders: Yes Hx Diabetes Mellitus Type 2: Yes - HEMATOLOGICAL/ONCOLOGICAL Hx Blood Disorders: No - INTEGUMENTARY Hx Dermatological Problems: No - MUSCULOSKELETAL/RHEUMATOLOGICAL Hx Musculoskeletal Disorders: No - GASTROINTESTINAL Hx Gastrointestinal Disorders: No - GENITOURINARY/GYNECOLOGICAL Hx Genitourinary Disorders: Yes Hx Incontinence: Yes - PSYCHIATRIC Hx Psychophysiologic Disorder: Yes Hx Depression: Yes Hx Emotional Abuse: No Hx Physical Abuse: No Hx Substance Use: No - SURGICAL HISTORY Hx Joint Replacement: Yes (BILATERAL KNEE) Hx Orthopedic Surgery: Yes Other/Comment: manfred filter - ANESTHESIA Hx Anesthesia: Yes Hx Anesthesia Reactions: No Hx Malignant Hyperthermia: No Meds Allergies/Adverse Reactions: Allergies Allergy/AdvReac Type Severity Reaction Status Date / Time cortisone Allergy RASH Verified 08/25/17 05:11 Physical Exam - Constitutional Appears: No Acute Distress Additional comments: lethargic, sleepy - Head Exam Head Exam: ATRAUMATIC, NORMAL INSPECTION - Eye Exam Eye Exam: EOMI Pupil Exam: PERRL - ENT Exam ENT Exam: Mucous Membranes Moist - Respiratory Exam Respiratory Exam: Clear to Auscultation Bilateral. absent: Accessory Muscle Use, Wheezes, Respiratory Distress Additional comments: poor inspiratory effort 2/2 body habitus - Cardiovascular Exam Cardiovascular Exam: REGULAR RHYTHM, +S1, +S2 - GI/Abdominal Exam GI & Abdominal Exam: Normal Bowel Sounds, Soft. absent: Firm, Guarding, Tenderness Additional comments: globular abdomen, no tenderness noted with deep palpation - Extremities Exam Extremities exam: Positive for: pedal pulses present. Negative for: calf tenderness, tenderness Additional comments: B/L LE swelling +2. Chronic lymphedema changes noted B/L with dry ischemic skin appreciated located near ankle region extending proximally to mid calf. No erythema, peeling, draining, bleeding, pus noted. No leg/calf tenderness appreciated. - Back Exam Back exam: NORMAL INSPECTION - Neurological Exam Neurological exam: Alert Additional comments: Alert to person and place, not oriented to time or current President. - Skin Skin Exam: Dry, Normal Color, Warm Results - Vital Signs Recent Vital Signs: Last Vital Signs Temp 98.1 F 06/02/18 21:20 Pulse 68 06/02/18 21:20 Resp 18 06/02/18 21:20 BP 152/65 H 06/02/18 21:20 Pulse Ox 97 06/02/18 21:20 - Labs Result Diagrams: 06/02/18 21:36 06/02/18 21:36 Labs: Laboratory Results - last 24 hr 06/02/18 06/02/18 06/02/18 21:10 21:36 21:36 WBC 17.1 H RBC 4.82 Hgb 13.1 D Hct 40.3 MCV 83.6 MCH 27.2 MCHC 32.5 RDW 13.3 Plt Count 154 MPV 9.8 Gran % 90.3 H Lymph % (Auto) 6.6 L Summers % (Auto) 3.0 Eos % (Auto) 0.0 L Baso % (Auto) 0.1 Gran # 15.41 H Lymph # (Auto) 1.1 L Summers # (Auto) 0.5 Eos # (Auto) 0.0 Baso # (Auto) 0.01 Neutrophils % (Manual) 88 H Lymphocytes % (Manual) 7 L Monocytes % (Manual) 5 Platelet Evaluation Normal PT 13.3 H INR 1.15 APTT 34.4 pO2 VBG pH VBG pCO2 VBG HCO3 VBG Total CO2 VBG O2 Sat (Calc) VBG Base Excess VBG Potassium Glucose Lactate FiO2 Sodium Potassium Chloride Carbon Dioxide Anion Gap BUN Creatinine Est GFR ( Amer) Est GFR (Non-Af Amer) POC Glucose (mg/dL) 368 H Random Glucose Calcium Magnesium Total Bilirubin AST ALT Alkaline Phosphatase Lactate Dehydrogenase Total Creatine Kinase Troponin I Total Protein Albumin Globulin Albumin/Globulin Ratio Venous Blood Potassium 06/02/18 06/02/18 21:36 21:40 WBC RBC Hgb Hct MCV MCH MCHC RDW Plt Count MPV Gran % Lymph % (Auto) Summers % (Auto) Eos % (Auto) Baso % (Auto) Gran # Lymph # (Auto) Summers # (Auto) Eos # (Auto) Baso # (Auto) Neutrophils % (Manual) Lymphocytes % (Manual) Monocytes % (Manual) Platelet Evaluation PT INR APTT pO2 44 VBG pH 7.37 VBG pCO2 59.0 VBG HCO3 34.1 H VBG Total CO2 35.9 H VBG O2 Sat (Calc) 83.9 H VBG Base Excess 6.9 H VBG Potassium 3.1 L Glucose 386 H Lactate 2.4 H FiO2 21.0 Sodium 133 134.0 Potassium 3.3 L Chloride 91 L 92.0 L Carbon Dioxide 34 H Anion Gap 11 BUN 28 H Creatinine 1.2 Est GFR ( Amer) 52 Est GFR (Non-Af Amer) 43 POC Glucose (mg/dL) Random Glucose 372 H* D Calcium 9.3 Magnesium 1.9 Total Bilirubin 1.0 AST 38 H ALT 31 Alkaline Phosphatase 159 H D Lactate Dehydrogenase 518 Total Creatine Kinase 57 Troponin I 0.02 D Total Protein 8.7 H Albumin 4.1 Globulin 4.7 Albumin/Globulin Ratio 0.9 L Venous Blood Potassium 3.1 L Assessment & Plan - Assessment and Plan (Free Text) Assessment: This is a 77 year old [place] African speaking female with PMH of uncontrolled DM, severe dementia, Alzheimer's, COPD, asthma, DVT, HTN and chronic lower extremity lymphedema presenting to the ER accompanied by son for uncontrolled sugars. Plan: Uncontrolled surgars -medication noncompliance vs diet non-compliance vs reactionary from infection -levemir 15 units HS, insulin humalog 5 units ACHS -A1c pending -CRP, ESR, beta hydroxybutyrate pending -consider endocrinology consult if sugars remain uncontrolled Leukocytosis -likely reactive, will work up infection -blood cultue, urine culture pending -procalc pending -Does not meet SIRS criteria, less likely sepsis -U/A pending -CXR shows no active disease, f/u official read -rocephin prophylaxis for UTI until cultures return Chronic LE lymphadema -podiatry consult. Dr. Bender -wound care -unlikely source of infection, will f/u recommendations Hypokalemia -repleted, f/u AM labs Hx of DVT -Duplex LE pending Hx of COPD/asthma -duonebs prn Hx of HTN -continue home norvasc, coreg PPX with lovenox and protonix HHD Patient seen and case discussed with attending, Dr. Land <Zaina Land - Last Filed: 06/03/18 19:04> Results - Vital Signs Recent Vital Signs: Last Vital Signs Temp 98.8 F 06/03/18 16:04 Pulse 68 06/03/18 16:04 Resp 18 06/03/18 16:04 BP 105/54 L 06/03/18 17:20 Pulse Ox 95 06/03/18 16:04 - Labs Result Diagrams: 06/03/18 06:40 06/03/18 06:40 Labs: Laboratory Results - last 24 hr 06/02/18 06/02/18 06/02/18 21:10 21:36 21:36 WBC 17.1 H RBC 4.82 Hgb 13.1 D Hct 40.3 MCV 83.6 MCH 27.2 MCHC 32.5 RDW 13.3 Plt Count 154 MPV 9.8 Gran % 90.3 H Lymph % (Auto) 6.6 L Summers % (Auto) 3.0 Eos % (Auto) 0.0 L Baso % (Auto) 0.1 Gran # 15.41 H Lymph # (Auto) 1.1 L Summers # (Auto) 0.5 Eos # (Auto) 0.0 Baso # (Auto) 0.01 Neutrophils % (Manual) 88 H Lymphocytes % (Manual) 7 L Monocytes % (Manual) 5 Platelet Evaluation Normal ESR PT 13.3 H INR 1.15 APTT 34.4 pO2 VBG pH VBG pCO2 VBG HCO3 VBG Total CO2 VBG O2 Sat (Calc) VBG Base Excess VBG Potassium Glucose Lactate FiO2 Sodium Potassium Chloride Carbon Dioxide Anion Gap BUN Creatinine Est GFR ( Amer) Est GFR (Non-Af Amer) POC Glucose (mg/dL) 368 H Random Glucose Calcium Magnesium Total Bilirubin AST ALT Alkaline Phosphatase Lactate Dehydrogenase Total Creatine Kinase Troponin I Total Protein Albumin Globulin Albumin/Globulin Ratio Procalcitonin Venous Blood Potassium B-Hydroxybutyrate 06/02/18 06/02/18 06/02/18 21:36 21:36 21:40 WBC RBC Hgb Hct MCV MCH MCHC RDW Plt Count MPV Gran % Lymph % (Auto) Summers % (Auto) Eos % (Auto) Baso % (Auto) Gran # Lymph # (Auto) Summers # (Auto) Eos # (Auto) Baso # (Auto) Neutrophils % (Manual) Lymphocytes % (Manual) Monocytes % (Manual) Platelet Evaluation ESR 90 H PT INR APTT pO2 44 VBG pH 7.37 VBG pCO2 59.0 VBG HCO3 34.1 H VBG Total CO2 35.9 H VBG O2 Sat (Calc) 83.9 H VBG Base Excess 6.9 H VBG Potassium 3.1 L Glucose 386 H Lactate 2.4 H FiO2 21.0 Sodium 133 134.0 Potassium 3.3 L Chloride 91 L 92.0 L Carbon Dioxide 34 H Anion Gap 11 BUN 28 H Creatinine 1.2 Est GFR ( Amer) 52 Est GFR (Non-Af Amer) 43 POC Glucose (mg/dL) Random Glucose 372 H* D Calcium 9.3 Magnesium 1.9 Total Bilirubin 1.0 AST 38 H ALT 31 Alkaline Phosphatase 159 H D Lactate Dehydrogenase 518 Total Creatine Kinase 57 Troponin I 0.02 D Total Protein 8.7 H Albumin 4.1 Globulin 4.7 Albumin/Globulin Ratio 0.9 L Procalcitonin Venous Blood Potassium 3.1 L B-Hydroxybutyrate 0.04 06/02/18 06/03/18 06/03/18 23:35 01:50 06:36 WBC RBC Hgb Hct MCV MCH MCHC RDW Plt Count MPV Gran % Lymph % (Auto) Summers % (Auto) Eos % (Auto) Baso % (Auto) Gran # Lymph # (Auto) Summers # (Auto) Eos # (Auto) Baso # (Auto) Neutrophils % (Manual) Lymphocytes % (Manual) Monocytes % (Manual) Platelet Evaluation ESR PT INR APTT pO2 50 VBG pH 7.39 VBG pCO2 56.0 VBG HCO3 33.9 H VBG Total CO2 35.6 H VBG O2 Sat (Calc) 89.5 H VBG Base Excess 7.1 H VBG Potassium 3.3 L Glucose 281 H Lactate 1.3 FiO2 21.0 Sodium 135.0 Potassium Chloride 96.0 L Carbon Dioxide Anion Gap BUN Creatinine Est GFR ( Amer) Est GFR (Non-Af Amer) POC Glucose (mg/dL) 229 H 260 H Random Glucose Calcium Magnesium Total Bilirubin AST ALT Alkaline Phosphatase Lactate Dehydrogenase Total Creatine Kinase Troponin I Total Protein Albumin Globulin Albumin/Globulin Ratio Procalcitonin Venous Blood Potassium 3.3 L B-Hydroxybutyrate 06/03/18 06/03/18 06/03/18 06:40 06:40 06:40 WBC 14.6 H RBC 4.20 Hgb 11.2 L Hct 35.2 L MCV 83.8 MCH 26.7 MCHC 31.8 RDW 13.4 Plt Count 155 MPV 10.2 Gran % 87.6 H Lymph % (Auto) 8.3 L Summers % (Auto) 3.2 Eos % (Auto) 0.8 L Baso % (Auto) 0.1 Gran # 12.82 H Lymph # (Auto) 1.2 Summers # (Auto) 0.5 Eos # (Auto) 0.1 Baso # (Auto) 0.02 Neutrophils % (Manual) Lymphocytes % (Manual) Monocytes % (Manual) Platelet Evaluation ESR PT INR APTT pO2 VBG pH VBG pCO2 VBG HCO3 VBG Total CO2 VBG O2 Sat (Calc) VBG Base Excess VBG Potassium Glucose Lactate FiO2 Sodium 134 Potassium 3.6 Chloride 97 L Carbon Dioxide 32 Anion Gap 9 L BUN 32 H Creatinine 1.0 Est GFR ( Amer) > 60 Est GFR (Non-Af Amer) 53 POC Glucose (mg/dL) Random Glucose 270 H Calcium 8.9 Magnesium Total Bilirubin 0.7 AST 29 ALT 19 Alkaline Phosphatase 131 H Lactate Dehydrogenase Total Creatine Kinase Troponin I Total Protein 7.6 Albumin 3.4 Globulin 4.1 Albumin/Globulin Ratio 0.8 L Procalcitonin 13.10 H Venous Blood Potassium B-Hydroxybutyrate 06/03/18 06/03/18 11:19 16:18 WBC RBC Hgb Hct MCV MCH MCHC RDW Plt Count MPV Gran % Lymph % (Auto) Summers % (Auto) Eos % (Auto) Baso % (Auto) Gran # Lymph # (Auto) Summers # (Auto) Eos # (Auto) Baso # (Auto) Neutrophils % (Manual) Lymphocytes % (Manual) Monocytes % (Manual) Platelet Evaluation ESR PT INR APTT pO2 VBG pH VBG pCO2 VBG HCO3 VBG Total CO2 VBG O2 Sat (Calc) VBG Base Excess VBG Potassium Glucose Lactate FiO2 Sodium Potassium Chloride Carbon Dioxide Anion Gap BUN Creatinine Est GFR ( Amer) Est GFR (Non-Af Amer) POC Glucose (mg/dL) 200 H 200 H Random Glucose Calcium Magnesium Total Bilirubin AST ALT Alkaline Phosphatase Lactate Dehydrogenase Total Creatine Kinase Troponin I Total Protein Albumin Globulin Albumin/Globulin Ratio Procalcitonin Venous Blood Potassium B-Hydroxybutyrate Attending/Attestation - Attestation I have personally seen and examined this patient.: Yes I have fully participated in the care of the patient.: Yes I have reviewed all pertinent clinical information: Yes
[2018-06-03 02:05] LABS: VENOUS BLOOD GAS BASE EXCESS 7.1 mmol/L (0.0-2.0); VENOUS BLOOD GAS PO2 50 mm/Hg (30-55); VENOUS BLOOD PH 7.39 (7.32-7.43)
[2018-06-03 07:59] LABS: BASO # 0.02 K/mm3 (0.0-2.0); BASO % 0.1 % (0.0-3.0); EOS # 0.1 (0.0-0.7); EOS % 0.8 % (1.5-5.0); GRAN # 12.82 (1.4-6.5); GRAN % 87.6 % (50.0-68.0); HEMOGLOBIN 11.2 g/dL (12.0-16.0); LYMPH # 1.2 (1.2-3.4); LYMPH % 8.3 % (22.0-35.0); MEAN CELL VOLUME 83.8 fl (80.0-105.0); MEAN CORPUSCULAR HEMOGLOBIN 26.7 pg (25.0-35.0); MEAN CORPUSCULAR HGB CONC 31.8 g/dl (31.0-37.0); MEAN PLATELET VOLUME 10.2 fl (7.0-11.0); MONO # 0.5 (0.1-0.6); MONO % 3.2 % (1.0-6.0); RBC 4.2 10^6/uL (3.5-6.1); RED CELL DISTRIBUTION WIDTH 13.4 % (11.5-14.5); WHITE BLOOD COUNT 14.6 10^3/uL (4.5-11.0)
--- NOTE | 2018-06-03 08:02 | RAD ---
Date of service: 06/02/2018 HISTORY: cough COMPARISON: 08/25/2017 FINDINGS: LUNGS: No active pulmonary disease. PLEURA: No significant pleural effusion identified, no pneumothorax apparent. CARDIOVASCULAR: No aortic atherosclerotic calcification present. Moderate cardiomegaly no pulmonary vascular congestion. OSSEOUS STRUCTURES: No significant abnormalities. VISUALIZED UPPER ABDOMEN: Normal. OTHER FINDINGS: None. IMPRESSION: No active disease.
[2018-06-03 08:35] LABS: ALB/GLOB RATIO 0.8 (1.1-1.8); ALBUMIN 3.4 g/dL (3.0-4.8); ALT/SGPT 19 U/L (7-56); AST/SGOT 29 U/L (14-36); BLOOD UREA NITROGEN 32 mg/dL (7-21); CALCIUM 8.9 mg/dL (8.4-10.5); GFR NON-AFRICAN AMERICAN 53
[2018-06-03] MEDS: Vancomycin 1gm in NS 250ml 1 GM/250 ML BAG IVPB SCH (09:53)
[2018-06-03] MEDS: Enoxaparin 40 mg Syringe SC SCH (09:54)
[2018-06-03] MEDS: cefTRIAXone 1 gm 1 GM/100 ML BAG IVPB SCH (09:54)
--- NOTE | 2018-06-03 09:55 | CARD ---
APPROVED REPORT Date of service: 06/02/2018 EKG Measurement Heart [id number] <Conclusion> Normal sinus rhythm Nonspecific ST abnormality Abnormal ECG
[2018-06-03] MEDS: Insulin Lispro 1 UNITS/0.01 ML SC SCH ×3 (09:56→17:18)
[2018-06-03] MEDS ORDERED: INSULIN GLARGINE HUM REC ANLOG 16 UNIT PO SCH (10:00)
[2018-06-03] MEDS ORDERED: Insulin Reg-MEDIUM-Coverage SC SCH (10:00)
--- NOTE | 2018-06-03 11:36 | CP.PCM.CON ---
History of Present Illness - History of Present Illness History of Present Illness: Podiatry Consult Note- Dr. Bender 77 y.o female with PMH of DM, PVD, HTN, Alzheimer, depression, and asthma seen and evaluated at bedside for bilateral lymphedema/cellulitis. Patient is seen sleeping comfortably in bed, in NAD. Patient reports that she was brought to the hospital by her kids yesterday. At this moment, denies of any pain to the LE. Denies of recent F/N/V/C/SOB/CP/headache. No other pedal complains. PMH: DM, HTN, Alzheimer, depression, asthma, incontinence PSH: right knee replacement, left stent placement, MEDS: see medication list ALL: cortisone- rash and hives SH: former smoker- light smoker, socially drinks, no illicit drug use, lives with son FH: mother- DM, father- Alzheimer Review of Systems - Constitutional Constitutional: As Per HPI Past Patient History - Infectious Disease Hx of Infectious Diseases: None - Tetanus Immunizations Tetanus Immunization: Unknown - Past Social History Smoking Status: Former Smoker - CARDIAC Hx Cardiac Disorders: Yes Hx Congestive Heart Failure: Yes Hx Hypertension: Yes - PULMONARY Hx Respiratory Disorders: Yes Hx Chronic Obstructive Pulmonary Disease (COPD): Yes - NEUROLOGICAL Hx Neurological Disorder: Yes Hx Alzheimer's Disease: Yes Hx Dementia: Yes - HEENT Hx HEENT Problems: No - RENAL Hx Chronic Kidney Disease: No - ENDOCRINE/METABOLIC Hx Endocrine Disorders: Yes Hx Diabetes Mellitus Type 2: Yes - HEMATOLOGICAL/ONCOLOGICAL Hx Blood Disorders: No - INTEGUMENTARY Hx Dermatological Problems: No - MUSCULOSKELETAL/RHEUMATOLOGICAL Hx Musculoskeletal Disorders: No - GASTROINTESTINAL Hx Gastrointestinal Disorders: No - GENITOURINARY/GYNECOLOGICAL Hx Genitourinary Disorders: Yes Hx Incontinence: Yes - PSYCHIATRIC Hx Psychophysiologic Disorder: Yes Hx Depression: Yes Hx Emotional Abuse: No Hx Physical Abuse: No Hx Substance Use: No - SURGICAL HISTORY Hx Joint Replacement: Yes (BILATERAL KNEE) Hx Orthopedic Surgery: Yes Other/Comment: [place] filter - ANESTHESIA Hx Anesthesia: Yes Hx Anesthesia Reactions: No Hx Malignant Hyperthermia: No Meds Allergies/Adverse Reactions: Allergies Allergy/AdvReac Type Severity Reaction Status Date / Time cortisone Allergy RASH Verified 08/25/17 05:11 - Medications Medications: Current Medications Albuterol/Ipratropium (Duoneb 3 Mg/0.5 Mg (3 Ml) Ud) 3 ml IH [id number] PRN PRN Reason: Shortness of Breath Amlodipine Besylate (Norvasc) 5 mg PO DAILY [facility] Last Admin: 06/03/18 09:52 Dose: 5 mg Aspirin (Ecotrin) 81 mg PO DAILY [facility] Last Admin: 06/03/18 09:53 Dose: 81 mg Carvedilol (Coreg) 25 mg PO BID [facility] Last Admin: 06/03/18 09:51 Dose: 25 mg Dextrose (Dextrose 50% Inj) 0 ml IV STAT PRN; Protocol PRN Reason: Hypoglycemia Protocol Enoxaparin Sodium (Lovenox) 40 mg SC DAILY [facility]; Protocol Last Admin: 06/03/18 09:54 Dose: 40 mg Dextrose (Dextrose 5% In Water 1000 Ml) 1,000 mls @ 0 mls/hr IV .Q0M PRN; Protocol PRN Reason: Hypoglycemia Protocol Vancomycin HCl (Vancomycin 1gm) 1 gm in 250 mls @ 167 mls/hr IVPB DAILY [facility]; Protocol Last Admin: 06/03/18 09:53 Dose: 167 mls/hr Ceftriaxone Sodium (Rocephin 1 Gram Ivpb) 1 gm in 100 mls @ 100 mls/hr IVPB DAILY [facility]; Protocol Last Admin: 06/03/18 09:54 Dose: 100 mls/hr Insulin Detemir (Levemir) 15 unit SC HS [facility] Insulin Human Lispro (Humalog) 5 units SC AC [facility] Last Admin: 06/03/18 09:56 Dose: 5 units Pantoprazole Sodium (Protonix Inj) 40 mg IVP DAILY [facility] Last Admin: 06/03/18 09:53 Dose: 40 mg Physical Exam - Constitutional Appears: Well, Non-toxic, No Acute Distress - Extremities Exam Additional comments: VASC: DP and PT pulses nonpalpable secondary to edema b/l, CFT WNL to digits x10, +3 pitting edema to foot and leg b/l; Temp gradient is warm to warm from proximal to distal NEURO: Gross sensation and protective sensation diminished DERM: Scaling verrucaformis lesions with fissures noted. Hyperpigmentation discoloration noted to the LE, mild erythema noted distal to the knee joint ORTHO: no tenderness to palpation bilateral lower extremity. ROM of the ankles in DF and PF with no crepitus noted b/l - Neurological Exam Neurological exam: Alert, Oriented x3 - Psychiatric Exam Psychiatric exam: Normal Affect, Normal Mood Results - Vital Signs Recent Vital Signs: Last Vital Signs Temp 97.8 F 06/03/18 06:00 Pulse 67 06/03/18 06:00 Resp 20 06/03/18 06:00 BP 132/64 06/03/18 09:52 Pulse Ox 98 06/03/18 06:00 - Labs Result Diagrams: 06/03/18 06:40 06/03/18 06:40 Labs: Laboratory Results - last 24 hr 06/02/18 06/02/18 06/02/18 21:10 21:36 21:36 WBC 17.1 H RBC 4.82 Hgb 13.1 D Hct 40.3 MCV 83.6 MCH 27.2 MCHC 32.5 RDW 13.3 Plt Count 154 MPV 9.8 Gran % 90.3 H Lymph % (Auto) 6.6 L Stephenson % (Auto) 3.0 Eos % (Auto) 0.0 L Baso % (Auto) 0.1 Gran # 15.41 H Lymph # (Auto) 1.1 L Stephenson # (Auto) 0.5 Eos # (Auto) 0.0 Baso # (Auto) 0.01 Neutrophils % (Manual) 88 H Lymphocytes % (Manual) 7 L Monocytes % (Manual) 5 Platelet Evaluation Normal ESR PT 13.3 H INR 1.15 APTT 34.4 pO2 VBG pH VBG pCO2 VBG HCO3 VBG Total CO2 VBG O2 Sat (Calc) VBG Base Excess VBG Potassium Glucose Lactate FiO2 Sodium Potassium Chloride Carbon Dioxide Anion Gap BUN Creatinine Est GFR ( Amer) Est GFR (Non-Af Amer) POC Glucose (mg/dL) 368 H Random Glucose Calcium Magnesium Total Bilirubin AST ALT Alkaline Phosphatase Lactate Dehydrogenase Total Creatine Kinase Troponin I Total Protein Albumin Globulin Albumin/Globulin Ratio Venous Blood Potassium 06/02/18 06/02/18 06/02/18 21:36 21:36 21:40 WBC RBC Hgb Hct MCV MCH MCHC RDW Plt Count MPV Gran % Lymph % (Auto) Stephenson % (Auto) Eos % (Auto) Baso % (Auto) Gran # Lymph # (Auto) Stephenson # (Auto) Eos # (Auto) Baso # (Auto) Neutrophils % (Manual) Lymphocytes % (Manual) Monocytes % (Manual) Platelet Evaluation ESR 90 H PT INR APTT pO2 44 VBG pH 7.37 VBG pCO2 59.0 VBG HCO3 34.1 H VBG Total CO2 35.9 H VBG O2 Sat (Calc) 83.9 H VBG Base Excess 6.9 H VBG Potassium 3.1 L Glucose 386 H Lactate 2.4 H FiO2 21.0 Sodium 133 134.0 Potassium 3.3 L Chloride 91 L 92.0 L Carbon Dioxide 34 H Anion Gap 11 BUN 28 H Creatinine 1.2 Est GFR ( Amer) 52 Est GFR (Non-Af Amer) 43 POC Glucose (mg/dL) Random Glucose 372 H* D Calcium 9.3 Magnesium 1.9 Total Bilirubin 1.0 AST 38 H ALT 31 Alkaline Phosphatase 159 H D Lactate Dehydrogenase 518 Total Creatine Kinase 57 Troponin I 0.02 D Total Protein 8.7 H Albumin 4.1 Globulin 4.7 Albumin/Globulin Ratio 0.9 L Venous Blood Potassium 3.1 L 06/02/18 06/03/18 06/03/18 23:35 01:50 06:36 WBC RBC Hgb Hct MCV MCH MCHC RDW Plt Count MPV Gran % Lymph % (Auto) Stephenson % (Auto) Eos % (Auto) Baso % (Auto) Gran # Lymph # (Auto) Stephenson # (Auto) Eos # (Auto) Baso # (Auto) Neutrophils % (Manual) Lymphocytes % (Manual) Monocytes % (Manual) Platelet Evaluation ESR PT INR APTT pO2 50 VBG pH 7.39 VBG pCO2 56.0 VBG HCO3 33.9 H VBG Total CO2 35.6 H VBG O2 Sat (Calc) 89.5 H VBG Base Excess 7.1 H VBG Potassium 3.3 L Glucose 281 H Lactate 1.3 FiO2 21.0 Sodium 135.0 Potassium Chloride 96.0 L Carbon Dioxide Anion Gap BUN Creatinine Est GFR ( Amer) Est GFR (Non-Af Amer) POC Glucose (mg/dL) 229 H 260 H Random Glucose Calcium Magnesium Total Bilirubin AST ALT Alkaline Phosphatase Lactate Dehydrogenase Total Creatine Kinase Troponin I Total Protein Albumin Globulin Albumin/Globulin Ratio Venous Blood Potassium 3.3 L 06/03/18 06/03/18 06/03/18 06:40 06:40 11:19 WBC 14.6 H RBC 4.20 Hgb 11.2 L Hct 35.2 L MCV 83.8 MCH 26.7 MCHC 31.8 RDW 13.4 Plt Count 155 MPV 10.2 Gran % 87.6 H Lymph % (Auto) 8.3 L Stephenson % (Auto) 3.2 Eos % (Auto) 0.8 L Baso % (Auto) 0.1 Gran # 12.82 H Lymph # (Auto) 1.2 Stephenson # (Auto) 0.5 Eos # (Auto) 0.1 Baso # (Auto) 0.02 Neutrophils % (Manual) Lymphocytes % (Manual) Monocytes % (Manual) Platelet Evaluation ESR PT INR APTT pO2 VBG pH VBG pCO2 VBG HCO3 VBG Total CO2 VBG O2 Sat (Calc) VBG Base Excess VBG Potassium Glucose Lactate FiO2 Sodium 134 Potassium 3.6 Chloride 97 L Carbon Dioxide 32 Anion Gap 9 L BUN 32 H Creatinine 1.0 Est GFR ( Amer) > 60 Est GFR (Non-Af Amer) 53 POC Glucose (mg/dL) 200 H Random Glucose 270 H Calcium 8.9 Magnesium Total Bilirubin 0.7 AST 29 ALT 19 Alkaline Phosphatase 131 H Lactate Dehydrogenase Total Creatine Kinase Troponin I Total Protein 7.6 Albumin 3.4 Globulin 4.1 Albumin/Globulin Ratio 0.8 L Venous Blood Potassium Assessment & Plan - Assessment and Plan (Free Text) Assessment: 77 year old female with extensive PMHx was evaluated for lymphedema and cellulitis Plan: Patient seen and evaluated Discussed plan in detail with attending Dr. Bender Labs, charts, vitals reviewed (afebrile, WBC=14.6) No dressings to the LE at this time Will apply lotion to bilateral LE Continue IV abx as per ID Thank you for the podiatry consult and allowing to take part in patient care Will continue to monitor patient while in-house - Date & Time Date: 06/03/18 Time: 11:39
--- NOTE | 2018-06-03 16:38 | CP.PCM.PN ---
<Clari Munson - Last Filed: 06/03/18 16:34> Subjective - Date & Time of Evaluation Date of Evaluation: 06/03/18 Time of Evaluation: 16:35 - Subjective Subjective: Clari Munson, PGY-1, Internal Medicine Progress Note for Dr. Hendrix Patient seen and examined at bedside. Patient had no acute overnight events. Patient reports bilateral lower extremity edema and minor pain. Patient denies headache, fever, chest pain, heart palpitations, shortness of breath, nausea, vomiting, constipation, diarrhea, dysuria, hematuria, numbness/tingling. 12- point ROS was negative except for what was mentioned above. Objective - Vital Signs/Intake and Output Vital Signs (last 24 hours): Temp Pulse Resp BP Pulse Ox 98.8 F 68 18 110/55 L 95 06/03/18 16:04 06/03/18 16:04 06/03/18 16:04 06/03/18 16:04 06/03/18 16:04 - Medications Medications: Current Medications Albuterol/Ipratropium (Duoneb 3 Mg/0.5 Mg (3 Ml) Ud) 3 ml IH [id number] PRN PRN Reason: Shortness of Breath Amlodipine Besylate (Norvasc) 5 mg PO DAILY [facility] Last Admin: 06/03/18 09:52 Dose: 5 mg Aspirin (Ecotrin) 81 mg PO DAILY [facility] Last Admin: 06/03/18 09:53 Dose: 81 mg Carvedilol (Coreg) 25 mg PO BID [facility] Last Admin: 06/03/18 09:51 Dose: 25 mg Dextrose (Dextrose 50% Inj) 0 ml IV STAT PRN; Protocol PRN Reason: Hypoglycemia Protocol Enoxaparin Sodium (Lovenox) 40 mg SC DAILY [facility]; Protocol Last Admin: 06/03/18 09:54 Dose: 40 mg Dextrose (Dextrose 5% In Water 1000 Ml) 1,000 mls @ 0 mls/hr IV .Q0M PRN; Protocol PRN Reason: Hypoglycemia Protocol Vancomycin HCl (Vancomycin 1gm) 1 gm in 250 mls @ 167 mls/hr IVPB DAILY [facility]; Pr otocol Last Admin: 06/03/18 09:53 Dose: 167 mls/hr Ceftriaxone Sodium (Rocephin 1 Gram Ivpb) 1 gm in 100 mls @ 100 mls/hr IVPB [facility]ILY [facility]; Protocol Last Admin: 06/03/18 09:54 Dose: 100 mls/hr Insulin Detemir (Levemir) 15 unit SC HS [facility] Insulin Human Lispro (Humalog) 5 units SC AC [facility] Last Admin: 06/03/18 11:29 Dose: 5 units Pantoprazole Sodium (Protonix Inj) 40 mg IVP DAILY [facility] Last Admin: 06/03/18 09:53 Dose: 40 mg - Labs Labs: 06/03/18 06:40 06/03/18 06:40 PT 13.3 SECONDS (9.4-12.5) H 06/02/18 21:36 INR 1.15 06/02/18 21:36 APTT 34.4 Seconds (25.1-36.5) 06/02/18 21:36 - Constitutional Appears: Well, Non-toxic, No Acute Distress - Head Exam Head Exam: ATRAUMATIC, NORMAL INSPECTION, NORMOCEPHALIC - Eye Exam Eye Exam: EOMI Pupil Exam: PERRL - Respiratory Exam Respiratory Exam: Clear to Ausculation Bilateral, NORMAL BREATHING PATTERN - Cardiovascular Exam Cardiovascular Exam: REGULAR RHYTHM - GI/Abdominal Exam GI & Abdominal Exam: Soft, Normal Bowel Sounds. absent: Tenderness - Extremities Exam Extremities Exam: Full ROM Additional comments: coarse, hard, discolored bilateral lower extremities - Neurological Exam Neurological Exam: Alert, Awake, CN II-XII Intact, Oriented x3 - Skin Additional comments: coarse, hard, discolored bilateral lower extremities Assessment and Plan - Assessment and Plan (Free Text) Assessment: 77 year old female with past medical history of uncontrolled DM, severe dementia, COPD, asthma, DVT, HTN, and chronic lower extremity lymphedema presents to the ER for uncontrolled sugars with blood glucose>500. Sugars are normally in the 150s. Patient has also had foul smelling urine over the past few days and a few episodes of fecal and urinary incontinence. Plan: Hyperglycemia 2/2 to diet noncompliance vs. medical noncompliance -Glucose on admission: 372. Last POC glucose was 200 -HgbA1c ordered. Follow up value -Hypoglycemia treatment protocol -Finger stick Q4 -Heart healthy diet with consistent carbohydrate diet -Patient started on levemir 15 U and humalog 5 U AC, which has helped control hyperglycemia. -UA ordered to evaluate for ketones in urine, HCO3 is 32, Beta hydroxybutyrate: 0.04. Unlikely DKA Bilateral lower extremity lymphedema/cellulitis -As per podiatry, will apply lotion to bilateral lower extremity -Leukocytosis at 14.6 but patient does not fulfill SIRS criteria. -Elevated lactate which resolved -Procalcitonin: 13.10. Continue to trend. -Continue with home lasix. -Vancomycin and ceftriaxone started for possible cellulitis -Follow up ID, Dr. Solis, recommendations regarding cellulitis vs. lymphedema Hypertension -Blood pressure: 105/54 -Norvasc 5 mg daily, coreg 25 mg BID -Continue to monitor. COPD and asthma -VBG pH: 7.39, PO2: 50, PCO2: 56 -Duonebs PRN -Supplemental O2 as needed. Alzheimer's dementia -Continue with home namenda. Constipation -Continue with docusate. Urinary Incontinence -Continue to monitor for incontinence episodes. Elevated ALP -Increased ALP, but unremarkable AST, ALT, bilirubin. -Continue to monitor DVT prophylaxis: lovenox 40 mg daily GI prophylaxis: protonix 40 mg daily Patient plan discussed with Dr. Hendrix. <Lopez Hendrix - Last Filed: 06/04/18 07:00> Objective - Vital Signs/Intake and Output Vital Signs (last 24 hours): Temp Pulse Resp BP Pulse Ox 99 F 73 18 132/61 95 06/03/18 22:21 06/03/18 22:21 06/03/18 22:21 06/03/18 22:21 06/03/18 22:21 Intake and Output: 06/03/18 06/04/18 18:59 06:59 Intake Total 180 Balance 180 - Medications Medications: Current Medications Albuterol/Ipratropium (Duoneb 3 Mg/0.5 Mg (3 Ml) Ud) 3 ml IH [id number] PRN PRN Reason: Shortness of Breath Amlodipine Besylate (Norvasc) 5 mg PO DAILY [facility] Last Admin: 06/03/18 09:52 Dose: 5 mg Aspirin (Ecotrin) 81 mg PO DAILY [facility] Last Admin: 06/03/18 09:53 Dose: 81 mg Carvedilol (Coreg) 25 mg PO BID [facility] Last Admin: 06/03/18 17:20 Dose: Not Given Dextrose (Dextrose 50% Inj) 0 ml IV STAT PRN; Protocol PRN Reason: Hypoglycemia Protocol Docusate Sodium (Colace) 100 mg PO BID [facility] Enoxaparin Sodium (Lovenox) 40 mg SC DAILY [facility]; Protocol Last Admin: 06/03/18 09:54 Dose: 40 mg Furosemide (Lasix) 40 mg PO DAILY [facility] Dextrose (Dextrose 5% In Water 1000 Ml) 1,000 mls @ 0 mls/hr IV .Q0M PRN; Protocol PRN Reason: Hypoglycemia Protocol Vancomycin HCl (Vancomycin 1gm) 1 gm in 250 mls @ 167 mls/hr IVPB DAILY [facility]; Protocol Last Admin: 06/03/18 09:53 Dose: 167 mls/hr Ceftriaxone Sodium (Rocephin 1 Gram Ivpb) 1 gm in 100 mls @ 100 mls/hr IVPB DAILY [facility]; Protocol Last Admin: 06/03/18 09:54 Dose: 100 mls/hr Insulin Detemir (Levemir) 15 unit SC HS [facility] Last Admin: 06/03/18 21:33 Dose: 15 u Insulin Human Lispro (Humalog) 5 units SC AC [facility] Last Admin: 06/03/18 17:18 Dose: 5 units Home Med - Memantine Hcl [Namenda Xr] 28 Mg 28 mg PO DAILY [facility] Pantoprazole Sodium (Protonix Inj) 40 mg IVP DAILY [facility] Last Admin: 06/03/18 09:53 Dose: 40 mg - Labs Labs: 06/03/18 06:40 06/03/18 06:40 PT 13.3 SECONDS (9.4-12.5) H 06/02/18 21:36 INR 1.15 06/02/18 21:36 APTT 34.4 Seconds (25.1-36.5) 06/02/18 21:36 Attending/Attestation - Attestation I have personally seen and examined this patient.: Yes I have fully participated in the care of the patient.: Yes I have reviewed all pertinent clinical information, including history, physical exam and plan: Yes Notes (Text): 06/03/18 77 year old female with past medical history of diabetes, dementia, COPD, hypertension and chronic LE lymphedema presented with uncontrolled diabetes, leukocytosis and chronic lower extremity edema with possible cellulitis. Continue with iv antibiotics while awaiting cultures. ID and podiatry evaluation were requested. Ua/UCx is pending. Procalcitonin is elevated. Continue with insulin ss and levemir for diabetes. Lopez Hendrix MD Hospitalist.
[2018-06-03] MEDS: Insulin Detemir 100 units/ml Vial (Levemir) SC SCH (21:33)
--- NOTE | 2018-06-04 06:09 | CON ---
DATE: 06/03/2018 The patient was seen earlier today in room 563, bed 2. CHIEF COMPLAINT: Lower extremity erythema times several days. HISTORY OF PRESENT ILLNESS: This is a 77-year-old female with past medical history of E. coli bacteremia secondary to E. coli urinary tract infection and pyelonephritis, known to me from previous history, also history of dementia, hypertension, diabetes mellitus, asthma, chronic lower extremity lymphedema, and morbid obesity with a BMI of 40, who has been treated in the past. Now, was admitted with weakness and right leg erythema. Infectious Disease consultation requested. The patient is a poor historian. There has been low-grade fevers reported. REVIEW OF SYSTEMS: Reveals mild shortness of breath, no chest pain, no abdominal pain or diarrhea. No history of blurred vision. Reveals all 14-point review of systems performed. PAST MEDICAL HISTORY: Significant for diabetes, hypertension, dementia, asthma, chronic lower extremity edema, E. coli bacteremia secondary to E. coli pyelonephritis and morbid obesity, coronary artery disease, , and chronic obstructive lung disease. PAST SURGICAL HISTORY: Significant for cardiac catheterization, stent placement, and bilateral knee surgery. ALLERGIC: THE PATIENT IS ALLERGIC TO CORTISONE. MEDICATIONS: At home include insulin, Coreg, aspirin, Lasix, Protonix, and Namenda. PHYSICAL EXAMINATION: VITAL SIGNS: The patient is in bed with a temperature of 98, heart rate of 60, respiratory rate of 18, blood pressure of 110/50. HEENT: Unremarkable. NECK: Supple. LUNGS: Decreased breath sounds. HEART: Normal S1, S2. ABDOMEN: Soft, nontender. EXTREMITIES: Examination of the lower extremities reveals the right leg to be erythematous. Both legs with chronic changes of edema; however, the right leg does have cellulitis and no discharge. LABORATORY DATA: Reveals white count of 17,000. Sed rate of 90. Coagulation is noted. Chemistry reveals BUN of 32, creatinine of 1.0. Procalcitonin is 13. is noted. Microbiology is the blood cultures are negative. DIAGNOSTIC DATA: The patient had a chest x-ray, which reveals no active disease. ASSESSMENT AND PLAN: This is a 77-year-old diabetic, hypertensive with morbid obesity,Alzheimer's dementia, coronary artery disease, chronic obstructive lung disease, chronic lower extremity edema, history of Escherichia coli bacteremia and Escherichia coli pyelonephritis and morbid obesity with body mass index of 40, and now has right leg cellulitis, currently on vancomycin and ceftriaxone, must rule out underlying peripheral arterial disease, must rule out underlying osteomyelitis and should have imaging and also the MRI. We will check on culture results and we will make further recommendations. We will check on the sedimentation rate and C-reactive protein. Imaging to rule out osteomyelitis, on vancomycin and ceftriaxone. We will follow with you. Ruben Khalil MD
[2018-06-04 06:58] LABS: ALB/GLOB RATIO 0.8 (1.1-1.8); ALBUMIN 3.2 g/dL (3.0-4.8); ALT/SGPT 23 U/L (7-56); AST/SGOT 21 U/L (14-36); BLOOD UREA NITROGEN 26 mg/dL (7-21); CALCIUM 8.6 mg/dL (8.4-10.5); GFR NON-AFRICAN AMERICAN 53
[2018-06-04 07:09] LABS: BASO # 0.01 K/mm3 (0.0-2.0); BASO % 0.1 % (0.0-3.0); EOS # 0.6 (0.0-0.7); EOS % 6.4 % (1.5-5.0); GRAN # 7.03 (1.4-6.5); GRAN % 73.3 % (50.0-68.0); HEMOGLOBIN 10.8 g/dL (12.0-16.0); LYMPH # 1.4 (1.2-3.4); LYMPH % 14.2 % (22.0-35.0); MEAN CELL VOLUME 84.4 fl (80.0-105.0); MEAN CORPUSCULAR HEMOGLOBIN 26.8 pg (25.0-35.0); MEAN CORPUSCULAR HGB CONC 31.8 g/dl (31.0-37.0); MEAN PLATELET VOLUME 10.5 fl (7.0-11.0); MONO # 0.6 (0.1-0.6); RBC 4.03 10^6/uL (3.5-6.1); RED CELL DISTRIBUTION WIDTH 13.7 % (11.5-14.5); WHITE BLOOD COUNT 9.6 10^3/uL (4.5-11.0)
[2018-06-04] MEDS: Insulin Lispro 1 UNITS/0.01 ML SC SCH ×3 (08:00→16:52)
[2018-06-04] MEDS: cefTRIAXone 1 gm 1 GM/100 ML BAG IVPB SCH (10:46)
[2018-06-04] MEDS: Enoxaparin 40 mg Syringe SC SCH (10:46)
[2018-06-04] MEDS: Vancomycin 1gm in NS 250ml 1 GM/250 ML BAG IVPB SCH (10:47)
--- NOTE | 2018-06-04 10:54 | CP.PCM.PN ---
Subjective - Date & Time of Evaluation Date of Evaluation: 06/04/18 Time of Evaluation: 10:52 - Subjective Subjective: Podiatry Progress Note- Dr. Bender 77 y.o female was evaluated at bedside for bilateral lymphedema/cellulitis. Patient is AAOx3 and appears in NAD. Denies of any acute overnight events. Denies of any pain to the LE. Denies of having recent F/N/V/C/SOB/CP/headache. No other pedal complains at this time. Objective - Vital Signs/Intake and Output Vital Signs (last 24 hours): Temp Pulse Resp BP Pulse Ox 98.4 F 76 18 143/67 94 L 06/04/18 06:00 06/04/18 06:00 06/04/18 06:00 06/04/18 10:45 06/04/18 06:00 Intake and Output: 06/04/18 06/04/18 06:59 18:59 Intake Total 180 Balance 180 - Medications Medications: Current Medications Albuterol/Ipratropium (Duoneb 3 Mg/0.5 Mg (3 Ml) Ud) 3 ml IH [id number] PRN PRN Reason: Shortness of Breath Amlodipine Besylate (Norvasc) 5 mg PO DAILY [facility] Last Admin: 06/04/18 10:45 Dose: 5 mg Aspirin (Ecotrin) 81 mg PO DAILY [facility] Last Admin: 06/04/18 10:45 Dose: 81 mg Carvedilol (Coreg) 25 mg PO BID [facility] Last Admin: 06/04/18 10:45 Dose: 25 mg Dextrose (Dextrose 50% Inj) 0 ml IV STAT PRN; Protocol PRN Reason: Hypoglycemia Protocol Docusate Sodium (Colace) 100 mg PO BID [facility] Last Admin: 06/04/18 10:45 Dose: 100 mg Enoxaparin Sodium (Lovenox) 40 mg SC DAILY [facility]; Protocol Last Admin: 06/04/18 10:46 Dose: 40 mg Furosemide (Lasix) 40 mg PO DAILY [facility] Last Admin: 06/04/18 10:45 Dose: 40 mg Dextrose (Dextrose 5% In Water 1000 Ml) 1,000 mls @ 0 mls/hr IV .Q0M PRN; Protocol PRN Reason: Hypoglycemia Protocol Vancomycin HCl (Vancomycin 1gm) 1 gm in 250 mls @ 167 mls/hr IVPB DAILY [facility]; Protocol Last Admin: 06/04/18 10:47 Dose: 167 mls/hr Ceftriaxone Sodium (Rocephin 1 Gram Ivpb) 1 gm in 100 mls @ 100 mls/hr IVPB DAILY [facility]; Protocol Last Admin: 06/04/18 10:46 Dose: 100 mls/hr Insulin Detemir (Levemir) 15 unit SC HS [facility] Last Admin: 06/03/18 21:33 Dose: 15 u Insulin Human Lispro (Humalog) 5 units SC AC [facility] Last Admin: 06/04/18 08:00 Dose: 5 units Home Med - Memantine Hcl [Namenda Xr] 28 Mg 28 mg PO DAILY [facility] Pantoprazole Sodium (Protonix Inj) 40 mg IVP DAILY [facility] Last Admin: 06/04/18 10:44 Dose: 40 mg - Labs Labs: 06/04/18 06:00 06/04/18 06:00 PT 13.3 SECONDS (9.4-12.5) H 06/02/18 21:36 INR 1.15 06/02/18 21:36 APTT 34.4 Seconds (25.1-36.5) 06/02/18 21:36 - Constitutional Appears: Well, Non-toxic, No Acute Distress - Extremities Exam Additional comments: VASC: DP and PT pulses nonpalpable secondary to edema b/l, CFT WNL to digits x10, +3 pitting edema to foot and leg b/l; Temp gradient is warm to warm from proximal to distal NEURO: Gross sensation and protective sensation diminished DERM: Scaling verrucaformis lesions with fissures noted. Hyperpigmentation discoloration noted to the LE, mild erythema noted distal to the knee joint ORTHO: no tenderness to palpation bilateral lower extremity. ROM of the ankles in DF and PF with no crepitus noted b/l - Neurological Exam Neurological Exam: Alert, Awake, Oriented x3 - Psychiatric Exam Psychiatric exam: Normal Affect, Normal Mood Assessment and Plan - Assessment and Plan (Free Text) Assessment: 77 year old female evaluated for lymphedema and cellulitis Plan: Patient seen and evaluated Discussed plan in detail with attending Dr. Bender Labs, charts, vitals reviewed (afebrile, absent leukocytosis) No dressings to the LE at this time Apply lotion to bilateral LE Continue IV abx as per ID Will continue to monitor patient while in-house
--- NOTE | 2018-06-04 12:57 | US ---
HISTORY: Leg pain and swelling. Evaluate for DVT PHYSICIAN(S): Ranjan Archer MD. TECHNIQUE: Duplex sonography and color-flow Doppler with graded compression were used to evaluate the deep venous systems of both lower extremities. The exam is very limited by body habitus and edema. The lower femoral veins and tibial veins are not adequately seen. FINDINGS: The visualized deep venous systems of both lower extremities are sonographically normal and compressible. Normal wave forms and augmentation are seen. There is no sonographic evidence for deep venous thrombosis in the visualized segments of both lower extremities. IMPRESSION: No sonographic evidence for deep venous thrombosis in the visualized segments of both lower extremities. Very limited study.
--- NOTE | 2018-06-04 15:36 | CP.PCM.PN ---
<Clari Munson - Last Filed: 06/04/18 15:32> Subjective - Date & Time of Evaluation Date of Evaluation: 06/04/18 Time of Evaluation: 15:33 - Subjective Subjective: Clari Munson, PGY-1, Internal Medicine Progress Note for Dr. Hendrix Patient seen and examined at bedside. Patient had no acute overnight events. Patient reports bilateral lower extremity edema and minor pain. Patient denies headache, fever, chest pain, heart palpitations, shortness of breath, nausea, vomiting, constipation, diarrhea, dysuria, hematuria, numbness/tingling. 12- point ROS was negative except for what was mentioned above. Objective - Vital Signs/Intake and Output Vital Signs (last 24 hours): Temp Pulse Resp BP Pulse Ox 98.4 F 76 18 143/67 94 L 06/04/18 06:00 06/04/18 06:00 06/04/18 06:00 06/04/18 10:45 06/04/18 06:00 Intake and Output: 06/04/18 06/04/18 06:59 18:59 Intake Total 180 Balance 180 - Medications Medications: Current Medications Albuterol/Ipratropium (Duoneb 3 Mg/0.5 Mg (3 Ml) Ud) 3 ml IH [id number] PRN PRN Reason: Shortness of Breath Amlodipine Besylate (Norvasc) 5 mg PO DAILY [facility] Last Admin: 06/04/18 10:45 Dose: 5 mg Aspirin (Ecotrin) 81 mg PO DAILY [facility] Last Admin: 06/04/18 10:45 Dose: 81 mg Carvedilol (Coreg) 25 mg PO BID [facility] Last Admin: 06/04/18 10:45 Dose: 25 mg Dextrose (Dextrose 50% Inj) 0 ml IV STAT PRN; Protocol PRN Reason: Hypoglycemia Protocol Docusate Sodium (Colace) 100 mg PO BID [facility] Last Admin: 06/04/18 10:45 Dose: 100 mg Enoxaparin Sodium (Lovenox) 40 mg SC DAILY [facility]; Protocol Last Admin: 06/04/18 10:46 Dose: 40 mg Furosemide (Lasix) 40 mg PO DAILY [facility] Last Admin: 06/04/18 10:45 Dose: 40 mg Dextrose (Dextrose 5% In Water 1000 Ml) 1,000 mls @ 0 mls/hr IV .Q0M PRN; Protocol PRN Reason: Hypoglycemia Protocol Vancomycin HCl (Vancomycin 1gm) 1 gm in 250 mls @ 167 mls/hr IVPB DAILY [facility]; Protocol Last Admin: 06/04/18 10:47 Dose: 167 mls/hr Ceftriaxone Sodium (Rocephin 1 Gram Ivpb) 1 gm in 100 mls @ 100 mls/hr IVPB DAILY [facility]; Protocol Last Admin: 06/04/18 10:46 Dose: 100 mls/hr Insulin Detemir (Levemir) 15 unit SC HS [facility] Last Admin: 06/03/18 21:33 Dose: 15 u Insulin Human Lispro (Humalog) 5 units SC AC [facility] Last Admin: 06/04/18 08:00 Dose: 5 units Home Med - Memantine Hcl [Namenda Xr] 28 Mg 28 mg PO DAILY [facility] Pantoprazole Sodium (Protonix Inj) 40 mg IVP DAILY [facility] Last Admin: 06/04/18 10:44 Dose: 40 mg - Labs Labs: 06/04/18 06:00 06/04/18 06:00 PT 13.3 SECONDS (9.4-12.5) H 06/02/18 21:36 INR 1.15 06/02/18 21:36 APTT 34.4 Seconds (25.1-36.5) 06/02/18 21:36 - Constitutional Appears: Well, Non-toxic, No Acute Distress - Head Exam Head Exam: ATRAUMATIC, NORMAL INSPECTION, NORMOCEPHALIC - Eye Exam Eye Exam: EOMI, PERRL - Respiratory Exam Respiratory Exam: Clear to Ausculation Bilateral, NORMAL BREATHING PATTERN - Cardiovascular Exam Cardiovascular Exam: REGULAR RHYTHM - GI/Abdominal Exam GI & Abdominal Exam: Soft, Normal Bowel Sounds - Extremities Exam Extremities Exam: Full ROM Additional comments: coarse, hard, discolored bilateral lower extremities - Neurological Exam Neurological Exam: Alert, Awake, CN II-XII Intact, Oriented x3 Neuro motor strength exam: Left Upper Extremity: 5, Right Upper Extremity: 5, Left Lower Extremity: 5, Right Lower Extremity: 5 - Skin Additional comments: coarse, hard, discolored bilateral lower extremities Assessment and Plan - Assessment and Plan (Free Text) Assessment: 77 year old female with past medical history of uncontrolled DM, severe dementia, COPD, asthma, DVT, HTN, and chronic lower extremity lymphedema pr esents to the ER for uncontrolled sugars with blood glucose>500. Sugars are normally in the 150s. Patient has also had foul smelling urine over the past few days and a few episodes of fecal and urinary incontinence. Plan: Hyperglycemia 2/2 to diet noncompliance vs. medical noncompliance -Glucose on admission: 372. Last POC glucose was 78 -HgbA1c: 10.4 -Hypoglycemia treatment protocol -Finger stick Q4 -Heart healthy diet with consistent carbohydrate diet -Patient started on levemir 15 U and humalog 5 U AC, which has helped control hyperglycemia. -UA ordered to evaluate for ketones in urine, HCO3 is 35, Beta hydroxybutyrate: 0.04. Unlikely DKA Bilateral lower extremity lymphedema/cellulitis -As per podiatry, will apply lotion to bilateral lower extremity -Leukocytosis at 9.6 and patient does not fulfill SIRS criteria. -Elevated lactate which resolved -Procalcitonin: 13.10. Continue to trend. -CRP elevated at >15. ESR: 103. -Continue with home lasix. -Vancomycin and ceftriaxone day 2 continued for possible cellulitis -As per ID, cannot rule out osteomyelitis, so MRI of bilateral lower extremities ordered to rule out osteomyelities. -Follow up ID, Dr. Solis, recommendations regarding cellulitis vs. lymphedema Hypertension -Blood pressure: 143/67 -Norvasc 5 mg daily, coreg 25 mg BID -Continue to monitor. COPD and asthma -VBG pH: 7.39, PO2: 50, PCO2: 56 -Duonebs PRN -Supplemental O2 as needed. Alzheimer's dementia -Continue with home namenda. Constipation -Continue with docusate. Urinary Incontinence -Continue to monitor for incontinence episodes. Elevated ALP-resolved -Increased ALP resolved -Continue to monitor DVT prophylaxis: lovenox 40 mg daily GI prophylaxis: protonix 40 mg daily Patient plan discussed with Dr. Hendrix. <Lopez Hendrix - Last Filed: 06/04/18 15:59> Objective - Vital Signs/Intake and Output Vital Signs (last 24 hours): Temp Pulse Resp BP Pulse Ox 98.4 F 76 18 143/67 94 L 06/04/18 06:00 06/04/18 06:00 06/04/18 06:00 06/04/18 10:45 06/04/18 06:00 Intake and Output: 06/04/18 06/04/18 06:59 18:59 Intake Total 180 Balance 180 - Medications Medications: Current Medications Albuterol/Ipratropium (Duoneb 3 Mg/0.5 Mg (3 Ml) Ud) 3 ml IH [id number] PRN PRN Reason: Shortness of Breath Amlodipine Besylate (Norvasc) 5 mg PO DAILY [facility] Last Admin: 06/04/18 10:45 Dose: 5 mg Aspirin (Ecotrin) 81 mg PO DAILY [facility] Last Admin: 06/04/18 10:45 Dose: 81 mg Carvedilol (Coreg) 25 mg PO BID [facility] Last Admin: 06/04/18 10:45 Dose: 25 mg Dextrose (Dextrose 50% Inj) 0 ml IV STAT PRN; Protocol PRN Reason: Hypoglycemia Protocol Docusate Sodium (Colace) 100 mg PO BID [facility] Last Admin: 06/04/18 10:45 Dose: 100 mg Enoxaparin Sodium (Lovenox) 40 mg SC DAILY [facility]; Protocol Last Admin: 06/04/18 10:46 Dose: 40 mg Furosemide (Lasix) 40 mg PO DAILY [facility] Last Admin: 06/04/18 10:45 Dose: 40 mg Dextrose (Dextrose 5% In Water 1000 Ml) 1,000 mls @ 0 mls/hr IV .Q0M PRN; Protocol PRN Reason: Hypoglycemia Protocol Vancomycin HCl (Vancomycin 1gm) 1 gm in 250 mls @ 167 mls/hr IVPB DAILY [facility]; Protocol Last Admin: 06/04/18 10:47 Dose: 167 mls/hr Ceftriaxone Sodium (Rocephin 1 Gram Ivpb) 1 gm in 100 mls @ 100 mls/hr IVPB DAILY [facility]; Protocol Last Admin: 06/04/18 10:46 Dose: 100 mls/hr Insulin Detemir (Levemir) 15 unit SC HS [facility] Last Admin: 06/03/18 21:33 Dose: 15 u Insulin Human Lispro (Humalog) 5 units SC AC [facility] Last Admin: 06/04/18 08:00 Dose: 5 units Home Med - Memantine Hcl [Namenda Xr] 28 Mg 28 mg PO DAILY [facility] Pantoprazole Sodium (Protonix Inj) 40 mg IVP DAILY [facility] Last Admin: 06/04/18 10:44 Dose: 40 mg - Labs Labs: 06/04/18 06:00 06/04/18 06:00 PT 13.3 SECONDS (9.4-12.5) H 06/02/18 21:36 INR 1.15 06/02/18 21:36 APTT 34.4 Seconds (25.1-36.5) 06/02/18 21:36 Attending/Attestation - Attestation I have personally seen and examined this patient.: Yes I have fully participated in the care of the patient.: Yes I have reviewed all pertinent clinical information, including history, physical exam and plan: Yes Notes (Text): 06/04/18 15:58 77 year old female with past medical history of diabetes, dementia, COPD, hypertension and chronic LE lymphedema presented with uncontrolled diabetes, leukocytosis and chronic lower extremity edema with possible cellulitis. Continue with iv antibiotics as per ID and wound care as per podiatry evaluation. LE dopplers were limited but negative. MRI ordered to rule out osteomyelitis. Ua/UCx is pending. Procalcitonin is elevated. Continue with insulin ss and levemir for diabetes. Lopez Hendrix MD Hospitalist.
[2018-06-04] MEDS: MEMANTINE HCL 28 MG PO SCH (16:48)
--- NOTE | 2018-06-04 19:18 | PN ---
DATE: 06/04/2018 SUBJECTIVE: The patient is in bed in no acute distress, nontoxic. No fevers. PHYSICAL EXAMINATION: VITAL SIGNS: Temperature is 98, blood pressure 140/70, respiratory rate of 18. HEENT: Examination of HEENT is unremarkable. NECK: Supple. LUNGS: Have decreased breath sounds. HEART: Normal S1, S2. ABDOMEN: Soft, nontender. LABORATORY DATA: Laboratory examination reveals the white count is down to 9.6, hemoglobin of 10. BUN of 26, creatinine of 1. Urinalysis, Microbiology is reviewed. Blood cultures are negative. ASSESSMENT/PLAN: A 77-year-old female with history of diabetes mellitus, hypertension, morbid obesity, Alzheimer's dementia, coronary artery disease, chronic obstructive lung disease, chronic lower extremity edema, history of Escherichia coli bacteremia, history of Escherichia coli pyelonephritis, morbid obesity, body mass index of 40. He has got right leg cellulitis and must rule out underlying osteomyelitis. Should have an MRI. Currently on vancomycin and ceftriaxone. MRI is pending to rule out underlying osteomyelitis. The patient does have sedimentation rate of 90. We will follow closely with you. Ruben Khalil MD
[2018-06-04] MEDS: Insulin Detemir 100 units/ml Vial (Levemir) SC SCH (22:09)
[2018-06-05] MEDS: Pantoprazole 40 mg EC Tab PO SCH (05:46)
[2018-06-05 07:09] LABS: BASO # 0.01 K/mm3 (0.0-2.0); BASO % 0.1 % (0.0-3.0); EOS # 0.6 (0.0-0.7); GRAN # 4.49 (1.4-6.5); GRAN % 64.5 % (50.0-68.0); HEMOGLOBIN 11.3 g/dL (12.0-16.0); LYMPH # 1.2 (1.2-3.4); LYMPH % 17.1 % (22.0-35.0); MEAN CORPUSCULAR HEMOGLOBIN 26.4 pg (25.0-35.0); MEAN PLATELET VOLUME 9.9 fl (7.0-11.0); MONO # 0.7 (0.1-0.6); MONO % 9.3 % (1.0-6.0); RBC 4.28 10^6/uL (3.5-6.1); RED CELL DISTRIBUTION WIDTH 13.6 % (11.5-14.5)
[2018-06-05 07:30] LABS: ALB/GLOB RATIO 0.8 (1.1-1.8); ALBUMIN 3.4 g/dL (3.0-4.8); ALT/SGPT 25 U/L (7-56); AST/SGOT 22 U/L (14-36); BLOOD UREA NITROGEN 17 mg/dL (7-21); CALCIUM 8.7 mg/dL (8.4-10.5); GFR NON-AFRICAN AMERICAN > 60
[2018-06-05] MEDS: Insulin Lispro 1 UNITS/0.01 ML SC SCH ×3 (08:00→17:28)
[2018-06-05] MEDS ORDERED: Potassium Chloride 20 mEq ER Tab PO ONE (09:57)
[2018-06-05] MEDS: Vancomycin 1gm in NS 250ml 1 GM/250 ML BAG IVPB SCH (10:13)
[2018-06-05] MEDS: Enoxaparin 40 mg Syringe SC SCH (10:13)
[2018-06-05] MEDS: cefTRIAXone 1 gm 1 GM/100 ML BAG IVPB SCH (10:16)
--- NOTE | 2018-06-05 13:46 | CP.PCM.PN ---
Subjective - Date & Time of Evaluation Date of Evaluation: 06/05/18 Time of Evaluation: 13:38 - Subjective Subjective: Podiatry Progress Note- Dr. Bender 77 y/o female patient seen and evaluated at bedside for bilateral chronic lymphedema and cellulitis. Patient is AAOx3 and appears in NAD. Denies of any acute overnight events. Denies of any pain to the LE. Denies of having overnight F/N/V/C/SOB. No other pedal complains at this time. Objective - Vital Signs/Intake and Output Vital Signs (last 24 hours): Temp Pulse Resp BP Pulse Ox 98.4 F 66 18 153/68 H 94 L 06/05/18 06:00 06/05/18 06:00 06/05/18 06:00 06/05/18 10:15 06/05/18 06:00 Intake and Output: 06/05/18 06/05/18 06:59 18:59 Intake Total 470 Balance 470 - Medications Medications: Current Medications Albuterol/Ipratropium (Duoneb 3 Mg/0.5 Mg (3 Ml) Ud) 3 ml IH [id number] PRN PRN Reason: Shortness of Breath Amlodipine Besylate (Norvasc) 5 mg PO DAILY [facility] Last Admin: 06/05/18 10:15 Dose: 5 mg Aspirin (Ecotrin) 81 mg PO DAILY [facility] Last Admin: 06/05/18 10:14 Dose: 81 mg Carvedilol (Coreg) 25 mg PO BID [facility] Last Admin: 06/05/18 10:15 Dose: 25 mg Dextrose (Dextrose 50% Inj) 0 ml IV STAT PRN; Protocol PRN Reason: Hypoglycemia Protocol Docusate Sodium (Colace) 100 mg PO BID [facility] Last Admin: 06/05/18 10:15 Dose: 100 mg Enoxaparin Sodium (Lovenox) 40 mg SC DAILY [facility]; Protocol Last Admin: 06/05/18 10:13 Dose: 40 mg Furosemide (Lasix) 40 mg PO DAILY [facility] Last Admin: 06/05/18 10:15 Dose: 40 mg Dextrose (Dextrose 5% In Water 1000 Ml) 1,000 mls @ 0 mls/hr IV .Q0M PRN; P rotocol PRN Reason: Hypoglycemia Protocol Vancomycin HCl (Vancomycin 1gm) 1 gm in 250 mls @ 167 mls/hr IVPB DAILY [facility]; Protocol Last Admin: 06/05/18 10:13 Dose: 167 mls/hr Ceftriaxone Sodium (Rocephin 1 Gram Ivpb) 1 gm in 100 mls @ 100 mls/hr IVPB DAILY [facility]; Protocol Last Admin: 06/05/18 10:16 Dose: 100 mls/hr Insulin Detemir (Levemir) 15 unit SC HS [facility] Last Admin: 06/04/18 22:09 Dose: 15 u Insulin Human Lispro (Humalog) 5 units SC AC [facility] Last Admin: 06/04/18 16:52 Dose: 5 units Home Med - Memantine Hcl [Namenda Xr] 28 Mg 28 mg PO DAILY [facility] Last Admin: 06/04/18 16:48 Dose: Not Given Pantoprazole Sodium (Protonix Ec Tab) 40 mg PO 0600 [facility] Last Admin: 06/05/18 05:46 Dose: 40 mg - Labs Labs: 06/05/18 06:30 06/05/18 06:30 PT 13.3 SECONDS (9.4-12.5) H 06/02/18 21:36 INR 1.15 06/02/18 21:36 APTT 34.4 Seconds (25.1-36.5) 06/02/18 21:36 - Constitutional Appears: Well, Non-toxic, No Acute Distress - Head Exam Head Exam: ATRAUMATIC, NORMOCEPHALIC - Extremities Exam Additional comments: B/L LE focused exam: VASC: DP/PT pulses nonpalpable secondary to edema b/l, Cap refill WNL to digits x10, +3 pitting edema to foot and leg b/l R>L; Temp gradient is warm to warm from proximal to distal. NEURO: Gross sensation and protective sensation are diminished b/l. DERM: Scaling verrucaformis lesions with fissures noted to b/l lower legs. Hyperpigmentation discoloration noted to the LE b/l, mild erythema noted distal to the knee joint. MSK: No tenderness to palpation bilateral lower extremity. ROM of the ankles in DF and PF is WNL with no crepitus noted b/l - Neurological Exam Neurological Exam: Alert, Awake, Oriented x3 - Psychiatric Exam Psychiatric exam: Normal Affect, Normal Mood Assessment and Plan - Assessment and Plan (Free Text) Assessment: 77 y/o female patient seen and evaluated at bedside for bilateral chronic lymphedema and cellulitis. Plan: Patient seen and evaluated at the bedside with Dr. Bender Discussed plan in detail with attending Dr. Bender Labs, charts, vitals reviewed (afebrile, absent leukocytosis) No dressings to the LE at this time Continue IV abx as per ID Will continue to follow up the patient while in-house Patient will follow up with Dr. Bender at his office upon discharge.
[2018-06-05] MEDS ORDERED: Potassium Chloride 20 mEq ER Tab PO STA (15:35)
--- NOTE | 2018-06-05 15:36 | CP.PCM.PN ---
Subjective - Date & Time of Evaluation Date of Evaluation: 06/05/18 Time of Evaluation: 15:29 - Subjective Subjective: Clari Munson, PGY-1, Internal Medicine Progress Note for Dr. Love Patient seen and examined at bedside. Patient had no acute overnight events and is pleasantly demented. Patient reports bilateral lower extremity edema and minor pain. Patient denies headache, fever, chest pain, heart palpitations, shortness of breath, nausea, vomiting, constipation, diarrhea, dysuria, hematuria, numbness/tingling. 12-point ROS was negative except for what was mentioned above. Objective - Vital Signs/Intake and Output Vital Signs (last 24 hours): Temp Pulse Resp BP Pulse Ox 98 F 64 20 152/71 H 94 L 06/05/18 14:00 06/05/18 14:00 06/05/18 14:00 06/05/18 14:00 06/05/18 06:00 Intake and Output: 06/05/18 06/05/18 06:59 18:59 Intake Total 470 Balance 470 - Medications Medications: Current Medications Albuterol/Ipratropium (Duoneb 3 Mg/0.5 Mg (3 Ml) Ud) 3 ml IH [id number] PRN PRN Reason: Shortness of Breath Amlodipine Besylate (Norvasc) 5 mg PO DAILY [facility] Last Admin: 06/05/18 10:15 Dose: 5 mg Aspirin (Ecotrin) 81 mg PO DAILY [facility] Last Admin: 06/05/18 10:14 Dose: 81 mg Carvedilol (Coreg) 25 mg PO BID [facility] Last Admin: 06/05/18 10:15 Dose: 25 mg Dextrose (Dextrose 50% Inj) 0 ml IV STAT PRN; Protocol PRN Reason: Hypoglycemia Protocol Docusate Sodium (Colace) 100 mg PO BID [facility] Last Admin: 06/05/18 10:15 Dose: 100 mg Enoxaparin Sodium (Lovenox) 40 mg SC DAILY [facility]; Protocol Last Admin: 06/05/18 10:13 Dose: 40 mg Furosemide (Lasix) 40 mg PO DAILY [facility] Last Admin: 06/05/18 10:15 Dose: 40 mg Dextrose (Dextrose 5% In Water 1000 Ml) 1,000 mls @ 0 mls/hr IV .Q0M PRN; Protocol PRN Reason: Hypoglycemia Protocol Vancomycin HCl (Vancomycin 1gm) 1 gm in 250 mls @ 167 mls/hr IVPB DAILY [facility]; Protocol Last Admin: 06/05/18 10:13 Dose: 167 mls/hr Ceftriaxone Sodium (Rocephin 1 Gram Ivpb) 1 gm in 100 mls @ 100 mls/hr IVPB DAILY [facility]; Protocol Last Admin: 06/05/18 10:16 Dose: 100 mls/hr Insulin Detemir (Levemir) 15 unit SC HS [facility] Last Admin: 06/04/18 22:09 Dose: 15 u Insulin Human Lispro (Humalog) 5 units SC AC [facility] Last Admin: 06/05/18 12:00 Dose: 5 units Home Med - Memantine Hcl [Namenda Xr] 28 Mg 28 mg PO DAILY [facility] Last Admin: 06/04/18 16:48 Dose: Not Given Pantoprazole Sodium (Protonix Ec Tab) 40 mg PO 0600 [facility] Last Admin: 06/05/18 05:46 Dose: 40 mg - Labs Labs: 06/05/18 06:30 06/05/18 06:30 PT 13.3 SECONDS (9.4-12.5) H 06/02/18 21:36 INR 1.15 06/02/18 21:36 APTT 34.4 Seconds (25.1-36.5) 06/02/18 21:36 - Head Exam Head Exam: ATRAUMATIC, NORMAL INSPECTION, NORMOCEPHALIC - Eye Exam Eye Exam: EOMI, PERRL - Respiratory Exam Respiratory Exam: Clear to Ausculation Bilateral, NORMAL BREATHING PATTERN - Cardiovascular Exam Cardiovascular Exam: REGULAR RHYTHM - Extremities Exam Extremities Exam: Full ROM, Joint Swelling, Pedal Edema Additional comments: coarse, hard, discolored bilateral lower extremities - Neurological Exam Neurological Exam: Alert, Awake, CN II-XII Intact - Skin Additional comments: coarse, hard, discolored bilateral lower extremities Assessment and Plan - Assessment and Plan (Free Text) Assessment: 77 year old female with past medical history of uncontrolled DM, severe dementia, COPD, asthma, DVT, HTN, and chronic lower extremity lymphedema presents to the ER for uncontrolled sugars with blood glucose>500. Sugars are normally in the 150s. Patient has also had foul smelling urine over the past few days and a few episodes of fecal and urinary incontinence. Plan: Hyperglycemia 2/2 to diet noncompliance vs. medical noncompliance -Glucose on admission: 372. Last POC glucose was 175 -HgbA1c: 10.4 -Hypoglycemia treatment protocol -Finger stick Q4 -Heart healthy diet with consistent carbohydrate diet -Patient continued on levemir 15 U and humalog 5 U AC, which has helped control hyperglycemia. -UA ordered to evaluate for ketones in urine, HCO3 is 35, Beta hydroxybutyrate: 0.04. Unlikely DKA Bilateral lower extremity lymphedema/cellulitis -As per podiatry, will apply lotion to bilateral lower extremity -Leukocytosis resolved and patient does not fulfill SIRS criteria. -Elevated lactate which resolved -Procalcitonin: 13.10. Continue to trend. -CRP elevated at >15. ESR: 103. -Continue with home lasix. -Vancomycin and ceftriaxone day 3 continued for possible cellulitis -As per ID, cannot rule out osteomyelitis, so MRI of bilateral lower extremities ordered to rule out osteomyelities. -Follow up ID, Dr. Solis, recommendations regarding cellulitis vs. lymphedema Hypertension -Blood pressure: 152/71 -Norvasc 5 mg daily, coreg 25 mg BID -Continue to monitor. Hypokalemia -K: 3.3 -80 mEq KCl ordered today COPD and asthma -VBG pH: 7.39, PO2: 50, PCO2: 56 -Duonebs PRN -Supplemental O2 as needed. Alzheimer's dementia -Continue with home namenda. Constipation -Continue with docusate. Urinary Incontinence -Continue to monitor for incontinence episodes. Elevated ALP-resolved -Increased ALP resolved -Continue to monitor DVT prophylaxis: lovenox 40 mg daily GI prophylaxis: protonix 40 mg daily Patient plan discussed with Dr. Love.
--- NOTE | 2018-06-05 18:07 | MRI ---
Date of service: 06/05/2018 PROCEDURE: MRI of the right tibia and fibula without contrast HISTORY: r/o osteo COMPARISON: No prior similar study available for comparison. TECHNIQUE: Axial coronal and sagittal MRI images of the right lower extremity were obtained without contrast administration. FINDINGS: The patient is status post right knee replacement. Evaluation of the proximal tibia is somewhat limited due to streak artifact from the hardware of the right knee arthroplasty. There is no evidence of cortical destruction or significant periosteal reaction. No evidence of significant bone marrow edema in the right tibia and fibula. Diffuse subcutaneous edema and soft tissue swelling noted in the right leg. No evidence of discrete fluid collection. No evidence of significant joint effusion in the right ankle. IMPRESSION: Status post right knee replacement. No evidence of osteomyelitis. Subcutaneous edema and soft tissue swelling.
--- NOTE | 2018-06-05 18:10 | MRI ---
Date of service: 06/05/2018 PROCEDURE: MRI of the left tibia and fibula without contrast. HISTORY: r/o osteo COMPARISON: No prior similar study available for comparison. TECHNIQUE: Axial coronal and sagittal MRI images of the left tibia and fibula were obtained without contrast administration. FINDINGS: The patient is status post left knee replacement. No evidence of bony destruction or cortical erosion. No evidence of periosteal reaction. No evidence of bone marrow edema. Diffuse subcutaneous edema and soft tissue swelling noted in the lower extremities bone. Diffuse increased signal in the muscles suggestive of myositis. No evidence of discrete drainable fluid collection. IMPRESSION: No evidence of osteomyelitis. Diffuse soft tissue edema and swelling.
[2018-06-05] MEDS: MEMANTINE HCL 28 MG PO SCH (18:53)
--- NOTE | 2018-06-05 20:24 | CP.PCM.PN ---
Subjective - Date & Time of Evaluation Date of Evaluation: 06/05/18 Time of Evaluation: 08:40 - Subjective Subjective: Afebrile, comfortable, not in distress. Objective - Vital Signs/Intake and Output Vital Signs (last 24 hours): Temp Pulse Resp BP Pulse Ox 98.4 F 76 18 143/67 94 L 06/04/18 06:00 06/04/18 06:00 06/04/18 06:00 06/04/18 10:45 06/04/18 06:00 - Medications Medications: Current Medications Albuterol/Ipratropium (Duoneb 3 Mg/0.5 Mg (3 Ml) Ud) 3 ml IH [id number] PRN PRN Reason: Shortness of Breath Amlodipine Besylate (Norvasc) 5 mg PO DAILY [facility] Last Admin: 06/04/18 10:45 Dose: 5 mg Aspirin (Ecotrin) 81 mg PO DAILY [facility] Last Admin: 06/04/18 10:45 Dose: 81 mg Carvedilol (Coreg) 25 mg PO BID [facility] Last Admin: 06/04/18 17:41 Dose: 25 mg Dextrose (Dextrose 50% Inj) 0 ml IV STAT PRN; Protocol PRN Reason: Hypoglycemia Protocol Docusate Sodium (Colace) 100 mg PO BID [facility] Last Admin: 06/04/18 16:52 Dose: 100 mg Enoxaparin Sodium (Lovenox) 40 mg SC DAILY [facility]; Protocol Last Admin: 06/04/18 10:46 Dose: 40 mg Furosemide (Lasix) 40 mg PO DAILY [facility] Last Admin: 06/04/18 10:45 Dose: 40 mg Dextrose (Dextrose 5% In Water 1000 Ml) 1,000 mls @ 0 mls/hr IV .Q0M PRN; Protocol PRN Reason: Hypoglycemia Protocol Vancomycin HCl (Vancomycin 1gm) 1 gm in 250 mls @ 167 mls/hr IVPB DAILY [facility]; Protocol Last Admin: 06/04/18 10:47 Dose: 167 mls/hr Ceftriaxone Sodium (Rocephin 1 Gram Ivpb) 1 gm in 100 mls @ 100 mls/hr IVPB DAILY [facility]; Protocol Last Admin: 06/04/18 10:46 Dose: 100 mls/hr Insulin Detemir (Levemir) 15 unit SC [facility] Last Admin: 06/03/18 21:33 Dose: 15 u Insulin Human Lispro (Humalog) 5 units SC AC [facility] Last Admin: 06/04/18 16:52 Dose: 5 units Home Med - Memantine Hcl [Namenda Xr] 28 Mg 28 mg PO DAILY [facility] Last Admin: 06/04/18 16:48 Dose: Not Given Pantoprazole Sodium (Protonix Inj) 40 mg IVP DAILY [facility] Last Admin: 06/04/18 10:44 Dose: 40 mg - Labs Labs: 06/04/18 06:00 06/04/18 06:00 PT 13.3 SECONDS (9.4-12.5) H 06/02/18 21:36 INR 1.15 06/02/18 21:36 APTT 34.4 Seconds (25.1-36.5) 06/02/18 21:36 - Constitutional Appears: Chronically Ill - Head Exam Head Exam: NORMAL INSPECTION - Respiratory Exam Respiratory Exam: Decreased Breath Sounds - Cardiovascular Exam Cardiovascular Exam: +S1, +S2 - GI/Abdominal Exam GI & Abdominal Exam: Soft. absent: Tenderness - Extremities Exam Additional comments: right leg with dressings in place Assessment and Plan - Assessment and Plan (Free Text) Plan: Assessment right leg cellulitis R/O osteomyelitis history of sepsis due to E. coli bacteremia, probably from UTI / pyelonephritis dementia HTN DM asthma chronic lymphedema on both lower extremities obesity with BMI 38 Plan continue Vancomycin and Rocephin day 3 and patient will need MRI of leg to rule out osteomyelitis follow up further plans of Podiatry
[2018-06-05] MEDS: Insulin Detemir 100 units/ml Vial (Levemir) SC SCH (22:18)
[2018-06-06] MEDS: Pantoprazole 40 mg EC Tab PO SCH (06:11)
[2018-06-06 07:12] LABS: BASO # 0.03 K/mm3 (0.0-2.0); BASO % 0.5 % (0.0-3.0); EOS # 0.7 (0.0-0.7); EOS % 10.4 % (1.5-5.0); GRAN # 3.8 (1.4-6.5); GRAN % 58.7 % (50.0-68.0); HEMOGLOBIN 11.8 g/dL (12.0-16.0); LYMPH # 1.1 (1.2-3.4); LYMPH % 16.5 % (22.0-35.0); MEAN CELL VOLUME 85.3 fl (80.0-105.0); MEAN CORPUSCULAR HEMOGLOBIN 26.6 pg (25.0-35.0); MEAN CORPUSCULAR HGB CONC 31.2 g/dl (31.0-37.0); MEAN PLATELET VOLUME 9.5 fl (7.0-11.0); MONO # 0.9 (0.1-0.6); MONO % 13.9 % (1.0-6.0); RBC 4.43 10^6/uL (3.5-6.1); RED CELL DISTRIBUTION WIDTH 13.4 % (11.5-14.5); WHITE BLOOD COUNT 6.5 10^3/uL (4.5-11.0)
[2018-06-06 07:26] LABS: ALBUMIN 3.5 g/dL (3.0-4.8); BLOOD UREA NITROGEN 14 mg/dL (7-21); CALCIUM 8.8 mg/dL (8.4-10.5); GFR NON-AFRICAN AMERICAN > 60
[2018-06-06 07:27] LABS: ALB/GLOB RATIO 0.8 (1.1-1.8); ALT/SGPT 19 U/L (7-56); AST/SGOT 21 U/L (14-36)
[2018-06-06] MEDS: Insulin Lispro 1 UNITS/0.01 ML SC SCH ×3 (08:44→16:30)
--- NOTE | 2018-06-06 10:06 | CP.PCM.PN ---
Subjective - Date & Time of Evaluation Date of Evaluation: 06/06/18 Time of Evaluation: 10:03 - Subjective Subjective: Podiatry Progress Note- Dr. Bender 77 y/o female patient seen and evaluated at bedside for bilateral chronic lymphedema and cellulitis. Patient is AAOx3 and appears in NAD. Denies of any acute overnight events. She states that she has mild pain to the LE b/l. Denies of having overnight F/N/V/C/SOB. No other pedal complains at this time. Objective - Vital Signs/Intake and Output Vital Signs (last 24 hours): Temp Pulse Resp BP Pulse Ox 98 F 68 20 160/90 H 98 06/06/18 06:00 06/06/18 06:00 06/06/18 06:00 06/06/18 06:00 06/06/18 06:00 Intake and Output: 06/06/18 06/06/18 06:59 18:59 Intake Total 940 Balance 940 - Medications Medications: Current Medications Albuterol/Ipratropium (Duoneb 3 Mg/0.5 Mg (3 Ml) Ud) 3 ml IH [id number] PRN PRN Reason: Shortness of Breath Amlodipine Besylate (Norvasc) 5 mg PO DAILY [facility] Last Admin: 06/05/18 10:15 Dose: 5 mg Aspirin (Ecotrin) 81 mg PO DAILY [facility] Last Admin: 06/05/18 10:14 Dose: 81 mg Carvedilol (Coreg) 25 mg PO BID [facility] Last Admin: 06/05/18 18:52 Dose: 25 mg Dextrose (Dextrose 50% Inj) 0 ml IV STAT PRN; Protocol PRN Reason: Hypoglycemia Protocol Docusate Sodium (Colace) 100 mg PO BID [facility] Last Admin: 06/05/18 18:52 Dose: 100 mg Enoxaparin Sodium (Lovenox) 40 mg SC DAILY [facility]; Protocol Last Admin: 06/05/18 10:13 Dose: 40 mg Furosemide (Lasix) 40 mg PO DAILY [facility] Last Admin: 06/05/18 10:15 Dose: 40 mg Dextrose (Dextrose 5% In Water 1000 Ml) 1,000 mls @ 0 mls/hr IV .Q0M PRN; Protocol PRN Reason: Hypoglycemia Protocol Insulin Detemir (Levemir) 15 unit SC [facility] Last Admin: 06/05/18 22:18 Dose: Not Given Insulin Human Lispro (Humalog) 5 units SC AC [facility] Last Admin: 06/06/18 08:44 Dose: Not Given Home Med - Memantine Hcl [Namenda Xr] 28 Mg 28 mg PO DAILY [facility] Last Admin: 06/05/18 18:53 Dose: Not Given Pantoprazole Sodium (Protonix Ec Tab) 40 mg PO 0600 [facility] Last Admin: 06/06/18 06:11 Dose: 40 mg - Labs Labs: 06/06/18 06:45 06/06/18 06:45 PT 13.3 SECONDS (9.4-12.5) H 06/02/18 21:36 INR 1.15 06/02/18 21:36 APTT 34.4 Seconds (25.1-36.5) 06/02/18 21:36 - Constitutional Appears: Well, Non-toxic, No Acute Distress - Head Exam Head Exam: ATRAUMATIC, NORMOCEPHALIC - Extremities Exam Additional comments: B/L LE focused exam: VASC: DP/PT pulses nonpalpable secondary to edema b/l, Cap refill WNL to digits x10, +3 pitting edema to foot and leg b/l R>L; Temp gradient is warm to warm f rom proximal to distal. NEURO: Gross sensation and protective sensation are diminished b/l. DERM: Scaling verrucaformis lesions with fissures noted to b/l lower legs. Hyperpigmentation discoloration noted to the LE b/l, mild erythema noted distal to the knee joint. MSK: Mild tenderness to palpation bilateral lower extremity. ROM of the ankles in DF and PF is WNL with no crepitus noted b/l - Neurological Exam Neurological Exam: Alert, Awake, Oriented x3 - Psychiatric Exam Psychiatric exam: Normal Affect, Normal Mood Assessment and Plan - Assessment and Plan (Free Text) Assessment: 77 y/o female patient seen and evaluated at bedside for bilateral chronic lymphedema and cellulitis. Plan: Patient seen and evaluated at the bedside. Discussed plan in detail with attending Dr. Bender Labs, charts, vitals reviewed (afebrile, absent leukocytosis) No dressings to the LE at this time Continue IV abx as per ID Will continue to follow up the patient while in-house Patient will follow up with Dr. Bender at his office upon discharge.
[2018-06-06] MEDS: Enoxaparin 40 mg Syringe SC SCH (10:48)
[2018-06-06] MEDS: MEMANTINE HCL 28 MG PO SCH (10:49)
[2018-06-06] MEDS: Vancomycin 1gm in NS 250ml 1 GM/250 ML BAG IVPB SCH (11:21)
[2018-06-06] MEDS: cefTRIAXone 1 gm 1 GM/100 ML BAG IVPB SCH (11:21)
--- NOTE | 2018-06-06 16:59 | CP.PCM.PN ---
Subjective - Date & Time of Evaluation Date of Evaluation: 06/06/18 Time of Evaluation: 07:45 - Subjective Subjective: No fevers, not in distress, no increased pain in the right leg. Objective - Vital Signs/Intake and Output Vital Signs (last 24 hours): Temp Pulse Resp BP Pulse Ox 98 F 64 20 152/71 H 94 L 06/05/18 14:00 06/05/18 14:00 06/05/18 14:00 06/05/18 14:00 06/05/18 06:00 - Medications Medications: Current Medications Albuterol/Ipratropium (Duoneb 3 Mg/0.5 Mg (3 Ml) Ud) 3 ml IH [id number] PRN PRN Reason: Shortness of Breath Amlodipine Besylate (Norvasc) 5 mg PO DAILY [facility] Last Admin: 06/05/18 10:15 Dose: 5 mg Aspirin (Ecotrin) 81 mg PO DAILY [facility] Last Admin: 06/05/18 10:14 Dose: 81 mg Carvedilol (Coreg) 25 mg PO BID [facility] Last Admin: 06/05/18 18:52 Dose: 25 mg Dextrose (Dextrose 50% Inj) 0 ml IV STAT PRN; Protocol PRN Reason: Hypoglycemia Protocol Docusate Sodium (Colace) 100 mg PO BID [facility] Last Admin: 06/05/18 18:52 Dose: 100 mg Enoxaparin Sodium (Lovenox) 40 mg SC DAILY [facility]; Protocol Last Admin: 06/05/18 10:13 Dose: 40 mg Furosemide (Lasix) 40 mg PO DAILY [facility] Last Admin: 06/05/18 10:15 Dose: 40 mg Dextrose (Dextrose 5% In Water 1000 Ml) 1,000 mls @ 0 mls/hr IV .Q0M PRN; Protocol PRN Reason: Hypoglycemia Protocol Vancomycin HCl (Vancomycin 1gm) 1 gm in 250 mls @ 167 mls/hr IVPB DAILY [facility]; Protocol Last Admin: 06/05/18 10:13 Dose: 167 mls/hr Ceftriaxone Sodium (Rocephin 1 Gram Ivpb) 1 gm in 100 mls @ 100 mls/hr IVPB DAILY [facility]; Protocol Last Admin: 06/05/18 10:16 Dose: 100 mls/hr Insulin Detemir (Levemir) 15 unit SC [facility] Last Admin: 06/04/18 22:09 Dose: 15 u Insulin Human Lispro (Humalog) 5 units SC AC [facility] Last Admin: 06/05/18 17:28 Dose: 5 units Home Med - Memantine Hcl [Namenda Xr] 28 Mg 28 mg PO DAILY [facility] Last Admin: 06/05/18 18:53 Dose: Not Given Pantoprazole Sodium (Protonix Ec Tab) 40 mg PO 0600 [facility] Last Admin: 06/05/18 05:46 Dose: 40 mg - Labs Labs: 06/05/18 06:30 06/05/18 06:30 PT 13.3 SECONDS (9.4-12.5) H 06/02/18 21:36 INR 1.15 06/02/18 21:36 APTT 34.4 Seconds (25.1-36.5) 06/02/18 21:36 - Constitutional Appears: Chronically Ill - Head Exam Head Exam: NORMAL INSPECTION - Respiratory Exam Respiratory Exam: Decreased Breath Sounds - Cardiovascular Exam Cardiovascular Exam: +S1, +S2 - GI/Abdominal Exam GI & Abdominal Exam: Soft. absent: Tenderness Assessment and Plan - Assessment and Plan (Free Text) Plan: Assessment right leg cellulitis with no evidence of osteomyelitis on MRI history of sepsis due to E. coli bacteremia, probably from UTI / pyelonephritis dementia HTN DM asthma chronic lymphedema on both lower extremities obesity with BMI 38 Plan on Vancomycin and Rocephin day 4 - can switch to PO Doxycycline and Augmentin for another 5-7 days
--- NOTE | 2018-06-06 17:14 | CP.PCM.PN ---
<Clari Munson - Last Filed: 06/06/18 17:11> Subjective - Date & Time of Evaluation Date of Evaluation: 06/06/18 Time of Evaluation: 17:11 - Subjective Subjective: Clari Munson, PGY-1, Internal Medicine Progress Note for Dr. Mcclellan Patient seen and evaluated at bedside. Patient had no acute overnight events. Patient reported no symptoms today. Patient denied headache, fever, chest pain, shortness of breath, nausea, vomiting, constipation, diarrhea, dysuria, hematuria, numbness/tingling. 12-point ROS was negative except for what was mentioned above. Objective - Vital Signs/Intake and Output Vital Signs (last 24 hours): Temp Pulse Resp BP Pulse Ox 98 F 68 20 148/90 98 06/06/18 06:00 06/06/18 06:00 06/06/18 06:00 06/06/18 10:49 06/06/18 06:00 Intake and Output: 06/06/18 06/06/18 06:59 18:59 Intake Total 940 Balance 940 - Medications Medications: Current Medications Albuterol/Ipratropium (Duoneb 3 Mg/0.5 Mg (3 Ml) Ud) 3 ml IH [id number] PRN PRN Reason: Shortness of Breath Amlodipine Besylate (Norvasc) 5 mg PO DAILY [facility] Last Admin: 06/06/18 10:49 Dose: 5 mg Aspirin (Ecotrin) 81 mg PO DAILY [facility] Last Admin: 06/06/18 10:49 Dose: 81 mg Carvedilol (Coreg) 25 mg PO BID [facility] Last Admin: 06/06/18 10:51 Dose: 25 mg Dextrose (Dextrose 50% Inj) 0 ml IV STAT PRN; Protocol PRN Reason: Hypoglycemia Protocol Docusate Sodium (Colace) 100 mg PO BID [facility] Last Admin: 06/06/18 10:49 Dose: 100 mg Enoxaparin Sodium (Lovenox) 40 mg SC DAILY [facility]; Protocol Last Admin: 06/06/18 10:48 Dose: 40 mg Furosemide (Lasix) 40 mg PO DAILY [facility] Last Admin: 06/06/18 10:49 Dose: 40 mg Dextrose (Dextrose 5% In Water 1000 Ml) 1,000 mls @ 0 mls/hr IV .Q0M PRN; Protocol PRN Reason: Hypoglycemia Protocol Ceftriaxone Sodium (Rocephin 1 Gram Ivpb) 1 gm in 100 mls @ 100 mls/hr IVPB DAILY [facility]; Protocol Vancomycin HCl (Vancomycin 1gm) 1 gm in 250 mls @ 167 mls/hr IVPB DAILY [facility]; Protocol Insulin Detemir (Levemir) 15 unit SC HS [facility] Last Admin: 06/05/18 22:18 Dose: Not Given Insulin Human Lispro (Humalog) 5 units SC AC [facility] Last Admin: 06/06/18 16:30 Dose: Not Given Home Med - Memantine Hcl [Namenda Xr] 28 Mg 28 mg PO DAILY [facility] Last Admin: 06/06/18 10:49 Dose: Not Given Pantoprazole Sodium (Protonix Ec Tab) 40 mg PO 0600 [facility] Last Admin: 06/06/18 06:11 Dose: 40 mg - Labs Labs: 06/06/18 06:45 06/06/18 06:45 PT 13.3 SECONDS (9.4-12.5) H 06/02/18 21:36 INR 1.15 06/02/18 21:36 APTT 34.4 Seconds (25.1-36.5) 06/02/18 21:36 - Constitutional Appears: Well, Non-toxic, No Acute Distress - Head Exam Head Exam: ATRAUMATIC, NORMAL INSPECTION, NORMOCEPHALIC - Eye Exam Eye Exam: EOMI, PERRL - Neck Exam Neck Exam: Full ROM - Respiratory Exam Respiratory Exam: Clear to Ausculation Bilateral, NORMAL BREATHING PATTERN - Cardiovascular Exam Cardiovascular Exam: REGULAR RHYTHM - GI/Abdominal Exam GI & Abdominal Exam: Soft, Normal Bowel Sounds. absent: Tenderness - Extremities Exam Extremities Exam: Full ROM Additional comments: coarse, hard, discolored bilateral lower extremities - Neurological Exam Neurological Exam: Alert, Awake, CN II-XII Intact - Skin Additional comments: coarse, hard, discolored bilateral lower extremities Assessment and Plan - Assessment and Plan (Free Text) Assessment: 77 year old female with past medical history of uncontrolled DM, severe dementia, COPD, asthma, DVT, HTN, and chronic lower extremity lymphedema presents to the ER for uncontrolled sugars with blood glucose>500. Sugars are normally in the 150s. Patient had also had foul smelling urine over the past few days and a few episodes of fecal and urinary incontinence. Patient has suspicion for bilateral lower extremity cellulitis Plan: Hyperglycemia 2/2 to diet noncompliance vs. medical noncompliance -Glucose on admission: 372. Last POC glucose was 147 -HgbA1c: 10.4 -Hypoglycemia treatment protocol -Finger stick Q4 -Heart healthy diet with consistent carbohydrate diet -Patient continued on levemir 15 U and humalog 5 U AC, which has helped control hyperglycemia. -UA ordered to evaluate for ketones in urine, HCO3 is 35, Beta hydroxybutyrate: 0.04. Unlikely DKA Bilateral lower extremity lymphedema/cellulitis -As per podiatry, will apply lotion to bilateral lower extremity -Leukocytosis resolved and patient does not fulfill SIRS criteria. -Elevated lactate which resolved -Blood culture: negative -Procalcitonin: 13.10. Continue to trend. -CRP elevated at >15. ESR: 103. -Continue with home lasix. -Vancomycin and ceftriaxone day 4 continued for possible cellulitis. On discharge, patient should receive a 5-7 day course of doxycycline and augmentin. -As per ID, cannot rule out osteomyelitis, so MRI of bilateral lower extremities was ordered to rule out osteomyelitis which were both negative for any evidence of osteomyelitis. MRI showed subcutaneous edema and soft tissue swelling bilaterally. -Follow up ID, Dr. Solis, for recommendations regarding cellulitis vs. lymphedema Hypertension -Blood pressure: 148/90, 160/90 -Norvasc 5 mg daily, coreg 25 mg BID -Continue to monitor. COPD and asthma -VBG pH: 7.39, PO2: 50, PCO2: 56 -Duonebs PRN -Supplemental O2 as needed. Alzheimer's dementia -Continue with home namenda. Constipation -Continue with docusate. Urinary Incontinence -Continue to monitor for incontinence episodes. DVT prophylaxis: lovenox 40 mg daily GI prophylaxis: protonix 40 mg daily Disposition: Patient needs PT evaluation and treatment before patient can be discharged. Patient refused PT today. Team had discussion with patient for PT and patient agreed for PT. Patient plan discussed with Dr. Mcclellan. <Jaime Mcclellan - Last Filed: 06/06/18 17:57> Objective - Vital Signs/Intake and Output Vital Signs (last 24 hours): Temp Pulse Resp BP Pulse Ox 97.9 F 78 16 138/78 97 06/06/18 15:00 06/06/18 15:00 06/06/18 15:00 06/06/18 15:00 06/06/18 15:00 Intake and Output: 06/06/18 06/06/18 06:59 18:59 Intake Total 940 Balance 940 - Medications Medications: Current Medications Albuterol/Ipratropium (Duoneb 3 Mg/0.5 Mg (3 Ml) Ud) 3 ml IH [id number] PRN PRN Reason: Shortness of Breath Amlodipine Besylate (Norvasc) 5 mg PO DAILY [facility] Last Admin: 06/06/18 10:49 Dose: 5 mg Aspirin (Ecotrin) 81 mg PO DAILY [facility] Last Admin: 06/06/18 10:49 Dose: 81 mg Carvedilol (Coreg) 25 mg PO BID [facility] Last Admin: 06/06/18 10:51 Dose: 25 mg Dextrose (Dextrose 50% Inj) 0 ml IV STAT PRN; Protocol PRN Reason: Hypoglycemia Protocol Docusate Sodium (Colace) 100 mg PO BID [facility] Last Admin: 06/06/18 10:49 Dose: 100 mg Enoxaparin Sodium (Lovenox) 40 mg SC DAILY [facility]; Protocol Last Admin: 06/06/18 10:48 Dose: 40 mg Furosemide (Lasix) 40 mg PO DAILY [facility] Last Admin: 06/06/18 10:49 Dose: 40 mg Dextrose (Dextrose 5% In Water 1000 Ml) 1,000 mls @ 0 mls/hr IV .Q0M PRN; Protocol PRN Reason: Hypoglycemia Protocol Ceftriaxone Sodium (Rocephin 1 Gram Ivpb) 1 gm in 100 mls @ 100 mls/hr IVPB DAILY [facility]; Protocol Vancomycin HCl (Vancomycin 1gm) 1 gm in 250 mls @ 167 mls/hr IVPB DAILY [facility]; Protocol Insulin Detemir (Levemir) 15 unit SC HS [facility] Last Admin: 06/05/18 22:18 Dose: Not Given Insulin Human Lispro (Humalog) 5 units SC AC [facility] Last Admin: 06/06/18 16:30 Dose: Not Given Home Med - Memantine Hcl [Namenda Xr] 28 Mg 28 mg PO DAILY [facility] Last Admin: 06/06/18 10:49 Dose: Not Given Pantoprazole Sodium (Protonix Ec Tab) 40 mg PO 0600 [facility] Last Admin: 06/06/18 06:11 Dose: 40 mg - Labs Labs: 06/06/18 06:45 06/06/18 06:45 PT 13.3 SECONDS (9.4-12.5) H 06/02/18 21:36 INR 1.15 06/02/18 21:36 APTT 34.4 Seconds (25.1-36.5) 06/02/18 21:36 Attending/Attestation - Attestation I have personally seen and examined this patient.: Yes I have fully participated in the care of the patient.: Yes I have reviewed all pertinent clinical information, including history, physical exam and plan: Yes Notes (Text): Chronic lymphedema with possible superimposed cellulitis. MRI showed no osteomyelitis. c/w broad spectrum antibiotics for now. f/u ID about appropriate de-escalation to PO abx as cultures have remained negative. Hyperglycemia: Accuchecks have improved with current insulin regimen. HTN: c/w current BP meds with holding parameters COPD: duo/nebs PRN 06/06/18 17:52
[2018-06-06 22:37] VITALS: RESP 18
[2018-06-06] MEDS: Insulin Detemir 100 units/ml Vial (Levemir) SC SCH (23:08)
[2018-06-07] MEDS: Pantoprazole 40 mg EC Tab PO SCH (07:52)
[2018-06-07] MEDS: Insulin Lispro 1 UNITS/0.01 ML SC SCH ×2 (08:00→12:38)
[2018-06-07 08:01] LABS: BASO # 0.03 K/mm3 (0.0-2.0); BASO % 0.5 % (0.0-3.0); EOS # 0.6 (0.0-0.7); EOS % 9.9 % (1.5-5.0); GRAN # 3.25 (1.4-6.5); GRAN % 56.2 % (50.0-68.0); HEMOGLOBIN 11.4 g/dL (12.0-16.0); LYMPH % 16.8 % (22.0-35.0); MEAN CORPUSCULAR HEMOGLOBIN 26.6 pg (25.0-35.0); MEAN CORPUSCULAR HGB CONC 31.3 g/dl (31.0-37.0); MEAN PLATELET VOLUME 9.6 fl (7.0-11.0); MONO % 16.6 % (1.0-6.0); RBC 4.28 10^6/uL (3.5-6.1); RED CELL DISTRIBUTION WIDTH 13.2 % (11.5-14.5); WHITE BLOOD COUNT 5.8 10^3/uL (4.5-11.0)
[2018-06-07 08:19] LABS: ALB/GLOB RATIO 0.8 (1.1-1.8); ALBUMIN 3.3 g/dL (3.0-4.8); ALT/SGPT 16 U/L (7-56); AST/SGOT 23 U/L (14-36); BLOOD UREA NITROGEN 17 mg/dL (7-21); CALCIUM 8.8 mg/dL (8.4-10.5); GFR NON-AFRICAN AMERICAN > 60
[2018-06-07] MEDS: MEMANTINE HCL 28 MG PO SCH (09:44)
[2018-06-07] MEDS: Enoxaparin 40 mg Syringe SC SCH (09:44)
[2018-06-07] MEDS ORDERED: Vancomycin 1gm in NS 250ml 1 GM/250 ML BAG IVPB SCH (10:00)
[2018-06-07] MEDS ORDERED: cefTRIAXone 1 gm 1 GM/100 ML BAG IVPB SCH (10:00)
[2018-06-07 10:12] VITALS: TEMP 97.7
--- NOTE | 2018-06-07 14:31 | CP.PCM.PN ---
Subjective - Date & Time of Evaluation Date of Evaluation: 06/07/18 Time of Evaluation: 14:26 - Subjective Subjective: Podiatry Progress Note- Dr. Bender 77 y/o female patient seen and evaluated at bedside for bilateral chronic lymphedema and cellulitis. Patient is AAOx3 and appears in NAD. Denies of any acute overnight events. She denies any pain to the LE b/l. Denies of having overnight F/N/V/C/SOB. No other pedal complains at this time. Objective - Vital Signs/Intake and Output Vital Signs (last 24 hours): Temp Pulse Resp BP Pulse Ox 97.7 F 62 18 142/68 92 L 06/07/18 06:00 06/07/18 06:00 06/07/18 06:00 06/07/18 09:45 06/07/18 06:00 Intake and Output: 06/07/18 06/07/18 06:59 18:59 Intake Total 120 Balance 120 - Medications Medications: Current Medications Albuterol/Ipratropium (Duoneb 3 Mg/0.5 Mg (3 Ml) Ud) 3 ml IH [id number] PRN PRN Reason: Shortness of Breath Amlodipine Besylate (Norvasc) 5 mg PO DAILY [facility] Last Admin: 06/07/18 09:45 Dose: 5 mg Aspirin (Ecotrin) 81 mg PO DAILY [facility] Last Admin: 06/07/18 09:44 Dose: 81 mg Carvedilol (Coreg) 25 mg PO BID [facility] Last Admin: 06/07/18 09:44 Dose: 25 mg Dextrose (Dextrose 50% Inj) 0 ml IV STAT PRN; Protocol PRN Reason: Hypoglycemia Protocol Docusate Sodium (Colace) 100 mg PO BID [facility] Last Admin: 06/07/18 09:44 Dose: 100 mg Enoxaparin Sodium (Lovenox) 40 mg SC DAILY [facility]; Protocol Last Admin: 06/07/18 09:44 Dose: 40 mg Furosemide (Lasix) 40 mg PO DAILY [facility] Last Admin: 06/07/18 09:45 Dose: 40 mg Dextrose (Dextrose 5% In Water 1000 Ml) 1,000 mls @ 0 mls/hr IV .Q0M PRN; Protocol PRN Reason: Hypoglycemia Protocol Ceftriaxone Sodium (Rocephin 1 Gram Ivpb) 1 gm in 100 mls @ 100 mls/hr IVPB DAILY [facility]; Protocol Last Admin: 06/07/18 09:43 Dose: 100 mls/hr Vancomycin HCl (Vancomycin 1gm) 1 gm in 250 mls @ 167 mls/hr IVPB DAILY [facility]; Protocol Insulin Detemir (Levemir) 15 unit SC HS [facility] Last Admin: 06/06/18 23:08 Dose: 15 u Insulin Human Lispro (Humalog) 5 units SC AC [facility] Last Admin: 06/07/18 12:38 Dose: Not Given Home Med - Memantine Hcl [Namenda Xr] 28 Mg 28 mg PO DAILY [facility] Last Admin: 06/07/18 09:44 Dose: Not Given Pantoprazole Sodium (Protonix Ec Tab) 40 mg PO 0600 [facility] Last Admin: 06/07/18 07:52 Dose: Not Given - Labs Labs: 06/07/18 07:40 06/07/18 07:40 PT 13.3 SECONDS (9.4-12.5) H 06/02/18 21:36 INR 1.15 06/02/18 21:36 APTT 34.4 Seconds (25.1-36.5) 06/02/18 21:36 - Constitutional Appears: Well, Non-toxic, No Acute Distress - Head Exam Head Exam: ATRAUMATIC, NORMOCEPHALIC - Extremities Exam Additional comments: B/L LE focused exam: VASC: DP/PT pulses nonpalpable secondary to edema b/l, Cap refill WNL to digits x10, +3 pitting edema to foot and leg b/l R>L; Temp gradient is warm to warm from proximal to distal. NEURO: Gross sensation and protective sensation are diminished b/l. DERM: Scaling verrucaformis lesions with fissures noted to b/l lower legs. Hyperpigmentation discoloration noted to the LE b/l, mild erythema noted distal to the knee joint. MSK: Mild tenderness to palpation bilateral lower extremity. ROM of the ankles in DF and PF is WNL with no crepitus noted b/l - Neurological Exam Neurological Exam: Alert, Awake, Oriented x3 - Psychiatric Exam Psychiatric exam: Normal Affect, Normal Mood Assessment and Plan - Assessment and Plan (Free Text) Assessment: 77 y/o female patient seen and evaluated at bedside for bilateral chronic lymphedema and cellulitis. Plan: Patient seen and evaluated at the bedside. Discussed plan in detail with attending Dr. Bender Labs, charts, vitals reviewed (afebrile, absent leukocytosis) No dressings to the LE at this time Continue IV abx as per ID ID will swich the patient to PO doxycycline and Augmentin for 5-7 days Will continue to follow up the patient while in-house Patient will follow up with Dr. Bneder at his office upon discharge.
[2018-06-07 15:44] VITALS: BP 142/77; PULSE 88; O2SAT 95
--- NOTE | 2018-06-07 20:23 | CP.PCM.PN ---
Subjective - Date & Time of Evaluation Date of Evaluation: 06/07/18 Time of Evaluation: 09:25 - Subjective Subjective: Comfortable, no fevers, not in distress, no increased pain in the right leg. Objective - Vital Signs/Intake and Output Vital Signs (last 24 hours): Temp Pulse Resp BP Pulse Ox 98 F 68 20 148/90 98 06/06/18 06:00 06/06/18 06:00 06/06/18 06:00 06/06/18 10:49 06/06/18 06:00 Intake and Output: 06/06/18 06/06/18 06:59 18:59 Intake Total 940 Balance 940 - Medications Medications: Current Medications Albuterol/Ipratropium (Duoneb 3 Mg/0.5 Mg (3 Ml) Ud) 3 ml IH [id number] PRN PRN Reason: Shortness of Breath Amlodipine Besylate (Norvasc) 5 mg PO DAILY [facility] Last Admin: 06/06/18 10:49 Dose: 5 mg Aspirin (Ecotrin) 81 mg PO DAILY [facility] Last Admin: 06/06/18 10:49 Dose: 81 mg Carvedilol (Coreg) 25 mg PO BID [facility] Last Admin: 06/06/18 10:51 Dose: 25 mg Dextrose (Dextrose 50% Inj) 0 ml IV STAT PRN; Protocol PRN Reason: Hypoglycemia Protocol Docusate Sodium (Colace) 100 mg PO BID [facility] Last Admin: 06/06/18 10:49 Dose: 100 mg Enoxaparin Sodium (Lovenox) 40 mg SC DAILY [facility]; Protocol Last Admin: 06/06/18 10:48 Dose: 40 mg Furosemide (Lasix) 40 mg PO DAILY [facility] Last Admin: 06/06/18 10:49 Dose: 40 mg Dextrose (Dextrose 5% In Water 1000 Ml) 1,000 mls @ 0 mls/hr IV .Q0M PRN; Protocol PRN Reason: Hypoglycemia Protocol Ceftriaxone Sodium (Rocephin 1 Gram Ivpb) 1 gm in 100 mls @ 100 mls/hr IVPB DAILY [facility]; Protocol Vancomycin HCl (Vancomycin 1gm) 1 gm in 250 mls @ 167 mls/hr IVPB DAILY [facility]; Protocol Insulin Detemir (Levemir) 15 unit SC [facility] Last Admin: 06/05/18 22:18 Dose: Not Given Insulin Human Lispro (Humalog) 5 units SC AC [facility] Last Admin: 06/06/18 16:30 Dose: Not Given Home Med - Memantine Hcl [Namenda Xr] 28 Mg 28 mg PO DAILY [facility] Last Admin: 06/06/18 10:49 Dose: Not Given Pantoprazole Sodium (Protonix Ec Tab) 40 mg PO 0600 [facility] Last Admin: 06/06/18 06:11 Dose: 40 mg - Labs Labs: 06/06/18 06:45 06/06/18 06:45 PT 13.3 SECONDS (9.4-12.5) H 06/02/18 21:36 INR 1.15 06/02/18 21:36 APTT 34.4 Seconds (25.1-36.5) 06/02/18 21:36 - Constitutional Appears: Chronically Ill - Head Exam Head Exam: NORMAL INSPECTION - Respiratory Exam Respiratory Exam: Decreased Breath Sounds - Cardiovascular Exam Cardiovascular Exam: +S1, +S2 - GI/Abdominal Exam GI & Abdominal Exam: Soft. absent: Tenderness - Extremities Exam Additional comments: right leg with some swelling Assessment and Plan - Assessment and Plan (Free Text) Plan: Assessment right leg cellulitis with no evidence of osteomyelitis on MRI history of sepsis due to E. coli bacteremia, probably from UTI / pyelonephritis dementia HTN DM asthma chronic lymphedema on both lower extremities obesity with BMI 38 Plan on Vancomycin and Rocephin day 5 - can switch to PO Doxycycline and Augmentin for another 4-6 days - discussed with medical team
--- NOTE | 2018-06-07 20:46 | CP.PCM.DIS ---
Provider - Provider Date of Admission: 06/02/18 22:23 Attending physician: Lopez Hendrix MD Primary care physician: Bhargavi Hendricks MD Consults: 06/02/18 23:53 Nursing Referral for Wound Care Routine Comment: Physician Instructions: Reason For Exam: B/L LE lymphedema 06/02/18 23:55 Physician Consult Routine Comment: Consulting Provider: Ranjan Bender Consulting Physician: Ranjan Bender Reason for Consult: LE lymphedema 06/03/18 07:47 Physician Consult Routine Comment: Consulting Provider: Almas Solis Consulting Physician: Almas Solis Reason for Consult: Lower ext ?cellulitis, hx of cellulitis, chronic LE edema 06/07/18 11:47 TCU [Evaluation for TRCU] Routine Comment: Physician Instructions: Reason For Exam: rehab Time Spent in preparation of Discharge (in minutes): 60 Hospital Course - Lab Results Lab Results: Micro Results 06/02/18 22:00 Blood Blood Culture - Preliminary NO GROWTH AFTER 4 DAYS 06/02/18 21:36 Blood Blood Culture - Preliminary NO GROWTH AFTER 4 DAYS Most Recent Lab Values WBC 5.8 10^3/uL (4.5-11.0) 06/07/18 07:40 RBC 4.28 10^6/uL (3.5-6.1) 06/07/18 07:40 Hgb 11.4 g/dL (12.0-16.0) L 06/07/18 07:40 Hct 36.4 % (36.0-48.0) 06/07/18 07:40 MCV 85.0 fl (80.0-105.0) 06/07/18 07:40 MCH 26.6 pg (25.0-35.0) 06/07/18 07:40 MCHC 31.3 g/dl (31.0-37.0) 06/07/18 07:40 RDW 13.2 % (11.5-14.5) 06/07/18 07:40 Plt Count 217 10^3/uL (120.0-450.0) 06/07/18 07:40 MPV 9.6 fl (7.0-11.0) 06/07/18 07:40 Gran % 56.2 % (50.0-68.0) 06/07/18 07:40 Lymph % (Auto) 16.8 % (22.0-35.0) L 06/07/18 07:40 [place] % (Auto) 16.6 % (1.0-6.0) H 06/07/18 07:40 Eos % (Auto) 9.9 % (1.5-5.0) H 06/07/18 07:40 Baso % (Auto) 0.5 % (0.0-3.0) 06/07/18 07:40 Gran # 3.25 (1.4-6.5) 06/07/18 07:40 Lymph # (Auto) 1.0 (1.2-3.4) L 06/07/18 07:40 [place] # (Auto) 1.0 (0.1-0.6) H 06/07/18 07:40 Eos # (Auto) 0.6 (0.0-0.7) 06/07/18 07:40 Baso # (Auto) 0.03 K/mm3 (0.0-2.0) 06/07/18 07:40 Neutrophils % (Manual) 88 % (50.0-70.0) H 06/02/18 21:36 Lymphocytes % (Manual) 7 % (22.0-35.0) L 06/02/18 21:36 Monocytes % (Manual) 5 % (1.0-6.0) 06/02/18 21:36 Platelet Evaluation Normal (NORMAL) 06/02/18 21:36 ESR 103 mm/hr (0.0-20.0) H 06/04/18 12:12 PT 13.3 SECONDS (9.4-12.5) H 06/02/18 21:36 INR 1.15 06/02/18 21:36 APTT 34.4 Seconds (25.1-36.5) 06/02/18 21:36 pO2 50 mm/Hg (30-55) 06/03/18 01:50 VBG pH 7.39 (7.32-7.43) 06/03/18 01:50 VBG pCO2 56.0 (40-60) 06/03/18 01:50 VBG HCO3 33.9 mmol/l (21-28) H 06/03/18 01:50 VBG Total CO2 35.6 mmol.L (22-28) H 06/03/18 01:50 VBG O2 Sat (Calc) 89.5 % (40-65) H 06/03/18 01:50 VBG Base Excess 7.1 mmol/L (0.0-2.0) H 06/03/18 01:50 VBG Potassium 3.3 mmol/L (3.6-5.2) L 06/03/18 01:50 Sodium 135.0 mmol/L (132-148) 06/03/18 01:50 Chloride 96.0 mmol/L (98-107) L 06/03/18 01:50 Glucose 281 mg/dl (65-105) H 06/03/18 01:50 Lactate 1.3 mmol/L (0.7-2.1) 06/03/18 01:50 FiO2 21.0 % 06/03/18 01:50 Sodium 136 mmol/L (132-148) 06/07/18 07:40 Potassium 3.9 mmol/L (3.6-5.0) 06/07/18 07:40 Chloride 98 mmol/L (98-107) 06/07/18 07:40 Carbon Dioxide 34 mmol/L (21-33) H 06/07/18 07:40 Anion Gap 8 (10-20) L 06/07/18 07:40 BUN 17 mg/dL (7-21) 06/07/18 07:40 Creatinine 0.8 mg/dl (0.7-1.2) 06/07/18 07:40 Est GFR ( Amer) > 60 06/07/18 07:40 Est GFR (Non-Af Amer) > 60 06/07/18 07:40 POC Glucose (mg/dL) 203 mg/dL (65-110) H 06/07/18 11:15 Random Glucose 141 mg/dL (70-110) H 06/07/18 07:40 Hemoglobin A1c 10.4 % (4.2-6.5) H 06/04/18 06:00 Calcium 8.8 mg/dL (8.4-10.5) 06/07/18 07:40 Magnesium 1.9 mg/dL (1.7-2.2) 06/02/18 21:36 Total Bilirubin 0.5 mg/dL (0.2-1.3) 06/07/18 07:40 AST 23 U/L (14-36) 06/07/18 07:40 ALT 16 U/L (7-56) 06/07/18 07:40 Alkaline Phosphatase 94 U/L (38-126) 06/07/18 07:40 Lactate Dehydrogenase 518 U/L (333-699) 06/02/18 21:36 Total Creatine Kinase 57 U/L (35-230) 06/02/18 21:36 Troponin I 0.02 ng/mL D 06/02/18 21:36 C-Reactive Protein 140.00 mg/L (0.0-9.9) H 06/04/18 07:00 C-React Prot High Sens > 15.00 mg/L (1.00-3.00) H 06/04/18 06:00 Total Protein 7.7 g/dL (5.8-8.3) 06/07/18 07:40 Albumin 3.3 g/dL (3.0-4.8) 06/07/18 07:40 Globulin 4.4 gm/dL 06/07/18 07:40 Albumin/Globulin Ratio 0.8 (1.1-1.8) L 06/07/18 07:40 Procalcitonin 13.10 NG/ML (0.19-0.49) H 06/03/18 06:40 Venous Blood Potassium 3.3 mmol/L (3.6-5.2) L 06/03/18 01:50 B-Hydroxybutyrate 0.04 mM (0.02-0.27) 06/02/18 21:36 - Hospital Course Hospital Course: Clari Munson, PGY-1, Internal Medicine Discharge Summary for Dr. Mcclellan 77 year old Kosovan speaking female with PMH of uncontrolled DM, severe dementia, Alzheimer's, COPD, asthma, DVT, HTN and chronic lower extremity lymphedema presented to the ER accompanied by son for uncontrolled sugars. Patient's blood glucose was initially in the 500s, which was controlled with diet restriction and home insulin, levemir 15 U and humalog 5 U AC. Patient's bicarbonate level was unremarkable, there was no anion gap, and BHB was negative. DKA was unlikely. Patient was on a consistent carbohydrate diet. Patient also had bilateral lower extremity lymphedema but it is was difficult to exclude likely cellulitis. Patient initially presented with a leukocytosis which trended down throughout the admission. Patient's procalcitonin was elevated at 13.10 as well. CRP and ESR were elevated. Blood culture was negative. Patient was started on vancomycin and ceftriaxone on admission for the 5 days that patient was in the hospital. Bilateral lower extremity MRI were ordered to rule out osteomyelities and both MRI's came back negative for osteomyelitis. Patient was discharged with 7 day course of doxycycline and augmentin as per ID. Patient was told to follow up with PCP in 1 week. Patient was told to take doxycycline and augmentin as prescribed for 7 days. Patient was told to take rest of home medications as prescribed. Patient was told to return to the emergency department if patient had any other concerning symptoms. This is a brief summary of the events that occurred during this hospital visit. For further details, please consult the hospital documentation. - Date & Time of H&P Date of H&P: 06/07/18 Time of H&P: 20:40 Discharge Exam - Head Exam Head Exam: NORMAL INSPECTION - Eye Exam Eye Exam: EOMI, PERRL - Respiratory Exam Respiratory Exam: Clear to PA & Lateral, NORMAL BREATHING PATTERN - Cardiovascular Exam Cardiovascular Exam: REGULAR RHYTHM - GI/Abdominal Exam GI & Abdominal Exam: Normal Bowel Sounds - Extremities Exam Extremities exam: full ROM - Neurological Exam Neurological exam: Alert, CN II-XII Intact, Oriented x3 - Skin Additional comments: coarse, darkened skin bilateral lower extremity Discharge Plan - Discharge Medications Prescriptions: Amoxicillin/Clavulanate [Augmentin 875 MG-125 MG] 1 tab PO Q12H #14 tab Doxycycline Hyclate 100 mg PO Q12H #14 capsule - Follow Up Plan Condition: FAIR Disposition: HOME/ ROUTINE Instructions: Type 2 Diabetes, Cellulitis (DC) Additional Instructions: Please follow up with PCP in 7 days. Please take doxycycline every 12 hours and augmentin every 12 hours for 7 days. Please take home medications as prescribed. Please return to the emergency department if you have any recurring symptoms or have new concerning symptoms Referrals: Bhargavi Hendricks MD [Primary Care Provider] -
== END 2018-06-07 18:42 | disposition home health service (06) | DRG 638 ==
LOC: ED 21:05 → ERH 22:23 → 5RNO 06-03 01:09
PROVIDERS: ADMIT Internal Medicine; ATTEND Internal Medicine
DX: E11.65 Type 2 diabetes mellitus with hyperglycemia (principal); L03.115 Cellulitis of right lower limb; I11.0 Hypertensive heart disease with heart failure; I50.9 Heart failure, unspecified; E87.6 Hypokalemia; J44.9 Chronic obstructive pulmonary disease, unspecified; G30.9 Alzheimer's disease, unspecified; F02.80 Dementia in other diseases classified elsewhere, unspecified severity, without behavioral disturbance, psychotic disturbance, mood disturbance, and anxiety; E11.51 Type 2 diabetes mellitus with diabetic peripheral angiopathy without gangrene; I89.0 Lymphedema, not elsewhere classified; I25.10 Atherosclerotic heart disease of native coronary artery without angina pectoris; R32 Unspecified urinary incontinence; Z66 Do not resuscitate; K59.00 Constipation, unspecified; E66.01 Morbid (severe) obesity due to excess calories; Z68.38 Body mass index [BMI] 38.0-38.9, adult; Z86.718 Personal history of other venous thrombosis and embolism; Z87.891 Personal history of nicotine dependence; Z91.14 Patient's other noncompliance with medication regimen; Z91.11 Patient's noncompliance with dietary regimen; Z79.4 Long term (current) use of insulin

== ENCOUNTER 2018-10-03 10:36 | Inpatient (IN) | payer MEDICARE, MEDICAID ==
[2018-10-03 10:49] VITALS: BMI 31.6
--- NOTE | 2018-10-03 11:27 | ED PDOC ---
Arrival/HPI <Mak López - Last Filed: 10/03/18 12:53> - General Historian: Patient, Family - History of Present Illness Narrative History of Present Illness (Text): 10/03/18 11:16 Patient is an 78yo F with PMH of uncontrolled DM, severe dementia, Alzheimer's, COPD, asthma, DVT, HTN and chronic lower extremity lymphedema presenting with blood in the urine. Son at bedside provided most of history. He reports that home health aid saw dark red blood in urine when she was changing patient's diaper this morning. This is the first episode, the patient and son both deny prior episodes of this. Patient denies blood in bowel movements, abdominal pain, dysuria, nausea, vomiting, diarrhea, chest pain, shortness of breath, dizziness, fatigue. <Sky Ng - Last Filed: 10/03/18 15:31> - General Chief Complaint: Female Genitourinary Time Seen by Provider: 10/03/18 10:40 Past Medical History - Infectious Disease Hx of Infectious Diseases: None - Tetanus Immunization Tetanus Immunization: Unknown - Cardiac Hx Cardiac Disorders: Yes Hx Congestive Heart Failure: Yes Hx Hypertension: Yes - Pulmonary Hx Respiratory Disorders: Yes Hx Chronic Obstructive Pulmonary Disease (COPD): Yes - Neurological Hx Neurological Disorder: Yes Hx Alzheimer's Disease: Yes Hx Dementia: Yes - HEENT Hx HEENT Disorder: No - Renal Hx Renal Disorder: No - Endocrine/Metabolic Hx Endocrine Disorders: Yes Hx Diabetes Mellitus Type 2: Yes - Hematological/Oncological Hx Blood Disorders: No - Integumentary Hx Dermatological Disorder: No - Musculoskeletal/Rheumatological Hx Musculoskeletal Disorders: No - Gastrointestinal Hx Gastrointestinal Disorders: No - Genitourinary/Gynecological Hx Genitourinary Disorders: Yes Hx Incontinence: Yes - Psychiatric Hx Psychophysiologic Disorder: Yes Hx Depression: Yes Hx Substance Use: No - Surgical History Hx Joint Replacement: Yes (BILATERAL KNEE) Hx Orthopedic Surgery: Yes Other/Comment: manfred filter - Anesthesia Hx Anesthesia: Yes Hx Anesthesia Reactions: No Hx Malignant Hyperthermia: No - Suicidal Assessment Feels Threatened In Home Enviroment: No <Sky Ng - Last Filed: 10/03/18 15:31> Family/Social History Family/Social History: No Known Family HX Smoking Status: Former Smoker Hx Alcohol Use: No Hx Substance Use: No Hx Substance Use Treatment: No <Sky Ng - Last Filed: 10/03/18 15:31> Allergies/Home Meds <Mak López - Last Filed: 10/03/18 12:53> <Sky Ng - Last Filed: 10/03/18 15:31> Allergies/Adverse Reactions: Allergies cortisone Allergy (Verified 10/03/18 10:53) RASH Home Medications: Home Meds Medication Instructions Recorded Confirmed Atorvastatin Calcium 10 mg PO HS 11/12/13 10/03/18 Aspirin [Adult Low Dose Aspirin EC] 81 mg PO DAILY 04/11/16 10/03/18 Carvedilol [Coreg] 25 mg PO BID 04/11/16 10/03/18 Docusate Sodium [Ernandez' 100 mg PO BID 04/11/16 10/03/18 Laxative] Ferrous Sulfate [Feosol] 325 mg PO DAILY 04/11/16 10/03/18 Furosemide [Lasix] 40 mg PO DAILY 04/11/16 10/03/18 Memantine HCl [Namenda Xr] 28 mg PO DAILY 04/11/16 10/03/18 amLODIPine [Norvasc] 5 mg PO DAILY 04/11/16 10/03/18 Albuterol 0.083% [Albuterol 0.083% 2.5 mg IH DAILY 08/25/17 10/03/18 Inhal Karyn (2.5 mg/3 ml) UD] Albuterol Sulfate [Proair Hfa] 0.09 mg IH TID PRN 08/25/17 10/03/18 Pantoprazole [Protonix EC Tab] 40 mg PO DAILY 08/25/17 10/03/18 Montelukast [Singulair] 10 mg PO PRN PRN 10/03/18 10/03/18 Review of Systems - Review of Systems Constitutional: absent: Fatigue, Fevers Eyes: absent: Photophobia Respiratory: absent: SOB Cardiovascular: absent: Chest Pain Gastrointestinal: absent: Abdominal Pain, Diarrhea, Nausea, Vomiting Genitourinary Female: Hematuria. absent: Dysuria Neurological: absent: Headache, Dizziness <Sky Ng - Last Filed: 10/03/18 15:31> Physical Exam Vital Signs Temp Pulse Resp BP Pulse Ox 10/03/18 10:49 97.6 F 63 16 148/72 98 <Mak López - Last Filed: 10/03/18 12:53> Vital Signs Temp Pulse Resp BP Pulse Ox 10/03/18 10:49 97.6 F 63 16 148/72 98 - Systems Exam Head: Present: Atraumatic, Normocephalic Pupils: Present: PERRL Extroacular Muscles: Present: EOMI Mouth: Present: Moist Mucous Membranes Respiratory/Chest: Present: Clear to Auscultation, Good Air Exchange. No: Respiratory Distress, Accessory Muscle Use Cardiovascular: Present: Regular Rate and Rhythm, Normal S1, S2 Abdomen: Present: Tenderness, Normal Bowel Sounds. No: Distention Genitourinary/Pelvic Exam: Present: Normal External Genitalia. No: Vaginal Discharge, Vaginal Bleeding, Vaginal Lesions, Odor Lower Extremity: Present: Edema (+2 pitting edema) Skin: Present: Other (chronic venous stasis changes, hypertrophic skin with hyperpigmentation in lower extremities) Psychiatric: Present: Alert. No: Oriented x 3 <Sky Ng - Last Filed: 10/03/18 15:31> Medical Decision Making ED Course and Treatment: 10/03/18 12:53 Patient was seen and evaluated with resident. Patient is a 78 year old female who presents to the emergency department complaining of hematuria. On exam, +2 pitting edema. - RAD Interpretation Radiology Orders: 10/03/18 11:24 ABD & PELVIS W/O PO OR IV CONT [CT] Stat <Mak López - Last Filed: 10/03/18 12:53> Disposition/Present on Arrival <Mak López - Last Filed: 10/03/18 12:53> - Present on Arrival Any Indicators Present on Arrival: Yes History of DVT/PE: Yes History of Uncontrolled Diabetes: Yes Urinary Catheter: No History of Decub. Ulcer: No History Surgical Site Infection Following: None - Disposition Have Diagnosis and Disposition been Completed?: Yes Disposition Time: 01:35 <Sky Ng - Last Filed: 10/03/18 15:31> - Disposition Diagnosis: Nephrolithiasis Disposition: HOSPITALIZED Condition: STABLE
--- NOTE | 2018-10-03 12:45 | CT ---
Date of service: 10/03/2018 PROCEDURE: CT Abdomen and Pelvis without intravenous contrast HISTORY: hematuria COMPARISON: None. TECHNIQUE: Without contrast. Contrast dose: Radiation dose: Total exam DLP = 992.93 mGy-cm. This CT exam was performed using one or more of the following dose reduction techniques: Automated exposure control, adjustment of the mA and/or kV according to patient size, and/or use of iterative reconstruction technique. FINDINGS: LOWER THORAX: Unremarkable. LIVER: Unremarkable. No gross lesion or ductal dilatation. GALLBLADDER AND BILE DUCTS: Gallbladder removed PANCREAS: Unremarkable. No gross lesion or ductal dilatation. SPLEEN: Unremarkable. ADRENALS: 2 x 3 cm low-density right adrenal mass consistent with adenoma KIDNEYS AND URETERS: There is a 5 x 12 mm stone in the left proximal ureter with moderate hydronephrosis. There is bilateral nephrolithiasis. VASCULATURE: Unremarkable. No aortic aneurysm. Aortic calcification. Caval filter BOWEL: Unremarkable. No obstruction. No gross mural thickening. APPENDIX: Unremarkable. Normal appendix. PERITONEUM: Unremarkable. No free fluid. No free air. LYMPH NODES: Unremarkable. No enlarged lymph nodes. BLADDER: Unremarkable. REPRODUCTIVE: Unremarkable. BONES: No acute fracture. OTHER FINDINGS: None. IMPRESSION: There is a 5 x 12 mm stone in the left proximal ureter with moderate hydronephrosis. There is bilateral nephrolithiasis.
[2018-10-03 12:53] LABS: BASO # 0.02 K/mm3 (0.0-2.0); BASO % 0.3 % (0.0-3.0); EOS # 0.3 (0.0-0.7); EOS % 3.7 % (1.5-5.0); HEMOGLOBIN 11.3 g/dL (12.0-16.0); LYMPH # 1.6 (1.2-3.4); LYMPH % 22.9 % (22.0-35.0); MEAN CELL VOLUME 83.9 fl (80.0-105.0); MEAN CORPUSCULAR HEMOGLOBIN 26.8 pg (25.0-35.0); MEAN CORPUSCULAR HGB CONC 31.9 g/dl (31.0-37.0); MEAN PLATELET VOLUME 9.9 fl (7.0-11.0); MONO # 0.4 (0.1-0.6); MONO % 6.4 % (1.0-6.0); RBC 4.22 10^6/uL (3.5-6.1); WHITE BLOOD COUNT 6.8 10^3/uL (4.5-11.0)
[2018-10-03 13:13] LABS: INR 1.04; PARTIAL THROMBOPLASTIN TIME 37.7 Seconds (26.9-38.3); PROTHROMBIN TIME 11.7 SECONDS (9.4-12.5)
[2018-10-03 13:15] LABS: ALB/GLOB RATIO 0.7 (1.1-1.8); ALBUMIN 3.6 g/dL (3.0-4.8); ALT/SGPT < 6 U/L (7-56); AST/SGOT 19 U/L (14-36); BLOOD UREA NITROGEN 20 mg/dL (7-21); CALCIUM 8.9 mg/dL (8.4-10.5); GFR NON-AFRICAN AMERICAN 53; LIPASE 54 U/L (23-300)
[2018-10-03] MEDS ORDERED: Insulin Regular 1 UNITS/0.01 ML ML IV STA (13:16)
[2018-10-03 13:17] LABS: PH,URINE 7.5 (4.7-8.0); URINE APPEARANCE CLEAR (CLEAR); URINE BILIRUBIN NEGATIVE (NEGATIVE); URINE BLOOD LARGE (NEGATIVE); URINE COLOR YELLOW (YELLOW); URINE GLUCOSE (UA) >=1000 mg/dL (NEGATIVE); URINE LEUKOCYTE ESTERASE MODERATE Leu/uL (NEGATIVE); URINE PROTEIN NEGATIVE mg/dL (<30 mg/dL); URINE UROBILINOGEN 0.2 E.U./dL (<1 E.U./dL)
[2018-10-03 13:27] LABS: URINE BACTERIA SMALL /hpf; URINE EPITHELIAL CELLS 0 - 2 /hpf (0-5); URINE RBC TNTC /hpf (0-2)
--- NOTE | 2018-10-03 14:00 | CP.PCM.HP ---
<Cheko Chávez - Last Filed: 10/03/18 16:30> History of Present Illness - History of Present Illness History of Present Illness: PGY-1 Medicine H&P for Dr. Hendrix CC: Hematuria Patient is a 77 year old Norwegian speaking female with PMHx of uncontrolled DM, severe dementia, Alzheimer's, COPD, asthma, DVT, HTN, urinary incontinence, and chronic lower extremity lymphedema presenting with blood in urine. Patient is confused at baseline and patient's son was at bedside providing the history. He states that he received a call from the patient's affirmative action specialist at 9AM this morning saying that there was blood in her urine while she was changing the patient's diaper. He states that this has never happened to her before. Patient is confused at baseline requiring help with with taking her medications. Patient is able to ambulate by herself with a walker. He states that the patient does not drink much water and mostly drink green tea. Patient is complaining of nausea and vomited once while in the ED. She denies having any pain at this time. She has not been having fevers, chills, unintentional weight loss, shortness of breath, chest pain, abdominal/flank/back pain, diarrhea, or dysuria. 12 point ROS reviewed and negative except stated in HPI. Most of patient's history obtained from son and previous medical records. PMH: uncontrolled DM, severe dementia, Alzheimer's, COPD, asthma, DVT, HTN, urinary incontinence, and chronic lower extremity lymphedema SHx: Bilateral knee surgery Social Hx: denies smoking, drinking and drugs. Former smoker many years ago. Used to work in a factory. Lives at home with her son and his family. Family Hx: DM, alzheimer's, HTN Allergies: cortisone - rash Pharmacy: [facility] PMD: Dr. Bhargavi Hendricks Meds: See MAR Present on Admission - Present on Admission Any Indicators Present on Admission: Yes History of DVT/PE: Yes History of Uncontrolled Diabetes: Yes Urinary Catheter: No Decubitus Ulcer Present: No Review of Systems - Review of Systems All systems: reviewed and no additional remarkable complaints except Past Patient History - Infectious Disease Hx of Infectious Diseases: None - Tetanus Immunizations Tetanus Immunization: Unknown - Past Social History Smoking Status: Former Smoker - CARDIAC Hx Cardiac Disorders: Yes Hx Congestive Heart Failure: Yes Hx Hypertension: Yes - PULMONARY Hx Respiratory Disorders: Yes Hx Chronic Obstructive Pulmonary Disease (COPD): Yes - NEUROLOGICAL Hx Neurological Disorder: Yes Hx Alzheimer's Disease: Yes Hx Dementia: Yes - HEENT Hx HEENT Problems: No - RENAL Hx Chronic Kidney Disease: No - ENDOCRINE/METABOLIC Hx Endocrine Disorders: Yes Hx Diabetes Mellitus Type 2: Yes - HEMATOLOGICAL/ONCOLOGICAL Hx Blood Disorders: No - INTEGUMENTARY Hx Dermatological Problems: No - MUSCULOSKELETAL/RHEUMATOLOGICAL Hx Musculoskeletal Disorders: No - GASTROINTESTINAL Hx Gastrointestinal Disorders: No - GENITOURINARY/GYNECOLOGICAL Hx Genitourinary Disorders: Yes Hx Incontinence: Yes - PSYCHIATRIC Hx Psychophysiologic Disorder: Yes Hx Depression: Yes Hx Substance Use: No - SURGICAL HISTORY Hx Joint Replacement: Yes (BILATERAL KNEE) Hx Orthopedic Surgery: Yes Other/Comment: cook sta filter - ANESTHESIA Hx Anesthesia: Yes Hx Anesthesia Reactions: No Hx Malignant Hyperthermia: No Meds Allergies/Adverse Reactions: Allergies Allergy/AdvReac Type Severity Reaction Status Date / Time cortisone Allergy RASH Verified 10/03/18 10:53 Physical Exam - Constitutional Appears: Well, Non-toxic, No Acute Distress - Head Exam Head Exam: ATRAUMATIC, NORMAL INSPECTION - Eye Exam Eye Exam: EOMI, Normal appearance - ENT Exam ENT Exam: Mucous Membranes Moist - Respiratory Exam Respiratory Exam: Wheezes. absent: Rales, Rhonchi, Respiratory Distress Additional comments: Mild expiratory wheezes more on the left lung - Cardiovascular Exam Cardiovascular Exam: REGULAR RHYTHM, +S1, +S2. absent: Gallop, Rubs, Systolic M urmur - GI/Abdominal Exam GI & Abdominal Exam: Normal Bowel Sounds, Soft. absent: Distended, Firm, Guarding, Tenderness Additional comments: Patient is obese - Back Exam Back exam: NORMAL INSPECTION. absent: CVA tenderness (L), CVA tenderness (R), paraspinal tenderness, tenderness - Neurological Exam Neurological exam: Alert, CN II-XII Intact Additional comments: Patient is not oriented to time and place - Psychiatric Exam Psychiatric exam: Normal Affect, Normal Mood - Skin Additional comments: Bilateral lower extremities with chronic venous stasis changes, hypertrophic skin with hyperpigmentation Results - Vital Signs Recent Vital Signs: Last Vital Signs Temp 97.6 F 10/03/18 10:49 Pulse 63 10/03/18 10:49 Resp 16 10/03/18 10:49 BP 148/72 10/03/18 10:49 Pulse Ox 98 10/03/18 10:49 - Labs Result Diagrams: 10/03/18 12:30 10/03/18 12:30 Labs: Laboratory Results - last 24 hr 10/03/18 10/03/18 10/03/18 12:30 12:30 12:30 WBC 6.8 RBC 4.22 Hgb 11.3 L Hct 35.4 L MCV 83.9 MCH 26.8 MCHC 31.9 RDW 14.0 Plt Count 167 MPV 9.9 Neut % (Auto) 66.7 Lymph % (Auto) 22.9 Archer % (Auto) 6.4 H Eos % (Auto) 3.7 Baso % (Auto) 0.3 Lymph # (Auto) 1.6 Archer # (Auto) 0.4 Eos # (Auto) 0.3 Baso # (Auto) 0.02 Absolute Neuts (auto) 4.51 PT 11.7 INR 1.04 APTT 37.7 Sodium 138 Potassium 3.6 Chloride 94 L Carbon Dioxide 36 H Anion Gap 12 BUN 20 Creatinine 1.0 Est GFR ( Amer) > 60 Est GFR (Non-Af Amer) 53 Random Glucose 378 H* D Calcium 8.9 Magnesium 1.8 Total Bilirubin 0.6 AST 19 ALT < 6 L Alkaline Phosphatase 158 H D Total Protein 8.4 H Albumin 3.6 Globulin 4.8 Albumin/Globulin Ratio 0.7 L Lipase 54 Urine Color Urine Appearance Urine pH Ur Specific [place] Urine Protein Urine Glucose (UA) Urine Ketones Urine Blood Urine Nitrate Urine Bilirubin Urine Urobilinogen Ur Leukocyte Esterase Urine RBC Urine WBC Ur Epithelial Cells Urine Bacteria 10/03/18 13:08 WBC RBC Hgb Hct MCV MCH MCHC RDW Plt Count MPV Neut % (Auto) Lymph % (Auto) Archer % (Auto) Eos % (Auto) Baso % (Auto) Lymph # (Auto) Archer # (Auto) Eos # (Auto) Baso # (Auto) Absolute Neuts (auto) PT INR APTT Sodium Potassium Chloride Carbon Dioxide Anion Gap BUN Creatinine Est GFR ( Amer) Est GFR (Non-Af Amer) Random Glucose Calcium Magnesium Total Bilirubin AST ALT Alkaline Phosphatase Total Protein Albumin Globulin Albumin/Globulin Ratio Lipase Urine Color Yellow Urine Appearance Clear Urine pH 7.5 Ur Specific [place] 1.010 Urine Protein Negative Urine Glucose (UA) >=1000 Urine Ketones Negative Urine Blood Large H Urine Nitrate Negative Urine Bilirubin Negative Urine Urobilinogen 0.2 Ur Leukocyte Esterase Moderate H Urine RBC Tntc H Urine WBC 1 - 3 Ur Epithelial Cells 0 - 2 Urine Bacteria Small Assessment & Plan - Assessment and Plan (Free Text) Assessment: Patient is a 77 year old Norwegian speaking female with PMHx of uncontrolled DM, severe dementia, Alzheimer's, COPD, asthma, DVT, HTN, urinary incontinence, and chronic lower extremity lymphedema presenting with hematuria that started this morning. Plan: Hematuria- 2/2 to nephrolithiasis - CT Abd/pelvis: There is a 5 x 12 mm stone in the left proximal ureter with moderate hydronephrosis. There is bilateral nephrolithiasis. - UA: positive for blood, LE, WBC, bacteria - Urine culture: pending - Keep patient NPO - Start NS @ 100mls/hr - Patient is not complaining of pain - Flomax 0.4mg PO QD - Zofran 4mg Q4 IV PRN - Rocephin 1g IV QD (Startes on 10/03) - Urology consulted, Dr. Melvina Disla Alzhemier's disease, dementia - Continue home Memantine Hypertension - Continue home Norvasc 5mg PO QD and Coreg 25mg PO BID - Hold home Furosemide Hyperlipidemia - Continue home Lipitor 10mg PO HS - Lipid panel: pending - Hold home ASA DM-2 - Levemir 8u HS- Will increase to home dose of 16u once patient starts eating - ISS, medium dose - Accuchecks ACHS - HbA1C: pending Asthma - Continue home Albuterol Hx of DVT - Patient's son states that she has an IVC filter Prophylaxis: - SCD's - Protonix 40mg IV QD Patient seen and case discussed with attending, Dr. Ruma Chávez, PGY-1 <Lopez Hendrix - Last Filed: 10/03/18 17:31> Results - Vital Signs Recent Vital Signs: Last Vital Signs Temp 98.2 F 10/03/18 16:35 Pulse 82 10/03/18 16:35 Resp 20 10/03/18 16:35 BP 127/87 10/03/18 16:35 Pulse Ox 91 L 10/03/18 16:35 - Labs Result Diagrams: 10/03/18 12:30 10/03/18 12:30 Labs: Laboratory Results - last 24 hr 10/03/18 10/03/18 10/03/18 12:30 12:30 12:30 WBC 6.8 RBC 4.22 Hgb 11.3 L Hct 35.4 L MCV 83.9 MCH 26.8 MCHC 31.9 RDW 14.0 Plt Count 167 MPV 9.9 Neut % (Auto) 66.7 Lymph % (Auto) 22.9 Archer % (Auto) 6.4 H Eos % (Auto) 3.7 Baso % (Auto) 0.3 Lymph # (Auto) 1.6 Archer # (Auto) 0.4 Eos # (Auto) 0.3 Baso # (Auto) 0.02 Absolute Neuts (auto) 4.51 PT 11.7 INR 1.04 APTT 37.7 Sodium 138 Potassium 3.6 Chloride 94 L Carbon Dioxide 36 H Anion Gap 12 BUN 20 Creatinine 1.0 Est GFR ( Amer) > 60 Est GFR (Non-Af Amer) 53 POC Glucose (mg/dL) Random Glucose 378 H* D Calcium 8.9 Magnesium 1.8 Total Bilirubin 0.6 AST 19 ALT < 6 L Alkaline Phosphatase 158 H D Total Protein 8.4 H Albumin 3.6 Globulin 4.8 Albumin/Globulin Ratio 0.7 L Lipase 54 Urine Color Urine Appearance Urine pH Ur Specific [place] Urine Protein Urine Glucose (UA) Urine Ketones Urine Blood Urine Nitrate Urine Bilirubin Urine Urobilinogen Ur Leukocyte Esterase Urine RBC Urine WBC Ur Epithelial Cells Urine Bacteria 10/03/18 10/03/18 13:08 16:55 WBC RBC Hgb Hct MCV MCH MCHC RDW Plt Count MPV Neut % (Auto) Lymph % (Auto) Archer % (Auto) Eos % (Auto) Baso % (Auto) Lymph # (Auto) Archer # (Auto) Eos # (Auto) Baso # (Auto) Absolute Neuts (auto) PT INR APTT Sodium Potassium Chloride Carbon Dioxide Anion Gap BUN Creatinine Est GFR ( Amer) Est GFR (Non-Af Amer) POC Glucose (mg/dL) 299 H Random Glucose Calcium Magnesium Total Bilirubin AST ALT Alkaline Phosphatase Total Protein Albumin Globulin Albumin/Globulin Ratio Lipase Urine Color Yellow Urine Appearance Clear Urine pH 7.5 Ur Specific [place] 1.010 Urine Protein Negative Urine Glucose (UA) >=1000 Urine Ketones Negative Urine Blood Large H Urine Nitrate Negative Urine Bilirubin Negative Urine Urobilinogen 0.2 Ur Leukocyte Esterase Moderate H Urine RBC Tntc H Urine WBC 1 - 3 Ur Epithelial Cells 0 - 2 Urine Bacteria Small Attending/Attestation - Attestation I have personally seen and examined this patient.: Yes I have fully participated in the care of the patient.: Yes I have reviewed all pertinent clinical information: Yes Notes (Text): 10/03/18 17:27 78 year old female with past medical history of diabetes, dementia, COPD, hypertension and chronic lower extremity lymphedema who was brought in for evaluation of hematuria noted this morning while diaper was being changed. UA showed large blood, TNTC RBC and large LE. CT abd/pelvis showed 5 x 12 mm stone in the left proximal ureter with moderate hydronephrosis and bilateral nephrolithiasis. Patient denies suprapubic pain or flank pain. She did have o ne episode of vomiting in ER. Continue with NPO, IVF, and antiemetics. Will start flomax and rocephin. Urology evaluation is requested. Son is at bedside and questions were answered. Lopez Hendrix MD Hospitalist.
[2018-10-03] MEDS ORDERED: Albuterol HFA 90 mcg/actuation (8 g) IH PRN (15:16)
[2018-10-03] MEDS ORDERED: Albuterol 0.5% Inhal Sol (2.5 mg/0.5 ml) UD IH PRN (15:28)
[2018-10-03] MEDS: Sodium Chloride 0.9% 1,000 ML IV SCH (15:46)
[2018-10-03] MEDS: cefTRIAXone 1 gm 1 GM/100 ML BAG IVPB SCH (15:47)
[2018-10-03] MEDS: Insulin Reg-MEDIUM-Coverage SC SCH ×2 (16:57→22:01)
--- NOTE | 2018-10-03 18:30 | CARD ---
APPROVED REPORT Date of service: 10/03/2018 EKG Measurement Heart [id number] <Conclusion> Normal sinus rhythm Left axis deviation Nonspecific ST abnormality Abnormal ECG
[2018-10-03] MEDS ORDERED: Pneumococcal 23-Valent Vaccine IM ONE (19:26)
[2018-10-03] MEDS ORDERED: Influenza Vaccine 60 mcg/0.5 mL SYR (4YR UP) IM ONE (19:26)
[2018-10-03] MEDS: Insulin Detemir 100 units/ml Vial (Levemir) SC SCH (22:02)
[2018-10-03] MEDS ORDERED: guaiFENesin 100 mg/5 ml Syrup UD PO PRN (22:35)
[2018-10-04 07:20] LABS: BASO # 0.05 K/mm3 (0.0-2.0); BASO % 0.6 % (0.0-3.0); EOS # 0.1 (0.0-0.7); EOS % 0.7 % (1.5-5.0); HEMOGLOBIN 9.9 g/dL (12.0-16.0); LYMPH # 1.8 (1.2-3.4); LYMPH % 21.1 % (22.0-35.0); MEAN CELL VOLUME 83.9 fl (80.0-105.0); MEAN CORPUSCULAR HEMOGLOBIN 25.7 pg (25.0-35.0); MEAN CORPUSCULAR HGB CONC 30.7 g/dl (31.0-37.0); MEAN PLATELET VOLUME 9.8 fl (7.0-11.0); MONO # 1.2 (0.1-0.6); MONO % 13.6 % (1.0-6.0); RBC 3.85 10^6/uL (3.5-6.1); RED CELL DISTRIBUTION WIDTH 14.4 % (11.5-14.5); WHITE BLOOD COUNT 8.6 10^3/uL (4.5-11.0)
[2018-10-04 07:34] LABS: ALB/GLOB RATIO 0.8 (1.1-1.8); ALBUMIN 3.4 g/dL (3.0-4.8); CALCIUM 8.5 mg/dL (8.4-10.5)
[2018-10-04] MEDS: Insulin Reg-MEDIUM-Coverage SC SCH ×2 (08:02→11:28)
--- NOTE | 2018-10-04 08:21 | CP.PCM.PN ---
<Cheko Chávez - Last Filed: 10/04/18 12:10> Subjective - Date & Time of Evaluation Date of Evaluation: 10/04/18 Time of Evaluation: 08:18 - Subjective Subjective: PGY-1 Medicine progress note for Dr. Hendrix Patient was seen and examined at bedside. Patient had a fever of 102.2 last night and resolved after getting 1 dose of Tylenol. Patient is still having hematuria as per nursing staff. Patient is not complaining of any pain. She is only complaining of thirst. She denies nausea, vomiting, shortness of breath, chest pain, abdominal/flank/back pain, or dysuria. Objective - Vital Signs/Intake and Output Vital Signs (last 24 hours): Temp Pulse Resp BP Pulse Ox 97.5 F L 77 92 H 137/62 91 L 10/04/18 06:18 10/03/18 19:02 10/04/18 00:00 10/04/18 00:00 10/03/18 16:35 - Medications Medications: Current Medications Albuterol Sulfate (Albuterol 0.083% Inhal Karyn (2.5 Mg/3 Ml) Ud) 2.5 mg IH DAILY [facility] Albuterol Sulfate (Albuterol 0.5% Inhal Karyn (2.5 Mg/0.5 Ml) Ud) 2.5 mg IH TIDRESP PRN PRN Reason: Shortness of Breath Amlodipine Besylate (Norvasc) 5 mg PO DAILY [facility] Atorvastatin Calcium (Lipitor) 10 mg PO [facility] Last Admin: 10/03/18 22:02 Dose: 10 mg Carvedilol (Coreg) 25 mg PO BID [facility] Last Admin: 10/03/18 17:22 Dose: 25 mg Guaifenesin (Robitussin) 100 mg PO Q4H PRN PRN Reason: Cough Sodium Chloride (Sodium Chloride 0.9%) 1,000 mls @ 100 mls/hr IV .Q10H [facility] Last Admin: 10/03/18 15:46 Dose: 100 mls/hr Ceftriaxone Sodium (Rocephin 1 Gram Ivpb) 1 gm in 100 mls @ 100 mls/hr IVPB DAILY [facility]; Protocol Last Admin: 10/03/18 15:47 Dose: 100 mls/hr Insulin Detemir (Levemir) 8 unit SC [facility] Last Admin: 10/03/18 22:02 Dose: 8 u Insulin Human Regular (Humulin R Med) 0 units SC [facility]; Protocol Last Admin: 10/04/18 08:02 Dose: Not Given Non-Formulary Medication (Memantine Hcl [Namenda Xr]) 28 mg PO DAILY [facility] Ondansetron HCl (Zofran Inj) 4 mg IVP Q4H PRN PRN Reason: Nausea/Vomiting Last Admin: 10/03/18 15:46 Dose: 4 mg Pantoprazole Sodium (Protonix Inj) 40 mg IVP DAILY [facility] Tamsulosin HCl (Flomax) 0.4 mg PO DAILY [facility] Last Admin: 10/03/18 15:48 Dose: 0.4 mg - Labs Labs: 10/04/18 06:55 10/04/18 06:55 PT 11.7 SECONDS (9.4-12.5) 10/03/18 12:30 INR 1.04 10/03/18 12:30 APTT 37.7 Seconds (26.9-38.3) 10/03/18 12:30 - Constitutional Appears: Well, Non-toxic, No Acute Distress - Head Exam Head Exam: ATRAUMATIC, NORMAL INSPECTION - Eye Exam Eye Exam: EOMI, Normal appearance - ENT Exam ENT Exam: Mucous Membranes Moist - Respiratory Exam Respiratory Exam: Clear to Ausculation Bilateral. absent: Rales, Rhonchi, Wheezes, Respiratory Distress - Cardiovascular Exam Cardiovascular Exam: REGULAR RHYTHM, +S1, +S2. absent: Gallop, Rubs, Murmur - GI/Abdominal Exam GI & Abdominal Exam: Soft, Hypoactive Bowel Sounds. absent: Distended, Guarding, Tenderness - Extremities Exam Extremities Exam: Normal Inspection. absent: Calf Tenderness - Back Exam Back Exam: absent: CVA tenderness (L), CVA tenderness (R), paraspinal tenderness, tenderness - Neurological Exam Neurological Exam: Alert, Awake, CN II-XII Intact - Psychiatric Exam Psychiatric exam: Normal Affect, Normal Mood - Skin Skin Exam: Dry, Intact, Normal Color, Warm Additional comments: Bilateral lower extremities with chronic venous stasis changes, hypertrophic skin with hyperpigmentation Assessment and Plan - Assessment and Plan (Free Text) Assessment: Patient is a 77 year old Yi speaking female with PMHx of uncontrolled DM, severe dementia, Alzheimer's, COPD, asthma, DVT, HTN, urinary incontinence, and chronic lower extremity lymphedema, admitted for nephrolithiasis and hematuria. Plan: Hematuria- 2/2 to nephrolithiasis - CT Abd/pelvis: There is a 5 x 12 mm stone in the left proximal ureter with moderate hydronephrosis. There is bilateral nephrolithiasis. - UA: positive for blood, LE, WBC, bacteria - Urology consulted, Dr. Melvina Disla - Urine culture: pending - Insert Law catheter and measure urine output as per Dr. Disla - Continue NS @ 100mls/hr - Patient is not complaining of pain - Flomax 0.4mg PO QD - Zofran 4mg Q4 IV PRN - Rocephin 1g IV QD (Startes on 10/03) HANK- likely postrenal etiology 2/2 to nephrolithiasis - Continue NS @ 100mls/hr - Hold home Furosemide and Norvasc - Continue to monitor Alzhemier's disease, dementia - Continue home Memantine Hypertension - Continue home Coreg 25mg PO BID - Hold home Furosemide and Norvasc Hyperlipidemia - Continue home Lipitor 10mg PO HS - Lipid panel: WNL - Hold home ASA DM-2 - Levemir 8u HS- Will increase to home dose of 16u once patient starts eating - ISS, medium dose - Accuchecks ACHS - HbA1C: 10.9 Asthma - Continue home Albuterol Hx of DVT - Patient's son states that she has an IVC filter Prophylaxis: - SCD's - Protonix 40mg IV QD Patient seen and case discussed with attending, Dr. Ruma Chávez, PGY-1 <Lopez Hendrix - Last Filed: 10/04/18 13:18> Objective - Vital Signs/Intake and Output Vital Signs (last 24 hours): Temp Pulse Resp BP Pulse Ox 97.7 F 60 17 118/70 92 L 10/04/18 07:00 10/04/18 10:49 10/04/18 07:00 10/04/18 10:49 10/04/18 07:00 - Medications Medications: Current Medications Albuterol Sulfate (Albuterol 0.083% Inhal Karyn (2.5 Mg/3 Ml) Ud) 2.5 mg IH DAILY [facility] Last Admin: 10/04/18 10:14 Dose: 2.5 mg Albuterol Sulfate (Albuterol 0.5% Inhal Karyn (2.5 Mg/0.5 Ml) Ud) 2.5 mg IH TIDRESP PRN PRN Reason: Shortness of Breath Amlodipine Besylate (Norvasc) 5 mg PO DAILY [facility] Last Admin: 10/04/18 11:03 Dose: Not Given Atorvastatin Calcium (Lipitor) 10 mg PO HS [facility] Last Admin: 10/03/18 22:02 Dose: 10 mg Carvedilol (Coreg) 25 mg PO BID [facility] Last Admin: 10/04/18 10:49 Dose: 25 mg Guaifenesin (Robitussin) 100 mg PO Q4H PRN PRN Reason: Cough Sodium Chloride (Sodium Chloride 0.9%) 1,000 mls @ 100 mls/hr IV .Q10H [facility] Last Admin: 10/03/18 15:46 Dose: 100 mls/hr Ceftriaxone Sodium (Rocephin 1 Gram Ivpb) 1 gm in 100 mls @ 100 mls/hr IVPB DAILY [facility]; Protocol Last Admin: 10/04/18 11:03 Dose: 100 mls/hr Insulin Detemir (Levemir) 8 unit SC [facility] Last Admin: 10/03/18 22:02 Dose: 8 u Insulin Human Regular (Humulin R Med) 0 units SC [facility]; Protocol Last Admin: 10/04/18 11:28 Dose: 7 u Non-Formulary Medication (Memantine Hcl [Namenda Xr]) 28 mg PO DAILY [facility] Last Admin: 10/04/18 11:03 Dose: Not Given Ondansetron HCl (Zofran Inj) 4 mg IVP Q4H PRN PRN Reason: Nausea/Vomiting Last Admin: 10/03/18 15:46 Dose: 4 mg Pantoprazole Sodium (Protonix Ec Tab) 40 mg PO ACB [facility] Tamsulosin HCl (Flomax) 0.4 mg PO DAILY [facility] Last Admin: 10/04/18 10:49 Dose: 0.4 mg - Labs Labs: 10/04/18 06:55 10/04/18 06:55 PT 11.7 SECONDS (9.4-12.5) 10/03/18 12:30 INR 1.04 10/03/18 12:30 APTT 37.7 Seconds (26.9-38.3) 10/03/18 12:30 Attending/Attestation - Attestation I have personally seen and examined this patient.: Yes I have fully participated in the care of the patient.: Yes I have reviewed all pertinent clinical information, including history, physical exam and plan: Yes Notes (Text): 10/04/18 13:16 78 year old female with past medical history of diabetes, dementia, COPD, hypertension and chronic lower extremity lymphedema who was brought in for evaluation of hematuria noted while diaper was being changed. UA showed large blood, TNTC RBC and large LE. CT abd/pelvis showed 5 x 12 mm stone in the left proximal ureter with moderate hydronephrosis and bilateral nephrolithiasis. Overnight she had fever of 102. This morning also noted to have HANK with creatinine of 1.6. Continue with NPO, IVF, and antiemetics. Aspirin is on hold. Lasix is on hold. Urology evaluation was requested. Lopez Hendrix MD Hospitalist.
[2018-10-04] MEDS: Albuterol 0.083% Inhal Sol (2.5 mg/3 mL) UD IH SCH (10:14)
--- NOTE | 2018-10-04 10:41 | RAD ---
Date of service: 10/03/2018 HISTORY: hx of copd COMPARISON: 06/02/2018 TECHNIQUE: 1 view obtained. FINDINGS: LUNGS: No active pulmonary disease. PLEURA: No significant pleural effusion identified, no pneumothorax apparent. CARDIOVASCULAR: No aortic atherosclerotic calcification present. Mild cardiomegaly no pulmonary vascular congestion. OSSEOUS STRUCTURES: No significant abnormalities. VISUALIZED UPPER ABDOMEN: Normal. OTHER FINDINGS: None. IMPRESSION: No active disease.
[2018-10-04] MEDS: MEMANTINE HCL 28 MG PO SCH (11:03)
[2018-10-04] MEDS: cefTRIAXone 1 gm 1 GM/100 ML BAG IVPB SCH (11:03)
--- NOTE | 2018-10-04 12:22 | CP.PCM.PCO ---
Additional Comments - Additional Comments Additional Comments: 12mm renal calci with moderate hydronephrosis, fever, UTI and HANK, continue IV antibiotics, recs as per urology.
[2018-10-04] MEDS: Sodium Chloride 0.9% 1,000 ML IV SCH (14:16)
[2018-10-04] MEDS: Insulin Detemir 100 units/ml Vial (Levemir) SC SCH (21:53)
--- NOTE | 2018-10-05 05:49 | PCM.URO ---
Urology Progress Note - Objective Lab Studies: Reviewed (further plans to be discussed) Lab Results Last 24 Hours: Laboratory Results - last 24 hr 10/04/18 10/04/18 10/04/18 06:55 06:55 06:55 WBC 8.6 D RBC 3.85 Hgb 9.9 L Hct 32.3 L MCV 83.9 MCH 25.7 MCHC 30.7 L RDW 14.4 Plt Count 155 MPV 9.8 Neut % (Auto) 64.0 Lymph % (Auto) 21.1 L Wilkinson % (Auto) 13.6 H Eos % (Auto) 0.7 L Baso % (Auto) 0.6 Lymph # (Auto) 1.8 Wilkinson # (Auto) 1.2 H Eos # (Auto) 0.1 Baso # (Auto) 0.05 Absolute Neuts (auto) 5.51 Sodium 139 Potassium 3.6 Chloride 96 L Carbon Dioxide 36 H Anion Gap 11 BUN 26 H Creatinine 1.6 H Est GFR ( Amer) 38 Est GFR (Non-Af Amer) 31 POC Glucose (mg/dL) Random Glucose 261 H Hemoglobin A1c 10.9 H Calcium 8.5 Magnesium 2.0 Total Bilirubin 0.5 AST 19 ALT 9 Alkaline Phosphatase 104 Total Protein 7.7 Albumin 3.4 Globulin 4.3 Albumin/Globulin Ratio 0.8 L Triglycerides 66 Cholesterol 127 L LDL Cholesterol Direct 64 HDL Cholesterol 39 10/04/18 10/04/18 10/04/18 07:32 11:18 16:22 WBC RBC Hgb Hct MCV MCH MCHC RDW Plt Count MPV Neut % (Auto) Lymph % (Auto) Wilkinson % (Auto) Eos % (Auto) Baso % (Auto) Lymph # (Auto) Wilkinson # (Auto) Eos # (Auto) Baso # (Auto) Absolute Neuts (auto) Sodium Potassium Chloride Carbon Dioxide Anion Gap BUN Creatinine Est GFR ( Amer) Est GFR (Non-Af Amer) POC Glucose (mg/dL) 266 H 342 H 188 H Random Glucose Hemoglobin A1c Calcium Magnesium Total Bilirubin AST ALT Alkaline Phosphatase Total Protein Albumin Globulin Albumin/Globulin Ratio Triglycerides Cholesterol LDL Cholesterol Direct HDL Cholesterol 10/04/18 21:28 WBC RBC Hgb Hct MCV MCH MCHC RDW Plt Count MPV Neut % (Auto) Lymph % (Auto) Wilkinson % (Auto) Eos % (Auto) Baso % (Auto) Lymph # (Auto) Wilkinson # (Auto) Eos # (Auto) Baso # (Auto) Absolute Neuts (auto) Sodium Potassium Chloride Carbon Dioxide Anion Gap BUN Creatinine Est GFR ( Amer) Est GFR (Non-Af Amer) POC Glucose (mg/dL) 209 H Random Glucose Hemoglobin A1c Calcium Magnesium Total Bilirubin AST ALT Alkaline Phosphatase Total Protein Albumin Globulin Albumin/Globulin Ratio Triglycerides Cholesterol LDL Cholesterol Direct HDL Cholesterol Intake & Output: Intake & Output 10/04/18 10/04/18 10/05/18 06:59 18:59 06:59 Weight 190 lb Other: Voiding Method Incontinent Vital Signs: Vital Signs - 24 hr 10/04/18 10/04/18 10/04/18 06:18 07:00 10:49 Temperature 97.5 F L 97.7 F Pulse Rate 55 L 60 Respiratory 17 Rate Blood Pressure 119/65 118/70 O2 Sat by Pulse 92 L Oximetry 10/04/18 18:01 Temperature Pulse Rate 55 L Respiratory Rate Blood Pressure 126/54 L O2 Sat by Pulse Oximetry
[2018-10-05 07:17] LABS: BASO # 0.05 K/mm3 (0.0-2.0); BASO % 0.7 % (0.0-3.0); EOS # 0.3 (0.0-0.7); EOS % 3.8 % (1.5-5.0); HEMOGLOBIN 9.5 g/dL (12.0-16.0); LYMPH # 1.8 (1.2-3.4); MEAN CELL VOLUME 84.2 fl (80.0-105.0); MEAN CORPUSCULAR HEMOGLOBIN 25.5 pg (25.0-35.0); MEAN CORPUSCULAR HGB CONC 30.3 g/dl (31.0-37.0); MEAN PLATELET VOLUME 9.7 fl (7.0-11.0); MONO # 0.7 (0.1-0.6); RBC 3.73 10^6/uL (3.5-6.1); RED CELL DISTRIBUTION WIDTH 14.3 % (11.5-14.5); WHITE BLOOD COUNT 7.3 10^3/uL (4.5-11.0)
[2018-10-05 07:53] LABS: ALB/GLOB RATIO 0.7 (1.1-1.8); ALBUMIN 3.2 g/dL (3.0-4.8); ALT/SGPT < 6 U/L (7-56); AST/SGOT 21 U/L (14-36); BLOOD UREA NITROGEN 19 mg/dL (7-21); CALCIUM 8.3 mg/dL (8.4-10.5); GFR NON-AFRICAN AMERICAN > 60
[2018-10-05] MEDS: Insulin Reg-MEDIUM-Coverage SC SCH ×4 (07:56→21:18)
[2018-10-05] MEDS: cefTRIAXone 1 gm 1 GM/100 ML BAG IVPB SCH (10:07)
[2018-10-05] MEDS: Pantoprazole 40 mg EC Tab PO SCH (10:07)
[2018-10-05] MEDS: Sodium Chloride 0.9% 1,000 ML IV SCH ×2 (10:08→21:17)
[2018-10-05] MEDS: MEMANTINE HCL 28 MG PO SCH (10:08)
--- NOTE | 2018-10-05 10:22 | CON ---
DATE: 10/04/2018 UROLOGY CONSULTATION REASON FOR CONSULTATION: For urolithiasis and hematuria. Ms. Britt's history is mostly from the chart. HISTORY OF PRESENT ILLNESS: Ms. Britt is a patient who was admitted to the hospital after home care worker noted some blood in the urine. Imaging here in the hospital has shown bilateral stone disease. On the left side in the left ureter, there was also hydronephrosis secondary to a ureteral stone. Urology was consulted for further recommendations. See the plan listed below. PAST MEDICAL AND SURGICAL HISTORY: As listed. REVIEW OF SYSTEMS: As listed, though is noncontributory. SOCIAL HISTORY: The patient has children and they have been visiting. MEDICATIONS: See the chart. ALLERGIES: SEE THE CHART. PHYSICAL EXAMINATION: GENERAL: A well-nourished female. She is currently resting comfortably in her bed. The remainder of the exam is otherwise unremarkable. Not grossly distended. DIAGNOSES: Hematuria, urolithiasis and hydronephrosis. Labs are noted. White count is noted, CT scan all noted. ASSESSMENT AND PLAN: In summary, this is a very pleasant lady with the above history who is thought to have balance off. She is not currently complaining; however, she does have hydronephrosis, she has bilateral stone disease, and she has gross hematuria. RECOMMENDATION: From Urology standpoint, do a cystoscopy and a retrograde pyelogram and attempt a stent insertion and possibly treatment of the stone. So for now, we discussed the options. We will consider doing this; whether we do it now as an emergency or whether we schedule it more electively, needs to be determined. Depending on her general medical condition and the family's desires since the is not clearly noted I attempted to speak to the son who right now, they are working on getting the power of county attorney. So before I do anything further, I just want things to be clear. Risks, benefits, and treatment alternatives and further treatment to be discussed further. So for now, no Urology intervention. We would consider doing a cystoscopy. Further plans will follow. PLAN AND RECOMMENDATIONS: Would be for cystoscopy, retrograde pyelogram and a stent insertion and that would then subsequently be followed by ureteroscopy and laser lithotripsy. I do not think she would be a candidate to go to . We will also want to do a cystoscopy to rule out any bladder malignancy or bladder cancer. Further plans will follow. Plan is as follows: 1. Discuss options with the patient. 2. Recommend the patient's family discuss. 3. Cystoscopy and a stent insertion. Thank you for the Urology consult. Darius Disla MD
[2018-10-05] MEDS: Albuterol 0.083% Inhal Sol (2.5 mg/3 mL) UD IH SCH (11:43)
--- NOTE | 2018-10-05 15:04 | CP.PCM.PN ---
<Amrik Fitzgerald - Last Filed: 10/05/18 15:00> Subjective - Date & Time of Evaluation Date of Evaluation: 10/05/18 Time of Evaluation: 08:00 - Subjective Subjective: Amrik Fitzgerald PGY-1 Progress Note for Hospitalist Service Patient was seen and examined at bedside. Patient afebrile overnight and without hematuria. Patient denies nausea, vomiting, shortness of breath, chest pain, abdominal/flank/back pain, or dysuria. Objective - Vital Signs/Intake and Output Vital Signs (last 24 hours): Temp Pulse Resp BP Pulse Ox 98.8 F 59 L 20 151/67 H 95 10/05/18 08:39 10/05/18 10:06 10/05/18 08:39 10/05/18 10:06 10/05/18 08:39 Intake and Output: 10/05/18 10/05/18 06:59 18:59 Intake Total 240 Output Total 1200 Balance -960 - Medications Medications: Current Medications Albuterol Sulfate (Albuterol 0.083% Inhal Karyn (2.5 Mg/3 Ml) Ud) 2.5 mg IH DAILY [facility] Last Admin: 10/05/18 11:43 Dose: 2.5 mg Albuterol Sulfate (Albuterol 0.5% Inhal Karyn (2.5 Mg/0.5 Ml) Ud) 2.5 mg IH TIDRESP PRN PRN Reason: Shortness of Breath Amlodipine Besylate (Norvasc) 5 mg PO DAILY [facility] Last Admin: 10/04/18 11:03 Dose: Not Given Atorvastatin Calcium (Lipitor) 10 mg PO HS [facility] Last Admin: 10/04/18 21:53 Dose: 10 mg Carvedilol (Coreg) 25 mg PO BID [facility] Last Admin: 10/05/18 10:06 Dose: 25 mg Guaifenesin (Robitussin) 100 mg PO Q4H PRN PRN Reason: Cough Sodium Chloride (Sodium Chloride 0.9%) 1,000 mls @ 100 mls/hr IV .Q10H [facility] Last Admin: 10/05/18 10:08 Dose: 100 mls/hr Ceftriaxone Sodium (Rocephin 1 Gram Ivpb) 1 gm in 100 mls @ 100 mls/hr IVPB DAILY [facility]; Protocol Last Admin: 10/05/18 10:07 Dose: 100 mls/hr Potassium Chloride (Potassium Chloride 10 Meq/100 Ml) 10 meq in 100 mls @ 100 mls/hr IVPB Q2H [facility] Stop: 10/05/18 16:14 Last Admin: 10/05/18 13:54 Dose: 100 mls/hr Insulin Detemir (Levemir) 8 unit SC [facility] Last Admin: 10/04/18 21:53 Dose: 8 u Insulin Human Regular (Humulin R Med) 0 units SC [facility]; Protocol Last Admin: 10/05/18 12:26 Dose: Not Given Non-Formulary Medication (Memantine Hcl [Namenda Xr]) 28 mg PO DAILY [facility] Last Admin: 10/05/18 10:08 Dose: Not Given Ondansetron HCl (Zofran Inj) 4 mg IVP Q4H PRN PRN Reason: Nausea/Vomiting Last Admin: 10/03/18 15:46 Dose: 4 mg Pantoprazole Sodium (Protonix Ec Tab) 40 mg PO ACB [facility] Last Admin: 10/05/18 10:07 Dose: 40 mg Tamsulosin HCl (Flomax) 0.4 mg PO DAILY [facility] Last Admin: 10/05/18 10:06 Dose: 0.4 mg - Labs Labs: 10/05/18 07:00 10/05/18 07:00 PT 11.7 SECONDS (9.4-12.5) 10/03/18 12:30 INR 1.04 10/03/18 12:30 APTT 37.7 Seconds (26.9-38.3) 10/03/18 12:30 - Additional Findings Additional findings: - Constitutional Appears: Well, Non-toxic, No Acute Distress - Head Exam Head Exam: ATRAUMATIC, NORMAL INSPECTION - Eye Exam Eye Exam: EOMI, Normal appearance - ENT Exam ENT Exam: Mucous Membranes Moist - Respiratory Exam Respiratory Exam: Clear to Ausculation Bilateral. absent: Rales, Rhonchi, Wheezes, Respiratory Distress - Cardiovascular Exam Cardiovascular Exam: REGULAR RHYTHM, +S1, +S2. absent: Gallop, Rubs, Murmur - GI/Abdominal Exam GI & Abdominal Exam: Soft, Hypoactive Bowel Sounds. absent: Distended, Guarding, Tenderness - Extremities Exam Extremities Exam: Normal Inspection. absent: Calf Tenderness - Back Exam Back Exam: absent: CVA tenderness (L), CVA tenderness (R), paraspinal tenderness, tenderness - Neurological Exam Neurological Exam: Alert, Awake, CN II-XII Intact - Psychiatric Exam Psychiatric exam: Normal Affect, Normal Mood - Skin Skin Exam: Dry, Intact, Normal Color, Warm Additional comments: Bilateral lower extremities with chronic venous stasis changes, hypertrophic skin with hyperpigmentation Assessment and Plan - Assessment and Plan (Free Text) Assessment: Patient is a 77 year old Lithuanian speaking female with PMHx of uncontrolled DM, severe dementia, Alzheimer's, COPD, asthma, DVT, HTN, urinary incontinence, and chronic lower extremity lymphedema, admitted for nephrolithiasis and hematuria. CXR, EKG and coag profile performed in advance of any possible urological procedure. Plan: Hematuria- 2/2 to nephrolithiasis - CT Abd/pelvis: There is a 5 x 12 mm stone in the left proximal ureter with moderate hydronephrosis. There is bilateral nephrolithiasis. - UA: positive for blood, LE, WBC, bacteria - Urology consulted, Dr. Melvina Disla - plan for urology intervention today - Urine culture: pending - Insert Law catheter and measure urine output as per Dr. Disla - Continue NS @ 100mls/hr - Flomax 0.4mg PO QD - Zofran 4mg Q4 IV PRN - Rocephin 1g IV QD (Started on 10/03) Hypokalemia - 10 mEq x2 bags - monitor in AM HANK- likely postrenal etiology 2/2 to nephrolithiasis- resolved - Continue NS @ 100mls/hr - Continue to monitor Alzhemier's disease, dementia - Continue home Memantine Hypertension - Continue home Coreg 25mg PO BID and Norvasc Hyperlipidemia - Continue home Lipitor 10mg PO HS - Lipid panel: WNL - Hold home ASA in light of urologic procedure DM-2 - Levemir 8u HS- Will increase to home dose of 16u once patient starts eating - ISS, medium dose - Accuchecks ACHS - HbA1C: 10.9 Asthma - Continue home Albuterol Hx of DVT - Patient's son states that she has an IVC filter Prophylaxis: - SCD's - Protonix 40mg IV QD Patient seen, case reviewed and plan approved by Dr. Hendrix. Amrik Fitzgerald, PGY-1 <Lopez Hendrix - Last Filed: 10/05/18 15:28> Objective - Vital Signs/Intake and Output Vital Signs (last 24 hours): Temp Pulse Resp BP Pulse Ox 98.8 F 59 L 20 151/67 H 95 10/05/18 08:39 10/05/18 10:06 10/05/18 08:39 10/05/18 10:06 10/05/18 08:39 Intake and Output: 10/05/18 10/05/18 06:59 18:59 Intake Total 240 Output Total 1200 Balance -960 - Medications Medications: Current Medications Albuterol Sulfate (Albuterol 0.083% Inhal Karyn (2.5 Mg/3 Ml) Ud) 2.5 mg IH DAILY [facility] Last Admin: 10/05/18 11:43 Dose: 2.5 mg Albuterol Sulfate (Albuterol 0.5% Inhal Karyn (2.5 Mg/0.5 Ml) Ud) 2.5 mg IH TIDRESP PRN PRN Reason: Shortness of Breath Amlodipine Besylate (Norvasc) 5 mg PO DAILY [facility] Last Admin: 10/04/18 11:03 Dose: Not Given Atorvastatin Calcium (Lipitor) 10 mg PO HS [facility] Last Admin: 10/04/18 21:53 Dose: 10 mg Carvedilol (Coreg) 25 mg PO BID [facility] Last Admin: 10/05/18 10:06 Dose: 25 mg Guaifenesin (Robitussin) 100 mg PO Q4H PRN PRN Reason: Cough Sodium Chloride (Sodium Chloride 0.9%) 1,000 mls @ 100 mls/hr IV .Q10H [facility] Last Admin: 10/05/18 10:08 Dose: 100 mls/hr Ceftriaxone Sodium (Rocephin 1 Gram Ivpb) 1 gm in 100 mls @ 100 mls/hr IVPB DAILY [facility]; Protocol Last Admin: 10/05/18 10:07 Dose: 100 mls/hr Potassium Chloride (Potassium Chloride 10 Meq/100 Ml) 10 meq in 100 mls @ 100 mls/hr IVPB Q2H [facility] Stop: 10/05/18 16:14 Last Admin: 10/05/18 13:54 Dose: 100 mls/hr Insulin Detemir (Levemir) 8 unit SC [facility] Last Admin: 10/04/18 21:53 Dose: 8 u Insulin Human Regular (Humulin R Med) 0 units SC [facility]; Protocol Last Admin: 10/05/18 12:26 Dose: Not Given Non-Formulary Medication (Memantine Hcl [Namenda Xr]) 28 mg PO DAILY [facility] Last Admin: 10/05/18 10:08 Dose: Not Given Ondansetron HCl (Zofran Inj) 4 mg IVP Q4H PRN PRN Reason: Nausea/Vomiting Last Admin: 10/03/18 15:46 Dose: 4 mg Pantoprazole Sodium (Protonix Ec Tab) 40 mg PO ACB [facility] Last Admin: 10/05/18 10:07 Dose: 40 mg Tamsulosin HCl (Flomax) 0.4 mg PO DAILY [facility] Last Admin: 10/05/18 10:06 Dose: 0.4 mg - Labs Labs: 10/05/18 07:00 10/05/18 07:00 PT 11.7 SECONDS (9.4-12.5) 10/03/18 12:30 INR 1.04 10/03/18 12:30 APTT 37.7 Seconds (26.9-38.3) 10/03/18 12:30 Attending/Attestation - Attestation I have personally seen and examined this patient.: Yes I have fully participated in the care of the patient.: Yes I have reviewed all pertinent clinical information, including history, physical exam and plan: Yes Notes (Text): 10/05/18 15:27 78 year old female with past medical history of diabetes, dementia, COPD, hypertension and chronic lower extremity lymphedema who was brought in for evaluation of hematuria. UA showed large blood, TNTC RBC and large LE. CT abd/pelvis showed 5 x 12 mm stone in the left proximal ureter with moderate hydronephrosis and bilateral nephrolithiasis. Continue with flomax and antibiotics. Urine cultures is pending. HANK resolved. Urology evaluation was appreciated; plan for possible cystoscopy. Aspirin is on hold. Lasix is on hold. Lopez Hendrix MD Hospitalist.
--- NOTE | 2018-10-05 16:57 | CP.PCM.PCO ---
Physician Communication Note - Physician Communication Note Physician Communication Note: Pt with renal stone, mod hydronephrosis,on Iv antibx,cysto per Urol
[2018-10-05] MEDS ORDERED: Propofol 10 mg/ml Inj (20 ML) ONE (19:30)
[2018-10-05] MEDS ORDERED: Iohexol 240 (50 ml) ONE (19:37)
[2018-10-05] MEDS ORDERED: HYDROmorphone 0.5 mg/0.5 ml ISec IVP PRN (20:00)
[2018-10-05] MEDS ORDERED: Lactated Ringer's 1,000 ML IV SCH (20:00)
[2018-10-05] MEDS: Insulin Detemir 100 units/ml Vial (Levemir) SC SCH (21:19)
[2018-10-05] MEDS ORDERED: Albuterol 0.083% Inhal Sol (2.5 mg/3 mL) UD IH PRN (21:59)
[2018-10-06 06:41] LABS: BASO # 0.03 K/mm3 (0.0-2.0); BASO % 0.4 % (0.0-3.0); EOS # 0.3 (0.0-0.7); EOS % 3.7 % (1.5-5.0); LYMPH # 1.5 (1.2-3.4); LYMPH % 21.9 % (22.0-35.0); MEAN CELL VOLUME 84.5 fl (80.0-105.0); MEAN CORPUSCULAR HEMOGLOBIN 26.8 pg (25.0-35.0); MEAN CORPUSCULAR HGB CONC 31.7 g/dl (31.0-37.0); MEAN PLATELET VOLUME 9.4 fl (7.0-11.0); MONO # 0.8 (0.1-0.6); MONO % 12.1 % (1.0-6.0); RBC 3.73 10^6/uL (3.5-6.1); WHITE BLOOD COUNT 6.8 10^3/uL (4.5-11.0)
[2018-10-06 07:14] LABS: ALB/GLOB RATIO 0.8 (1.1-1.8); ALBUMIN 3.3 g/dL (3.0-4.8); ALT/SGPT 7 U/L (7-56); AST/SGOT 19 U/L (14-36); BLOOD UREA NITROGEN 10 mg/dL (7-21); CALCIUM 8.4 mg/dL (8.4-10.5); GFR NON-AFRICAN AMERICAN > 60
[2018-10-06] MEDS: Albuterol 0.083% Inhal Sol (2.5 mg/3 mL) UD IH SCH ×2 (08:05→19:36)
[2018-10-06] MEDS ORDERED: Potassium Chloride 40 mEq/30 ml LIQ UD PO ONE (08:24)
[2018-10-06] MEDS: Insulin Reg-MEDIUM-Coverage SC SCH ×4 (09:06→21:13)
[2018-10-06] MEDS: MEMANTINE HCL 28 MG PO SCH (09:07)
[2018-10-06] MEDS: cefTRIAXone 1 gm 1 GM/100 ML BAG IVPB SCH (09:10)
[2018-10-06] MEDS: Pantoprazole 40 mg EC Tab PO SCH (09:10)
[2018-10-06] MEDS ORDERED: Insulin Detemir 100 units/ml Vial (Levemir) SC SCH (10:15)
--- NOTE | 2018-10-06 10:58 | RAD ---
Date of service: 10/05/2018 PROCEDURE: Retrograde pyelogram HISTORY: R/O STONES INSERTION STENT COMPARISON: TECHNIQUE: 10.3 sec of fluoro time. Cumulative dose 3.23 mGy. 9 images submitted FINDINGS: Study shows placement of a ureteral stent on the left. IMPRESSION: As above
--- NOTE | 2018-10-06 13:50 | CP.PCM.PCO ---
Physician Communication Note - Physician Communication Note Physician Communication Note: pt.s/p cystoscopy with left ureter pigtail stent,cleared by urology
[2018-10-06 16:28] VITALS: RESP 20; TEMP 99.6; O2SAT 92
--- NOTE | 2018-10-06 16:49 | CP.PCM.PN ---
<Cheko Chávez - Last Filed: 10/06/18 16:41> Subjective - Date & Time of Evaluation Date of Evaluation: 10/06/18 Time of Evaluation: 16:42 - Subjective Subjective: PGY-1 Medicine progress note for Dr. Hednrix Patient was seen and examined at bedside. No acute events overnight. Patient is not complaining of any pain. She denies nausea, vomiting, shortness of breath, chest pain, abdominal/flank/back pain, or dysuria. Objective - Vital Signs/Intake and Output Vital Signs (last 24 hours): Temp Pulse Resp BP Pulse Ox 99.6 F 64 20 167/72 H 92 L 10/06/18 16:27 10/06/18 16:27 10/06/18 16:27 10/06/18 16:27 10/06/18 16:27 Intake and Output: 10/06/18 10/06/18 06:59 18:59 Intake Total 0 Balance 0 - Medications Medications: Current Medications Albuterol Sulfate (Albuterol 0.083% Inhal Karyn (2.5 Mg/3 Ml) Ud) 2.5 mg IH DAILY [facility] Last Admin: 10/06/18 08:05 Dose: 2.5 mg Albuterol Sulfate (Albuterol 0.083% Inhal Karyn (2.5 Mg/3 Ml) Ud) 2.5 mg IH TIDRESP PRN PRN Reason: Shortness of Breath Amlodipine Besylate (Norvasc) 5 mg PO DAILY [facility] Last Admin: 10/06/18 11:57 Dose: 5 mg Atorvastatin Calcium (Lipitor) 10 mg PO HS [facility] Last Admin: 10/05/18 21:17 Dose: 10 mg Carvedilol (Coreg) 25 mg PO BID [facility] Last Admin: 10/06/18 09:05 Dose: 25 mg Guaifenesin (Robitussin) 100 mg PO Q4H PRN PRN Reason: Cough Sodium Chloride (Sodium Chloride 0.9%) 1,000 mls @ 100 mls/hr IV .Q10H [facility] Last Admin: 10/05/18 21:17 Dose: 100 mls/hr Ceftriaxone Sodium (Rocephin 1 Gram Ivpb) 1 gm in 100 mls @ 100 mls/hr IVPB DAILY [facility]; Protocol Last Admin: 10/06/18 09:10 Dose: 100 mls/hr Insulin Detemir (Levemir) 15 unit SC [facility] Insulin Human Regular (Humulin R Med) 0 units SC [facility]; Protocol Last Admin: 10/06/18 11:57 Dose: 1 u Non-Formulary Medication (Memantine Hcl [Namenda Xr]) 28 mg PO DAILY [facility] Last Admin: 10/06/18 09:07 Dose: Not Given Ondansetron HCl (Zofran Inj) 4 mg IVP Q4H PRN PRN Reason: Nausea/Vomiting Last Admin: 10/03/18 15:46 Dose: 4 mg Pantoprazole Sodium (Protonix Ec Tab) 40 mg PO ACB [facility] Last Admin: 10/06/18 09:10 Dose: 40 mg Tamsulosin HCl (Flomax) 0.4 mg PO DAILY [facility] Last Admin: 10/06/18 09:06 Dose: 0.4 mg - Labs Labs: 10/06/18 06:00 10/06/18 06:00 PT 11.7 SECONDS (9.4-12.5) 10/03/18 12:30 INR 1.04 10/03/18 12:30 APTT 37.7 Seconds (26.9-38.3) 10/03/18 12:30 - Additional Findings Additional findings: - Constitutional Appears: Well, Non-toxic, No Acute Distress - Head Exam Head Exam: ATRAUMATIC, NORMAL INSPECTION - Eye Exam Eye Exam: EOMI, Normal appearance - ENT Exam ENT Exam: Mucous Membranes Moist - Respiratory Exam Respiratory Exam: Clear to Ausculation Bilateral. absent: Rales, Rhonchi, Wheezes, Respiratory Distress - Cardiovascular Exam Cardiovascular Exam: REGULAR RHYTHM, +S1, +S2. absent: Gallop, Rubs, Murmur - GI/Abdominal Exam GI & Abdominal Exam: Soft, Hypoactive Bowel Sounds. absent: Distended, Guarding, Tenderness - Extremities Exam Extremities Exam: Normal Inspection. absent: Calf Tenderness - Back Exam Back Exam: absent: CVA tenderness (L), CVA tenderness (R), paraspinal tenderness, tenderness - Neurological Exam Neurological Exam: Alert, Awake, CN II-XII Intact - Psychiatric Exam Psychiatric exam: Normal Affect, Normal Mood - Skin Skin Exam: Dry, Intact, Normal Color, Warm Additional comments: Bilateral lower extremities with chronic venous stasis changes, hypertrophic skin with hyperpigmentation Assessment and Plan - Assessment and Plan (Free Text) Assessment: Patient is a 77 year old Norwegian speaking female with PMHx of uncontrolled DM, severe dementia, Alzheimer's, COPD, asthma, DVT, HTN, urinary incontinence, and chronic lower extremity lymphedema, admitted for nephrolithiasis and hematuria. Patient is s/p cystoscopy with left pigtail stent placement POD #1. Plan: Hematuria- 2/2 to nephrolithiasis - CT Abd/pelvis: There is a 5 x 12 mm stone in the left proximal ureter with moderate hydronephrosis. There is bilateral nephrolithiasis. - Patient is s/p cyctoscopy with left pigtail stent on the left POD #1 - UA: positive for blood, LE, WBC, bacteria - Rocephin 1g IV QD (Started on 10/03) - Urology consulted, Dr. Melvina Disla - Urine culture: grew Klebsiella - Law catheter removed - Continue NS @ 100mls/hr - Patient is not complaining of pain - Flomax 0.4mg PO QD - Zofran 4mg Q4 IV PRN Alzhemier's disease, dementia - Continue home Memantine Hypertension - Continue home Coreg 25mg PO BID and Norvasc 5mg PO QD Hyperlipidemia - Continue home Lipitor 10mg PO HS - Lipid panel: WNL - Hold home ASA DM-2 - Levemir 15u HS - ISS, medium dose - Accuchecks ACHS - HbA1C: 10.9 HANK- resolved - Continue NS @ 100mls/hr - Continue to monitor Asthma - Continue home Albuterol Hx of DVT - Patient's son states that she has an IVC filter Prophylaxis: - SCD's - Protonix 40mg IV QD Disposition: Plan to discharge on 10/07. Patient will get 1 more day of IV antibiotics and will change to PO antibiotics tomorrow. Patient seen and case discussed with attending, Dr. Ruma Chávez, PGY-1 <Lopez Hendrix - Last Filed: 10/06/18 17:47> Objective - Vital Signs/Intake and Output Vital Signs (last 24 hours): Temp Pulse Resp BP Pulse Ox 99.6 F 64 20 167/72 H 92 L 10/06/18 16:27 10/06/18 17:02 10/06/18 16:27 10/06/18 17:02 10/06/18 16:27 Intake and Output: 10/06/18 10/06/18 06:59 18:59 Intake Total 0 Balance 0 - Medications Medications: Current Medications Albuterol Sulfate (Albuterol 0.083% Inhal Karyn (2.5 Mg/3 Ml) Ud) 2.5 mg IH DAILY [facility] Last Admin: 10/06/18 08:05 Dose: 2.5 mg Albuterol Sulfate (Albuterol 0.083% Inhal Karyn (2.5 Mg/3 Ml) Ud) 2.5 mg IH TIDRESP PRN PRN Reason: Shortness of Breath Amlodipine Besylate (Norvasc) 5 mg PO DAILY [facility] Last Admin: 10/06/18 11:57 Dose: 5 mg Atorvastatin Calcium (Lipitor) 10 mg PO HS [facility] Last Admin: 10/05/18 21:17 Dose: 10 mg Carvedilol (Coreg) 25 mg PO BID [facility] Last Admin: 10/06/18 17:02 Dose: 25 mg Guaifenesin (Robitussin) 100 mg PO Q4H PRN PRN Reason: Cough Ceftriaxone Sodium (Rocephin 1 Gram Ivpb) 1 gm in 100 mls @ 100 mls/hr IVPB DAILY [facility]; Protocol Last Admin: 10/06/18 09:10 Dose: 100 mls/hr Insulin Detemir (Levemir) 15 unit SC [facility] Insulin Human Regular (Humulin R Med) 0 units SC [facility]; Protocol Last Admin: 10/06/18 17:06 Dose: 1 u Non-Formulary Medication (Memantine Hcl [Namenda Xr]) 28 mg PO DAILY [facility] Last Admin: 10/06/18 09:07 Dose: Not Given Ondansetron HCl (Zofran Inj) 4 mg IVP Q4H PRN PRN Reason: Nausea/Vomiting Last Admin: 10/03/18 15:46 Dose: 4 mg Pantoprazole Sodium (Protonix Ec Tab) 40 mg PO ACB [facility] Last Admin: 10/06/18 09:10 Dose: 40 mg Tamsulosin HCl (Flomax) 0.4 mg PO DAILY [facility] Last Admin: 10/06/18 09:06 Dose: 0.4 mg - Labs Labs: 10/06/18 06:00 10/06/18 06:00 PT 11.7 SECONDS (9.4-12.5) 10/03/18 12:30 INR 1.04 10/03/18 12:30 APTT 37.7 Seconds (26.9-38.3) 10/03/18 12:30 Attending/Attestation - Attestation I have personally seen and examined this patient.: Yes I have fully participated in the care of the patient.: Yes I have reviewed all pertinent clinical information, including history, physical exam and plan: Yes Notes (Text): 10/06/18 17:45 78 year old female with past medical history of diabetes, dementia, COPD, hypertension and chronic lower extremity lymphedema who was brought in for evaluation of hematuria. UA showed large blood, TNTC RBC and large LE. UCx is growing Klebsiella. Patient is on iv rocephin. CT abd/pelvis showed 5 x 12 mm stone in the left proximal ureter with moderate hydronephrosis and bilateral nephrolithiasis. Continue with flomax. Patient is s/p cystoscopy with stent POD #1. HANK resolved. Will replete and repeat lytes. D/c planning tomorrow; family is not home today. Lopez Hendrix MD Hospitalist.
--- NOTE | 2018-10-07 06:25 | PCM.URO ---
Urology Progress Note - Objective Lab Studies: Reviewed (no gu changes see previous notes s/p stent placement out pt management) Lab Results Last 24 Hours: Laboratory Results - last 24 hr 10/06/18 10/06/18 10/06/18 06:00 06:00 07:27 WBC 6.8 RBC 3.73 Hgb 10.0 L Hct 31.5 L MCV 84.5 MCH 26.8 MCHC 31.7 RDW 14.0 Plt Count 144 MPV 9.4 Neut % (Auto) 61.9 Lymph % (Auto) 21.9 L Garfield % (Auto) 12.1 H Eos % (Auto) 3.7 Baso % (Auto) 0.4 Lymph # (Auto) 1.5 Garfield # (Auto) 0.8 H Eos # (Auto) 0.3 Baso # (Auto) 0.03 Absolute Neuts (auto) 4.20 Sodium 139 Potassium 3.3 L Chloride 101 Carbon Dioxide 34 H Anion Gap 7 L BUN 10 Creatinine 0.9 Est GFR ( Amer) > 60 Est GFR (Non-Af Amer) > 60 POC Glucose (mg/dL) 121 H Random Glucose 121 H Calcium 8.4 Total Bilirubin 0.5 AST 19 ALT 7 Alkaline Phosphatase 91 Total Protein 7.6 Albumin 3.3 Globulin 4.3 Albumin/Globulin Ratio 0.8 L 10/06/18 10/06/18 10/06/18 11:41 15:34 21:06 WBC RBC Hgb Hct MCV MCH MCHC RDW Plt Count MPV Neut % (Auto) Lymph % (Auto) Garfield % (Auto) Eos % (Auto) Baso % (Auto) Lymph # (Auto) Garfield # (Auto) Eos # (Auto) Baso # (Auto) Absolute Neuts (auto) Sodium Potassium Chloride Carbon Dioxide Anion Gap BUN Creatinine Est GFR ( Amer) Est GFR (Non-Af Amer) POC Glucose (mg/dL) 179 H 177 H 236 H Random Glucose Calcium Total Bilirubin AST ALT Alkaline Phosphatase Total Protein Albumin Globulin Albumin/Globulin Ratio Intake & Output: Intake & Output 10/06/18 10/06/18 10/07/18 06:59 18:59 06:59 Intake Total 0 2300 1580 Output Total 1350 Balance 0 2300 230 Intake: IV 1500 Left Forearm 1500 Oral 0 800 1580 Output: Urine 1350 Urethral (Law) 1350 Other: # Bowel Movements 0 0 0 Vital Signs: Vital Signs - 24 hr 10/06/18 10/06/18 10/06/18 08:43 09:05 11:57 Temperature 99.1 F Pulse Rate 63 63 63 Respiratory 18 Rate Blood Pressure 115/65 115/65 116/66 O2 Sat by Pulse 94 L Oximetry 10/06/18 10/06/18 16:27 17:02 Temperature 99.6 F Pulse Rate 64 64 Respiratory 20 Rate Blood Pressure 167/72 H 167/72 H O2 Sat by Pulse 92 L Oximetry
[2018-10-07 07:50] LABS: BASO # 0.02 K/mm3 (0.0-2.0); BASO % 0.4 % (0.0-3.0); EOS # 0.5 (0.0-0.7); EOS % 8.4 % (1.5-5.0); HEMOGLOBIN 10.8 g/dL (12.0-16.0); LYMPH # 1.3 (1.2-3.4); MEAN CELL VOLUME 83.4 fl (80.0-105.0); MEAN CORPUSCULAR HGB CONC 31.2 g/dl (31.0-37.0); MEAN PLATELET VOLUME 9.5 fl (7.0-11.0); MONO # 0.6 (0.1-0.6); MONO % 9.7 % (1.0-6.0); RBC 4.15 10^6/uL (3.5-6.1); WHITE BLOOD COUNT 5.7 10^3/uL (4.5-11.0)
[2018-10-07] MEDS: Albuterol 0.083% Inhal Sol (2.5 mg/3 mL) UD IH SCH (07:55)
[2018-10-07 08:53] LABS: ALB/GLOB RATIO 0.8 (1.1-1.8); ALBUMIN 3.5 g/dL (3.0-4.8); ALT/SGPT < 6 U/L (7-56); AST/SGOT 28 U/L (14-36); BLOOD UREA NITROGEN 10 mg/dL (7-21); CALCIUM 8.8 mg/dL (8.4-10.5); GFR NON-AFRICAN AMERICAN > 60
[2018-10-07] MEDS: MEMANTINE HCL 28 MG PO SCH (09:20)
[2018-10-07] MEDS: Insulin Reg-MEDIUM-Coverage SC SCH ×2 (09:20→11:46)
[2018-10-07] MEDS: Pantoprazole 40 mg EC Tab PO SCH (09:21)
[2018-10-07] MEDS: cefTRIAXone 1 gm 1 GM/100 ML BAG IVPB SCH (09:21)
[2018-10-07 09:22] VITALS: BP 160/75; PULSE 62
--- NOTE | 2018-10-07 13:06 | CP.PCM.DIS ---
<LiaAmrik - Last Filed: 10/07/18 13:36> Provider - Provider Date of Admission: 10/03/18 13:41 Attending physician: Lopez Hendrix MD Primary care physician: Dr. Hendricks Consults: 10/03/18 15:20 Physician Consult Routine Comment: Consulting Provider: John Disla Consulting Physician: John Disla Reason for Consult: Nephrolithiasis 10/03/18 19:26 Case Management Referral Routine Comment: NEEDS ASSISTANCE AT HOME Physician Instructions: Reason For Exam: EVALUATION Reason for Referral: Equity Trader Eval Diabetic Education Referral Routine Comment: Physician Instructions: Reason For Exam: EVALUATION Transition In Care/Readmission Reduction Routine Comment: Physician Instructions: Reason For Exam: EVALUATION 10/03/18 19:39 Nursing Referral for Palliative Care Routine Comment: Physician Instructions: Reason For Exam: EVALUATION Social Work Referral Routine Comment: NEEDS ASSISTANCE AT HOME Physician Instructions: Reason For Exam: EVALUATION Time Spent in preparation of Discharge (in minutes): 40 Hospital Course - Lab Results Lab Results: Micro Results 10/03/18 21:00 Urine,Clean Catch Urine Culture - Final Klebsiella Pneumoniae Ssp Pneu Most Recent Lab Values WBC 5.7 10^3/uL (4.5-11.0) 10/07/18 06:30 RBC 4.15 10^6/uL (3.5-6.1) 10/07/18 06:30 Hgb 10.8 g/dL (12.0-16.0) L 10/07/18 06:30 Hct 34.6 % (36.0-48.0) L 10/07/18 06:30 MCV 83.4 fl (80.0-105.0) 10/07/18 06:30 MCH 26.0 pg (25.0-35.0) 10/07/18 06:30 MCHC 31.2 g/dl (31.0-37.0) 10/07/18 06:30 RDW 14.0 % (11.5-14.5) 10/07/18 06:30 Plt Count 176 10^3/uL (120.0-450.0) 10/07/18 06:30 MPV 9.5 fl (7.0-11.0) 10/07/18 06:30 Neut % (Auto) 59.5 % (50.0-68.0) 10/07/18 06:30 Lymph % (Auto) 22.0 % (22.0-35.0) 10/07/18 06:30 [place] % (Auto) 9.7 % (1.0-6.0) H 10/07/18 06:30 Eos % (Auto) 8.4 % (1.5-5.0) H 10/07/18 06:30 Baso % (Auto) 0.4 % (0.0-3.0) 10/07/18 06:30 Lymph # (Auto) 1.3 (1.2-3.4) 10/07/18 06:30 [place] # (Auto) 0.6 (0.1-0.6) 10/07/18 06:30 Eos # (Auto) 0.5 (0.0-0.7) 10/07/18 06:30 Baso # (Auto) 0.02 K/mm3 (0.0-2.0) 10/07/18 06:30 Absolute Neuts (auto) 3.39 (1.4-6.5) 10/07/18 06:30 PT 11.7 SECONDS (9.4-12.5) 10/03/18 12:30 INR 1.04 10/03/18 12:30 APTT 37.7 Seconds (26.9-38.3) 10/03/18 12:30 Sodium 137 mmol/L (132-148) 10/07/18 06:30 Potassium 3.6 mmol/L (3.6-5.0) 10/07/18 06:30 Chloride 101 mmol/L (98-107) 10/07/18 06:30 Carbon Dioxide 30 mmol/L (21-33) 10/07/18 06:30 Anion Gap 10 (10-20) 10/07/18 06:30 BUN 10 mg/dL (7-21) 10/07/18 06:30 Creatinine 0.8 mg/dl (0.7-1.2) 10/07/18 06:30 Est GFR ( Amer) > 60 10/07/18 06:30 Est GFR (Non-Af Amer) > 60 10/07/18 06:30 POC Glucose (mg/dL) 171 mg/dL (65-110) H 10/07/18 11:33 Random Glucose 176 mg/dL (70-110) H 10/07/18 06:30 Hemoglobin A1c 10.9 % (4.2-6.5) H 10/04/18 06:55 Calcium 8.8 mg/dL (8.4-10.5) 10/07/18 06:30 Magnesium 1.9 mg/dL (1.7-2.2) 10/07/18 06:30 Total Bilirubin 0.6 mg/dL (0.2-1.3) 10/07/18 06:30 AST 28 U/L (14-36) 10/07/18 06:30 ALT < 6 U/L (7-56) L 10/07/18 06:30 Alkaline Phosphatase 97 U/L (38-126) 10/07/18 06:30 Total Protein 8.0 g/dL (5.8-8.3) 10/07/18 06:30 Albumin 3.5 g/dL (3.0-4.8) 10/07/18 06:30 Globulin 4.5 gm/dL 10/07/18 06:30 Albumin/Globulin Ratio 0.8 (1.1-1.8) L 10/07/18 06:30 Triglycerides 66 mg/dL (35-160) 10/04/18 06:55 Cholesterol 127 mg/dL (130-200) L 10/04/18 06:55 LDL Cholesterol Direct 64 mg/dL (0-129) 10/04/18 06:55 HDL Cholesterol 39 mg/dL (29-60) 10/04/18 06:55 Lipase 54 U/L (23-300) 10/03/18 12:30 Urine Color Yellow (YELLOW) 10/03/18 13:08 Urine Appearance Clear (CLEAR) 10/03/18 13:08 Urine pH 7.5 (4.7-8.0) 10/03/18 13:08 Ur Specific Harper 1.010 (1.005-1.035) 10/03/18 13:08 Urine Protein Negative mg/dL (<30 mg/dL) 10/03/18 13:08 Urine Glucose (UA) >=1000 mg/dL (NEGATIVE) 10/03/18 13:08 Urine Ketones Negative mg/dL (NEGATIVE) 10/03/18 13:08 Urine Blood Large (NEGATIVE) H 10/03/18 13:08 Urine Nitrate Negative (NEGATIVE) 10/03/18 13:08 Urine Bilirubin Negative (NEGATIVE) 10/03/18 13:08 Urine Urobilinogen 0.2 E.U./dL (<1 E.U./dL) 10/03/18 13:08 Ur Leukocyte Esterase Moderate Stephen/uL (NEGATIVE) H 10/03/18 13:08 Urine RBC Tntc /hpf (0-2) H 10/03/18 13:08 Urine WBC 1 - 3 /hpf (0-6) 10/03/18 13:08 Ur Epithelial Cells 0 - 2 /hpf (0-5) 10/03/18 13:08 Urine Bacteria Small /hpf (NONE) 10/03/18 13:08 - Hospital Course Hospital Course: Amrik Fitzgerald, PGY-1 Discharge Summary for Hospitalist Service 78 year old [place] speaking female with PMHx of uncontrolled DM, severe dementia, Alzheimer's, COPD, asthma, DVT, HTN, urinary incontinence, and chronic lower extremity lymphedema presenting with blood in urine. Patient's wood heel attacher found blood in her urine while she was changing the patient's diaper. This has never happened to her before. She is currently not complaining of any pain. Over the course of her hospital stay, CT Abd/pelvis showed there is a 5 x 12 mm stone in the left proximal ureter with moderate L sided hydronephrosis. There is bilateral nephrolithiasis. UA was positive for blood, LE, WBC, bacteria. Urine culture grew Klebsiella. Urology was consulted, Dr. Kristine Disla. Patient was treated with IV Rocephin for 5 days. She was also treated with Flomax. Patient is s/p cyctoscopy with left pigtail stent placed on the left side. Patient was provided instructions to follow up with her PMD and Dr. Disla and was provided Vantin for 5 days as well as Flomax. Patient family was instructed to have the patient continue her other home medications. Patient course was reviewed with patient in full details. For full details of hospital course, please refer to EMR. Patient seen, case reviewed and plan approved by Dr. Hendrix. Discharge Exam - Additional Findings Additional findings: - Constitutional Appears: Well, Non-toxic, No Acute Distress - Head Exam Head Exam: ATRAUMATIC, NORMAL INSPECTION - Eye Exam Eye Exam: EOMI, Normal appearance - ENT Exam ENT Exam: Mucous Membranes Moist - Respiratory Exam Respiratory Exam: Clear to Ausculation Bilateral. absent: Rales, Rhonchi, Wheezes, Respiratory Distress - Cardiovascular Exam Cardiovascular Exam: REGULAR RHYTHM, +S1, +S2. absent: Gallop, Rubs, Murmur - GI/Abdominal Exam GI & Abdominal Exam: Soft, Hypoactive Bowel Sounds. absent: Distended, Guarding, Tenderness - Extremities Exam Extremities Exam: Normal Inspection. absent: Calf Tenderness - Back Exam Back Exam: absent: CVA tenderness (L), CVA tenderness (R), paraspinal tenderness, tenderness - Neurological Exam Neurological Exam: Alert, Awake, CN II-XII Intact - Psychiatric Exam Psychiatric exam: Normal Affect, Normal Mood - Skin Skin Exam: Dry, Intact, Normal Color, Warm Additional comments: Bilateral lower extremities with chronic venous stasis changes, hypertrophic skin with hyperpigmentation Discharge Plan - Discharge Medications Prescriptions: Cefpodoxime [Vantin] 200 mg PO BID 5 Days #10 tab Tamsulosin [Flomax] 0.4 mg PO DAILY #14 cap - Follow Up Plan Condition: STABLE Disposition: HOME/ ROUTINE Instructions: Kidney Stones in Adults, Kidney Stones (DC), Kidney Stone Diet Additional Instructions: Please follow-up with your Primary care doctor, Dr. Hendricks, within 7 days of discharge so she may be aware of this hospital stay. Please follow-up with Urologist, Dr Disla. Dr Disla's cell phone # id [phone] and make an appointment once you are discharged to see him at his office. You are being given new medication on discharge: - Flomax 0.4mg once daily - Vantin 200 mg twice a day for 5 days Resume home medications as prescribed by your doctor. Please remember to drink plenty of water throughout the day. If symptoms return please promptly go to nearest emergency department Referrals: Bhargavi Hendricks MD [Family Provider] - John Disla MD [Staff Provider] - <Lopez Hendrix - Last Filed: 10/07/18 14:15> Provider - Provider Date of Admission: 10/03/18 13:41 Attending physician: Lopez Hendrix MD Consults: 10/03/18 15:20 Physician Consult Routine Comment: Consulting Provider: John Disla Consulting Physician: John Disla Reason for Consult: Nephrolithiasis 10/03/18 19:26 Case Management Referral Routine Comment: NEEDS ASSISTANCE AT HOME Physician Instructions: Reason For Exam: EVALUATION Reason for Referral: Equity Trader Eval Diabetic Education Referral Routine Comment: Physician Instructions: Reason For Exam: EVALUATION Transition In Care/Readmission Reduction Routine Comment: Physician Instructions: Reason For Exam: EVALUATION 10/03/18 19:39 Nursing Referral for Palliative Care Routine Comment: Physician Instructions: Reason For Exam: EVALUATION Social Work Referral Routine Comment: NEEDS ASSISTANCE AT HOME Physician Instructions: Reason For Exam: EVALUATION Hospital Course - Lab Results Lab Results: Micro Results 10/03/18 21:00 Urine,Clean Catch Urine Culture - Final Klebsiella Pneumoniae Ssp Pneu Most Recent Lab Values WBC 5.7 10^3/uL (4.5-11.0) 10/07/18 06:30 RBC 4.15 10^6/uL (3.5-6.1) 10/07/18 06:30 Hgb 10.8 g/dL (12.0-16.0) L 10/07/18 06:30 Hct 34.6 % (36.0-48.0) L 10/07/18 06:30 MCV 83.4 fl (80.0-105.0) 10/07/18 06:30 MCH 26.0 pg (25.0-35.0) 10/07/18 06:30 MCHC 31.2 g/dl (31.0-37.0) 10/07/18 06:30 RDW 14.0 % (11.5-14.5) 10/07/18 06:30 Plt Count 176 10^3/uL (120.0-450.0) 10/07/18 06:30 MPV 9.5 fl (7.0-11.0) 10/07/18 06:30 Neut % (Auto) 59.5 % (50.0-68.0) 10/07/18 06:30 Lymph % (Auto) 22.0 % (22.0-35.0) 10/07/18 06:30 [place] % (Auto) 9.7 % (1.0-6.0) H 10/07/18 06:30 Eos % (Auto) 8.4 % (1.5-5.0) H 10/07/18 06:30 Baso % (Auto) 0.4 % (0.0-3.0) 10/07/18 06:30 Lymph # (Auto) 1.3 (1.2-3.4) 10/07/18 06:30 [place] # (Auto) 0.6 (0.1-0.6) 10/07/18 06:30 Eos # (Auto) 0.5 (0.0-0.7) 10/07/18 06:30 Baso # (Auto) 0.02 K/mm3 (0.0-2.0) 10/07/18 06:30 Absolute Neuts (auto) 3.39 (1.4-6.5) 10/07/18 06:30 PT 11.7 SECONDS (9.4-12.5) 10/03/18 12:30 INR 1.04 10/03/18 12:30 APTT 37.7 Seconds (26.9-38.3) 10/03/18 12:30 Sodium 137 mmol/L (132-148) 10/07/18 06:30 Potassium 3.6 mmol/L (3.6-5.0) 10/07/18 06:30 Chloride 101 mmol/L (98-107) 10/07/18 06:30 Carbon Dioxide 30 mmol/L (21-33) 10/07/18 06:30 Anion Gap 10 (10-20) 10/07/18 06:30 BUN 10 mg/dL (7-21) 10/07/18 06:30 Creatinine 0.8 mg/dl (0.7-1.2) 10/07/18 06:30 Est GFR ( Amer) > 60 10/07/18 06:30 Est GFR (Non-Af Amer) > 60 10/07/18 06:30 POC Glucose (mg/dL) 171 mg/dL (65-110) H 10/07/18 11:33 Random Glucose 176 mg/dL (70-110) H 10/07/18 06:30 Hemoglobin A1c 10.9 % (4.2-6.5) H 10/04/18 06:55 Calcium 8.8 mg/dL (8.4-10.5) 10/07/18 06:30 Magnesium 1.9 mg/dL (1.7-2.2) 10/07/18 06:30 Total Bilirubin 0.6 mg/dL (0.2-1.3) 10/07/18 06:30 AST 28 U/L (14-36) 10/07/18 06:30 ALT < 6 U/L (7-56) L 10/07/18 06:30 Alkaline Phosphatase 97 U/L (38-126) 10/07/18 06:30 Total Protein 8.0 g/dL (5.8-8.3) 10/07/18 06:30 Albumin 3.5 g/dL (3.0-4.8) 10/07/18 06:30 Globulin 4.5 gm/dL 10/07/18 06:30 Albumin/Globulin Ratio 0.8 (1.1-1.8) L 10/07/18 06:30 Triglycerides 66 mg/dL (35-160) 10/04/18 06:55 Cholesterol 127 mg/dL (130-200) L 10/04/18 06:55 LDL Cholesterol Direct 64 mg/dL (0-129) 10/04/18 06:55 HDL Cholesterol 39 mg/dL (29-60) 10/04/18 06:55 Lipase 54 U/L (23-300) 10/03/18 12:30 Urine Color Yellow (YELLOW) 10/03/18 13:08 Urine Appearance Clear (CLEAR) 10/03/18 13:08 Urine pH 7.5 (4.7-8.0) 10/03/18 13:08 Ur Specific [place] 1.010 (1.005-1.035) 10/03/18 13:08 Urine Protein Negative mg/dL (<30 mg/dL) 10/03/18 13:08 Urine Glucose (UA) >=1000 mg/dL (NEGATIVE) 10/03/18 13:08 Urine Ketones Negative mg/dL (NEGATIVE) 10/03/18 13:08 Urine Blood Large (NEGATIVE) H 10/03/18 13:08 Urine Nitrate Negative (NEGATIVE) 10/03/18 13:08 Urine Bilirubin Negative (NEGATIVE) 10/03/18 13:08 Urine Urobilinogen 0.2 E.U./dL (<1 E.U./dL) 10/03/18 13:08 Ur Leukocyte Esterase Moderate Stephen/uL (NEGATIVE) H 10/03/18 13:08 Urine RBC Tntc /hpf (0-2) H 10/03/18 13:08 Urine WBC 1 - 3 /hpf (0-6) 10/03/18 13:08 Ur Epithelial Cells 0 - 2 /hpf (0-5) 10/03/18 13:08 Urine Bacteria Small /hpf (NONE) 10/03/18 13:08 Attending/Attestation - Attestation I have personally seen and examined this patient.: Yes I have fully participated in the care of the patient.: Yes I have reviewed all pertinent clinical information, including history, physical exam and plan: Yes Notes (Text): 10/07/18 14:12 78 year old female with past medical history of diabetes, dementia, COPD, hypertension and chronic lower extremity lymphedema who was brought in for evaluation of hematuria. UA showed large blood, TNTC RBC and large LE. UCx was growing Klebsiella. Patient was receiving iv rocephin. CT abd/pelvis showed 5 x 12 mm stone in the left proximal ureter with moderate hydronephrosis and bilateral nephrolithiasis. Patient was on flomax. She was seen by urology and is s/p cystoscopy with stent POD #2. She had AHNK which resolved with IVF. Patient is discharged home to follow up with pmd. Follow up with urology. Continue with po antibiotics. Lopez Hendrix MD Hospitalist.
--- NOTE | 2018-10-30 02:40 | CON ---
DATE: 10/04/2018 UROLOGY CONSULTATION REASON FOR CONSULTATION: Renal colic and infection. HISTORY OF PRESENT ILLNESS: See the chart notes for further details for the history and physical. The patient back for various urinary complaints and actually during the hospital under the care of doctor and she was found to have kidney multiple stones, but she also has one obstructing stone and today urology consulted for sepsis, stones, management, etc., see below our plans. PAST MEDICAL AND SURGICAL HISTORY: As listed on the chart. An 78-year-old lady with multiple medical issues. MEDICATIONS: See the chart. ALLERGIES: LISTED. SOCIAL HISTORY: Essentially unremarkable. I did have a chance to speak to her son and also I use to take care of , Mr. Britt. REVIEW OF SYSTEMS: As listed above, otherwise unremarkable. MEDICATIONS: See the chart. PHYSICAL EXAMINATION: GENERAL: Well-nourished female in no apparent distress. VITAL SIGNS: Within normal limits including the chart. LUNGS: Clear. HEART: S1 and S2. ABDOMEN: Soft and nontender. PELVIC: Deferred , but I mentioned now mild cystocele, but no other real pelvic or rectal masses. LABORATORY DATA: CT scan, labs all noted. Multiple stones are noted. Hydronephrosis noted. DIAGNOSES: Severe renal colic, infection, and stones. We discussed options with the family and the doctor. PLAN: The plan is as follows, I am going to plan for an emergency cystoscopy and stent insertion and then further plans. We will follow. Thank you for the Urology consultation. Darius Disla MD
--- NOTE | 2018-10-30 04:08 | OP ---
PROCEDURE DATE: 10/05/2018 PREOPERATIVE DIAGNOSES: Urolithiasis, severe renal colic, hydronephrosis, stroke, heavy stone burden disease. POSTOPERATIVE DIAGNOSES: Urolithiasis with severe renal colic, hydronephrosis, stroke, heavy stone burden disease. PROCEDURES PERFORMED: Cystoscopy, left retrograde pyelogram, a left double J stent insertion. SURGEON: Darius Disla MD COMPLICATIONS: There were no complications. ESTIMATED BLOOD LOSS: Less than 10 mL. We had double J stent in good location. No dangles, just the stent in good location. INDICATIONS: Please see history and physical and consultation. A very pleasant lady, 78 years old. We discussed the options with the family, son particularly and with the patient. After discussing those options, she has now agreed for the above procedure. UROLOGY FINDINGS: 1. Bladder mucosa is within relatively normal limits. 2. We identified stone and we passed the double-J stent. 3. well placed double-J stent. PLAN: See the addendum for outpatient management. This is a repeat of a dictation from previously performed dictation at that time, actually as I am going through my notes and reviewing my memory, but this is a repeat of a dictation plus medical records is requesting a repeat dictation. DESCRIPTION OF PROCEDURE: After obtaining informed consent, the patient was placed on the table. Routine monitors were placed. Time-out was called to confirmed the patient and positioning. Antibiotic prophylaxis was used. Consent were obtained. We have discussed all the different options including the treatment of the stone now, but really to go we will suggest draining the kidney with stent insertion. Cystoscope in the right urethra entered normal; inside of the urethra, within normal limits. The bladder mucosa identified. Ureteral orifice identified. Retrograde pyelogram performed. We specifically at this point put a wire up to the kidney and inserted a double-J stent. We confirmed our positioning. Name of the procedure is cystoscopy, retrograde pyelogram, and insertion of the double-J stent. All done on the left side. There were no complications. Bladder was emptied and cystoscope removed. The patient tolerated without complication. The plan will be as per the medical team, antibiotics will be used and discharge home as per the medical team and we will plan to follow the patient as an outpatient. Darius Disla MD [facility] # [id number]
--- NOTE | 2018-10-30 09:23 | PN ---
DATE: 10/05/2018 IMMEDIATE POSTOPERATIVE NOTE This is an immediate postoperative note. The patient is doing well in the recovery room, status post cystoscopy and stent insertion. I described the findings to the children, her son in particular; and that the next recommendation is going to be when the patient is stable. The patient will be discharged home, but we will need to make sure that we have a followup. We have to get the stone out and the stents out. The patient has other stones, but we are not going to be addressing all the stones. We are just going to be addressing the obstructing stone. This is described in detail to the son. Darius Disla MD
== END 2018-10-08 00:21 | disposition home or self-care (01) | DRG 661 ==
LOC: ED 10:36 → ERH 13:41 → 3RSO 15:12
PROVIDERS: ADMIT Hospitalist; ATTEND Internal Medicine
PROC: BT1F1ZZ Fluoroscopy of Left Kidney, Ureter and Bladder using Low Osmolar Contrast (ICD-10-PCS; 2018-10-05)
PROC: 0T778DZ Dilation of Left Ureter with Intraluminal Device, Via Natural or Artificial Opening Endoscopic (ICD-10-PCS; principal; 2018-10-05 15:00)
DX: N13.2 Hydronephrosis with renal and ureteral calculous obstruction (principal); I11.0 Hypertensive heart disease with heart failure; I50.9 Heart failure, unspecified; N17.9 Acute kidney failure, unspecified; J44.9 Chronic obstructive pulmonary disease, unspecified; G30.9 Alzheimer's disease, unspecified; F02.80 Dementia in other diseases classified elsewhere, unspecified severity, without behavioral disturbance, psychotic disturbance, mood disturbance, and anxiety; I89.0 Lymphedema, not elsewhere classified; E11.65 Type 2 diabetes mellitus with hyperglycemia; R31.0 Gross hematuria; R50.9 Fever, unspecified; E87.6 Hypokalemia; E78.5 Hyperlipidemia, unspecified; B96.1 Klebsiella pneumoniae [K. pneumoniae] as the cause of diseases classified elsewhere; Z96.653 Presence of artificial knee joint, bilateral; Z79.82 Long term (current) use of aspirin; Z79.4 Long term (current) use of insulin; Z87.891 Personal history of nicotine dependence; Z86.718 Personal history of other venous thrombosis and embolism